=== PATIENT | male | born 1940 | race Caucasian/White ===

== ENCOUNTER 2017-06-01 12:00 | Emergency (ER) | payer MEDICARE ==
[2017-06-01 16:16] VITALS: BP 164/86
--- NOTE | 2017-06-08 12:06 | ED ---
Masood Steve Benjamin, scribed for Reinier Hendricks MD on 06/01/17 at 1554 . HPI Chest Pain - HPI Summary HPI Summary: 76yo male comes from dialysis with chest cramping and low BP. Pt reports feeling lightheaded this morning, and when he was at Dr. Martinez office, he felt chest cramping during dialysis that lasted about an hour. Pt did not experience any CP. Pt is asymptomatic right now. Pt is chronically SOB, but nothing acute. - History of Current Complaint Chief Complaint: EDDizziness Time Seen by Provider: 06/01/17 15:30 Hx Obtained From: Patient Onset/Duration: Started Hours Ago, Resolved Timing: Constant, Lasting Hours - 1 hour Initial Severity: Moderate Current Severity: None Pain Intensity: 0 Pain Scale Used: 0-10 Numeric Chest Pain Location: Mid Sternal Chest Pain Radiates: No Character: Other: - cramping Aggravating Factor(s): Nothing Alleviating Factor(s): Nothing Associated Signs and Symptoms: Positive: Shortness of Breath - chronic, Lightheadedness. Negative: Chest Pain - Additional Pertinent History Primary Care Physician: [id number] - Allergy/Home Medications Allergies/Adverse Reactions: Allergies Allergy/AdvReac Type Severity Reaction Status Date / Time Adhesive Tape Allergy Intermediate Rash And Verified 06/01/17 12:02 Itching PMH/Surg Hx/FS Hx/Imm Hx Endocrine/Hematology History: Reports: Hx Diabetes - TYPE II- ON INSULIN FOR Cardiovascular History: Reports: Hx Angioplasty - R leg angioplasty x2, last , Hx Coronary Artery Disease - 2 STENTS-CMC, Hx Embolism, Hx Hypertension - ON MEDICATION FOR, Hx Peripheral Vascular Disease, Other Cardiovascular Problems/Disorders - HEART CATH Denies: Hx Pacemaker/ICD Respiratory History: Reports: Hx Chronic Obstructive Pulmonary Disease (COPD), 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, Hx Sleep Apnea, Other Respiratory Problems/Disorders - home O2- 3L AT ALL TIMES/PULMONARY FIBROSIS- POST IMFLAMMATORY GI History: Reports: Hx Gastroesophageal Reflux Disease - ON MEDICATION FOR History: Reports: Hx Chronic Renal Failure Musculoskeletal History: Reports: Hx Arthritis, Other Musculoskeletal History - R knee arthroplasty Sensory History: Reports: Hx Cataracts, Hx Contacts or Glasses Denies: Hx Hearing Aid Opthamlomology History: Reports: Hx Cataracts, Hx Contacts or Glasses Neurological History: Reports: Hx Transient Ischemic Attacks (TIA) Psychiatric History: Denies: Hx Panic Disorder - Surgical History Surgery Procedure, Year, and Place: 2008 ARTHROSCOPIC [place] K[place]. [place] [facility] [place] [facility] [place]. [facility] to veins in legs Hx Anesthesia Reactions: No Infectious Disease History: No Infectious Disease History: Denies: Traveled Outside the [place] in Last 30 Days - Family History Known Family History: Positive: Cardiac Disease, Hypertension - Social History Alcohol Use: None Substance Use Type: Reports: None Hx Tobacco Use: Yes Smoking Status (MU): Former Smoker Type: Cigarettes Amount Used/How Often: 2 pks/day X 30 YEARS Have You Smoked in the Last Year: No Review of Systems Constitutional: Negative Eyes: Negative ENT: Negative Positive: Other - chest cramping Positive: Shortness Of Breath - chronic Gastrointestinal: Negative Genitourinary: Negative Musculoskeletal: Negative Skin: Negative Neurological: Other - lightheadedness Psychological: Normal All Other Systems Reviewed And Are Negative: Yes Physical Exam Triage Information Reviewed: Yes Vital Signs On Initial Exam: Initial Vitals Temp Pulse Resp BP Pulse Ox 97.3 F 68 20 136/61 90 06/01/17 12:02 06/01/17 12:02 06/01/17 12:02 06/01/17 12:02 06/01/17 12:02 Vital Signs Reviewed: Yes Appearance: Positive: Well-Appearing, No Pain Distress, Obese Skin: Positive: Warm, Skin Color Reflects Adequate Perfusion, Dry, Other - Preexisting Left anterior antecubital infection with 2x1cm erythema, not tender no drainage and no streaking Head/Face: Positive: Normal Head/Face Inspection Eyes: Positive: EOMI, PACO ENT: Positive: Normal ENT inspection Neck: Positive: Supple, Nontender Respiratory/Lung Sounds: Positive: Clear to Auscultation, Breath Sounds Present Cardiovascular: Positive: RRR, Leg Edema Left - pedal edema, Leg Edema Right - pedal edema Abdomen Description: Positive: Nontender, Soft Bowel Sounds: Positive: Present Musculoskeletal: Positive: Strength/ROM Intact, Edema Left - pedal edema, Edema Right - pedal edema Neurological: Positive: Sensory/Motor Intact, Alert, Oriented to Person Place, Time Psychiatric: Positive: Affect/Mood Appropriate - Tim Coma Scale Coma Scale Total: 15 Diagnostics - Vital Signs Vital Signs Temp Pulse Resp BP Pulse Ox 06/01/17 15:35 75 87 06/01/17 15:33 87/63 06/01/17 14:33 98.0 F 65 16 138/58 95 06/01/17 12:02 97.3 F 68 20 136/61 90 - Laboratory Lab Statement: Any lab studies that have been ordered have been reviewed, and results considered in the medical decision making process. Chest Pain Course/Dx - Course Course Of Treatment: BP noted and advised to follow up with PCP. Allergies noted. Medications reviewed. Consulted Dr. Rodriguez (Sorting Grapple Operator) at 1556 hour. Initial BP taken over the right arm was 87/63 right arm. Repeat BP over the right calf was 164/86. Pt has a pre-existing Left anterior antecubital infection with 2x1cm erythema, not tender no drainage and no streaking. Pt states the infection is much improved than 2 weeks ago. - Diagnoses Provider Diagnoses: Lightheadedness Discharge - Discharge Plan Condition: Stable Disposition: HOME Patient Education Materials: [facility] Referrals: Franky Merino MD [Primary Care Provider] - Feng Rodriguez MD [Medical Doctor] - Additional Instructions: FOLLOW UP WITH YOUR DOCTOR. RETURN TO THE EMERGENCY DEPARTMENT FOR ANY WORSENING OF YOUR CONDITION; FEVER, YOU FEEL ILL, YOU FEEL LIKE PASSING OUT OR QUESTIONS OR CONCERNS. The documentation as recorded by the Masood perez Benjamin accurately reflects the service I personally performed and the decisions made by me, Reinier Hendricks MD.
== END 2017-06-01 16:16 | disposition home or self-care (01) ==
LOC: ED 12:00
DX: R42 Dizziness and giddiness (principal); R06.02 Shortness of breath
CPT/HCPCS: 87040; 99282

== ENCOUNTER 2017-08-23 13:12 | Observation (INO) | payer MEDICARE ==
[2017-08-23] MEDS ORDERED: Albuterol/Ipratropium NEB.SOL* Albuterol 2.5 MG/Ipratropium 0.5 MG 3 ML INH ONE (13:58)
[2017-08-23] MEDS ORDERED: Furosemide IV* 10 MG/ML 10 ML VIAL (100 MG) IV ONE (13:58)
[2017-08-23] MEDS ORDERED: methylPREDNISolone 125 MG* 2 ML VIAL IV ONE (13:58)
--- NOTE | 2017-08-23 14:23 | RAD ---
INDICATION: Short of breath COMPARISON: March 22, 2017 TECHNIQUE: An AP portable view obtained at 1409 hours is submitted. FINDINGS: Bones/Soft Tissues: There are no acute bony findings. There is double lumen right-sided subclavian catheter Cardiomediastinal: The heart is normal in size. Silhouette is difficult to evaluate given the parenchymal disease in right chest. Lungs: Extensive interstitial fibrotic changes in the right hemothorax with mild progression and mild increased volume loss. There is increased alveolar change. There may be a superimposed pneumonitis. The left lung is grossly clear. Pleura: Chronic pleural findings with suspected right-sided effusion with mild worsening. Small left-sided effusion Other: None IMPRESSION: PROGRESSIVE INTERSTITIAL FIBROTIC CHANGES IN THE RIGHT CHEST WITH VOLUME LOSS. POSSIBLE SUPERIMPOSED PNEUMONITIS. BILATERAL PLEURAL EFFUSIONS. SUGGEST FOLLOW-UP
[2017-08-23] MEDS ORDERED: cefTRIAXone(*) 1 GM in NS 0.9% 50 ML* 50 ML IVPB ONE (14:35)
[2017-08-23] MEDS ORDERED: Azithromycin IV(*) 500 MG in NS 0.9% 250 ML* 250 ML IVPB ONE (14:35)
[2017-08-23 14:44] LABS: ABS Basophils 0.1 10^3/ul (0-0.2); ABS Eosinophils 0.3 10^3/ul (0-0.6); ABS Lymphocytes 1.7 10^3/ul (1.0-4.8); ABS Monocytes 0.7 10^3/ul (0-0.8); ABS Neutrophils 6.6 10^3/ul (1.5-7.7); ABS Nucleated RBC 0 10^3/ul; Eosinophil % 3.5 % (0-6); Hematocrit 39 % (42-52); Lymphocyte % 17.8 % (25-47); Mean Corpuscular HGB Conc 33 g/dl (31-36); Mean Corpuscular Hemoglobin 32 pg (27-31); Mean Corpuscular Volume 97 fL (80-94); Mean Platelet Volume 10 um3 (7.4-10.4); Nucleated Red Blood Cells % 0.1; Platelet Count 175 10^3/ul (150-450); Red Blood Count 4.05 10^6/ul (4.0-5.4); Red Cell Distribution Width 15 % (10.5-15); White Blood Count 9.4 10^3/ul (3.5-10.8)
[2017-08-23 15:03] LABS: EGFR Non-African American 20.8 (>60)
[2017-08-23 15:04] LABS: INR 1.19 (0.77-1.02)
[2017-08-23] MEDS ORDERED: Dextrose 50% Syringe 50 ML* 25 GM/50 ML SYRINGE IV PUSH PRN (16:24)
[2017-08-23] MEDS ORDERED: Albuterol 2.5 MG/3 ML NEB.SOL* (0.083%) INH PRN (16:24)
[2017-08-23] MEDS ORDERED: Acetaminophen TAB* 325 MG PO PRN (16:24)
[2017-08-23] MEDS ORDERED: Albuterol/Ipratropium NEB.SOL* Albuterol 2.5 MG/Ipratropium 0.5 MG 3 ML INH SCH (17:00)
--- NOTE | 2017-08-23 18:05 | ED ---
Tiffanie Steve Julia, scribed for Shad Almaraz on 08/23/17 at 1353 . Shortness of Breath - HPI Summary HPI Summary: This patient is a 76 year old M BIBA to [facility] accompanied by his with a chief complaint of worsened SOB since this morning. Patient reports lower extremity edema, and cough at baseline. Patient denies abdominal pain. Patient completed dialysis this morning, and had onset of symptoms at home. Patient is on 6L of at home O2. Patient still urinates. Dr. Rodriguez is his urologist. - History of Current Complaint Chief Complaint: EDShortnessOfBreath Time Seen by Provider: 08/23/17 13:37 Hx Obtained From: Patient Onset/Duration: Lasting Hours Timing: Constant Dyspnea At: Rest Associated Signs & Symptoms: Cough (Nonproductive), Edema - Allergy/Home Medications Allergies/Adverse Reactions: Allergies Allergy/AdvReac Type Severity Reaction Status Date / Time Adhesive Tape Allergy Intermediate Rash And Verified 06/01/17 12:02 Itching Home Medications: Home Medications Aliskiren TAB* [Tekturna TAB*] 300 mg PO DAILY 08/23/17 [History Confirmed 08/23] Fenofibrate(NF) [Tricor(NF)] 145 mg PO DAILY 08/23/17 [History Confirmed ] Gabapentin CAP(*) [Neurontin 100 mg CAP(*)] 100 mg PO BID 08/23/17 [History Confirmed 08/23/17] Insulin GLARGINE(*) [Lantus(*)] 40 units SUBCUT BID 08/23/17 [History Confirmed 08/23/17] Insulin Lispro [Humalog Kwikpen] 5 - 15 unit SUBCUT TID 08/23/17 [History Confirmed 08/23/17] Metoprolol Succinate XL TAB* [Toprol XL TAB*] 100 mg PO BID 08/23/17 [History Confirmed 08/23/17] Torsemide TAB* [Demadex*] 40 mg PO DAILY 08/23/17 [History Confirmed 08/23/17] Vitamin E Mixed [Vitamin E] 1,000 unit PO DAILY 08/23/17 [History Confirmed ] amLODIPine TAB* [Norvasc 5 mg TAB*] 10 mg PO DAILY 08/23/17 [History Confirmed 08/23/17] PMH/Surg Hx/FS Hx/Imm Hx Endocrine/Hematology History: Reports: Hx Diabetes - TYPE II- ON INSULIN FOR Cardiovascular History: Reports: Hx Angioplasty - R leg angioplasty x2, last , Hx Coronary Artery Disease - 2 STENTS-CMC, Hx Embolism, Hx Hypertension - ON MEDICATION FOR, Hx Peripheral Vascular Disease, Other Cardiovascular Problems/Disorders - HEART CATH Denies: Hx Pacemaker/ICD Respiratory History: Reports: Hx Chronic Obstructive Pulmonary Disease (COPD), 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, Hx Sleep Apnea, Other Respiratory Problems/Disorders - home O2- 3L AT ALL TIMES/PULMONARY FIBROSIS- POST IMFLAMMATORY GI History: Reports: Hx Gastroesophageal Reflux Disease - ON MEDICATION FOR History: Reports: Hx Chronic Renal Failure Musculoskeletal History: Reports: Hx Arthritis, Other Musculoskeletal History - R knee arthroplasty Sensory History: Reports: Hx Cataracts, Hx Contacts or Glasses Denies: Hx Hearing Aid Opthamlomology History: Reports: Hx Cataracts, Hx Contacts or Glasses Neurological History: Reports: Hx Transient Ischemic Attacks (TIA) Psychiatric History: Denies: Hx Panic Disorder - Surgical History Surgery Procedure, Year, and Place: 2008 ARTHROSCOPIC RT KNEE VI. 2010 CARDIAC [facility]. [facility]/03[facility]2012 LIVER BIOPSY. [facility] to veins in legs Hx Anesthesia Reactions: No Infectious Disease History: No Infectious Disease History: Denies: Traveled Outside the US in Last 30 Days - Family History Known Family History: Positive: Cardiac Disease, Hypertension - Social History Alcohol Use: None Substance Use Type: Reports: None Hx Tobacco Use: Yes Smoking Status (MU): Former Smoker Type: Cigarettes Amount Used/How Often: 2 pks/day X 30 YEARS Have You Smoked in the Last Year: No Review of Systems Positive: Shortness Of Breath, Cough Positive: Edema All Other Systems Reviewed And Are Negative: Yes Physical Exam - Summary Physical Exam Summary: Appearance: Well appearing, no pain distress, Tessio catheter in R chest Skin: warm, dry, reflects adequate perfusion Head/face: normal Eyes: EOMI, PACO ENT: normal Neck: supple, non-tender Respiratory: rhonchi rt Cardiovascular: RRR, pulses symmetrical Abdomen: non-tender, soft Bowel: present Musculoskeletal: normal, strength/ROM intact Neuro: A&Ox3 Triage Information Reviewed: Yes Vital Signs On Initial Exam: Initial Vitals Temp Pulse Resp BP Pulse Ox 97.5 F 81 23 153/68 92 08/23/17 13:27 08/23/17 13:27 08/23/17 13:27 08/23/17 13:27 08/23/17 13:27 Vital Signs Reviewed: Yes Diagnostics - Vital Signs Vital Signs Temp Pulse Resp BP Pulse Ox 08/23/17 13:27 97.5 F 81 23 153/68 92 - Laboratory Lab Results: Lab Results 08/23/17 08/23/17 08/23/17 Range/Units 14:30 14:30 14:30 WBC 9.4 (3.5-10.8) 10^3/ul RBC 4.05 (4.0-5.4) 10^6/ul Hgb 13.0 L (14.0-18.0) g/dl Hct 39 L (42-52) % MCV 97 H (80-94) fL MCH 32 H (27-31) pg MCHC 33 (31-36) g/dl RDW 15 (10.5-15) % Plt Count 175 (150-450) 10^3/ul MPV 10 (7.4-10.4) um3 Neut % (Auto) 70.0 (38-83) % Lymph % (Auto) 17.8 L (25-47) % Clark % (Auto) 7.8 (1-9) % Eos % (Auto) 3.5 (0-6) % Baso % (Auto) 0.9 (0-2) % Absolute Neuts (auto) 6.6 (1.5-7.7) 10^3/ul Absolute Lymphs (auto) 1.7 (1.0-4.8) 10^3/ul Absolute Monos (auto) 0.7 (0-0.8) 10^3/ul Absolute Eos (auto) 0.3 (0-0.6) 10^3/ul Absolute Basos (auto) 0.1 (0-0.2) 10^3/ul Absolute Nucleated RBC 0 10^3/ul Nucleated RBC % 0.1 INR (Anticoag Therapy) 1.19 H (0.77-1.02) APTT 29.0 (26.0-36.3) seconds Sodium (133-145) mmol/L Potassium (3.5-5.0) mmol/L Chloride (101-111) mmol/L Carbon Dioxide (22-32) mmol/L Anion Gap (2-11) mmol/L BUN (6-24) mg/dL Creatinine (0.67-1.17) mg/dL Est GFR ( Amer) (>60) Est GFR (Non-Af Amer) (>60) BUN/Creatinine Ratio (8-20) Glucose (70-100) mg/dL Lactic Acid (0.5-2.0) mmol/L Calcium (8.6-10.3) mg/dL Total Bilirubin (0.2-1.0) mg/dL AST (13-39) U/L ALT (7-52) U/L Alkaline Phosphatase (34-104) U/L Troponin I (<0.04) ng/mL B-Natriuretic Peptide 609 H ( - 100) pg/mL Total Protein (6.4-8.9) g/dL Albumin (3.2-5.2) g/dL Globulin (2-4) g/dL Albumin/Globulin Ratio (1-3) 08/23/17 08/23/17 Range/Units 14:30 14:30 WBC (3.5-10.8) 10^3/ul RBC (4.0-5.4) 10^6/ul Hgb (14.0-18.0) g/dl Hct (42-52) % MCV (80-94) fL MCH (27-31) pg MCHC (31-36) g/dl RDW (10.5-15) % Plt Count (150-450) 10^3/ul MPV (7.4-10.4) um3 Neut % (Auto) (38-83) % Lymph % (Auto) (25-47) % Clark % (Auto) (1-9) % Eos % (Auto) (0-6) % Baso % (Auto) (0-2) % Absolute Neuts (auto) (1.5-7.7) 10^3/ul Absolute Lymphs (auto) (1.0-4.8) 10^3/ul Absolute Monos (auto) (0-0.8) 10^3/ul Absolute Eos (auto) (0-0.6) 10^3/ul Absolute Basos (auto) (0-0.2) 10^3/ul Absolute Nucleated RBC 10^3/ul Nucleated RBC % INR (Anticoag Therapy) (0.77-1.02) APTT (26.0-36.3) seconds Sodium 134 (133-145) mmol/L Potassium 4.3 (3.5-5.0) mmol/L Chloride 93 L (101-111) mmol/L Carbon Dioxide 35 H (22-32) mmol/L Anion Gap 6 (2-11) mmol/L BUN 23 (6-24) mg/dL Creatinine 2.95 H (0.67-1.17) mg/dL Est GFR ( Amer) 26.8 (>60) Est GFR (Non-Af Amer) 20.8 (>60) BUN/Creatinine Ratio 7.8 L (8-20) Glucose 61 L (70-100) mg/dL Lactic Acid 2.3 H* (0.5-2.0) mmol/L Calcium 9.0 (8.6-10.3) mg/dL Total Bilirubin 0.60 (0.2-1.0) mg/dL AST 57 H (13-39) U/L ALT 18 (7-52) U/L Alkaline Phosphatase 54 (34-104) U/L Troponin I 0.06 H* (<0.04) ng/mL B-Natriuretic Peptide ( - 100) pg/mL Total Protein 7.4 (6.4-8.9) g/dL Albumin 3.8 (3.2-5.2) g/dL Globulin 3.6 (2-4) g/dL Albumin/Globulin Ratio 1.1 (1-3) Result Diagrams: 08/23/17 14:30 08/23/17 14:30 Lab Statement: Any lab studies that have been ordered have been reviewed, and results considered in the medical decision making process. - Radiology CXR Radiology Interpretation Completed By: Radiologist - PROGRESSIVE INTERSTITIAL FIBROTIC CHANGES IN THE RIGHT CHEST WITH VOLUME LOSS. POSSIBLE SUPERIMPOSED PNEUMONITIS. BILATERAL PLEURAL EFFUSIONS. SUGGEST FOLLOW-UP. ED Physician have reviewed this report. - EKG 1420 Cardiac Rate: NL - 77 BPM EKG Rhythm: Sinus Rhythm EKG Interpretation: no actue changes Course/Dx - Course Course Of Treatment: Patient presents with SOB beginning this morning a few hours after completeing dilaysis. Bloodwork is collected revealing a Troponin of 0.06. CXR reveals bilateral pleural effusion. Patient is given Lasix, Solu- Medrol, Prednisone, Imudur, Humalog, Dextrose, Protonix, and [address] Lopez agrees to admit this patient. - Diagnoses Differential Diagnosis/HQI/PQRI: Positive: CHF, COPD Exacerbation, Pneumonia, Pulmonary Edema Provider Diagnoses: PNA (pneumonia), Pulmonary interstitial fibrosis, End stage renal disease - Physician Notifications Discussed Care of Patient With: Eric Lopez Time Discussed With Above Provider: 16:00 Instructed by Provider To: Admit As Inpatient Discharge - Discharge Plan Condition: Good Disposition: ADMITTED TO [facility] The documentation as recorded by the Tiffanie perez Julia accurately reflects the service I personally performed and the decisions made by Sung murray Emmanuel.
[2017-08-23] MEDS ORDERED: Albuterol HFA INHALER* 8 gm MDI INH PRN (18:48)
[2017-08-23] MEDS: Insulin LISPRO* 1 UNITS UNIT SUBCUT SCH (18:58)
[2017-08-23] MEDS ORDERED: NS 0.9% 250 ML* 250 ML IV ONE (19:04)
[2017-08-23] MEDS: Metoprolol Succinate XL TAB* 100 MG PO SCH (20:51)
[2017-08-23] MEDS: Gabapentin CAP(*) 100 MG PO SCH (20:51)
[2017-08-23] MEDS: Insulin GLARGINE(*) 1 UNITS UNIT SUBCUT SCH (20:52)
[2017-08-23] MEDS: Apixaban* 2.5 MG TAB PO SCH (20:55)
[2017-08-23] MEDS ORDERED: Atorvastatin* 80 MG TAB PO SCH (21:00)
[2017-08-23] MEDS ORDERED: Tamsulosin CAP* 0.4 MG PO SCH (21:00)
[2017-08-23] MEDS: Mometasone/Formoter 200/5 MDI INH SCH (21:00)
--- NOTE | 2017-08-23 21:01 | HP ---
CC: Dr. Merino; Dr. Greer; Dr. Rodriguez * HISTORY AND PHYSICAL: DATE OF ADMISSION: 08/23/17 PRIMARY CARE PROVIDER: Dr. Merino. ATTENDING PHYSICIAN WHILE IN THE HOSPITAL: Joseph Lopez MD * (report dictated by Keo Lindsey NP). CONSULTING LEAD NEURODIAGNOSTIC TECHNOLOGIST: Dr. Rodriguez. CONSULTING INSPECTOR RAW QUARTZ: Dr. Greer. CHIEF COMPLAINT: Shortness of breath. HISTORY OF PRESENT ILLNESS: Mr. Manriquez is a 76-year-old male patient. He carries a history of end-stage renal disease, hypertension, diabetes, hyperlipidemia, TIA, COPD, carotid artery occlusion, status post carotid artery endarterectomy, history of CAD, MO, COPD, on chronic 4 L nasal cannula, question of pulmonary fibrosis, and PAULINA. He comes into the ED today stating that today after dialysis, he felt more short of breath from his baseline and he was concerned and came in to the hospital. In interviewing him, he does state that he has been congested. He says he has been congested for the last month to two months, but it has been worse over the last several days. He has also been coughing and I asked him how long he has been coughing for and he says this has been going on for years, but the does state that his cough is worse and more frequent, it has been nonproductive. He has not had any fevers, but he does admit to subjectively having chills, not being able to get warm and just not feeling well. There were episodes of diarrhea yesterday, none today. No abdominal pain. No vomiting. He denied any dysuria. He states it is typical for him. He can walk from his bathroom to his living room and that makes him short of breath and he typically needs to sit down, catch his breath in the toilet and then go back and by the time he gets back to his couch, he is short of breath again. He has limited exercise capacity due to his breathing. He states that that he has not had any chest pain. No fevers are documented. He was concerned because his breathing was worse. He says his weights have not really fluctuated or changed much according to the patient. He says he has not had any worsening swelling. No abdominal pain or chest pain. He came into the ED today. There was concern because when he came in, he was again noted to be short of breath. He is requiring a little bit increase of his oxygen from 4 L to 5 L. His BNP was mildly elevated and his lactic was mildly elevated at 2.3 and also his troponin was elevated as well. Because of these findings, we were asked to evaluate for admission. PAST MEDICAL HISTORY: Significant for: 1. End-stage renal disease, on hemodialysis. 2. Hypertension. 3. Diabetes. 4. Hyperlipidemia. 5. History of TIA. 6. Carotid occlusion, status post carotid endarterectomy. 7. History of CAD. 8. MO. 9. COPD. 10. PAULINA, noncompliant with his CPAP. PAST SURGICAL HISTORY: 1. He has had heart catheterization. 2. Carotid endarterectomy. 3. AV fistula placement. HOME MEDICATIONS: According to the list provided includes: 1. Lispro sliding scale subcu t.i.d. 2. Vitamin E 1000 units p.o. daily. 3. Demadex 40 mg daily. 4. Flomax 0.4 mg at bedtime. 5. Tekturna 300 mg daily. 6. Protonix 40 mg daily. 7. Nitro 0.4 mg sublingual every 5 minutes as needed. 8. Toprol-XL 100 mg p.o. b.i.d. 9. Imdur 60 mg daily. 10. Lantus 40 units subcu b.i.d. 11. Gabapentin 100 mg p.o. b.i.d. 12. TriCor 145 mg daily. 13. Apixaban 2.5 mg p.o. b.i.d. 14. Amlodipine 10 mg daily. 15. Lipitor 80 mg at bedtime. 16. Aspirin 81 mg daily. ALLERGIES TO MEDICATIONS: Include none, but he is allergic to TAPE. FAMILY HISTORY: Mother had a history of cerebellar aneurysm. Father had esophageal cancer. SOCIAL HISTORY: He is a former smoker, quit over 30 years ago. He does not drink alcohol. Surrogate decision maker is his . REVIEW OF SYSTEMS: There is again no documented fever. He really did not admit to any significant weight change. He denied having any double vision. There is no ear discharge. He denies having any rhinorrhea, does admit to congestion, but no sore throat. No thyroid enlargement. Denies having any chest pain. There has been orthopnea, no nocturnal dyspnea. No abdominal pain. No nausea. No vomiting. No dysuria. No frequency. He denied having any seizure. No loss of consciousness. No pruritus and no skin ulcerations. Review of 14 systems completed, all others negative. PHYSICAL EXAMINATION GENERAL: At this time, Mr. Manriquez is a 76-year-old male patient. He is sitting in the ED stretcher. He does not appear to be in any acute distress. He is well nourished, well developed. VITAL SIGNS: Blood pressure 144/64, pulse 75, respirations were 16, his O2 sat is actually 100% on 4 L, temperature is 97.5. HEENT: Head: Atraumatic. Eyes: EOMs intact. Sclerae anicteric and not pale. Throat: Oral mucosa appears to be moist. No oropharyngeal erythema. NECK: Supple. LUNGS: Diminished in the right side. He had crackles on the right lower side. He had equal diaphragmatic expansion. HEART: Sounds S1, S2. Regular rate and rhythm. ABDOMEN: Soft, flat, nontender. Bowel sounds present. EXTREMITIES: Pulses were 2+ throughout. Moving all 4 extremities with 5/5 strength. NEUROLOGIC: The patient is awake, alert and oriented x3. No gross focal deficits. SKIN: Intact. DIAGNOSTIC STUDIES/LAB DATA: WBC 9.4, RBC of 4.05, hemoglobin 13.0, hematocrit 39, platelet count of 175. INR 1.19, PTT of 29. Sodium 134, potassium of 4.3, chloride of 93, bicarb 35, BUN 23, creatinine 2.95, glucose 61 , repeat was 130, lactic 2.3, calcium 9. Total bili 0.6, AST 57, ALT 18, alk phos 54. Troponin was 0.06. In looking back, he runs up 0.03, 0.05 and he has had NSTEMI, in a couple of years ago, and his trops at that point time were as high as 10. BNP of 609. Albumin of 3.8. He had a chest x-ray obtained today, impression: Progressive interstitial fibrotic changes in the right chest with volume loss, possible superimposed pneumonitis, bilateral pleural effusions, suggest followup. EKG shows a normal sinus rhythm, rate of 77. No ST elevations or T-wave inversions were noted. Old medical records were reviewed. ASSESSMENT AND PLAN: Mr. Manriquez is a 76-year-old male patient with complex medical history coming into the ED today with complaints of increasing shortness of breath, cough, not feeling well. We were asked to evaluate for admission. He will be admitted under inpatient status for: 1. Shortness of breath. I am concerned that he may be having chronic obstructive pulmonary disease exacerbation. He did have little bit of again crackles in that right base, diminished on the right side, it looks a little worse. He does not have a fever here and there is no white count, so I am holding on antibiotics. If he gets a fever, I will get him on antibiotics, but we need to get a flu swab, Dulera steroids, DuoNebs in addition to this, albuterol. I do have a call to Dr. Greer to help us and we will continue to follow. 2. End-stage renal disease. Continue dialysis. I touched base with Dr. Rodriguez. 3. Hypertension. Continue meds as prescribed. 4. Diabetes. Continue with lispro sliding scale. 5. Hyperlipidemia. Continue statin therapy. 6. History of transient ischemic attack. Continue with secondary prevention. He is on Eliquis. 7. History of carotid artery occlusion. Continue meds as prescribed and secondary prevention. 8. History of myocardial infarction and coronary artery disease. He is on aspirin, statin, nitrates, beta-darrel continue. 9. Obstructive sleep apnea. He is not compliant with the mask. 10. DVT prophylaxis. Continue Eliquis. 11. Code status. He is a full code. 12. Fluids, electrolytes, and nutrition. He can have a consistent carb diet. TIME SPENT: Time spent on admission 60 minutes, greater than half of the time was spent [id number] with the patient obtaining my history and physical, other half of the time spent going over the plan of care with the patient and implementing plan of care. I did discuss the plan of care with my attending, Dr. Lopez, he is in agreement. KEO LINDSEY, LOPEZ [id number]/[facility] #: [id number] GUILLERMINA
[2017-08-23] MEDS ORDERED: Heparin VIAL(*) 5000 UNITS/ML VIAL (FIVE THOUSAND) SUBCUT SCH (22:00)
[2017-08-23] MEDS ORDERED: guaiFENesin/CODIEN 100MG-10MG* 5 ML UDC PO PRN (22:42)
[2017-08-24] MEDS ORDERED: NS 0.9% 1000 ML* 1,000 ML IV ONE (01:00)
[2017-08-24 04:41] LABS: ABS Basophils 0.1 10^3/ul (0-0.2); ABS Eosinophils 0 10^3/ul (0-0.6); ABS Monocytes 0.4 10^3/ul (0-0.8); ABS Neutrophils 6.2 10^3/ul (1.5-7.7); ABS Nucleated RBC 0 10^3/ul; Eosinophil % 0 % (0-6); Hematocrit 37 % (42-52); Hemoglobin 12.3 g/dl (14.0-18.0); Lymphocyte % 13.6 % (25-47); Mean Corpuscular HGB Conc 33 g/dl (31-36); Mean Corpuscular Hemoglobin 32 pg (27-31); Mean Corpuscular Volume 96 fL (80-94); Mean Platelet Volume 10 um3 (7.4-10.4); Nucleated Red Blood Cells % 0; Platelet Count 159 10^3/ul (150-450); Red Blood Count 3.85 10^6/ul (4.0-5.4); Red Cell Distribution Width 15 % (10.5-15); White Blood Count 7.7 10^3/ul (3.5-10.8)
[2017-08-24 04:55] LABS: EGFR Non-African American 15.3 (>60)
[2017-08-24] MEDS: Mometasone/Formoter 200/5 MDI INH SCH ×2 (08:01→08:04)
[2017-08-24] MEDS: Metoprolol Succinate XL TAB* 100 MG PO SCH (08:29)
[2017-08-24] MEDS: Insulin LISPRO* 1 UNITS UNIT SUBCUT SCH ×2 (08:30→12:44)
[2017-08-24] MEDS: Gabapentin CAP(*) 100 MG PO SCH (08:30)
[2017-08-24] MEDS: Apixaban* 2.5 MG TAB PO SCH (08:30)
[2017-08-24] MEDS: Insulin GLARGINE(*) 1 UNITS UNIT SUBCUT SCH (08:31)
[2017-08-24] MEDS ORDERED: Aliskiren TAB* 300 MG PO SCH (09:00)
[2017-08-24] MEDS ORDERED: predniSONE TAB* 20 MG PO SCH (09:00)
[2017-08-24] MEDS ORDERED: Fenofibrate(NF) 145 MG TAB PO SCH (09:00)
[2017-08-24] MEDS ORDERED: amLODIPine TAB* 5 MG PO SCH (09:00)
[2017-08-24] MEDS ORDERED: Aspirin EC Low Dose* 81 MG TAB.EC PO SCH (09:00)
[2017-08-24] MEDS ORDERED: Isosorbide Mononitrate ER TAB* 60 MG PO SCH (09:00)
[2017-08-24] MEDS ORDERED: Omeprazole CAP* 20 MG PO SCH (09:00)
[2017-08-24 12:08] VITALS: BP 132/60
--- NOTE | 2017-08-25 12:12 | DS ---
CC: Dr. Merino; Dr. Rodriguez DISCHARGE SUMMARY: DATE OF ADMISSION: DATE OF DISCHARGE: 08/24/17 HISTORY OF PRESENT ILLNESS/HOSPITAL COURSE: This 76-year-old man presented with shortness of breath during his dialysis session. He said he had had some kind of congestion for 2 months, but had been w orse over the last few days. He has had a dry cough. He has dyspnea on exertion. He has a long his tory of COPD and is on home oxygen 4 to 5 L at home. As the shortness of breath started while he was in the middle of his dialysis sessions, seems very un likely that this is related to fluid overload. He has had problems for a while. He may have had a v iral infection or simply an exacerbation of his COPD. He was given intravenous and oral steroids during this hospital stay. He did much better overnight, still had some dry cough and is not quite as the baseline, but seems we ll on the road due to recovery. FINAL DIAGNOSES: 1. Chronic obstructive pulmonary disease exacerbation. 2. End-stage renal disease. 3. Obstructive sleep apnea. 4. Diabetes. 5. Hypertension. 6. Coronary artery disease. DISCHARGE MEDICATIONS: 1. Prednisone 10 mg 4 tablets on 10/23 and taper by 1 a day. 2. Atorvastatin 80 mg h.s. 3. Aspirin 81 mg daily. 4. Pantoprazole 40 mg daily. 5. Tamsulosin 0.4 mg h.s. 6. Nitroglycerin tablet 0.4 mg every 5 minutes p.r.n. 7. Apixaban 2.5 mg b.i.d. 8. Isosorbide mononitrate 60 mg daily. 9. Vitamin E 1000 units daily. 10. Torsemide 40 mg daily. 11. Aliskiren 300 mg daily. 12. Metoprolol succinate 100 mg b.i.d. 13. Glargine insulin 40 units twice daily. 14. Gabapentin 100 mg twice daily. 15. Fenofibrate 145 mg daily. 16. Amlodipine 10 mg daily. 17. Lispro by sliding scale. [id number]/[facility] #: [id number]
== END 2017-08-24 16:00 | disposition home or self-care (01) ==
LOC: ED 13:12 → MEDTELE 16:01 → INTOOBSV 16:01 → MEDTELE 17:50
PROVIDERS: ADMIT Internal Medicine; ATTEND Internal Medicine
DX: R06.02 Shortness of breath (principal); I12.0 Hypertensive chronic kidney disease with stage 5 chronic kidney disease or end stage renal disease; E11.22 Type 2 diabetes mellitus with diabetic chronic kidney disease; N18.6 End stage renal disease; Z99.2 Dependence on renal dialysis; E78.5 Hyperlipidemia, unspecified; I65.29 Occlusion and stenosis of unspecified carotid artery; I25.10 Atherosclerotic heart disease of native coronary artery without angina pectoris; I25.2 Old myocardial infarction; G47.33 Obstructive sleep apnea (adult) (pediatric); J44.9 Chronic obstructive pulmonary disease, unspecified; Z79.01 Long term (current) use of anticoagulants; Z79.899 Other long term (current) drug therapy; Z87.891 Personal history of nicotine dependence; Z79.4 Long term (current) use of insulin; R94.31 Abnormal electrocardiogram [ECG] [EKG]
CPT/HCPCS: 36415; 71045; 80048; 80053; 83605; 83880; 84484; 85025; 85610; 85730; 87040; 87205; 87502; 87899; 93005; 94640; 96365; 96367; 96375; 99284; A9270-GY; G0378; J0456; J0696; J1940; J2930; J7512

== ENCOUNTER → 2017-10-11 12:09 | Emergency (ER) | payer MEDICARE ==
[~2017-10-11 12:09] MED LIST: Ciprofloxacin TAB* 250 MG PO ONE
--- OUTSIDE RECORDS SUMMARY | 2017-10-11 13:16 | XMS REPORT ---
:1940 External Reference #:[id number] Author Organization [facility] Address [address] [address] Phone [phone] Care Team Providers Name Role Phone Franky Merino MD Primary Care Physician Unavailable Payers Type Date Identification Numbers Payment Provider Subscriber Medicare Primary Policy Number: [id number] Medicare Hiram Manriquez JR PayID: [id number] [address] [place] [address] [facility] Policy Number: [id number] [facility] Hiram Manriquez JR PayID: [id number] [address] [place] [address] Problems Date Description Provider Status Onset: 04/08/2013 Coronary arteriosclerosis Bimal Garcia M.D., Active CHELY, SAMIA Onset: 05/06/2014 Coronary atherosclerosis Bimal Garcia M.D., Active FACDelia, SAMIA Onset: 06/18/2014 Atrial fibrillation Bimal Garcia M.D., Active CHELY, SAMIA Onset: 07/14/2014 Dyspnea January Greer MD Active Onset: 07/14/2014 Disorder of lung January Greer MD Active Onset: 07/14/2014 Morbid obesity January Greer MD Active Onset: 07/14/2014 Chronic obstructive lung disease January Greer MD Active Onset: 07/14/2014 Dyssomnia January Greer MD Active Onset: 09/17/2014 Obstructive sleep apnea syndrome January Greer MD Active Onset: 09/17/2014 Chronic respiratory failure January Greer MD Active Onset: 05/05/2015 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 Active coronary artery w/o ang pctrs Onset: 09/07/2015 Encounter for planned Raffi Elizabeth M.D., [facility], Active postprocedural wound closure FSCAI Onset: 09/28/2015 Obesity January Greer MD Active Onset: 09/28/2015 Emphysema, unspecified January Greer MD Active Family History Date Family Member(s) Problem(s) Comments Father non contributory Mother non contributory Social History Type Date Description Comments Lives With ETOH Use Denies alcohol use Smoking Patient is a former smoker quit about 25 years ago Recreational Drug Use Never Used Drugs Daily Caffeine decafe coffee 2 a week Daily Caffeine Negative For Does Not Consume Caffeine Exercise Type/Frequency Does not exercise Allergies, Adverse Reactions, Alerts Date Description Reaction Status Severity Comments 04/04/2013 NKDA active 05/20/2015 Bandades itching active adhesive - per patient Medications Medication Date Status Form Strength Qnty SIG Indications Ordering Provider Isosorbide 09/13/ Active Tablets ER 60mg 90tabs 1 by mouth Z48.1 Bimal Mononitrate ER 2015 24HR every day Jameel Garcia M.D., [facility], FASLEAH Torsemide 05/06/ Active Tablets 20mg 2 by mouth Unknown 2014 every day Tamsulosin HCL 05/06/ Active Capsules 0.4mg 1 by mouth Unknown 2014 every day Gabapentin 04/02/ Active Capsules 100mg 1 by mouth Unknown 2014 twice a day Metoprolol / Active Tablets ER 100mg 180tab 1 by mouth Bimal Succinate ER 0000 24HR s twice a day Jameel Garcia M.D., [facility], FASLEAH Tekturna / Active Tablets 300mg 30tabs 1 po qd Unknown 0000 Lantus Insulin / Active Solution 40Units 6units 40-45units Unknown 0000 bid as directed Atorvastatin / Active Tablets 80mg 90tabs 1 po qhs Unknown 0000 Pantoprazole / Active Tablets DR 40mg 30tabs 1 po qd Unknown Sodium 0000 Fenofibrate / Active Tablets 145mg 90tabs 1 po qd Unknown 0000 Amlodipine / Active Tablets 10mg 90tabs 1 po qd PM Unknown Besylate 0000 Humalog / Active Solution 100Unit/ML 6units 5-10-15 Unknown Kwikpen 0000 units each meal t.i.d on sliding scale Nitrostat / Active Tablets 0.4mg 25tabs one sl Unknown 0000 Sub q5min up to 3 doses prn Oxygen / Active Misc 3L 1units 24/7 Unknown 0000 Aspirin 00/ Active Tablets DR 81mg 90tabs 1 tablet Unknown 0000 daily. Eliquis / Active Tablets 2.5mg 1 tablet by Unknown 0000 mouth twice a day. Vitamin E / Active Capsules 1000Units qd Unknown 0000 Clopidogrel / Active 1 tab by Unknown Bisulfate 0000 mouth every day for 30 days after august 31 surgery . Bevespi 09/19/ Hx Aerosol 9-4.8mcg/A 32.1gm 1 puff J43.9 January Aerosphere 2017 - ct twice daily Zoey, 03/21/ (sample) 2016 Brilinta 09/12/ Hx Tablets 60mg 60tabs 1 by mouth Bimal 2016 - twice a day Jameel 03/21/ Jose 2017 Martina, [facility], FASLEAH Gabapentin 04/05/ Hx Capsules 100mg 90caps 1 by mouth Bimal 2015 - once times Jorgensen 04/06/ a day Jose 2016 Martina, [facility], FASLEAH Isosorbide 09/06/ Hx Tablets ER 30mg 30tabs 1 by mouth Z48.1 Raffi Mononitrate ER 2016 - 24HR every day Glenn 09/13/ Martina, 2016 CHELY, [facility] Prednisone 05/07/ Hx Tablets 10mg 42tabs 30mg daily Melida.Rita Sin 2014 - for 1 week, Zoey, 09/12/ 20mg daily 2016 for 1 week, 10 mg daily for 1 week Prednisone 02/04/ Hx Tablets 20mg 7tabs 20mg daily Maxx44.9 January 2015 - Zoey, 05/07/ 2015 Robitussin 02/04/ Hx Liquid 2-15mg/5ML 2units 5 cc by Maxx44.9 January Cough & 2015 - mouth every Zoey, Cold 04/05/ 6 hours as MD Long-Acting 2016 needed Ofev 02/04/ Hx Capsules 100mg 60caps 1 tab by J98.4 January 2015 - mouth twice Zoey, 09/05/ a day 2015 Tudorza 07/14/ Hx Aerosol 400mcg/Act 2units 1 puff puff J44.9 January Lawrence 2014 - twice a day Zoey, 09/05/ 2015 Metoprolol / Hx Tablets ER 25mg 180tab 2 tabs by Bimal Succinate ER 0000 - 24HR s mouth every Jorgensen day PM Alfa Garcia M.D., FACDelia, FASLEAH Clopidogrel / Hx Tablets 75mg 30tabs 1 po qd Unknown 0000 - 2012 Lovaza / Hx Capsules 1gm 360cap 2 po bid Unknown 0000 - s 2013 Warfarin / Hx 4mg 4mg Unknown 0000 - alternated 6 mg 2015 as directed PCP Enoxaparin / Hx Solution 120mg/0.8M 10unit inject Unknown Sodium 0000 - L s under the twice 2014 daily Magnesium / Hx Tablets 400mg 2 tablet po Unknown Oxide 0000 - daily 2015 Brilinta / Hx Tablets 90mg 60tabs 1 tab by Bimal 0000 - mouth twice Jorgensen 09/12/ day Blanca Garcia M.D., CHELY, SAMIA Medications Administered in Office Medication Date Status Form Strength Qnty SIG Indications Ordering Provider Inj, Administered Injection Bea Castillo M.D. 0.1 MG Inj, Administered Injection Mauri Johnson 014 PA 0.1 MG Technetium TC Administered Injection Gamal Zhang 99M 014 Martina Angel Tetrofosmin, Per Unit Dose Up To 40 Millicuries Technetium TC Administered Injection Bea 99M Marium Page M.D. Per Unit Dose Up To 40 Millicuries Immunizations CPT Code Status Date Vaccine Lot # [id number] Given 09/28/2015 Fluvirin Im 3Yrs And Older Vital Signs Date Vital Result Comment 09/20/2017 Height 65 inches 5'5" Weight 261.38 lb Heart Rate 70 /min BP Systolic Sitting 140 mmHg Rght lower arm BP Diastolic Sitting 76 mmHg Rght lower arm Respiratory Rate 20 /min O2 % BldC Oximetry 83 % BMI (Body Mass Index) 43.5 kg/m2 08/28/2017 Heart Rate 70 /min BP Systolic Sitting 110 mmHg R forearm reg cuff BP Diastolic Sitting 60 mmHg R forearm reg cuff Respiratory Rate 17 /min Ejection Fraction 45-50% date 07/31/17 echo 06/21/2017 Height 65 inches 5'5" Weight 257.50 lb no shoes Heart Rate 72 /min BP Systolic Sitting 98 mmHg Rue wrist BP Diastolic Sitting 52 mmHg Rue wrist Respiratory Rate 20 /min BMI (Body Mass Index) 42.8 kg/m2 03/22/2017 Height 65 inches 5'5" Weight 269.00 lb Heart Rate 80 /min BP Systolic Sitting 108 mmHg BP Diastolic Sitting 60 mmHg Respiratory Rate 14 /min O2 % BldC Oximetry 93 % BMI (Body Mass Index) 44.8 kg/m2 10/31/2016 Height 65 inches 5'5" Weight 265.00 lb with shoes Heart Rate 88 /min BP Systolic Sitting 128 mmHg Lue lrg cuff BP Diastolic Sitting 68 mmHg Lue lrg cuff BP Systolic Standing 120 mmHg Lue lrg cuff BP Diastolic Standing 60 mmHg Lue lrg cuff Respiratory Rate 20 /min BMI (Body Mass Index) 44.1 kg/m2 Ejection Fraction 45-50% 08/31/2015-echo 09/19/2016 Height 65 inches 5'5" Weight 267.00 lb per pt Heart Rate 75 /min BP Systolic Sitting 132 mmHg BP Diastolic Sitting 74 mmHg O2 % BldC Oximetry 92 % on 3 lpm via n/c BMI (Body Mass Index) 44.4 kg/m2 04/06/2016 Height 65 inches 5'5" Weight 255.00 lb Heart Rate 68 /min BP Systolic Sitting 126 mmHg Lue large cuff BP Diastolic Sitting 60 mmHg Lue large cuff BP Systolic Standing 126 mmHg " BP Diastolic Standing 56 mmHg " Respiratory Rate 18 /min BMI (Body Mass Index) 42.4 kg/m2 10/21/2015 Height 65 inches 5'5" Weight 263.50 lb with shoes Heart Rate 60 /min BP Systolic Sitting 102 mmHg Ra lrg cuff BP Diastolic Sitting 46 mmHg Ra lrg cuff BP Systolic Standing 92 mmHg Ra lrg cuff BP Diastolic Standing 42 mmHg Ra lrg cuff Respiratory Rate 22 /min BMI (Body Mass Index) 43.8 kg/m2 Ejection Fraction 45-55% 09/28/2015 Height 65 inches 5'5" Weight 263.00 lb Heart Rate 75 /min BP Systolic Sitting 144 mmHg BP Diastolic Sitting 88 mmHg Respiratory Rate 22 /min O2 % BldC Oximetry 94 % on 3lpm oxygen via n/c BMI (Body Mass Index) 43.8 kg/m2 09/14/2015 Height 65 inches 5'5" Weight 263.00 lb with shoes Heart Rate 82 /min BP Systolic Sitting 148 mmHg Ra lrg cuff BP Diastolic Sitting 72 mmHg Ra lrg cuff BP Systolic Standing 138 mmHg BP Diastolic Standing 70 mmHg Respiratory Rate 22 /min BMI (Body Mass Index) 43.8 kg/m2 Ejection Fraction 45-50% 08/31/15 09/07/2015 Height 65 inches 5'5" Weight 257.00 lb Heart Rate 74 /min 80 BP Systolic Sitting 152 mmHg left arm, large cuff BP Diastolic Sitting 74 mmHg left arm, large cuff BP Systolic Standing 140 mmHg left arm, large cuff BP Diastolic Standing 70 mmHg left arm, large cuff Respiratory Rate 20 /min BMI (Body Mass Index) 42.8 kg/m2 Ejection Fraction 45-50% 08/31/15 05/20/2015 Height 65 inches 5'5" Weight 272.00 lb with shoes BP Systolic Sitting 140 mmHg Ra lg cuff BP Diastolic Sitting 76 mmHg Ra lg cuff BP Systolic Standing 134 mmHg Ra lg cuff BP Diastolic Standing 70 mmHg Ra lg cuff BMI (Body Mass Index) 45.3 kg/m2 Ejection Fraction 55-60% date 05/05/15 ECHO 05/07/2015 Heart Rate 72 /min BP Systolic Sitting 144 mmHg BP Diastolic Sitting 86 mmHg Respiratory Rate 20 /min O2 % BldC Oximetry 97 % 3lpm via n/c 02/04/2015 Heart Rate 98 /min BP Systolic 162 mmHg BP Diastolic 70 mmHg Respiratory Rate 24 /min O2 % BldC Oximetry 89 % 2 liters 09/17/2014 Heart Rate 106 /min BP Systolic Sitting 186 mmHg MD aware BP Diastolic Sitting 86 mmHg MD aware Respiratory Rate 24 /min O2 % BldC Oximetry 94 % 07/14/2014 Height 65 inches 5'5" Weight 272.00 lb Heart Rate 118 /min BP Systolic Sitting 176 mmHg BP Diastolic Sitting 102 mmHg Respiratory Rate 24 /min Body Temperature 99.7 F O2 % BldC Oximetry 95 % BMI (Body Mass Index) 45.3 kg/m2 Neck Circumference in inches 19 06/18/2014 Height 65.5 inches 5'5.50" Weight 273.00 lb w/shoes Heart Rate 66 /min BP Systolic Sitting 150 mmHg LA lg cuff BP Diastolic Sitting 72 mmHg LA lg cuff BP Systolic Standing 150 mmHg LA lg cuff BP Diastolic Standing 70 mmHg LA lg cuff Respiratory Rate 20 /min BMI (Body Mass Index) 44.7 kg/m2 05/06/2014 Height 65.5 inches 5'5.50" Weight 265.00 lb with shoes Heart Rate 68 /min BP Systolic Sitting 150 mmHg LA, Lg cuff BP Diastolic Sitting 78 mmHg LA, Lg cuff BP Systolic Standing 146 mmHg LA BP Diastolic Standing 76 mmHg LA Respiratory Rate 18 /min BMI (Body Mass Index) 43.4 kg/m2 04/23/2013 Height 65.5 inches 5'5.50" Weight 257.00 lb down 5 lbs Heart Rate 104 /min BP Systolic Sitting 148 mmHg BP Diastolic Sitting 82 mmHg BP Systolic Standing 150 mmHg BP Diastolic Standing 90 mmHg Respiratory Rate 16 /min BMI (Body Mass Index) 42.1 kg/m2 04/08/2013 Height 65.5 inches 5'5.50" Weight 262.00 lb Heart Rate 80 /min BP Systolic Sitting 158 mmHg Ra large cuff BP Diastolic Sitting 96 mmHg Ra large cuff BP Systolic Standing 156 mmHg Ra BP Diastolic Standing 94 mmHg Ra Respiratory Rate 18 /min BMI (Body Mass Index) 42.9 kg/m2 Results Test Date Test Result H/L Range Note Rapid Influenza A & 08/23/2017 Influenza A Molecular NEGATIVE Negative 1 B Molecular Influenza B Molecular NEGATIVE Negative Laboratory test finding 08/23/2017 Point of Care Glucose 130 mg/dL High 70 -100 2 Laboratory test finding 04/08/2016 Point of Care Glucose 99 mg/dL 74-106 3 Comp Metabolic Panel 09/24/2015 Sodium 139 mmol/L 133-145 Potassium 4.4 mmol/L 3.5-5.0 Chloride 101 mmol/L 101-111 Co2 Carbon Dioxide 29 mmol/L 22-32 Anion Gap 9 mmol/L 2-11 Glucose 139 mg/dL High 70-100 Blood Urea Nitrogen 63 mg/dL High 6-24 Creatinine 4.46 mg/dL High 0.67-1.17 One Over Creatinine 0.20 mg/dL Low 0.67-1.17 BUN/Creatinine Ratio 14.1 8-20 Calcium 9.3 mg/dL 8.6-10.3 Total Protein 7.0 g/dL 6.4-8.9 Albumin 3.8 g/dL 3.2-5.2 Globulin 3.2 g/dL 2-4 Albumin/Globulin Ratio 1.2 1-3 Total Bilirubin 0.40 mg/dL 0.2-1.0 Alkaline Phosphatase 46 U/L 34-104 Alt 11 U/L 7-52 Ast 31 U/L 13-39 Egfr Non- 13.0 >60 Egfr 16.7 >60 4 Laboratory test finding 09/24/2015 Phosphorus 3.6 mg/dL 2.5-5.0 Magnesium 1.7 mg/dL Low 1.9-2.7 CBC No Diff 02/23/2015 White Blood Count 9.2 10^3/uL 4.8-10.8 Red Blood Count 4.02 10^6/uL 4.0-5.4 Hemoglobin 11.8 g/dL Low 14.0-18.0 Hematocrit 37 % Low 42-52 Mean Corpuscular Volume 91 fL 80-94 Mean Corpuscular Hemoglobin 29 pg 27-31 Mean Corpuscular HGB Conc 32 g/dL 31-36 Red Cell Distribution Width 15 % 10.5-15 Platelet Count 202 10^3/uL 150-450 Mean Platelet Volume 10 um3 7.4-10.4 Urine Microalbumin Random 02/23/2015 Urine Creatinine 95.63 mg/dL Ur Microalbumin (mg/L) 2196.0 mg/L Urine Microalbumin/Creatinine 2296.3 ug/mg High <31 Comp Metabolic Panel 02/23/2015 Albumin 3.9 g/dL 3.2-5.2 Sodium 140 mmol/L 133-145 Potassium 5.0 mmol/L 3.5-5.0 Chloride 107 mmol/L 101-111 Co2 Carbon Dioxide 24 mmol/L 22-32 Anion Gap 9 mmol/L 2-11 Glucose 206 mg/dL High 70-100 Creatinine 3.25 mg/dL High 0.67-1.17 Calcium 9.2 mg/dL 8.6-10.3 Total Protein 6.9 g/dL 6.4-8.9 Globulin 3.0 g/dL 2-4 Albumin/Globulin Ratio 1.3 1-3 Alkaline Phosphatase 50 U/L 34-104 Alt 32 U/L 7-52 Ast 54 U/L High 13-39 Egfr Non- 18.7 >60 Egfr 24.1 >60 5 Blood Urea Nitrogen 50 mg/dL High 6-24 BUN/Creatinine Ratio 15.4 8-20 Total Bilirubin 0.30 mg/dL 0.2-1.0 Lipid Profile (Trig/Chol/HDL) 02/23/2015 Cholesterol 177 mg/dL 6 HDL Cholesterol 33.5 mg/dL 7 Triglycerides 296 mg/dL 8 LDL Cholesterol 84 mg/dL 9 Liver Function Panel 02/23/2015 Direct Bilirubin 0.10 mg/dL 0.03-0.18 Indirect Bilirubin 0.2 mg/dL Low 0.3-1.0 Iron & Iron Binding Capacity 02/23/2015 Iron 78 g/dL 50-212 Unsaturated Iron Binding 341 g/dL Total Iron Binding Capacity 419 g/dL 250-450 % Iron Saturation 19 % 15-55 Laboratory test finding 02/23/2015 Ferritin 101.7 ng/mL 24-336 Laboratory test finding 04/04/2014 Inr 1.26 High 0.85-1.06 CBC Auto Diff 12/04/2013 White Blood Count 8.3 10^3/uL 4.8-10.8 10 Red Blood Count 4.31 10^6/uL 4.0-5.4 10 Hemoglobin 13.6 g/dL Low 14.0-18.0 10 Hematocrit 40 % Low 42-52 10 Mean Corpuscular Volume 92 fL 80-94 10 Mean Corpuscular Hemoglobin 32 pg High 27-31 10 Mean Corpuscular HGB Conc 34 g/dL 31-36 10 Red Cell Distribution Width 14 % 10.5-15 10 Platelet Count 145 10^3/uL Low 150-450 10 Mean Platelet Volume 10 um3 7.4-10.4 10 Abs Neutrophils 4.9 10^3/uL 1.5-7.7 10 Abs Lymphocytes 2.5 10^3/uL 1.0-4.8 10 Abs Monocytes 0.5 10^3/uL 0-0.8 10 Abs Eosinophils 0.3 10^3/uL 0-0.6 10 Abs Basophils 0 10^3/uL 0-0.2 10 Abs Nucleated RBC 0.01 10^3/uL 10 Granulocyte % 59.6 % 38-83 10 Lymphocyte % 29.7 % 25-47 10 Monocyte % 6.2 % 1-9 10 Eosinophil % 4.1 % 0-6 10 Basophil % 0.4 % 0-2 10 Nucleated Red Blood Cells % 0.1 10 Comp Metabolic Panel 12/04/2013 Sodium 138 mmol/L 133-145 10 Potassium 4.1 mmol/L 3.7-5.6 10 Chloride 106 mmol/L 101-111 10 Co2 Carbon Dioxide 24 mmol/L 22-32 10 Anion Gap 8 mmol/L 2-11 10 Glucose 150 mg/dL High 70-100 10 Blood Urea Nitrogen 36 mg/dL High 6-24 10 Creatinine 2.10 mg/dL High 0.67-1.17 10 One Over Creatinine 0.40 mg/dL Low 0.67-1.17 10 BUN/Creatinine Ratio 17.1 8-20 10 Calcium 8.9 mg/dL 8.6-10.3 10 Total Protein 7.1 g/dL 6.4-8.9 10 Albumin 3.7 g/dL 3.2-5.2 10 Globulin 3.4 g/dL 2-4 10 Albumin/Globulin Ratio 1.1 1-3 10 Total Bilirubin 0.30 mg/dL 0.2-1.0 10 Alkaline Phosphatase 63 U/L 34-104 10 Alt 46 U/L 7-52 10 Ast 55 U/L High 13-39 10 Egfr Non- 31.1 >60 10 Egfr 40.0 >60 10, 11 Lipid Profile (Trig/Chol/HDL) 12/04/2013 Triglycerides 235 mg/dL 10, 12 Cholesterol 184 mg/dL 10, 13 HDL Cholesterol 32.1 mg/dL 10, 14 LDL Cholesterol 105 mg/dL 10, 15 Liver Function Panel 12/04/2013 Direct Bilirubin 0.10 mg/dL 0.03-0.18 10 Indirect Bilirubin 0.2 mg/dL Low 0.3-1.0 10 Laboratory test finding 12/04/2013 Uric Acid 7.9 mg/dL High 4.4-7.6 10, 16 Hemoglobin A1c 8.4 % High Less than 6.0 10, 17 Total Protein 24HR Urine 12/04/2013 Urine Random Total Protein 389 mg/dL 18 Urine Total Protein/24HR 8363 mg/24Hr High 0-165 18 Urine Collection Time 24 18 Urine Total Volume 2150 mL 18 Creatinine Clearance 12/04/2013 Urine Random Creatinine 105.00 mg/dL 18 Creatinine 2.06 mg/dL High 0.51-0.95 18 Creatinine Clearance 76 mL/min Low 97-137 18 Urine Collection Time 24 18 Urine Total Volume 2150 mL 18 Liver Function Panel 11/12/2010 Bilirubin Direct 0.1 mg/dL 0.1-0.5 Indirect Bilirubin 0.7 mg/dL 0.3-1.0 19 Lipid Profile (Trig/Chol/HDL) 11/12/2010 Triglyceride 170 mg/dL 40-200 Cholesterol 177 mg/dL Less Than 200 20 High Density Lipoprotein 34 mg/dL Low 40-60 21 Cholesterol/HDL Ratio 5.21 AVERAGE High 1-4.97 Low Density Lipoprotein 109 mg/dL High Less Than 100 22 Comp Metabolic Panel 11/12/2010 Sodium 139 mmol/L 135-145 Potassium 4.9 mmol/L 3.5-5.0 Chloride 103 mmol/L 101-111 Co2 (Carbon Dioxide) 27.0 mmol/L 22-32 Anion Gap 9.0 mmol/L 2-11 23 Glucose 121 mg/dL High 70-100 BUN 24 mg/dL 6-24 Creatinine 1.90 mg/dL High 0.50-1.40 One Over Creatinine 0.50 BUN/Creatinine Ratio 12.6 8-20 Calcium 9.2 mg/dL 8.1-9.9 Total Protein 7.1 GM/DL 6.2-8.1 Albumin 3.6 GM/DL 3.2-5.2 Globulin 3.5 GM/DL 2-4 Albumin/Globulin Ratio 1.0 1-3 Bilirubin Total 0.8 mg/dL 0.4-1.5 24 Alkaline Phosphatase 44 U/L 39-117 Alt (SGPT) 47 U/L 17-63 Ast (Sgot) 86 U/L High 12-42 eGFR Non- 35.2 > 60 eGFR 45.3 > 60 25 CBC No Diff 11/12/2010 White Blood Count 7.9 CUMM 4.8-10.8 Red Cell Count 3.21 CUMM Low 4.6-6.2 Hemoglobin 10.0 g/dL Low 14.0-18.0 Hematocrit 30 % Low 42-52 Mean Corpuscular Volume 94 um3 80-94 Mean Corpuscular Hemoglob 31 pg 27-31 Mean Corpuscular HGB Cone 33 g/dL 32-36 Redcell Distribution WDTH 14 % 10.5-15 Platelet Count 184 CUMM 150-450 Mean Platelet Volume 11.7 um3 High 7.4-10.4 1 Automation Qa Analyst: [id number] Automation Qa Analyst: [id number] Automation Qa Analyst: [id number] GRUBERJenise GILLIAMA 4 Because ethnic data is not always readily available, this report includes an eGFR for both -Americans and non- Americans. The National Kidney Disease Education Program (NKDEP) does not endorse the use of the MDRD equation for patients that are not between the ages of 18 and 70, are , have extremes of body size, muscle mass, or nutritional status, or are non- or non-. According to the National Kidney Foundation, irrespective of diagnosis, the stage of the disease is based on the level of kidney function: Stage Description GFR(mL/min/1.73 m(2)) 1 Kidney damage with normal or decreased GFR 90 2 Kidney damage with mild decrease in GFR 60-89 3 Moderate decrease in GFR 30-59 4 Severe decrease in GFR 15-29 5 Kidney failure <15 (or dialysis) 5 Because ethnic data is not always readily available, this report includes an eGFR for both -Americans and non- Americans. The National Kidney Disease Education Program (NKDEP) does not endorse the use of the MDRD equation for patients that are not between the ages of 18 and 70, are , have extremes of body size, muscle mass, or nutritional status, or are non- or non-. According to the National Kidney Foundation, irrespective of diagnosis, the stage of the disease is based on the level of kidney function: Stage Description GFR(mL/min/1.73 m(2)) 1 Kidney damage with normal or decreased GFR 90 2 Kidney damage with mild decrease in GFR 60-89 3 Moderate decrease in GFR 30-59 4 Severe decrease in GFR 15-29 5 Kidney failure <15 (or dialysis) 6 Desirable <200 Borderline high 200-239 High >239 7 Low <40 Desirable: 40-60 High: >60 8 Desirable <150 Borderline high 150-199 High 200-499 Very High >500 9 Desirable: <100 mg/dL Near Optimal: 100-129 mg/dL Borderline High: 130-159 mg/dL High: 160-189 mg/dL Very High: >189 mg/dL 10 FASTING 11 Because ethnic data is not always readily available, this report includes an eGFR for both -Americans and non- Americans. The National Kidney Disease Education Program (NKDEP) does not endorse the use of the MDRD equation for patients that are not between the ages of 18 and 70, are , have extremes of body size, muscle mass, or nutritional status, or are non- or non-. According to the National Kidney Foundation, irrespective of diagnosis, the stage of the disease is based on the level of kidney function: Stage Description GFR(mL/min/1.73 m(2)) 1 Kidney damage with normal or decreased GFR 90 2 Kidney damage with mild decrease in GFR 60-89 3 Moderate decrease in GFR 30-59 4 Severe decrease in GFR 15-29 5 Kidney failure <15 (or dialysis) 12 Desirable <150 Borderline high 150-199 High 200-499 Very High >500 13 Desirable <200 Borderline high 200-239 High >239 14 Low <40 Desirable: 40-60 High: >60 15 Desirable <100 Near Optimal 100-129 Borderline high 130-159 High 160-189 Very High >189 16 FASTING 17 Therapeutic target for the treatment of diabetes Mellitus patients is <7% HBA1C, and in selective patients <6.0%.Please refer to [place] [employer] Diabetic care guidelines for further information. 18 URINE COLLECTED FROM 12/04 635 THROUGH 12/04 649 19 Please note updated reference range, effective 01/21/10 20 CHOLESTEROL INTERPRETATION: Desirable: Less than 200 MG/DL Borderline-High Risk: 200-239 MG/DL High-Risk: 240 MG/DL and over 21 HDL INTERPRETATION: Undesirable: High Risk: Less than 40 MG/DL Desirable: Low Risk: Greater than 60 MG/DL 22 LDL INTERPRETATION: Low Risk Optimal Level: LDL Less than 100 MG/DL Near or Above Optimal: LDL 100-129 MG/DL Borderline High Risk: LDL 130-159 MG/DL High Risk: LDL 160-189 MG/DL Very High Risk: LDL Greater than 189 MG/DL 23 Anion gap measurement may be of limited value in the presence of any alkalosis, especially in a combined acid base disorder. . 24 A metabolite of Naproxen, O-desmethylnaproxen, has been shown to interfere with the [place] method for measuring total bilirubin. Samples from patients who have taken Naproxen have shown spurious elevation in total bilirubin levels. 25 Because ethnic data is not always readily available, this report includes an eGFR for both -Americans and non- Americans. The National Kidney Disease Education Program (NKDEP) does not endorse the use of the MDRD equation for patients that are not between the ages of 18 and 70, are , have extremes of body size, muscle mass, or nutritional status, or are non- or non-. According to the National Kidney Foundation, irrespective of diagnosis, the stage of the disease is based on the level of kidney function: Stage Description GFR(mL/min/1.73 m(2)) 1 Kidney damage with normal or decreased GFR 90 2 Kidney damage with mild decrease in GFR 60-89 3 Moderate decrease in GFR 30-59 4 Severe decrease in GFR 15-29 5 Kidney failure <15 (or dialysis) Procedures Date CPT Code Description Status Comment 07/31/2017 09271 ECHO Transthoracic, Real-Time Completed 2D With Doppler And Color Flow 07/31/2017 80643 ECHO Transthoracic, Real-Time Completed 2D With Doppler And Color Flow 06/21/2017 32613 EKG Tracing & Completed Interpretation 01/27/2017 93774 Moderate Sedation Services; Completed Same Phys Each Additional 15 Mins 01/27/2017 73114 Moderate Sedation Services; Completed Same Phys Intl 15 Mins; PT >=5 Years 01/27/2017 97157 Ultrasound Guidance For Completed Vascular Access 01/27/2017 64353 Dialysis Circuit Perc [facility] W/ Balloon Angio 09/23/2016 61446 Moderate Sedation Services; Completed Same Phys Intl 15 Mins; PT >=5 Years 09/23/2016 40922 Ultrasound Guidance For Completed Vascular Access 09/23/2016 28779 Translum Balloon Angio Central Completed Dial Segment Through Dialys Circui 09/23/2016 14818 Dialysis Circuit W/ Completed Transluminal Balloon Angioplasty, Peripheral 06/09/2016 [id number] Brachiocephalic Trunk/Branches Completed 06/09/2016 04780 Angioplasty Percutaneous Completed Venous 06/09/2016 32245 Introduction Needle For Completed Dialysis Initial Access W/Complete Radiol 06/09/2016 51450 Introduction Needle Dialysis, Completed Additional Access For Therapeutic I 06/09/2016 48485 Thrombectomy, Percutaneous Completed Arteriovenous Fistula Auto/Nonauto GRF 06/09/2016 27056 Ptca Periph. Radiology - S/I Completed 06/09/2016 99994 Angioplasty Transluminal Completed Balloon Venous 06/09/2016 86759 Ultrasound Guidance For Completed Vascular Access 06/09/2016 61169 EKG, Interpretation Only Completed 04/08/2016 74633 Ultrasound Guidance For Completed Vascular Access 04/08/2016 68592 Angioplasty Transluminal Completed Balloon Venous 04/08/2016 94379 Cath Placement-Arterial Completed 04/08/2016 78056 Introduction Needle For Completed Dialysis Initial Access W/Complete Radiol 04/08/2016 36513 Angioplasty Percutaneous Completed Venous 09/14/2015 29909 EKG Tracing & Completed Interpretation 09/02/2015 24716 EKG, Interpretation Only Completed 08/31/2015 05759 Revascularization Acute Completed Total/Subtotal Occlusion 08/31/2015 16569 EKG, Interpretation Only Completed 08/31/2015 36181 Echocardiogram, Limited Study Completed 08/31/2015 53659 Catheter Placement In Coronary Completed Artery 06/04/2015 Diabetic Retinal Eye Exam Completed Document: 06/04/15 - Consult Ophthalmology - Feng 06/01/2015 Diabetic Retinal Eye Exam Completed Document: 06/01/15 - Cons Ophthalmology-Dr. Gleason Document: 06/01/15 - Consult Ophthalmology/Rosibel 05/05/2015 47692 ECHO Transthoracic, Real-Time Completed 2D With Doppler And Color Flow 08/20/2014 95451 Polysomnography Sleep Staging Completed 4+ Parameters 07/24/2014 83545 Diffusing Capacity Completed 07/24/2014 81088 Plethysmography Determination Completed Lung Volumes & Per Airway Resist 07/24/2014 21458 Pulmonary Stress Test Simple Completed 07/24/2014 21304 Pulmonary Completed Function><Bronchodil 06/06/2014 28711 Myocardial Perfusion Imaging Completed Tomographic (Spect) Multiple Studies 06/06/2014 42876 Myocardial Perfusion Imaging Completed Tomographic (Spect) Multiple Studies 06/06/2014 66541 Stress Test Completed 05/06/2014 21372 EKG Tracing & Completed Interpretation 04/01/2014 81905 Color Flow Doppler/Interp Completed & Reprt 04/01/2014 55663 Pulse Completed Wave/Continuous-Interp.RPT 04/01/2014 56856 Echocardiography, Completed Transesophageal, Real Time W/Image 2D W/W/O M-M 03/31/2014 47997 ECHO Transthorasic Realtime 2D Completed W Doppler & Color Flow Hosp 04/12/2013 18219 Artery Study Extremity Mult Completed Levels Bilateral 04/08/2013 75254 EKG Tracing & Completed Interpretation 11/09/2010 17631 EKG, Interpretation Only Completed 11/08/2010 44886 EKG, Interpretation Only Completed 11/07/2010 48661 Left Heart Cath. Incl S/I Completed Coronaries, Angio S/I V Gram If Done 11/07/2010 32684 Ptca W/Intracor Stent Completed 11/07/2010 85817 IV Rx Trancath Completed Therapy(Nitro/Kim) Encounters Type Date Location Provider CPT E/M Dx [facility] 74[address] R06.02 1:15p Lizeth Mack, CHELY, SAMIA I25.10 I48.0 Z79.01 Office Visit 08/24[facility]2017 [facility] Eric Lopez, 86804 B34.9 Hospitalists MKenia N18.6 J44.9 J84.10 Office Visit 08/23/2017 10:18a [facility], Dioni Lindsey, 01507 B34.9 Hospitalists N.P. N18.6 J44.9 J84.10 Office Visit 06/21/2017 8:45a [facility] 21455 R06.02 Lizeth Mack, CHELY, FASLEAH I25.10 I48.0 Office Visit 03/22/2017 9:15a [facility] January Greer MD G9695 J44.9 Services Of Electrical Systems Design Engineer J96.10 J84.10 G47.33 Office Visit 10/31/2016 11:30a [facility] 11810 I25.10 Lizeth Mack, [facility] I48.0 I25.2 N18.9 Office Visit 09/19/2016 9:15a [facility] [place] [address] J43.9 Services Of [facility] J96.10 E66.09 Office Visit 04/06/2016 9:15a [facility] Of Bimal Joregnsen Garcia, 87025 I25.10 Lizeth Mack, [facility] Office Visit 10/21/2015 9:15a [facility] Of Bimal Jorgensen Garcia, 97812 I25.10 Lizeth Mack, [facility] Office Visit 09/28/2015 1:15p [facility] [place] [address] J43.9 Services Of [facility] J96.10 G47.33 E66.09 Office Visit 09/14/2015 9:30a [facility] Of Bimal Jorgensen Garcia, 11086 I25.10 Lizeth Mack, [facility] Office Visit 09/07/2015 1:20p [facility] Of Raffi Elizabeth M.D., 38616 Z48.1 [facility] At [facility] Office Visit 09/04/2015 8:39a [facility] Ida Meyer, 26437 R07.9 Assoc, Hospitalists Martina I25.10 E11.9 N40.0 Office Visit 09/03/2015 3:32p [facility] Garret Christianson 46420 I25.10 Martina Subramanian Office Visit 09/03/2015 8:39a [facility], Sharif Foote, 57616 R07.9 Hospitalists Martina I25.10 E11.9 N40.0 Office Visit 09/02/2015 8:38a [facility], Sharif Foote, 46482 R07.9 Hospitalists Martina I25.10 E11.9 N40.0 Office Visit 09/02/2015 3:07p [facility] Of Bea Holguin M.D. 68376 I25.10 [facility] Office Visit 09/01/2015 8:36a [facility], Sharif Foote, 80967 R07.9 Hospitalists Martina I25.10 E11.9 N40.0 Office Visit 08/31/2015 8:35a [facility], Jaxson Sorenson M.D. 13190 R07.9 Hospitalists I25.10 E11.9 N40.0 Office Visit 08/31/2015 3:11p [facility] Of Gamal Angel, 63735 I21.4 Electrical Systems Design Engineer MKenia Office Visit 05/20/2015 11:45a [facility] Of Bimal Garcia, 61850 I25.10 Lizeth Mack, [facility] Office Visit 05/07/2015 10:45a [facility] [place] [address] J44.9 Services Of Electrical Systems Design Engineer G47.33 J98.4 Office Visit 02/04/2015 10:15a [facility] [place] [address] 496 Services Of Electrical Systems Design Engineer 327.23 518.89 518.83 786.2 Office Visit 09/17/2014 1:00p [facility] [place] [address] 496 Services Of Electrical Systems Design Engineer 327.23 278.01 518.83 518.89 Office Visit 07/14/2014 3:30p [facility] [place] [address] 786.05 Services Of Electrical Systems Design Engineer 518.89 278.01 496 780.59 Office Visit 06/18/2014 11:00a [facility] Bimal Garcia M.D., 78163 414.01 [facility] 427.31 Office Visit 05/06/2014 1:00p [facility] Of [facility] Bimal Garcia, 22018 414.01 Martina, [facility] Office Visit 04/25/2014 3:21p [facility], Raúl Johnson, 73467 434.11 Hospitalists Martina 428.32 250.40 401.9 Office Visit 04/24/2014 11:04a [facility] Raúl Johnson, 68703 434.11 Assoc, Hospitalists Martina 428.32 250.40 401.9 Office Visit 04/24/2014 2:00p [facility] Kendal Garcia, 92280 434.11 Services Of Lizeth Mack 401.9 Office Visit 04/23/2014 3:21p [facility] Raúl Johnson, 80084 434.11 Assoc,pc Hospitalists MKenia 428.32 250.40 401.9 Office Visit 04/22/2014 3:20p [facility] Raúl Johnson, 76530 434.11 Assoc,pc Hospitalists MKenia 428.32 250.40 401.9 Office Visit 04/21/2014 3:20p [facility] [place], [address] 435.9 Assoc,pc Hospitalists MKenia 428.32 250.40 401.9 Office Visit 04/21/2014 3:34p [facility] Jacinto Angelo, 54468 434.11 Services Of Electrical Systems Design Engineer M.Leatha 401.9 Office Visit 04/01/2014 3:04p [facility] Kendal Garcia, 56165 434.91 Services Of Electrical Systems Design Engineer Martina 433.10 401.9 250.00 Office Visit 04/01/2014 10:29a [facility], Jaxson Sorenson M.D. 74242 434.91 Hospitalists 443.9 433.10 585.4 Office Visit 03/31/2014 10:28a [facility] Jaxson Sorenson M.D. 65273 434.91 Hospitalists 443.9 433.10 585.4 Office Visit 03/31/2014 3:01p [facility] Ericka Christian M.D. 70337 434.11 Services Of Electrical Systems Design Engineer 433.10 401.9 250.00 Office Visit 03/30/2014 3:00p [facility] Thiago Cardona, 34291 434.11 Services Of Electrical Systems Design Engineer Martina 401.9 250.00 Office Visit 03/30/2014 10:27a [facility],pc Eric Lopez, 65442 434.91 Hospitalists MKenia 443.9 433.10 585.4 Office Visit 04/23/2013 9:45a [facility] Of Bimal Garcia, 41287 414.01 Lizeth Mack, [facility] Office Visit 04/08/2013 1:00p [facility] Of Bimal Garcia, 70548 414.01 Lizeth Mack, [facility] Office Visit 11/10/2010 12:59p [facility] Renata Mayfield 51944 786.50 D.O. 410.30 414.01 401.1 250.00 Office Visit 11/09/2010 12:59p [facility] Renata Mayfield D.O. 81502 794.31 786.50 410.30 414.01 401.1 250.00 Office Visit 11/08/2010 12:59p [facility] Renata Mayfield D.O. 45306 794.31 786.50 410.30 414.01 401.1 250.00 Office Visit 11/07/2010 12:57p [facility] Renata Mayfield D.O. 63152 786.50 410.30 414.01 401.1 250.00 Plan of Care 09/20/2017 - January Greer, MDR05 CoughNew Xrays:CT Chest W/OJ44.9 Chronic obstructive pulmonary disease, unspecifiedNew Labs:Alpha 1 Antitrypsin A1aJ96.10 Chronic respiratory failure, unsp w hypoxia or bpdlrqiyjqzS46.10 Pulmonary fibrosis, alszidxtbunN85.02 AryszmeyrY65.09 Other obesity due to excess calories
[2017-10-11 13:25] LABS: ABS Basophils 0.1 10^3/ul (0-0.2); ABS Eosinophils 0.2 10^3/ul (0-0.6); ABS Monocytes 0.6 10^3/ul (0-0.8); ABS Nucleated RBC 0 10^3/ul; Eosinophil % 2.4 % (0-6); Hematocrit 36 % (42-52); Hemoglobin 11.9 g/dl (14.0-18.0); INR 1.25 (0.77-1.02); Lymphocyte % 12.4 % (25-47); Mean Corpuscular HGB Conc 33 g/dl (31-36); Mean Corpuscular Hemoglobin 32 pg (27-31); Mean Corpuscular Volume 97 fL (80-94); Mean Platelet Volume 9.4 um3 (7.4-10.4); Nucleated Red Blood Cells % 0.2; Platelet Count 197 10^3/ul (150-450); Red Blood Count 3.76 10^6/ul (4.0-5.4); Red Cell Distribution Width 16 % (10.5-15); White Blood Count 7.8 10^3/ul (3.5-10.8)
[2017-10-11 13:32] LABS: EGFR Non-African American 12.2 (>60)
--- NOTE | 2017-10-11 14:10 | RAD ---
HISTORY: Shortness of breath COMPARISONS: September 07, 2017, CT of the chest dated October 02, 2017 VIEWS: 1: frontal portable view of the chest at 1:30 PM FINDINGS: LINES AND TUBES: A vascular catheter is noted from a right internal jugular vein approach with the tip overlying the right atrium. CARDIOMEDIASTINAL SILHOUETTE: The cardiac silhouette is enlarged. The cardiomediastinal silhouette is otherwise normal for portable technique. PLEURA: The costophrenic angles are sharp. No pleural abnormalities are noted. LUNG PARENCHYMA: The lung volumes are low. There is a coarse pattern of reticular opacification throughout the right lung, stable from previous examinations ABDOMEN: The upper abdomen is clear. There is no subphrenic gas. BONES AND SOFT TISSUES: No bone or soft tissue abnormalities are noted. IMPRESSION: 1. LINES AND TUBES ABOVE. 2. CARDIOMEGALY. 3. STABLE CHRONIC INTERSTITIAL CHANGES OF THE RIGHT LUNG
[2017-10-11 15:15] LABS: Urine Appearance Turbid; Urine Blood 1+ (Negative); Urine Color Amber; Urine Ketones Negative (Negative); Urine Protein 2+(100 mg/dL) (Negative); Urine Specific Gravity 1.011 (1.010-1.030); Urine Urobilinogen Negative (Negative)
[2017-10-11 17:14] VITALS: BP 111/51
--- NOTE | 2017-10-11 21:59 | ED ---
Fam Steve Thomas, scribed for Reinier Hendricks MD on 10/11/17 at 1316 . Complex/Multi-Sys Presentation - HPI Summary HPI Summary: The patient is a 76 year old male complaining of sores to his rectum that have been worsening over the last week. The patient rates this pain 10/10 and touch aggravates the pain. He has been applying Vaseline to the rectum. Past medical history includes COPD and the patients SpO2 was 64% at triage. At baseline, the patient is short of breath and easily fatigued. He denies fever, chills, and chest pain. He has been on dialysis the last two years. - History Of Current Complaint Chief Complaint: EDRashSkinAbscess Time Seen by Provider: 10/11/17 12:28 Hx Obtained From: Patient Onset/Duration: Still Present, Worse Since - the last week Timing: Constant Severity Initially: Moderate Location: Pain At: - rectum Aggravating Factor(s): Touch Alleviating Factor(s): Vaseline Associated Signs And Symptoms: Positive: Other - Rectal pain, SOB, easily fatigued; NEGATIVE: fever, chills, CP - Allergies/Home Medications Allergies/Adverse Reactions: Allergies Allergy/AdvReac Type Severity Reaction Status Date / Time Adhesive Tape Allergy Intermediate Rash And Verified 10/11/17 12:44 Itching PMH/Surg Hx/FS Hx/Imm Hx Endocrine/Hematology History: Reports: Hx Diabetes - TYPE II- ON INSULIN FOR Cardiovascular History: Reports: Hx Angioplasty - R leg angioplasty x2, last , Hx Coronary Artery Disease - 2 STENTS-[facility], Hx Embolism, Hx Hypertension - ON MEDICATION FOR, Hx Peripheral Vascular Disease, Other Cardiovascular Problems/Disorders - HEART CATH Denies: Hx Pacemaker/ICD Respiratory History: Reports: Hx Chronic Obstructive Pulmonary Disease (COPD), 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, Hx Sleep Apnea, Other Respiratory Problems/Disorders - home O2- 3L AT ALL TIMES/PULMONARY FIBROSIS- POST IMFLAMMATORY GI History: Reports: Hx Gastroesophageal Reflux Disease - ON MEDICATION FOR History: Reports: Hx Chronic Renal Failure Musculoskeletal History: Reports: Hx Arthritis, Other Musculoskeletal History - R knee arthroplasty Sensory History: Reports: Hx Cataracts Denies: Hx Contacts or Glasses, Hx Hearing Aid Opthamlomology History: Reports: Hx Cataracts Denies: Hx Contacts or Glasses Neurological History: Reports: Hx Transient Ischemic Attacks (TIA) Psychiatric History: Reports: Other Psychiatric Issues/Disorders - claustrophobic Denies: Hx Panic Disorder - Surgical History Surgery Procedure, Year, and Place: 2008 ARTHROSCOPIC RT [facility]. 2010 CARDIAC STENTS. [facility]09/[facility]/2012 LIVER BIOPSY. [facility] 2013. [facility]. ballooning to veins in legs Hx Anesthesia Reactions: No Infectious Disease History: No Infectious Disease History: Denies: Traveled Outside the [place] in Last 30 Days - Family History Known Family History: Positive: Cardiac Disease, Hypertension - Social History Lives: With Family Alcohol Use: Rare Substance Use Type: Reports: None Hx Tobacco Use: Yes Smoking Status (MU): Former Smoker Type: Cigarettes Amount Used/How Often: 2 pks/day X 30 YEARS Have You Smoked in the Last Year: No Review of Systems Positive: Fatigue - at baseline. Negative: Fever, Chills Negative: Chest Pain Positive: Shortness Of Breath - at baseline Positive: Other - Rectal pain All Other Systems Reviewed And Are Negative: Yes Physical Exam - Summary Physical Exam Summary: General: well-appearing, no pain distress Skin: warm, color reflects adequate perfusion, dry Head: normal Eyes: EOMI, PACO ENT: normal Neck: supple, nontender Respiratory: Breath sounds present. There are crackles at the bases. Cardiovascular: RRR Abdomen: soft, nontender Bowel sounds: present Rectal exam: In the perianal area, there is skin breakdown and some erythema. Musculoskeletal: strength/ROM intact Extremities: There is pedal edema. Neurological: normal, sensory/motor intact, A&O x3 Psychological: affect/mood appropriate Triage Information Reviewed: Yes Vital Signs On Initial Exam: Initial Vitals Temp Pulse Resp BP Pulse Ox 97.6 F 90 18 117/54 70 10/11/17 12:17 10/11/17 12:17 10/11/17 12:17 10/11/17 12:17 10/11/17 12:17 Vital Signs Reviewed: Yes Diagnostics - Vital Signs Vital Signs Temp Pulse Resp BP Pulse Ox 10/11/17 12:17 97.6 F 90 18 117/54 70 - Laboratory Lab Results: Lab Results 10/11/17 10/11/17 10/11/17 Range/Units 13:02 13:02 13:02 WBC (3.5-10.8) 10^3/ul RBC (4.0-5.4) 10^6/ul Hgb (14.0-18.0) g/dl Hct (42-52) % MCV (80-94) fL MCH (27-31) pg MCHC (31-36) g/dl RDW (10.5-15) % Plt Count (150-450) 10^3/ul MPV (7.4-10.4) um3 Neut % (Auto) (38-83) % Lymph % (Auto) (25-47) % Darke % (Auto) (0-7) % Eos % (Auto) (0-6) % Baso % (Auto) (0-2) % Absolute Neuts (auto) (1.5-7.7) 10^3/ul Absolute Lymphs (auto) (1.0-4.8) 10^3/ul Absolute Monos (auto) (0-0.8) 10^3/ul Absolute Eos (auto) (0-0.6) 10^3/ul Absolute Basos (auto) (0-0.2) 10^3/ul Absolute Nucleated RBC 10^3/ul Nucleated RBC % INR (Anticoag Therapy) 1.25 H (0.77-1.02) APTT 30.6 (26.0-36.3) seconds Sodium 141 (139-145) mmol/L Potassium 4.5 (3.5-5.0) mmol/L Chloride 98 L (101-111) mmol/L Carbon Dioxide 36 H (22-32) mmol/L Anion Gap 7 (2-11) mmol/L BUN 44 H (6-24) mg/dL Creatinine 4.70 H (0.67-1.17) mg/dL Est GFR ( Amer) 15.7 (>60) Est GFR (Non-Af Amer) 12.2 (>60) BUN/Creatinine Ratio 9.4 (8-20) Glucose 76 (70-100) mg/dL Lactic Acid (0.5-2.0) mmol/L Calcium 8.8 (8.6-10.3) mg/dL Phosphorus 2.0 L (2.5-5.0) mg/dL Magnesium 1.7 L (1.9-2.7) mg/dL Total Bilirubin 0.50 (0.2-1.0) mg/dL AST 26 (13-39) U/L ALT 11 (7-52) U/L Alkaline Phosphatase 50 (34-104) U/L Troponin I 0.06 H* (<0.04) ng/mL C-Reactive Protein 11.26 H (< 5.00) mg/L B-Natriuretic Peptide 1213 H ( - 100) pg/mL Total Protein 6.9 (6.4-8.9) g/dL Albumin 3.5 (3.2-5.2) g/dL Globulin 3.4 (2-4) g/dL Albumin/Globulin Ratio 1.0 (1-3) Lipase 20 (11.0-82.0) U/L TSH 2.74 (0.34-5.60) mcIU/mL Urine Color Urine Appearance Urine pH (5-9) Ur Specific [place] (1.010-1.030) Urine Protein (Negative) Urine Ketones (Negative) Urine Blood (Negative) Urine Nitrate (Negative) Urine Bilirubin (Negative) Urine Urobilinogen (Negative) Ur Leukocyte Esterase (Negative) Urine WBC (Auto) (Absent) Urine RBC (Auto) (Absent) Urine Bacteria (Absent) Urine Glucose (Negative) 10/11/17 10/11/17 10/11/17 Range/Units 13:02 13:02 15:00 WBC 7.8 (3.5-10.8) 10^3/ul RBC 3.76 L (4.0-5.4) 10^6/ul Hgb 11.9 L (14.0-18.0) g/dl Hct 36 L (42-52) % MCV 97 H (80-94) fL MCH 32 H (27-31) pg MCHC 33 (31-36) g/dl RDW 16 H (10.5-15) % Plt Count 197 (150-450) 10^3/ul MPV 9.4 (7.4-10.4) um3 Neut % (Auto) 76.4 (38-83) % Lymph % (Auto) 12.4 L (25-47) % Darke % (Auto) 8.1 H (0-7) % Eos % (Auto) 2.4 (0-6) % Baso % (Auto) 0.7 (0-2) % Absolute Neuts (auto) 6.0 (1.5-7.7) 10^3/ul Absolute Lymphs (auto) 1.0 (1.0-4.8) 10^3/ul Absolute Monos (auto) 0.6 (0-0.8) 10^3/ul Absolute Eos (auto) 0.2 (0-0.6) 10^3/ul Absolute Basos (auto) 0.1 (0-0.2) 10^3/ul Absolute Nucleated RBC 0 10^3/ul Nucleated RBC % 0.2 INR (Anticoag Therapy) (0.77-1.02) APTT (26.0-36.3) seconds Sodium (139-145) mmol/L Potassium (3.5-5.0) mmol/L Chloride (101-111) mmol/L Carbon Dioxide (22-32) mmol/L Anion Gap (2-11) mmol/L BUN (6-24) mg/dL Creatinine (0.67-1.17) mg/dL Est GFR ( Amer) (>60) Est GFR (Non-Af Amer) (>60) BUN/Creatinine Ratio (8-20) Glucose (70-100) mg/dL Lactic Acid 1.8 (0.5-2.0) mmol/L Calcium (8.6-10.3) mg/dL Phosphorus (2.5-5.0) mg/dL Magnesium (1.9-2.7) mg/dL Total Bilirubin (0.2-1.0) mg/dL AST (13-39) U/L ALT (7-52) U/L Alkaline Phosphatase (34-104) U/L Troponin I (<0.04) ng/mL C-Reactive Protein (< 5.00) mg/L B-Natriuretic Peptide ( - 100) pg/mL Total Protein (6.4-8.9) g/dL Albumin (3.2-5.2) g/dL Globulin (2-4) g/dL Albumin/Globulin Ratio (1-3) Lipase (11.0-82.0) U/L TSH (0.34-5.60) mcIU/mL Urine Color Citlaly Urine Appearance Turbid Urine pH 7.0 (5-9) Ur Specific [place] 1.011 (1.010-1.030) Urine Protein 2+(100 mg/dl) A (Negative) Urine Ketones Negative (Negative) Urine Blood 1+ A (Negative) Urine Nitrate Negative (Negative) Urine Bilirubin Negative (Negative) Urine Urobilinogen Negative (Negative) Ur Leukocyte Esterase 2+ A (Negative) Urine WBC (Auto) 3+(>20/hpf) A (Absent) Urine RBC (Auto) 3+(>10/hpf) A (Absent) Urine Bacteria Absent (Absent) Urine Glucose Negative (Negative) Result Diagrams: 10/11/17 13:02 10/11/17 13:02 Lab Statement: Any lab studies that have been ordered have been reviewed, and results considered in the medical decision making process. - Radiology CXR Xray Interpretation: No Acute Changes - 1. LINES AND TUBES ABOVE. 2. CARDIOMEGALY. 3. STABLE CHRONIC INTERSTITIAL CHANGES OF THE RIGHT LUNG. Dr. Hendricks has reviewed this report. Radiology Interpretation Completed By: Radiologist - EKG 12:55 Cardiac Rate: NL EKG Rhythm: Sinus Rhythm - at [address] Segment: Normal Ectopy: None Complex Multi-Symp Course/Dx Course Of Treatment: Medications reviewed. Allergies noted. SKIN BREAK DOWN AROUND THE ANUS IS MOST PROBABLY FROM THE SKIN NOT DRYING. IT DOES NOT APPEAR CELLULITIC. PT WILL F/U WITH DIAYSIS AND PULMONARY TOMORROW AND PMD NEXT WEEK. DISCUSSED RESULTS WITH THE PATIENT AND HER . THEY WILL TRY KEEPING THE NURSE EMERGENCY AND USING WIPES WITH WITCH MELODY. RETURN TO ED IF WORSE. - Diagnoses Provider Diagnoses: Disorder of perianal skin Discharge - Sign-Out/Discharge Documenting (check all that apply): Discharge - Discharge Plan Condition: Stable Disposition: HOME Prescriptions: Ciprofloxacin TAB* [Cipro 250 MG Tab*] 250 mg PO EVERY OTHER DAY #4 tab Patient Education Materials: Urinary Tract Infection in Men (ED), Acute Rash ( ED) Referrals: Franky Merino MD [Primary Care Provider] - Additional Instructions: FOLLOW UP WITH DIALYSIS AND PULMONOLOGY TOMORROW SCHEDULED. FOLLOW UP WITH DR MERINO NEXT WEEK SCHEDULED. TAKE THE CIPRO 250MG EVERY OTHER DAY. USE THE WITCH MELODY PADS AROUND YOUR ANUS. RETURN TO THE EMERGENCY DEPARTMENT FOR ANY WORSENING OF YOUR CONDITION; PAIN, FEVER, YOU FEEL ILL OR QUESTIONS OR CONCERNS. - Billing Disposition and Condition Condition: STABLE Disposition: HOME The documentation as recorded by the Fam perez Thomas accurately reflects the service I personally performed and the decisions made by me, Reinier Hendricks MD.
--- NOTE | 2017-10-14 11:48 | ED ---
Progress - Progress Note Progress Note: Patient's preliminary urine culture reveals greater than 100,000 gram-positive bacilli. Patient was discharged with ciprofloxacin. Final results pending. Course/Dx - Course Course Of Treatment: Medications reviewed. Allergies noted. SKIN BREAK DOWN AROUND THE ANUS IS MOST PROBABLY FROM THE SKIN NOT DRYING. IT DOES NOT APPEAR CELLULITIC. PT WILL F/U WITH DIAYSIS AND PULMONARY TOMORROW AND PMD NEXT WEEK. DISCUSSED RESULTS WITH THE PATIENT AND HER . THEY WILL TRY KEEPING THE CARD FIXER AND USING WIPES WITH WITCH MELODY. RETURN TO ED IF WORSE. - Diagnoses Provider Diagnoses: Disorder of perianal skin Discharge - Sign-Out/Discharge Documenting (check all that apply): Post-Discharge Follow Up - Discharge Plan Condition: Stable Disposition: HOME Prescriptions: Ciprofloxacin TAB* [Cipro 250 MG Tab*] 250 mg PO EVERY OTHER DAY #4 tab Patient Education Materials: Urinary Tract Infection in Men (ED), Acute Rash ( ED) Referrals: Franky Merino MD [Primary Care Provider] - Additional Instructions: FOLLOW UP WITH DIALYSIS AND PULMONOLOGY TOMORROW SCHEDULED. FOLLOW UP WITH DR MERINO NEXT WEEK SCHEDULED. TAKE THE CIPRO 250MG EVERY OTHER DAY. USE THE WITCH MELODY PADS AROUND YOUR ANUS. RETURN TO THE EMERGENCY DEPARTMENT FOR ANY WORSENING OF YOUR CONDITION; PAIN, FEVER, YOU FEEL ILL OR QUESTIONS OR CONCERNS. - Billing Disposition and Condition Condition: STABLE Disposition: HOME
== END | disposition home or self-care (01) ==
LOC: ED 12:09
DX: K62.89 Other specified diseases of anus and rectum (principal); R06.02 Shortness of breath; R53.83 Other fatigue; E11.8 Type 2 diabetes mellitus with unspecified complications; Z79.4 Long term (current) use of insulin; I25.10 Atherosclerotic heart disease of native coronary artery without angina pectoris; I10 Essential (primary) hypertension; Z95.5 Presence of coronary angioplasty implant and graft; I73.9 Peripheral vascular disease, unspecified; J44.9 Chronic obstructive pulmonary disease, unspecified; Z86.711 Personal history of pulmonary embolism; Z79.01 Long term (current) use of anticoagulants; Z86.73 Personal history of transient ischemic attack (TIA), and cerebral infarction without residual deficits; Z79.82 Long term (current) use of aspirin; Z91.048 Other nonmedicinal substance allergy status; Z87.891 Personal history of nicotine dependence
CPT/HCPCS: 36415; 71045; 80053; 81003; 81015; 83605; 83690; 83735; 83880; 84100; 84443; 84484; 85025; 85610; 85730; 86140; 87077; 87086; 93005; 99283; A9270-GY

== ENCOUNTER 2017-10-17 12:31 | Observation (INO) | payer MEDICARE ==
[2017-10-17 13:07] LABS: ABS Basophils 0.1 10^3/ul (0-0.2); ABS Eosinophils 0.2 10^3/ul (0-0.6); ABS Lymphocytes 1.2 10^3/ul (1.0-4.8); ABS Monocytes 0.5 10^3/ul (0-0.8); ABS Neutrophils 7.2 10^3/ul (1.5-7.7); ABS Nucleated RBC 0 10^3/ul; Eosinophil % 2.3 % (0-6); Hematocrit 35 % (42-52); Hemoglobin 11.3 g/dl (14.0-18.0); Lymphocyte % 12.6 % (25-47); Mean Corpuscular HGB Conc 32 g/dl (31-36); Mean Corpuscular Hemoglobin 31 pg (27-31); Mean Corpuscular Volume 98 fL (80-94); Mean Platelet Volume 9.7 um3 (7.4-10.4); Nucleated Red Blood Cells % 0; Platelet Count 191 10^3/ul (150-450); Red Blood Count 3.62 10^6/ul (4.0-5.4); Red Cell Distribution Width 16 % (10.5-15); White Blood Count 9.2 10^3/ul (3.5-10.8)
[2017-10-17 13:35] LABS: EGFR Non-African American 10.7 (>60)
[2017-10-17] MEDS ORDERED: Nitroglycerin 2% OINT* 1 GM PAK TOPICAL ONE (14:39)
--- NOTE | 2017-10-17 14:54 | RAD ---
INDICATION: Shortness of breath. COMPARISON: Correlation is made with prior studies from March 22, 2017, September 07, 2017 and October 11, 2017. TECHNIQUE: A portable view of the chest was obtained. FINDINGS: There is a central venous catheter entering on the right side. The catheter tips project over the region of the right atrium. The heart is within normal limits in size for this portable exam. There is volume loss in the right lung and a chronic interstitial infiltrate which is unchanged from prior studies. There is also a patchy infiltrate at the left lung base which is unchanged. No pleural effusion is seen. IMPRESSION: 1. CHRONIC RIGHT LUNG INTERSTITIAL INFILTRATE UNCHANGED. 2. PATCHY LEFT LUNG INFILTRATE, UNCHANGED.
[2017-10-17] MEDS ORDERED: Ondansetron INJ* 2 MG/ML VIAL IV PRN (15:33)
[2017-10-17] MEDS ORDERED: Gabapentin CAP(*) 100 MG PO PRN (15:38)
[2017-10-17] MEDS ORDERED: Nitroglycerin TAB 0.4 MG* 0.4 MG TAB SL PRN (15:38)
[2017-10-17] MEDS ORDERED: Dextrose 50% Syringe 50 ML* 25 GM/50 ML SYRINGE IV PUSH PRN (15:41)
[2017-10-17 16:14] LABS: Urine Appearance Clear; Urine Blood 1+ (Negative); Urine Color Yellow; Urine Ketones Negative (Negative); Urine Protein 1+(30 mg/dL) (Negative); Urine Specific Gravity 1.012 (1.010-1.030); Urine Urobilinogen Negative (Negative)
[2017-10-17] MEDS: Insulin LISPRO* 1 UNITS UNIT SUBCUT SCH ×2 (17:37→23:04)
--- NOTE | 2017-10-17 17:47 | HP ---
ATTENDING ADDENDUM INCLUDED ON THIS REPORT CC: Dr. Merino; Dr. Rodriguez * ADMISSION HISTORY AND PHYSICAL: DATE OF ADMISSION: 10/17/17 ATTENDING HOSPITALIST DURING THIS ADMISSION: Dr.Andreia Tavarez* (DICTATED BY LIZET LAGUERRE) PRIMARY CARE PROVIDER: Dr. Merino. CHIEF COMPLAINT: Shortness of breath. HISTORY OF PRESENT ILLNESS: Mr. Manriquez is a pleasant 76-year-old gentleman who has multiple significant past medical history including end-stage renal disease for which he has been on hemodialysis for the past couple of years. He also has history of hypertension, diabetes mellitus who is currently on insulin , hyperlipidemia, TIA, COPD, carotid artery occlusion, who had recently a carotid artery endarterectomy as well as COPD and UT. The patient presented to the emergency room today with complaints of increasing shortness of breath this afternoon. The patient apparently was scheduled for hemodialysis this morning; however, he decided to skip his hemodialysis session to go to his primary care physician, Dr. Merino for some anorectal issues. The patient apparently has been having some increasing difficulty with skin irritation in the perirectal area with some pain as well as occasional bleeding. The patient presented to Dr. Merino's office and he noted that he has increasing shortness of breath for which he was asked to come to the emergency room for evaluation. The patient had laboratory workup and chest x-ray revealed that he was fluid overloaded and we were asked to see the patient for evaluation and to discuss admission for hemodialysis therapy. The patient himself denied any chest pain and his shortness of breath had improved since he got to the emergency room and currently on 2 L of oxygen. It is noted that his troponin was drawn and showed value of 0.23, that seems to be elevated, but likely secondary to his pulmonary edema. An order for a trending troponin was placed during the time of this admission. Given his ongoing symptoms, we discussed with him proceeding with admission for observation and to undergo hemodialysis. PAST MEDICAL HISTORY: Significant for: 1. End-stage renal disease for which he has been on hemodialysis for the past couple of years. 2. Hypertension. 3. Insulin-dependent diabetes mellitus. 4. Hyperlipidemia. 5. History of TIA. 6. A carotid occlusion, status post carotid endarterectomy. 7. History of coronary artery disease. 8. UT. 9. COPD. 10. History of obstructive sleep apnea and the patient has not been compliant using the CPAP at home. PAST SURGICAL HISTORY: Significant for cardiac catheterization as well as carotid endarterectomy. He also had a right-sided AV fistula placement that unfortunately had failed over a period of time and now he just had a left-sided AV fistula placed and waiting for it to mature and he is currently using subclavian external catheter for hemodialysis needs. HOME MEDICATIONS: His medications at home include: 1. Tekturna tablets 300 mg p.o. daily. 2. Norvasc 10 mg p.o. daily. 3. Eliquis 2.5 mg p.o. b.i.d. 4. Aspirin 81 mg p.o. daily. 5. Lipitor 80 mg p.o. daily. 6. Plavix 75 mg p.o. daily. 7. TriCor 145 mg p.o. daily. 8. Neurontin 100 mg p.o. daily. 9. Insulin Lantus 40 units subcu q.p.m. 10. Insulin Humalog per sliding scale q.h.s. and q.a.c. 11. Isosorbide mononitrate 60 mg p.o. q.a.m. 12. Metoprolol XL 100 mg p.o. b.i.d. 13. Nitroglycerin tablets 0.4 mg sublingual q.5 minutes as needed for chest pain. 14. Protonix 40 mg p.o. daily. 15. Zoloft 100 mg p.o. daily. 16. Flomax 0.4 mg p.o. q.h.s. 17. Demadex 40 mg p.o. daily. 18. Multiple vitamin 1 tablet daily. ALLERGIES: He has no known drug allergies; however, reports allergies to ADHESIVE TAPE. FAMILY HISTORY: Mother with history of cerebellar aneurysm. Father had esophageal cancer. SOCIAL HISTORY: The patient is a former smoker who quit 30 years ago. He denies drinking alcohol and his surrogate decision maker is his . REVIEW OF SYSTEMS: The patient denies any headache, dizziness, blurred vision, or double vision. He admits to shortness of breath that has gotten better during his ED visit, but denies any cough, fever, chills, or dyspnea at rest. All other 14 systems were completed and negative with the exception for whatever mentioned in HPI. PHYSICAL EXAMINATION GENERAL: He is a pleasant, morbidly obese elderly gentleman, in no acute distress or discomfort at the time of admission. VITAL SIGNS: Most recent set of vitals was temperature of 99.7, pulse of 67, respirations of 23, O2 sat of 99% with 2 L oxygen, and blood pressure of 126/53. HEENT: Head is normocephalic, atraumatic. Sclerae anicteric. PERRLA. EOMs intact. Oropharynx is pink and moist with no exudate. NECK: Supple. Trachea midline. No cervical adenopathy, thyromegaly, or JVD. LUNGS: Clear to auscultation bilaterally. There is very minimal bibasilar crackles noted, but no audible wheezing or rales. There is no chest retraction or labored breathing noted. HEART: Regular rate and rhythm. Normal S1 and S2 without rubs, murmurs, or gallops. BACK: With normal curvature. No CVA tenderness. ABDOMEN: Soft, round, and obese. There is no tenderness, distention, hernias, masses, or hepatosplenomegaly. RECTAL: Exam deferred at this time. EXTREMITIES: With 1+ lower extremity edema noted. There is deep discoloration on both ventral and medial aspects of tibial plateau consistent with chronic venous stasis ulcers. There is no active redness or cellulitis noted. NEUROLOGIC: Grossly intact. DIAGNOSTIC DATA/LABORATORY DATA: Laboratory workup: The patient had CBC during his ED visit revealing white count of 9000, hemoglobin of 11.3, hematocrit 35, and platelets of 191. His sodium was 144, potassium 4.8, chloride 102, CO2 32, BUN of 50, and creatinine of 5.24. His lactic acid is 2.8. Troponin elevated today with a value of 0.23. Accessory diagnostic data: The patient had a chest x-ray that revealed chronic right lung interstitial infiltrate as well as patchy left lung infiltrate, both unchanged from prior exam. EKG was also reviewed and it seems to be unchanged, no evidence of acute ischemia or ST changes. IMPRESSION: A 76-year-old gentleman with complex past medical history including hypertension, hyperlipidemia, coronary artery disease, and end-stage renal disease for which he has been on hemodialysis, who presented to the emergency room today with complaints of increasing shortness of breath as well as signs and symptoms consistent with pulmonary edema and fluid overload secondary to missing his hemodialysis session earlier today. PLANS AND RECOMMENDATIONS: 1. Shortness of breath. It appears to be from fluid overload. The patient will be admitted for observation and I placed a call to Dr. Rodriguez who reviewed the case and agreed that patient needs dialysis this afternoon. He will be admitted to the 4th floor and likely go for a hemodialysis session this afternoon and I discussed with him staying overnight for observation, likely to be discharged home tomorrow morning. 2. End-stage renal disease. We will continue hemodialysis and again I touched base with Dr. Rodriguez who agreed to plans. 3. Hypertension. We will continue his meds as prescribed. 4. Hyperlipidemia. We will continue his statin therapy and hold TriCor for now since it is nonformulary. 5. Insulin-dependent diabetes mellitus. We will continue his Lantus as well as lispro sliding scale. 6. History of transient ischemic attack. We will continue secondary prevention. He is currently on Eliquis. We will continue also his aspirin and Plavix. 7. History of carotid artery occlusion. Again, we will continue his aspirin and Plavix. 8. History of obstructive sleep apnea. The patient is not compliant with his CPAP. We will revisit that and he may use his own CPAP at night. 9. DVT prophylaxis: We will continue Eliquis. 10. Code status: The patient is a full code. TIME SPENT: Total time spent during this admission is 60 minutes, greater than 50% was spent [id number] doing history and physical exam. LIZET LAGUERRE ADDENDUM: DATE OF ADMISSION: 10/17/17 PRIMARY CARE PROVIDER: Dr. Merino. GROUNDS MAINTENANCE SUPERVISOR: Dr. Rodriguez. This case was reviewed and discussed with LIZET Lagurere. Mr. Manriquez is a 76-year-old male with a past medical history of end-stage renal disease, on hemodialysis; hypertension; insulin-dependent diabetes; hyperlipidemia; TIA; history of carotid stenosis, status post carotid artery endarterectomy; coronary artery disease; COPD; obstructive sleep apnea, who presented to the emergency room with complaints of shortness of breath, found to have acute pulmonary edema. The patient was scheduled to have his dialysis today, but he decided to skip it to go to an appointment with his primary care provider due to some perianal issues. He came to the emergency room with complaints of severe shortness of breath and required 6 L of oxygen up from his usual 4 L of oxygen at baseline. His x-ray was compatible with fluid overload and the plan is to have the patient admitted, so he can be dialyzed and monitored. He had no complaints of chest pain. His EKG showed no new ischemic changes, but he had mild troponin elevation at 0.23 likely secondary to demand ischemia in a patient with end-stage renal disease. We are going to trend it. I am in agreement with current management. ALESSIA Tavarez MD [id number]/CPS #: [id number]/CPS #: [id number] GUILLERMINA
[2017-10-17] MEDS ORDERED: Tamsulosin CAP* 0.4 MG PO SCH (21:00)
[2017-10-17] MEDS ORDERED: Atorvastatin* 80 MG TAB PO SCH (21:00)
--- NOTE | 2017-10-17 21:29 | HP ---
CC: Dr. Merino; Dr. Rodriguez * HISTORY AND PHYSICAL: ADDENDUM: DATE OF ADMISSION: 10/17/17 PRIMARY CARE PROVIDER: Dr. Merino. FAST FOOD SERVER: Dr. Rodriguez. This case was reviewed and discussed with LIZET Brown. Mr. Manriquez is a 76-year-old male with a past medical history of end-stage renal disease, on hemodialysis; hypertension; insulin-dependent diabetes; hyperlipidemia; TIA; history of carotid stenosis, status post carotid artery endarterectomy; coronary artery disease; COPD; obstructive sleep apnea, who presented to the emergency room with complaints of shortness of breath, found to have acute coronary edema. The patient was scheduled to have his dialysis today, but he decided to skip it to go to an appointment with his primary care provider due to some perianal issues. He came to the emergency room with complaints of severe shortness of breath and required 6 L of oxygen up from his usual 4 L of oxygen at baseline. His x-ray was compatible with fluid overload and the plan is to have the patient admitted, so he can be dialyzed and monitored. He had no complaints of chest pain. His EKG showed no new ischemic changes, but he had mild troponin elevation at 0.23 likely secondary to demand ischemia in a patient with end-stage renal disease. We are going to trend it. I am in agreement with current management. [id number]/CPS #: [id number] MTDD
[2017-10-17] MEDS: Metoprolol Succinate XL TAB* 100 MG PO SCH (23:02)
[2017-10-17] MEDS: Apixaban* 2.5 MG TAB PO SCH (23:02)
[2017-10-17] MEDS: Insulin GLARGINE(*) 1 UNITS UNIT SUBCUT SCH (23:04)
[2017-10-18 05:51] LABS: EGFR Non-African American 11.9 (>60)
[2017-10-18] MEDS: Insulin LISPRO* 1 UNITS UNIT SUBCUT SCH ×2 (08:11→16:06)
[2017-10-18] MEDS ORDERED: Acetaminophen TAB* 325 MG PO PRN (08:22)
[2017-10-18] MEDS: Apixaban* 2.5 MG TAB PO SCH (08:30)
[2017-10-18] MEDS: Metoprolol Succinate XL TAB* 100 MG PO SCH (08:32)
[2017-10-18] MEDS ORDERED: Isosorbide Mononitrate ER TAB* 60 MG PO SCH (09:00)
[2017-10-18] MEDS ORDERED: Aliskiren TAB* 300 MG PO SCH (09:00)
[2017-10-18] MEDS ORDERED: Torsemide TAB* 20 MG PO SCH (09:00)
[2017-10-18] MEDS ORDERED: Aspirin EC TAB* 81 MG TAB.EC PO SCH (09:00)
[2017-10-18] MEDS ORDERED: Clopidogrel TAB* 75 MG PO SCH (09:00)
[2017-10-18] MEDS ORDERED: CMCS: Pantoprazole TAB (NF) 40 MG TAB PO SCH (09:00)
[2017-10-18] MEDS ORDERED: amLODIPine TAB* 5 MG PO SCH (09:00)
[2017-10-18] MEDS ORDERED: Sertraline* 100 MG TAB PO SCH (09:00)
[2017-10-18] MEDS ORDERED: Lidocaine 5% OINT TOPICAL PRN (10:38)
[2017-10-18] MEDS: Insulin GLARGINE(*) 1 UNITS UNIT SUBCUT SCH (10:52)
[2017-10-18] MEDS ORDERED: Lactobacillus Acidophilus* 1 TAB PO SCH (11:00)
[2017-10-18] MEDS ORDERED: oxyCODONE TAB* 5 MG TAB PO PRN (12:39)
[2017-10-18] MEDS ORDERED: Heparin DIALYSIS ONLY(*) 1,000 UNITS/ML VIAL DIALYSIS ONE (14:00)
[2017-10-18 15:50] VITALS: BP 135/55
--- NOTE | 2017-10-18 23:16 | DS ---
CC: Dr. Merino; Dr. Greer; Dr. Rodriguez * DISCHARGE SUMMARY: DATE OF ADMISSION: 10/17/17 DATE OF DISCHARGE: 10/18/17 PRIMARY CARE PROVIDER: Dr. Merino. DISCHARGE DIAGNOSIS: Dyspnea due to fluid overload in a patient who missed dialysis. SECONDARY DIAGNOSES: 1. Chronic hypoxemic respiratory failure due to chronic obstructive pulmonary disease, on chronic 4 to 5 L of oxygen. 2. History of end-stage renal disease, on dialysis. 3. Hypertension. 4. Diabetes. 5. Hyperlipidemia. 6. History of transient ischemic attack. 7. History of status post carotid endarterectomy for carotid occlusion. 8. History of carotid disease. 9. Obstructive sleep apnea. MEDICATIONS AT DISCHARGE: Include: 1. Tekturna 300 mg daily. 2. Norvasc 10 mg daily. 3. Eliquis 2.5 mg b.i.d. 4. Aspirin 81 mg daily. 5. Lipitor 80 mg at bedtime. 6. Plavix 75 mg daily. 7. TriCor 145 mg daily. 8. Neurontin 100 mg b.i.d. 9. Insulin Lantus 40 units twice a day. 10. Insulin lispro sliding scale. 11. Imdur ER 60 mg daily. 12. Lidocaine 5% ointment 1 application twice a day to the perirectal area for pain. 13. Metoprolol succinate 100 mg b.i.d. 14. Nitroglycerin tablet 0.4 mg sublingual on a p.r.n. basis. 15. Protonix 40 mg daily. 16. Zoloft 100 mg daily. 17. Flomax 0.4 mg at bedtime. 18. Demadex 40 mg daily. 19. Vitamin E 1000 units daily. FOLLOWUP: 1. At discharge, the patient is recommended to follow up with Dr. Merino in approximately 4 to 7 days. 2. The patient is also scheduled for another dialysis session tomorrow morning. LABORATORY DATA AND STUDIES PERFORMED DURING THE HOSPITAL STAY: Included on , sodium 140, potassium 3.8, chloride 99, carbon dioxide 33, BUN 40, creatinine 4.78. The patient's troponin throughout his hospital stay peaked at 0.32. Portable chest x-ray at admission, impression: "Chronic right lung interstitial infiltrate, unchanged. Patchy left lung infiltrate, unchanged." The patient's EKG showed normal sinus rhythm with a heart rate of 69 beats per minute with no ST changes. HOSPITALIZATION COURSE: Hiram Manriquez is a 76-year-old male who was diagnosed with UTI when he was seen by the emergency department physician on 10/11/17 and placed on Cipro. Since then, he has had several bouts of loose stools at approximately 3 to 4 times a day. He developed perirectal pain and he decided to skip dialysis and go over to his primary care provider to be "checked for it. " When he was at Dr. Merino's office, he was severely dyspneic and was sent directly to the ED for evaluation. Here, he stayed overnight with planned dialysis in the morning, which he received. I asked the wound care nurse to see the patient's perirectal area. It was recommended for the patient to use barrier cream and lidocaine ointment, which was given to the patient at discharge. There were no wounds noted. I spoke with the patient that it is possible that he has an anal fissure that is not well visualized apart from when seen by warehouse production worker. At this point, I recommended for the patient to be started on probiotics since apparently in the past he has had problems with constipation and not loose bowel movements. I advised for the patient to continue to use [id number] stool softeners and probiotics and follow up with Dr. Merino, who probably should refer the patient to a warehouse production worker for further evaluation. At this point, the patient is comfortable with the use of barrier cream and lidocaine ointment. In regards to patient's dyspnea, the patient did not complain of chest pain throughout his hospital stay despite that his troponins were elevated likely due to fluid overload, heart strain and missing dialysis. His EKG was unremarkable. His troponin peaked at 0.3. He was treated at dialysis and some fluid was taken off. He plans to come back tomorrow for another dialysis session. PHYSICAL EXAMINATION AT THE TIME OF DISCHARGE: Blood pressure of 135/55, heart rate of 65 and regular, respiratory rate 18, oxygen saturation 97% on 5 L of oxygen nasal cannula, temperature 98.0. General: The patient is a very pleasant 76-year- old obese male, who is in no acute distress. Alert, awake, and oriented x3. HEENT: Head: Atraumatic, normocephalic. Eyes: Pupils are equal and reactive to light and accommodation. Oropharynx is clear. Mucosa moist. Neck: Supple. No bruits bilaterally. Cardiovascular: Regular rate and rhythm. No murmur. Respiratory: Crackles at bilateral bases and distant breath sounds in the remaining upper mid part of the patient's lungs. Abdomen: Soft, nontender. Bowel sounds are present in all 4 quadrants. On evaluation of the patient's perirectal area, slight erythema noted. There is no evidence of fluctuating masses. No evidence of anal fissure was noted and no hemorrhoids identified on inspection. Extremities: There is +1 pitting pedal edema bilaterally. Pulses poorly palpable due to edema. There is no clubbing or cyanosis. On evaluation of the skin, bilateral lower extremities has hyperpigmentation of the skin below the knees. Neuro Evaluation: Speech clear. Cranial nerves II through XII grossly intact. Motor strength is 5/5 bilaterally. Please note that this is a short summary of the patient's hospitalization. Please refer to further medical records for details. [id number]/CPS #: [id number] MTDD
--- NOTE | 2017-10-26 14:09 | ED ---
Everett Steve Gabriel, scribed for Walter Patrick MD on 10/17/17 at 1301 . Shortness of Breath - HPI Summary HPI Summary: This patient is a 76 year old M BIBA to [facility] with a chief complaint of SOB that began today. The patient rates the pain 6/10 in severity. Patient reports decreased sleep and ulcer on buttocks. Patient denies CP and back pain. Pt was scheduled to have dialysis today but it was pushed back till tomorrow. He is on 5L NC at home. Pt was seen at and sent here for further work up. - History of Current Complaint Chief Complaint: EDShortnessOfBreath Time Seen by Provider: 10/17/17 12:43 Hx Obtained From: Patient Onset/Duration: Lasting Hours, Still Present Timing: Constant Current Severity: Moderate Dyspnea At: Rest Associated Signs & Symptoms: Negative - CP and back pain - Allergy/Home Medications Allergies/Adverse Reactions: Allergies Allergy/AdvReac Type Severity Reaction Status Date / Time Adhesive Tape Allergy Intermediate Rash And Verified 10/11/17 12:44 Itching Home Medications: Home Medications Clopidogrel TAB* [Plavix TAB*] 75 mg PO DAILY 10/17/17 [History Confirmed ] Sertraline* [Zoloft*] 100 mg PO DAILY 10/17/17 [History Confirmed 10/17/17] Vitamin E Mixed [Vitamin E] 1,000 unit PO DAILY 10/17/17 [History Confirmed ] PMH/Surg Hx/FS Hx/Imm Hx Endocrine/Hematology History: Reports: Hx Diabetes - TYPE II- ON INSULIN FOR Cardiovascular History: Reports: Hx Angioplasty - R leg angioplasty x2, last , Hx Coronary Artery Disease - 2 [facility] [place], Hx Embolism, Hx Hypertension - ON MEDICATION FOR, Hx Peripheral Vascular Disease, Other Cardiovascular Problems/Disorders - HEART CATH Denies: Hx Pacemaker/ICD Respiratory History: Reports: Hx Chronic Obstructive Pulmonary Disease (COPD), 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, Hx Sleep Apnea, Other Respiratory Problems/Disorders - home O2- 3L AT ALL TIMES/PULMONARY FIBROSIS- POST IMFLAMMATORY GI History: Reports: Hx Gastroesophageal Reflux Disease - ON MEDICATION FOR History: Reports: Hx Chronic Renal Failure Musculoskeletal History: Reports: Hx Arthritis, Other Musculoskeletal History - R knee arthroplasty Sensory History: Reports: Hx Cataracts Denies: Hx Contacts or Glasses, Hx Hearing Aid Opthamlomology History: Reports: Hx Cataracts Denies: Hx Contacts or Glasses Neurological History: Reports: Hx Transient Ischemic Attacks (TIA) Psychiatric History: Reports: Other Psychiatric Issues/Disorders - claustrophobic Denies: Hx Panic Disorder - Surgical History Surgery Procedure, Year, and Place: 2008 ARTHROSCOPIC RT KNEE-[place]. 2010 CARDIAC [place]. [facility] [place] LIVER BIOPSY. [facility] LEFT EYE 2012. RT [facility]. ballooning to veins in legs Hx Anesthesia Reactions: No Infectious Disease History: No Infectious Disease History: Denies: Traveled Outside the [place] in Last 30 Days - Family History Known Family History: Positive: Cardiac Disease, Hypertension - Social History Alcohol Use: Rare Substance Use Type: Reports: None Hx Tobacco Use: Yes Smoking Status (MU): Former Smoker Type: Cigarettes Amount Used/How Often: 2 pks/day X 30 YEARS Have You Smoked in the Last Year: No Review of Systems Positive: Other - decreased sleep . Negative: Fever, Chills Negative: Chest Pain Positive: Shortness Of Breath. Negative: Cough Negative: Abdominal Pain, Vomiting, Nausea Negative: dysuria, hematuria Negative: Myalgia, Edema Skin: Other - ulcer on buttocks Negative: Rash Neurological: Negative - dizziness All Other Systems Reviewed And Are Negative: Yes Physical Exam - Summary Physical Exam Summary: Constitutional: Well-developed, Well-nourished, Alert. (-) Distressed Skin: Warm, Dry HENT: Normocephalic; Atraumatic Eyes: Conjunctiva normal Neck: Musculoskeletal ROM normal neck. (-) JVD, (-) Stridor, (-) Tracheal deviation Cardio: Rhythm regular, rate normal, Heart sounds normal; Intact distal pulses; The pedal pulses are 2+ and symmetric. Radial pulses are 2+ and symmetric. (-) Murmur Pulmonary/Chest wall:. (-) Respiratory distress, crackles in bilateral bases Abd: Soft, (-) Tenderness, (-) Distension, (-) Guarding, (-) Rebound Musculoskeletal: (-) Edema Lymph: (-) Cervical adenopathy Neuro: Alert, Oriented x3 Psych: Mood and affect Normal Rectal: there is ulcerated skin around the anus which is oozing blood, no induration or fluctuance, no purulence Triage Information Reviewed: Yes Vital Signs On Initial Exam: Initial Vitals Temp Pulse Resp BP Pulse Ox 99.7 F 83 24 95/56 89 10/17/17 12:41 10/17/17 12:41 10/17/17 12:41 10/17/17 12:41 10/17/17 12:41 Vital Signs Reviewed: Yes Diagnostics - Vital Signs Vital Signs Temp Pulse Resp BP Pulse Ox 10/17/17 12:41 99.7 F 83 24 95/56 89 - Laboratory Result Diagrams: 10/17/17 12:52 10/17/17 12:52 Lab Statement: Any lab studies that have been ordered have been reviewed, and results considered in the medical decision making process. - Radiology CXR Radiology Interpretation Completed By: Radiologist - 1. CHRONIC RIGHT LUNG INTERSTITIAL INFILTRATE UNCHANGED. 2. PATCHY LEFT LUNG INFILTRATE, UNCHANGED. ED physician has reviewed this radiology report. - EKG 13:17 Cardiac Rate: NL EKG Rhythm: Sinus Rhythm - sinus or ectopic atrial rhythm at 69 BPM EKG Interpretation: No STEMI Re-Evaluation - Re-Evaluation First Eval Re-Evaluation Time: 14:41 Change: Improved Comment: Pt is comfortable, I turned O2 to 5L which is his baseline. Course/Dx - Course Assessment/Plan: This patient is a 76 year old M BIBA to [facility] with a chief complaint of SOB that began today. The patient rates the pain 6/10 in severity. Patient reports decreased sleep and ulcer on buttocks. Patient denies CP and back pain. Pt was scheduled to have dialysis today but it was pushed back till tomorrow. He is on 5L NC at home. Pt was seen at and sent here for further work up. An EKG reveals sinus or ectopic atrial rhythm at 69 BPM. CXR reveals , per radiologist, 1. CHRONIC RIGHT LUNG INTERSTITIAL INFILTRATE UNCHANGED. 2. PATCHY LEFT LUNG INFILTRATE, UNCHANGED. Test results with no significant abnormalities except for a troponin of 0.26 and a lactic acid of 2.8. In the ED course the patient was given NTG. Dx fluid overload and rectal pain. 1438 We discussed patient care with Dr. Rodriguez and they will dialyze the patient today. 15:05 I discussed the patients case with Dr Cameron and she accepts the patient for admission. Pt required 6l NC and dialysis today which contributed to his fluid overload. Patient will be admitted. The patient is agreeable with this plan. - Diagnoses Provider Diagnoses: Rectal pain, Fluid overload - Physician Notifications Discussed Care of Patient With: Feng Rodriugez Time Discussed With Above Provider: 14:40 Instructed by Provider To: Other - We discussed patient care with Dr. Rodriguez and they will dialyze the patient today. - Critical Care Time Critical Care Time: 30-74 min Discharge - Sign-Out/Discharge Documenting (check all that apply): Discharge - Discharge Plan Condition: Fair Disposition: ADMITTED TO [facility] Referrals: Franky Merino MD [Primary Care Provider] - The documentation as recorded by the Everett perez Gabriel accurately reflects the service I personally performed and the decisions made by , Walter Patrick MD.
== END 2017-10-18 18:20 | disposition home or self-care (01) ==
LOC: ED 12:31 → MEDTELE 15:33 → ED 16:39
PROVIDERS: ADMIT Internal Medicine; ATTEND Internal Medicine
DX: E87.79 Other fluid overload (principal); R06.00 Dyspnea, unspecified; J96.11 Chronic respiratory failure with hypoxia; J44.9 Chronic obstructive pulmonary disease, unspecified; E11.22 Type 2 diabetes mellitus with diabetic chronic kidney disease; N18.6 End stage renal disease; Z99.2 Dependence on renal dialysis; I10 Essential (primary) hypertension; E78.5 Hyperlipidemia, unspecified; Z86.73 Personal history of transient ischemic attack (TIA), and cerebral infarction without residual deficits; Z98.890 Other specified postprocedural states; G47.33 Obstructive sleep apnea (adult) (pediatric); Z79.82 Long term (current) use of aspirin; I25.2 Old myocardial infarction; I25.10 Atherosclerotic heart disease of native coronary artery without angina pectoris; Z87.891 Personal history of nicotine dependence
CPT/HCPCS: 36415; 71045; 80048; 80053; 81003; 81015; 83605; 83735; 84484; 85025; 87040; 87086; 87641; 90935; 93005; 99284; A9270-GY; G0378; J1644

== ENCOUNTER 2017-10-24 06:19 | Inpatient (IN) | payer MEDICARE ==
[2017-10-24 07:04] LABS: ABS Basophils 0 10^3/ul (0-0.2); ABS Eosinophils 0.2 10^3/ul (0-0.6); ABS Lymphocytes 0.7 10^3/ul (1.0-4.8); ABS Monocytes 0.4 10^3/ul (0-0.8); ABS Neutrophils 5.7 10^3/ul (1.5-7.7); ABS Nucleated RBC 0 10^3/ul; Eosinophil % 2.9 % (0-6); Hematocrit 33 % (42-52); Hemoglobin 10.7 g/dl (14.0-18.0); Lymphocyte % 9.4 % (25-47); Mean Corpuscular HGB Conc 33 g/dl (31-36); Mean Corpuscular Hemoglobin 32 pg (27-31); Mean Corpuscular Volume 96 fL (80-94); Mean Platelet Volume 10.7 um3 (7.4-10.4); Nucleated Red Blood Cells % 0; Platelet Count 143 10^3/ul (150-450); Red Blood Count 3.39 10^6/ul (4.0-5.4); Red Cell Distribution Width 16 % (10.5-15)
[2017-10-24 07:17] LABS: EGFR Non-African American 8.6 (>60)
--- NOTE | 2017-10-24 08:13 | RAD ---
Indication: Chest pain. Fall. On hemodialysis. Cardiac disease. Pulmonary fibrosis. Comparison: October 17, 2017 and August 23, 2017 Technique: Upright AP 0650 hours Report: Mild to moderate elevation of the RIGHT hemidiaphragm without significant change. Coarse interstitial markings significantly more prominent at the RIGHT lung without change. Grossly clear pleural spaces. Negative for pneumothorax. RIGHT hemithorax volume loss with rightward mediastinal shift without change. Tips of tunneled central venous catheter are at the level of the RIGHT atrium. Negative for cardiomegaly. Unremarkable central pulmonary vasculature. IMPRESSION: Chronic RIGHT hemithorax volume loss with interstitial fibrosis significant more prominent at the RIGHT and LEFT lung. Small inflammatory infiltrate at the RIGHT lung is not excluded there is no compelling superimposed acute cardiopulmonary process.
--- NOTE | 2017-10-24 08:15 | ED ---
Complex/Multi-Sys Presentation - HPI Summary HPI Summary: Patient is a 77-year-old male with significant PMH including end-stage renal disease, hypertension, and diabetes mellitus, TIA, COPD and DE. He's being hemodialyzed 3 times weekly for the past few years for his stage III renal disease. He also is currently on 4 L oxygen at baseline. He arrives today BIBA on an NRB d/t 75 sat on 4L O2 per ambulance. Endorses feeling weak this morning with his legs buckling underneath him and following near his vehicle as he was trying to make his way to dialysis at the hospital. He states he has been otherwise at his baseline. Denies any muscle aches, worsening cough ( cough at baseline per patient x 4 years), fevers, sweats, chills, worsening shortness of breath or chest pain. He attends dialysis T//S with last dialysis 3 days ago. Was seen most recently in the ED and admitted to observation last week after worsening shortness of breath. He was found on chest x-ray to be in fluid overload with pulmonary edema. He also had an elevated troponin, likely secondary to his pulmonary edema and his troponins have been vastly greater on his previous visits. He is insulin-dependent and is been medication compliant. He states he has been seeing Dr. Merino for perirectal pain, but denies any pain today on arrival. Weight is decreased from last week. Last weigh-in yesterday at 252lbs. - History Of Current Complaint Chief Complaint: EDWeakness Time Seen by Provider: 10/24/17 06:23 Hx Obtained From: Patient Onset/Duration: Sudden Onset Timing: Constant Severity Currently: None Severity Initially: Mild Location: Negative Associated Signs And Symptoms: Positive: Weakness, Cough, Edema - +1, Back Pain. Negative: Confusion, Agitation, Dizziness, Syncope, Headache, SOB, Wheezing, Hemoptysis, Chest Pain, Nausea, Vomiting, Diarrhea, Abdominal Pain, Dysuria, Hematemesis, Melena, Decreased Oral Intake, Immunocompromised, Anticoagulation Therapy, Recent Medication Changes, Indwelling Sap Integration Architect - Allergies/Home Medications Allergies/Adverse Reactions: Allergies Allergy/AdvReac Type Severity Reaction Status Date / Time Adhesive Tape Allergy Intermediate Rash And Verified 10/11/17 12:44 Itching Home Medications: Home Medications Insulin LISPRO* [HumaLOG*] 5 - 15 units SUBCUT TID 10/24/17 [History Confirmed 10/24/17] Vitamin E CAP* 1,000 unit PO DAILY 10/24/17 [History Confirmed 10/24/17] PMH/Surg Hx/FS Hx/Imm Hx Previously Healthy: No - see above Endocrine/Hematology History: Reports: Hx Diabetes - TYPE II- ON INSULIN FOR Cardiovascular History: Reports: Hx Angioplasty - R leg angioplasty x2, last , Hx Coronary Artery Disease - 2 STENTS-[facility], Hx Embolism, Hx Hypertension - ON MEDICATION FOR, Hx Peripheral Vascular Disease, Other Cardiovascular Problems/Disorders - HEART CATH Denies: Hx Pacemaker/ICD Respiratory History: Reports: Hx Chronic Obstructive Pulmonary Disease (COPD), 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, Hx Sleep Apnea, Other Respiratory Problems/Disorders - home O2- 3L AT ALL TIMES/PULMONARY FIBROSIS- POST IMFLAMMATORY GI History: Reports: Hx Gastroesophageal Reflux Disease - ON MEDICATION FOR History: Reports: Hx Chronic Renal Failure Musculoskeletal History: Reports: Hx Arthritis, Other Musculoskeletal History - R knee arthroplasty Sensory History: Reports: Hx Cataracts, Hx Contacts or Glasses - reading only Denies: Hx Hearing Aid Opthamlomology History: Reports: Hx Cataracts, Hx Contacts or Glasses - reading only Neurological History: Reports: Hx Transient Ischemic Attacks (TIA) Psychiatric History: Reports: Other Psychiatric Issues/Disorders - claustrophobic Denies: Hx Panic Disorder - Surgical History Surgery Procedure, Year, and Place: 2008 ARTHROSCOPIC RT [facility]. 2010 CARDIAC [facility]. [facility]09/[facility]/2012 LIVER BIOPSY. [facility] 2012. RT [facility]. ballooning to veins in legs Hx Anesthesia Reactions: No - Immunization History Hx Pertussis Vaccination: No Immunizations Up to Date: Unable to Obtain/Confirm Infectious Disease History: No Infectious Disease History: Denies: Traveled Outside the [place] in Last 30 Days - Family History Known Family History: Positive: Cardiac Disease, Hypertension - Social History Occupation: Unemployed Lives: With Family Alcohol Use: Rare Hx Substance Use: No Substance Use Type: Reports: None Hx Tobacco Use: Yes Smoking Status (MU): Former Smoker Type: Cigarettes Amount Used/How Often: 2 pks/day X 30 YEARS Have You Smoked in the Last Year: No Review of Systems Constitutional: Negative Negative: Fever, Chills, Fatigue, Skin Diaphoresis Negative: Photophobia, Blurred Vision Negative: Sore Throat, Ear Ache Negative: Palpitations, Chest Pain Positive: Shortness Of Breath - baseline. Negative: Cough Genitourinary: Negative Positive: no symptoms reported, see HPI Musculoskeletal: Negative Positive: Weakness All Other Systems Reviewed And Are Negative: Yes Physical Exam Triage Information Reviewed: Yes Vital Signs On Initial Exam: Initial Vitals Temp Pulse Resp BP Pulse Ox 99.6 F 84 18 102/46 90 10/24/17 06:24 10/24/17 06:24 10/24/17 06:24 10/24/17 06:24 10/24/17 06:24 Vital Signs Reviewed: Yes Appearance: Positive: Obese Skin: Positive: Skin Color Reflects Adequate Perfusion, Other - +1 edema bilateral lower extremities Head/Face: Positive: Normal Head/Face Inspection Neck: Positive: Supple, No Lymphadenopathy Respiratory/Lung Sounds: Positive: Clear to Auscultation, Breath Sounds Present Cardiovascular: Positive: RRR Musculoskeletal: Positive: Pain @ - bilateral lower extremities on deep palpation Neurological: Positive: Speech Normal Psychiatric: Positive: Affect/Mood Appropriate AVPU Assessment: Alert Diagnostics - Vital Signs Vital Signs Temp Pulse Resp BP Pulse Ox 10/24/17 06:42 82 89 10/24/17 06:24 99.6 F 84 18 102/46 90 - Laboratory Lab Results: Lab Results 10/24/17 10/24/17 10/24/17 Range/Units 06:43 06:43 06:43 WBC 7.0 (3.5-10.8) 10^3/ul RBC 3.39 L (4.0-5.4) 10^6/ul Hgb 10.7 L (14.0-18.0) g/dl Hct 33 L (42-52) % MCV 96 H (80-94) fL MCH 32 H (27-31) pg MCHC 33 (31-36) g/dl RDW 16 H (10.5-15) % Plt Count 143 L (150-450) 10^3/ul MPV 10.7 H (7.4-10.4) um3 Neut % (Auto) 81.1 (38-83) % Lymph % (Auto) 9.4 L (25-47) % Dillingham % (Auto) 6.1 (0-7) % Eos % (Auto) 2.9 (0-6) % Baso % (Auto) 0.5 (0-2) % Absolute Neuts (auto) 5.7 (1.5-7.7) 10^3/ul Absolute Lymphs (auto) 0.7 L (1.0-4.8) 10^3/ul Absolute Monos (auto) 0.4 (0-0.8) 10^3/ul Absolute Eos (auto) 0.2 (0-0.6) 10^3/ul Absolute Basos (auto) 0 (0-0.2) 10^3/ul Absolute Nucleated RBC 0 10^3/ul Nucleated RBC % 0 Sodium 137 L (139-145) mmol/L Potassium 4.7 (3.5-5.0) mmol/L Chloride 97 L (101-111) mmol/L Carbon Dioxide 27 (22-32) mmol/L Anion Gap 13 H (2-11) mmol/L BUN 68 H (6-24) mg/dL Creatinine 6.32 H (0.67-1.17) mg/dL Est GFR ( Amer) 11.1 (>60) Est GFR (Non-Af Amer) 8.6 (>60) BUN/Creatinine Ratio 10.8 (8-20) Glucose 182 H (70-100) mg/dL Lactic Acid 3.1 H* (0.5-2.0) mmol/L Calcium 8.7 (8.6-10.3) mg/dL Magnesium 1.6 L (1.9-2.7) mg/dL Total Bilirubin 0.50 (0.2-1.0) mg/dL AST 75 H (13-39) U/L ALT 21 (7-52) U/L Alkaline Phosphatase 52 (34-104) U/L Troponin I 0.13 H* (<0.04) ng/mL Total Protein 6.8 (6.4-8.9) g/dL Albumin 3.4 (3.2-5.2) g/dL Globulin 3.4 (2-4) g/dL Albumin/Globulin Ratio 1.0 (1-3) Influenza A (Rapid) (Negative) Influenza B (Rapid) (Negative) 10/24/17 Range/Units 07:30 WBC (3.5-10.8) 10^3/ul RBC (4.0-5.4) 10^6/ul Hgb (14.0-18.0) g/dl Hct (42-52) % MCV (80-94) fL MCH (27-31) pg MCHC (31-36) g/dl RDW (10.5-15) % Plt Count (150-450) 10^3/ul MPV (7.4-10.4) um3 Neut % (Auto) (38-83) % Lymph % (Auto) (25-47) % Dillingham % (Auto) (0-7) % Eos % (Auto) (0-6) % Baso % (Auto) (0-2) % Absolute Neuts (auto) (1.5-7.7) 10^3/ul Absolute Lymphs (auto) (1.0-4.8) 10^3/ul Absolute Monos (auto) (0-0.8) 10^3/ul Absolute Eos (auto) (0-0.6) 10^3/ul Absolute Basos (auto) (0-0.2) 10^3/ul Absolute Nucleated RBC 10^3/ul Nucleated RBC % Sodium (139-145) mmol/L Potassium (3.5-5.0) mmol/L Chloride (101-111) mmol/L Carbon Dioxide (22-32) mmol/L Anion Gap (2-11) mmol/L BUN (6-24) mg/dL Creatinine (0.67-1.17) mg/dL Est GFR ( Amer) (>60) Est GFR (Non-Af Amer) (>60) BUN/Creatinine Ratio (8-20) Glucose (70-100) mg/dL Lactic Acid (0.5-2.0) mmol/L Calcium (8.6-10.3) mg/dL Magnesium (1.9-2.7) mg/dL Total Bilirubin (0.2-1.0) mg/dL AST (13-39) U/L ALT (7-52) U/L Alkaline Phosphatase (34-104) U/L Troponin I (<0.04) ng/mL Total Protein (6.4-8.9) g/dL Albumin (3.2-5.2) g/dL Globulin (2-4) g/dL Albumin/Globulin Ratio (1-3) Influenza A (Rapid) Positive A (Negative) Influenza B (Rapid) Negative (Negative) Result Diagrams: 10/24/17 06:43 10/24/17 06:43 Lab Statement: Any lab studies that have been ordered have been reviewed, and results considered in the medical decision making process. - Radiology No standard instances Xray Interpretation: Positive (See Comments) Radiology Interpretation Completed By: Radiologist - IMPRESSION: Chronic RIGHT hemithorax volume loss with interstitial fibrosis significant more prominent at the RIGHT and LEFT lung. Small inflammatory infiltrate at the RIGHT lung is not excluded there is no compelling superimposed acute cardiopulmonary process. - EKG No standard instances Cardiac Rate: NL EKG Rhythm: Sinus Rhythm ST Segment: Normal Ectopy: None EKG Interpretation: consider left atrial enlargement, inferior infarct, old EKG Comparison: No Significant Change Complex Multi-Symp Course/Dx Course Of Treatment: During the course of treatment, the patient is evaluated for his complex medical history and weakness potentially secondary to pulmonary edema vs. other etiology. He was found to be at 75 satting at 4 L oxygen per EMS. He was placed on a nonrebreather prior to arrival and immediately on arrival taken off the nonrebreather and given his 4 L oxygen which she is satting currently at 90. He denies any muscle aches, worsening shortness of breath, chest pain. He denies any body aches. Chest x-ray obtained and compared to last week which appears to be similar. Influenza obtained and influenza A+. Rales are found in the bilateral lung bases. Potentially and fluid overload, however his weight is down from last week at [address] Rodriguez called for consult who recommends hemodialysis today. EKG shows sinus rhythm with left atrial enlargement, inferior infarct, old. No change from previous EKG with no evidence of ischemia or ST elevations. This was reviewed also by me, LAN Herman in the ED. Troponin is elevated at 0.013, however his baseline tends to be higher. Lactic at 3.1. BUN and creatinine are severely elevated from his baseline at 68 and 6.32 respectively. This may be an exacerbation and worsening of his COPD combined with his recent influenza illness. Currently temp is 99.6. 1+ lower extremity edema without erythema or warmth. Discussed case with hospitalist Dr. Meyer who agrees to see and admit patient. - Diagnoses Differential Diagnoses/HQI/PQRI: Metabolic Abnormality Provider Diagnoses: Weakness, Influenza A Discharge - Sign-Out/Discharge Documenting (check all that apply): Discharge/Admit/Transfer - Discharge Plan Condition: Fair Disposition: ADMITTED TO [facility] - Billing Disposition and Condition Condition: FAIR Disposition: [facility] [place]
[2017-10-24] MEDS ORDERED: Aliskiren TAB* 150 MG PO SCH (09:00)
[2017-10-24] MEDS ORDERED: Isosorbide Mononitrate ER TAB* 60 MG PO SCH (09:00)
[2017-10-24] MEDS ORDERED: Torsemide TAB* 20 MG PO SCH (09:00)
[2017-10-24] MEDS ORDERED: amLODIPine TAB* 5 MG PO SCH (09:00)
[2017-10-24] MEDS ORDERED: Metoprolol Succinate XL TAB* 100 MG PO SCH (09:00)
[2017-10-24] MEDS ORDERED: Dextrose 50% Syringe 50 ML* 25 GM/50 ML SYRINGE IV PUSH PRN (09:01)
[2017-10-24] MEDS ORDERED: oxyCODONE/Acetamin 5/325 MG* TAB PO PRN (09:03)
[2017-10-24] MEDS ORDERED: Magnesium Hydroxide LIQ* 30 ML UDC PO PRN (09:03)
[2017-10-24] MEDS ORDERED: Magnesium Sulfate 2 GM IV* 2 GM/50 ML BAG IVPB ONE (09:05)
--- NOTE | 2017-10-24 11:50 | HP ---
CC: Dr. Merino; Dr. Greer; Dr. Rodriguez* HISTORY AND PHYSICAL: DATE OF ADMISSION: 10/24/17 PRIMARY CARE PROVIDER: Dr. Merino. CHIEF COMPLAINT: "Weak, coughing, low appetite." HISTORY OF PRESENT ILLNESS: Hiram Manriquez is a 77-year-old male with history of end-stage renal disease, on dialysis Tuesdays, , and Saturdays, who has had problems with constipation and was observed overnight last week at our hospital after he missed dialysis when he saw his primary care provider instead for his rectal pain. At that point, the patient was on overnight observation, given dialysis and discharged the next day. Today, the patient presents with complaints of 3 days of feeling very weak, fatigued with low-grade fevers, nonproductive cough, generalized myalgias, and no appetite. His influenza A test is positive. He is going to be placed on observation with the diagnosis of influenza. PAST MEDICAL HISTORY: 1. History of end-stage renal disease, on dialysis Tuesdays, , and Saturdays. 2. Hypertension. 3. Diabetes. 4. Hyperlipidemia. 5. History of TIA. 6. History of carotid occlusion, status post carotid endarterectomy. 7. History of coronary artery disease. 8. History of COPD, on 4 L of oxygen continuously. 9. History of obstructive sleep apnea, noncompliant with CPAP. 10. History of AV fistula placement in the left forearm, currently maturing. 11. The patient has history of paroxysmal atrial fibrillation originally diagnosed in 2013 for which he is on Eliquis. MEDICATIONS AT HOME: Include: 1. Vitamin E 1000 units daily. 2. Insulin lispro sliding scale. 3. Amlodipine 10 mg daily. 4. Torsemide 40 mg daily. 5. Flomax 0.4 mg at bedtime. 6. Pantoprazole 40 mg daily. 7. Nitroglycerin on a p.r.n. basis. 8. Metoprolol succinate 100 mg b.i.d. 9. Imdur 60 mg daily. 10. Insulin Lantus 40 units b.i.d. 11. Neurontin 100 mg b.i.d. 12. TriCor 145 mg daily. 13. Plavix 75 mg daily. 14. Lipitor 80 mg at bedtime. 15. Aspirin 81 mg daily. 16. Eliquis 2.5 mg b.i.d. 17. Tekturna 300 mg daily. ALLERGIES: ADHESIVE TAPE. FAMILY HISTORY: Positive for mother with history of cerebral aneurysm. Father with history of esophageal cancer. SOCIAL HISTORY: The patient quit smoking 30 years ago. He denies any alcohol or drug use. His surrogate decisionmaker is his . He is living independently with his at this point. REVIEW OF SYSTEMS: Today is the patient's dialysis day and he is planning to have dialysis after the admission. The patient is usually at 4 L of oxygen nasal cannula, but occasionally he advances up to 6 L if needed. He had had poor appetite and his weight is slightly lower than his usual. He has history of chronic cough, which has been more pronounced in the past 3 days. He has had low-grade fevers. The patient denies abdominal pain. The patient denies chest pain. Admits to shortness of breath. All the remaining 12 systems were reviewed with the patient and were otherwise negative. The patient has history of recent rectal pain that had been ongoing due to constipation. PHYSICAL EXAMINATION GENERAL: This is a pleasant 77-year-old male who is in no acute distress. Alert, awake, and oriented x3. VITAL SIGNS: Blood pressure of 97/52, heart rate of 67 and regular, respiratory rate 18, oxygen saturation 94% on 4 L of oxygen via nasal cannula, temperature of 99.6. HEENT: Head atraumatic, normocephalic. Eyes: Pupils are equal and reactive to light and accommodation. Oropharynx clear. Mucosa moist. NECK: Supple. No JVD. No bruits bilaterally. RESPIRATORY: Crackles overlying the entire right lung field and crackles at the left lower lung base. CARDIOVASCULAR: Regular rate and rhythm with no murmur. ABDOMEN: Soft, nontender. Bowel sounds present in all 4 quadrants. EXTREMITIES: There is +1 pitting pedal edema. Pulses +2 bilaterally. There is no clubbing, cyanosis. NEUROLOGIC: Speech clear. Cranial nerves II through XII grossly intact. Motor strength is 5/5 bilaterally. SKIN: On evaluation of the skin, the patient has venous stasis changes in bilateral distal lower extremities with hyperpigmentation of anterior shins. PSYCHIATRIC EVALUATION: Oriented x3 with no evidence of anxiety or depression. Please also note the patient has left antecubital fistula in place with positive thrill. DIAGNOSTIC STUDIES/LABORATORY DATA: Included: On 10/24/17, white blood cell count of 10.7, hemoglobin 33, MCV 96, and platelets of 143. Sodium was 137, potassium 4.7, chloride 97, carbon dioxide 13, BUN 68, creatinine of 6.3. Liver function tests are unremarkable apart from slight elevation of AST of 75. Magnesium was 1.6. Lactic acid of 3.1. The patient's portable chest x-ray, impression: "Chronic right hemithorax volume loss with interstitial fibrosis is significantly more prominent at the right and left lungs. Small inflammatory infiltrate at the right lung is not excluded. There is no accompanying superimposed cardiopulmonary process." The patient's EKG showed normal sinus rhythm with a heart rate of 83 beats per minute with no significant ST changes with likely old inferior infarcts. Influenza test was positive for influenza A today. ASSESSMENT AND PLAN: 1. In regards to the patient's influenza, he actually has what appears to be a little bit underweight today and he has soft systolic blood pressures. I will hold the patient's diuretic and place him back on his blood pressure medication with hold parameters. I will also recheck his lactic acid since it was slightly elevated at admission. 2. For history of paroxysmal atrial fibrillation, the patient is going to be continued on his metoprolol as well as Eliquis. 3. For influenza A, the patient is started on Tamiflu at 30 mg after dialysis for a total of 3 doses according to my information in regards to Tamiflu administration in patient with end-stage renal disease. 4. His diabetes type 2 is going to be treated with insulin Lantus at a lower dose of 10 units twice a day and insulin sliding scale. 5. His constipation is going to be treated with Mylanta as well as Senokot and Colace. 6. In regards to the patient's right-sided pulmonary fibrosis, please also note that in the past the patient had a CT of the chest evaluation, which showed questionable right lung pulmonary nodule. At this point, I asked Dr. Greer to see the patient in consultation. The patient had seen Dr. Greer in the past. At this point, his chronic obstructive pulmonary disease does not appear to be in exacerbation. We will continue his oxygen at its baseline at 4 L. 7. The patient's code status is full and his surrogate is his . TIME SPENT: Approximately 70 minutes were spent on admission of this patient. More than half that time was spent [id number] with the patient during the interview and physical exam. [id number]/[facility] #: [id number] GUILLERMINA
[2017-10-24] MEDS ORDERED: Heparin DIALYSIS ONLY(*) 1,000 UNITS/ML VIAL DIALYSIS ONE (13:00)
[2017-10-24] MEDS: GuaiFENesin DM* 5 ML UDC PO PRN ×2 (14:30→20:24)
[2017-10-24] MEDS: Gabapentin CAP(*) 100 MG PO PRN (15:31)
[2017-10-24] MEDS: Aliskiren TAB* 300 MG PO SCH (15:31)
[2017-10-24] MEDS: Vitamin E CAP* 200 UNITS PO SCH (15:31)
[2017-10-24] MEDS: Oseltamivir CAP* 30 MG CAP PO SCH (15:32)
[2017-10-24] MEDS: Clopidogrel TAB* 75 MG PO SCH (15:32)
[2017-10-24] MEDS: Aspirin EC TAB* 81 MG TAB.EC PO SCH (15:32)
[2017-10-24] MEDS: Apixaban* 2.5 MG TAB PO SCH ×2 (15:32→21:40)
[2017-10-24] MEDS: Vitamin E CAP* 400 UNIT PO SCH (15:32)
[2017-10-24] MEDS: Insulin GLARGINE(*) 1 UNITS UNIT SUBCUT SCH ×2 (15:33→21:40)
--- NOTE | 2017-10-24 15:34 | CONS ---
PULMONARY CONSULTATION REPORT: DATE OF CONSULT: 10/24/17 CONSULTATION REQUESTED BY: Dr. Ida Meyer. REASON FOR CONSULT: Evaluation of shortness of breath. HISTORY OF PRESENT ILLNESS: The patient is a 77-year-old male with history of COPD, on home O2; obstructive sleep apnea, on CPAP; end-stage renal disease, on hemodialysis; AFib, known to me from outpatient evaluation. The patient presents for evaluation of cough, generalized malaise. He was recently admitted for overnight observation when he presented with generalized weakness and rectal pain after he missed dialysis. He was given a dialysis treatment next day and discharged home. He presents 3 days later with generalized weakness, fatigue, low- grade fevers, nonproductive cough, myalgias and decreased appetite. Further evaluation included testing for influenza, which was positive for influenza A. The patient reports improvement in shortness of breath. He has been having yellow incontinent stool. He had low-grade fevers. He has been on O2 at 4 L, which is at his baseline. The patient denies significant shortness of breath. I personally reviewed chest x-ray performed on admission. The patient with evidence of volume loss in right hemithorax with evidence of fibrotic changes. The patient has history of COPD, on home O2. He claims to be compliant with O2 at home. He is undergoing hemodialysis as per schedule. He does not appear to be in fluid overload at this time. I have personally reviewed his chest x-ray. He has evidence of volume loss on the right side, which is unchanged from before. He also has interstitial fibrosis more prominent on the right lung. No significant change in the chest x -ray findings in comparison to most recent chest x-ray. I have personally reviewed CT chest from 10/02/17. He has evidence of diffuse fibrosis on the right lung with emphysematous changes bilaterally, also predominantly on the right side with some basal fibrosis with significantly fibrotic right lung, also with evidence of 2.4 cm mass in right lower lobe medially with air bronchograms suggestive of possible pneumonia. He did not have elevated white count or a left shift. His lactic acid was mildly elevated and troponins were also elevated. PAST MEDICAL HISTORY: 1. End-stage renal disease, on dialysis Monday, and Monday. 2. Hypertension. 3. Diabetes. 4. Hyperlipidemia. 5. TIA, carotid occlusion, status post carotid endarterectomy. 6. Coronary artery disease. 7. COPD, on 4 L O2. 8. Obstructive sleep apnea, on CPAP. 9. AV fistula placement, left forearm. 10. Paroxysmal atrial fibrillation, on Eliquis. MEDICATIONS: 1. Vitamin E. 2. Insulin. 3. Amlodipine. 4. Torsemide. 5. Flomax. 6. Pantoprazole. 7. Nitroglycerin. 8. Metoprolol. 9. Imdur. 10. Neurontin. 11. TriCor. 12. Plavix. 13. Lipitor. 14. Aspirin. 15. Eliquis. 16. Tekturna. ALLERGIES: ADHESIVE TAPE. FAMILY HISTORY: Cerebral aneurysm in mother. Esophageal cancer in father. SOCIAL HISTORY: Former smoker, quit 30 years ago. No alcohol or drug abuse. REVIEW OF SYSTEMS: All systems as reviewed above in HPI. PHYSICAL EXAM: The patient is in bed, in no apparent distress. Vital Signs: Temperature 99, pulse 72 beats per minute, respiratory rate 22 per minute, O2 sat 92% on 4 L, blood pressure 109/49. HEENT: Pupils equal, reactive to light. Mucous membranes moist. Neck: Supple. No JVD. Respiratory: Crackles on the right side entire lung field, decreased breath sounds and fine crackles at the left base. Cardiovascular: Regular rate and rhythm. No murmurs. Abdomen: Soft, nontender. Bowel sounds present. Extremities: Normal range of motion. No edema. Neurologic: No focal deficits. Skin: No rash or bruises. DIAGNOSTIC STUDIES/LAB DATA: WBC 7.0, hemoglobin 10.7, hematocrit 33, platelet count 143. Sodium 137, potassium 4.7, chloride 97, bicarb 27, BUN 68, creatinine 6.32, lactic acid 3.1. Troponin 0.13. Influenza A positive. Chest x-ray as described above in HPI. IMPRESSION AND RECOMMENDATIONS: 77-year-old male with a history of pulmonary fibrosis predominantly on the right side, unilateral pulmonary fibrosis; chronic obstructive pulmonary disease, on home O2; emphysema; myocardial infarction, admitted with worsening shortness of breath likely secondary to influenza and pneumonia. He does have airspace opacities in the right lung medially noted on the most recent CT chest. Will need to follow up with repeat CT scan in about 6 to 8 weeks. Continue with current management for influenza and chronic obstructive pulmonary disease exacerbation. Also, suspect some congestive heart failure exacerbation on top of it. Continue with bronchodilators. Continue with hemodialysis as planned. He does not make urine, not going to benefit from diuretic.He has received torsemide in the ED. He does not appear to be having acute chronic obstructive pulmonary disease exacerbation, I do not see need for steroids at this time. Continue with Tamiflu. Continue with O2 supplementation. His main concern at this time is LE pain and weakness. Will benefit from PT/OT Thank you for allowing me to participate in the care of your patient. Will follow up with you. [id number]/[facility] #: [id number] GUILLERMINA
[2017-10-24] MEDS: Insulin LISPRO* 1 UNITS UNIT SUBCUT SCH ×3 (15:36→21:41)
[2017-10-24] MEDS: Metoprolol Succinate XL TAB* 100 MG PO SCH ×2 (15:38→21:40)
[2017-10-24] MEDS: Isosorbide Mononitrate ER TAB* 60 MG PO SCH (15:38)
[2017-10-24] MEDS: Nystatin TOP POWDER* 15 GM BTL TOPICAL SCH ×2 (16:04→21:42)
[2017-10-24] MEDS: Albuterol/Ipratropium NEB.SOL* Albuterol 2.5 MG/Ipratropium 0.5 MG 3 ML INH PRN (20:41)
[2017-10-24] MEDS: Senna TAB PO SCH (21:38)
[2017-10-24] MEDS: Docusate CAP* 100 MG PO SCH (21:40)
[2017-10-24] MEDS: Tamsulosin CAP* 0.4 MG PO SCH (21:40)
[2017-10-24] MEDS: Atorvastatin* 80 MG TAB PO SCH (21:40)
[2017-10-25] MEDS: Acetaminophen TAB* 325 MG PO PRN (00:23)
[2017-10-25 06:53] LABS: Hematocrit 29 % (42-52); Hemoglobin 10.1 g/dl (14.0-18.0); Mean Corpuscular HGB Conc 34 g/dl (31-36); Mean Corpuscular Hemoglobin 33 pg (27-31); Mean Corpuscular Volume 95 fL (80-94); Mean Platelet Volume 10.8 um3 (7.4-10.4); Platelet Count 142 10^3/ul (150-450); Red Blood Count 3.08 10^6/ul (4.0-5.4); Red Cell Distribution Width 15 % (10.5-15); White Blood Count 4.1 10^3/ul (3.5-10.8)
[2017-10-25 07:02] LABS: EGFR Non-African American 13.7 (>60)
[2017-10-25 07:34] LABS: Monocytes % 2 % (0-7)
[2017-10-25] MEDS: Insulin LISPRO* 1 UNITS UNIT SUBCUT SCH ×4 (10:00→21:00)
[2017-10-25] MEDS: Insulin GLARGINE(*) 1 UNITS UNIT SUBCUT SCH ×2 (10:02→21:00)
[2017-10-25] MEDS: Clopidogrel TAB* 75 MG PO SCH (10:05)
[2017-10-25] MEDS: Vitamin E CAP* 400 UNIT PO SCH (10:05)
[2017-10-25] MEDS: Aspirin EC TAB* 81 MG TAB.EC PO SCH (10:06)
[2017-10-25] MEDS: Isosorbide Mononitrate ER TAB* 60 MG PO SCH (10:06)
[2017-10-25] MEDS: Metoprolol Succinate XL TAB* 100 MG PO SCH ×2 (10:06→21:00)
[2017-10-25] MEDS: Apixaban* 2.5 MG TAB PO SCH ×2 (10:14→21:00)
[2017-10-25] MEDS: Vitamin E CAP* 200 UNITS PO SCH (10:16)
[2017-10-25] MEDS: Docusate CAP* 100 MG PO SCH ×2 (10:19→21:00)
[2017-10-25] MEDS: Senna TAB PO SCH ×2 (10:19→20:59)
[2017-10-25] MEDS: Nystatin TOP POWDER* 15 GM BTL TOPICAL SCH ×3 (10:22→21:00)
[2017-10-25] MEDS ORDERED: Heparin DIALYSIS ONLY(*) 1,000 UNITS/ML VIAL DIALYSIS ONE (14:00)
[2017-10-25] MEDS: Oseltamivir CAP* 30 MG CAP PO SCH (15:52)
[2017-10-25] MEDS: Aliskiren TAB* 300 MG PO SCH (15:52)
--- NOTE | 2017-10-25 16:18 | PN ---
Subjective Date of Service: 10/25/17 Interval History: Pt feels very weak. Has been lying in bed for the past week. c/o "sore bottom" his ambulation id very limited at baseline due to SOB and uses a walker an wheelchair at home. His is also ill with flu right now. Objective Active Medications: Acetaminophen (Tylenol Tab*) 650 mg PO Q4H PRN PRN Reason: FEVER/PAIN Last Admin: 10/25/17 00:23 Dose: 650 mg Albuterol/Ipratropium (Duoneb (Albuterol 2.5 Mg/Ipratropium 0.5 Mg)) 1 neb INH [id number] AWAKE PRN PRN Reason: sob/wheexing Last Admin: 10/24/17 20:41 Dose: 1 neb Aliskiren (Tekturna Tab*) 300 mg PO DAILY [facility] Last Admin: 10/25/17 15:52 Dose: 300 mg Apixaban (Eliquis) 2.5 mg PO BID [facility] Last Admin: 10/25/17 10:14 Dose: 2.5 mg Aspirin (Aspirin Ec Tab*) 81 mg PO DAILY [facility] Last Admin: 10/25/17 10:06 Dose: 81 mg Atorvastatin Calcium (Lipitor*) 80 mg PO BEDTIME [facility] Last Admin: 10/24/17 21:40 Dose: 80 mg Clopidogrel Bisulfate (Plavix Tab*) 75 mg PO DAILY [facility] Last Admin: 10/25/17 10:05 Dose: 75 mg Dextrose (D50w Syringe 50 Ml*) 12.5 gm IV PUSH .FOR FS < 60 - SS PRN PRN Reason: FS < 60 Docusate Sodium (Colace Cap*) 100 mg PO BID [facility] Last Admin: 10/25/17 10:19 Dose: Not Given Gabapentin (Neurontin Cap(*)) 100 mg PO BID PRN PRN Reason: PAIN Last Admin: 10/24/17 15:31 Dose: 100 mg Guaifenesin/Dextromethorphan (Robitussin Dm*) 5 ml PO Q6H PRN PRN Reason: COUGH Last Admin: 10/24/17 20:24 Dose: 5 ml Insulin Glargine (Lantus(*)) 10 units SUBCUT Q12H [facility] Last Admin: 10/25/17 10:02 Dose: 10 unit Insulin Human Lispro (Humalog*) 0 units SUBCUT ACHS [facility] PRN Reason: Protocol Last Admin: 10/25/17 11:52 Dose: Not Given Isosorbide Mononitrate (Imdur Er Tab*) 60 mg PO QAM [facility] Last Admin: 10/25/17 10:06 Dose: 60 mg Magnesium Hydroxide (Milk Of Magnmaddi Liq*) 30 ml PO Q4H PRN PRN Reason: CONSTIPATION Metoprolol Succinate (Toprol Xl Tab*) 100 mg PO BID [facility] Last Admin: 10/25/17 10:06 Dose: 100 mg Nystatin (Nystatin Top Powder*) 1 applic TOPICAL TID [facility] Last Admin: 10/25/17 15:53 Dose: 1 applic Oseltamivir Phosphate (Tamiflu Cap*) 30 mg PO DAILY [facility] Last Admin: 10/25/17 15:52 Dose: 30 mg Oxycodone/Acetaminophen (Percocet 5/325 Tab*) 1 tab PO Q4H PRN PRN Reason: Pain Senna (Senokot Tab*) 1 tab PO BID [facility] Last Admin: 10/25/17 10:19 Dose: Not Given Tamsulosin HCl (Flomax Cap*) 0.4 mg PO BEDTIME [facility] Last Admin: 10/24/17 21:40 Dose: 0.4 mg Vitamin E (Vitamin E Cap*) 800 unit PO DAILY [facility] Last Admin: 10/25/17 10:05 Dose: 800 unit Vitamin E (Vitamin E Cap*) 200 units PO DAILY [facility] Last Admin: 10/25/17 10:16 Dose: 200 units Vital Signs - 8 hr 10/25/17 11:09 Temperature 97.6 F Pulse Rate 61 Respiratory 20 Rate Blood Pressure 107/57 (mmHg) O2 Sat by Pulse 95 Oximetry Oxygen Devices in Use Now: Nasal Cannula Appearance: 77 yo M in nAD, AAOx3, very poor historian Eyes: No Scleral Icterus, PERRLA Ears/Nose/Mouth/Throat: NL Teeth, Lips, Gums, Mucous Membranes Moist Neck: NL Appearance and Movements; NL JVP, Trachea Midline Respiratory: Symmetrical Chest Expansion and Respiratory Effort, - - R lung crackles Cardiovascular: NL Sounds; No Murmurs; No JVD Abdominal: NL Sounds; No Tenderness; No Distention, No Hepatosplenomegaly Lymphatic: No Cervical Adenopathy Extremities: No Clubbing, Cyanosis, - - +1 pitting pedal edema b/l Skin: No Nodules or Sclerosis, - - hyperpigmentation b/l distal LE's due to venous stasis skin changes. Inergluteal fold with skin breakdown/fissure like over the length of 10 cm, stage 2-3 Neurological: Alert and Oriented x 3, NL Muscle Strength and Tone, - - generalized weakness, needs help rolling in bed Result Diagrams: 10/25/17 06:32 10/25/17 06:32 Additional Lab and Data: Lab Results 10/24/17 10/24/17 10/24/17 Range/Units 06:43 06:43 06:43 WBC 7.0 (3.5-10.8) 10^3/ul RBC 3.39 L (4.0-5.4) 10^6/ul Hgb 10.7 L (14.0-18.0) g/dl Hct 33 L (42-52) % MCV 96 H (80-94) fL MCH 32 H (27-31) pg MCHC 33 (31-36) g/dl RDW 16 H (10.5-15) % Plt Count 143 L (150-450) 10^3/ul MPV 10.7 H (7.4-10.4) um3 Neut % (Auto) 81.1 (38-83) % Lymph % (Auto) 9.4 L (25-47) % [place] % (Auto) 6.1 (0-7) % Eos % (Auto) 2.9 (0-6) % Baso % (Auto) 0.5 (0-2) % Absolute Neuts (auto) 5.7 (1.5-7.7) 10^3/ul Absolute Lymphs (auto) 0.7 L (1.0-4.8) 10^3/ul Absolute Monos (auto) 0.4 (0-0.8) 10^3/ul Absolute Eos (auto) 0.2 (0-0.6) 10^3/ul Absolute Basos (auto) 0 (0-0.2) 10^3/ul Absolute Nucleated RBC 0 10^3/ul Nucleated RBC % 0 Sodium 137 L (139-145) mmol/L Potassium 4.7 (3.5-5.0) mmol/L Chloride 97 L (101-111) mmol/L Carbon Dioxide 27 (22-32) mmol/L Anion Gap 13 H (2-11) mmol/L BUN 68 H (6-24) mg/dL Creatinine 6.32 H (0.67-1.17) mg/dL Est GFR ( Amer) 11.1 (>60) Est GFR (Non-Af Amer) 8.6 (>60) BUN/Creatinine Ratio 10.8 (8-20) Glucose 182 H (70-100) mg/dL Lactic Acid 3.1 H* (0.5-2.0) mmol/L Calcium 8.7 (8.6-10.3) mg/dL Magnesium 1.6 L (1.9-2.7) mg/dL Total Bilirubin 0.50 (0.2-1.0) mg/dL AST 75 H (13-39) U/L ALT 21 (7-52) U/L Alkaline Phosphatase 52 (34-104) U/L Troponin I 0.13 H* (<0.04) ng/mL Total Protein 6.8 (6.4-8.9) g/dL Albumin 3.4 (3.2-5.2) g/dL Globulin 3.4 (2-4) g/dL Albumin/Globulin Ratio 1.0 (1-3) Influenza A (Rapid) (Negative) Influenza B (Rapid) (Negative) 10/24/17 Range/Units 07:30 WBC (3.5-10.8) 10^3/ul RBC (4.0-5.4) 10^6/ul Hgb (14.0-18.0) g/dl Hct (42-52) % MCV (80-94) fL MCH (27-31) pg MCHC (31-36) g/dl RDW (10.5-15) % Plt Count (150-450) 10^3/ul MPV (7.4-10.4) um3 Neut % (Auto) (38-83) % Lymph % (Auto) (25-47) % [place] % (Auto) (0-7) % Eos % (Auto) (0-6) % Baso % (Auto) (0-2) % Absolute Neuts (auto) (1.5-7.7) 10^3/ul Absolute Lymphs (auto) (1.0-4.8) 10^3/ul Absolute Monos (auto) (0-0.8) 10^3/ul Absolute Eos (auto) (0-0.6) 10^3/ul Absolute Basos (auto) (0-0.2) 10^3/ul Absolute Nucleated RBC 10^3/ul Nucleated RBC % Sodium (139-145) mmol/L Potassium (3.5-5.0) mmol/L Chloride (101-111) mmol/L Carbon Dioxide (22-32) mmol/L Anion Gap (2-11) mmol/L BUN (6-24) mg/dL Creatinine (0.67-1.17) mg/dL Est GFR ( Amer) (>60) Est GFR (Non-Af Amer) (>60) BUN/Creatinine Ratio (8-20) Glucose (70-100) mg/dL Lactic Acid (0.5-2.0) mmol/L Calcium (8.6-10.3) mg/dL Magnesium (1.9-2.7) mg/dL Total Bilirubin (0.2-1.0) mg/dL AST (13-39) U/L ALT (7-52) U/L Alkaline Phosphatase (34-104) U/L Troponin I (<0.04) ng/mL Total Protein (6.4-8.9) g/dL Albumin (3.2-5.2) g/dL Globulin (2-4) g/dL Albumin/Globulin Ratio (1-3) Influenza A (Rapid) Positive A (Negative) Influenza B (Rapid) Negative (Negative) Assess/Plan/Problems-Billing Assessment: 77 yo M with h/o ESRD, HTN, DM2, TIA, carotid endarterectomy, COPD/ pulm fibrosis(on 4 L 02) presents with generalized weakness and Influenza A - Patient Problems (1) Influenza A Comment: cont Tamilfu on HD days administered after dialysis Pt may need STR. PT/OT ordered (2) Interstitial lung disease Comment: h/o both COPD and interstitial lung disease. Appreciate Dr. Greer's consult Will continue supplemental O2. H/o chronic pulm fibrosis worse on R lung (3) Type II diabetes mellitus Comment: Cont Lantus c/w lispro sliding scale. (4) Chronic diastolic heart failure Comment: low SBP's due to low PO intake Torsemide held(pt makes "a little urine" daily (5) ESRD (end stage renal disease) Comment: Had HD on 10/24/ and 10/25 (6) Decubital ulcer Comment: appreciate wound care consult Cont barrier cream, air matress, repositioning (7) HTN (hypertension) Comment: low SBP's since admission, BP meds continued with hold parameters (8) DVT prophylaxis Comment: heparin Status and Disposition: OBV will be changed to inpatient. Pt is very deconditioned and likely will need STR at d/c PT/OT eval pending
[2017-10-25] MEDS: Atorvastatin* 80 MG TAB PO SCH (20:59)
[2017-10-25] MEDS: Tamsulosin CAP* 0.4 MG PO SCH (21:00)
[2017-10-25 23:52] LABS: Urine Appearance Cloudy; Urine Blood 2+ (Negative); Urine Color Yellow; Urine Ketones Negative (Negative); Urine Protein 2+(100 mg/dL) (Negative); Urine Urobilinogen Negative (Negative)
[2017-10-26] MEDS: GuaiFENesin DM* 5 ML UDC PO PRN ×3 (01:27→23:02)
[2017-10-26] MEDS: Insulin LISPRO* 1 UNITS UNIT SUBCUT SCH ×4 (09:05→21:46)
[2017-10-26] MEDS: Vitamin E CAP* 200 UNITS PO SCH (09:12)
[2017-10-26] MEDS: Apixaban* 2.5 MG TAB PO SCH ×2 (09:12→21:49)
[2017-10-26] MEDS: Insulin GLARGINE(*) 1 UNITS UNIT SUBCUT SCH ×2 (09:12→21:47)
[2017-10-26] MEDS: Nystatin TOP POWDER* 15 GM BTL TOPICAL SCH ×3 (09:13→23:03)
[2017-10-26] MEDS: Vitamin E CAP* 400 UNIT PO SCH (09:13)
[2017-10-26] MEDS: Docusate CAP* 100 MG PO SCH ×2 (09:13→21:31)
[2017-10-26] MEDS: Metoprolol Succinate XL TAB* 100 MG PO SCH ×2 (09:13→21:49)
[2017-10-26] MEDS: Clopidogrel TAB* 75 MG PO SCH (09:13)
[2017-10-26] MEDS: Aspirin EC TAB* 81 MG TAB.EC PO SCH (09:13)
[2017-10-26] MEDS: Senna TAB PO SCH ×2 (09:13→22:20)
[2017-10-26] MEDS: Isosorbide Mononitrate ER TAB* 60 MG PO SCH (09:13)
[2017-10-26] MEDS: Oseltamivir CAP* 30 MG CAP PO SCH (09:46)
[2017-10-26] MEDS: Aliskiren TAB* 300 MG PO SCH (09:47)
--- NOTE | 2017-10-26 15:07 | PN ---
Subjective Date of Service: 10/26/17 Interval History: Pt still c/o severe generalized weakness. Objective Active Medications: Acetaminophen (Tylenol Tab*) 650 mg PO Q4H PRN PRN Reason: FEVER/PAIN Last Admin: 10/25/17 00:23 Dose: 650 mg Albuterol/Ipratropium (Duoneb (Albuterol 2.5 Mg/Ipratropium 0.5 Mg)) 1 neb INH [id number] AWAKE PRN PRN Reason: sob/wheexing Last Admin: 10/24/17 20:41 Dose: 1 neb Aliskiren (Tekturna Tab*) 300 mg PO DAILY [facility] Last Admin: 10/26/17 09:47 Dose: 300 mg Apixaban (Eliquis) 2.5 mg PO BID [facility] Last Admin: 10/26/17 09:12 Dose: 2.5 mg Aspirin (Aspirin Ec Tab*) 81 mg PO DAILY [facility] Last Admin: 10/26/17 09:13 Dose: 81 mg Atorvastatin Calcium (Lipitor*) 80 mg PO BEDTIME [facility] Last Admin: 10/25/17 20:59 Dose: 80 mg Clopidogrel Bisulfate (Plavix Tab*) 75 mg PO DAILY [facility] Last Admin: 10/26/17 09:13 Dose: 75 mg Dextrose (D50w Syringe 50 Ml*) 12.5 gm IV PUSH .FOR FS < 60 - SS PRN PRN Reason: FS < 60 Docusate Sodium (Colace Cap*) 100 mg PO BID [facility] Last Admin: 10/26/17 09:13 Dose: 100 mg Gabapentin (Neurontin Cap(*)) 100 mg PO BID PRN PRN Reason: PAIN Last Admin: 10/24/17 15:31 Dose: 100 mg Guaifenesin/Dextromethorphan (Robitussin Dm*) 5 ml PO Q6H PRN PRN Reason: COUGH Last Admin: 10/26/17 09:52 Dose: 5 ml Insulin Glargine (Lantus(*)) 10 units SUBCUT Q12H [facility] Last Admin: 10/26/17 09:12 Dose: 10 unit Insulin Human Lispro (Humalog*) 0 units SUBCUT ACHS [facility] PRN Reason: Protocol Last Admin: 10/26/17 11:23 Dose: Not Given Isosorbide Mononitrate (Imdur Er Tab*) 60 mg PO QAM [facility] Last Admin: 10/26/17 09:13 Dose: 60 mg Magnesium Hydroxide (Milk Of Magnesia Liq*) 30 ml PO Q4H PRN PRN Reason: CONSTIPATION Metoprolol Succinate (Toprol Xl Tab*) 100 mg PO BID [facility] Last Admin: 10/26/17 09:13 Dose: 100 mg Nystatin (Nystatin Top Powder*) 1 applic TOPICAL TID [facility] Last Admin: 10/26/17 13:29 Dose: 1 applic Oseltamivir Phosphate (Tamiflu Cap*) 30 mg PO ONCE ONE Stop: 10/27/17 14:01 Oxycodone/Acetaminophen (Percocet 5/325 Tab*) 1 tab PO Q4H PRN PRN Reason: Pain Senna (Senokot Tab*) 1 tab PO BID [facility] Last Admin: 10/26/17 09:13 Dose: 1 tab Tamsulosin HCl (Flomax Cap*) 0.4 mg PO BEDTIME [facility] Last Admin: 10/25/17 21:00 Dose: 0.4 mg Vitamin E (Vitamin E Cap*) 800 unit PO DAILY [facility] Last Admin: 10/26/17 09:13 Dose: 800 unit Vitamin E (Vitamin E Cap*) 200 units PO DAILY [facility] Last Admin: 10/26/17 09:12 Dose: 200 units Vital Signs - 8 hr 10/26/17 10/26/17 10/26/17 07:54 08:08 09:39 Temperature 98.1 F Pulse Rate 77 74 Respiratory 16 18 Rate Blood Pressure 102/49 120/64 (mmHg) O2 Sat by Pulse 96 Oximetry 10/26/17 12:32 Temperature 98.2 F Pulse Rate 74 Respiratory 18 Rate Blood Pressure 133/50 (mmHg) O2 Sat by Pulse 93 Oximetry Oxygen Devices in Use Now: Nasal Cannula Appearance: 77 yo M in nAD, AAOx3, poor historian Eyes: No Scleral Icterus, PERRLA Ears/Nose/Mouth/Throat: NL Teeth, Lips, Gums, Mucous Membranes Moist Neck: NL Appearance and Movements; NL JVP, Trachea Midline Respiratory: Symmetrical Chest Expansion and Respiratory Effort, - - coarse crackles over the entire R lung Cardiovascular: NL Sounds; No Murmurs; No JVD, RRR Abdominal: NL Sounds; No Tenderness; No Distention, No Hepatosplenomegaly Lymphatic: No Cervical Adenopathy Extremities: No Clubbing, Cyanosis, - - +1 b/l pitting pedal edema Skin: No Nodules or Sclerosis, - - venous stasis discoloration b/l anterior shins, back not examined today Neurological: Alert and Oriented x 3, NL Muscle Strength and Tone, - - no focal weakness, generalized weakness Result Diagrams: 10/25/17 06:32 10/25/17 06:32 Additional Lab and Data: Lab Results 10/24/17 10/24/17 10/24/17 Range/Units 06:43 06:43 06:43 WBC 7.0 (3.5-10.8) 10^3/ul RBC 3.39 L (4.0-5.4) 10^6/ul Hgb 10.7 L (14.0-18.0) g/dl Hct 33 L (42-52) % MCV 96 H (80-94) fL MCH 32 H (27-31) pg MCHC 33 (31-36) g/dl RDW 16 H (10.5-15) % Plt Count 143 L (150-450) 10^3/ul MPV 10.7 H (7.4-10.4) um3 Neut % (Auto) 81.1 (38-83) % Lymph % (Auto) 9.4 L (25-47) % [place] % (Auto) 6.1 (0-7) % Eos % (Auto) 2.9 (0-6) % Baso % (Auto) 0.5 (0-2) % Absolute Neuts (auto) 5.7 (1.5-7.7) 10^3/ul Absolute Lymphs (auto) 0.7 L (1.0-4.8) 10^3/ul Absolute Monos (auto) 0.4 (0-0.8) 10^3/ul Absolute Eos (auto) 0.2 (0-0.6) 10^3/ul Absolute Basos (auto) 0 (0-0.2) 10^3/ul Absolute Nucleated RBC 0 10^3/ul Nucleated RBC % 0 Sodium 137 L (139-145) mmol/L Potassium 4.7 (3.5-5.0) mmol/L Chloride 97 L (101-111) mmol/L Carbon Dioxide 27 (22-32) mmol/L Anion Gap 13 H (2-11) mmol/L BUN 68 H (6-24) mg/dL Creatinine 6.32 H (0.67-1.17) mg/dL Est GFR ( Amer) 11.1 (>60) Est GFR (Non-Af Amer) 8.6 (>60) BUN/Creatinine Ratio 10.8 (8-20) Glucose 182 H (70-100) mg/dL Lactic Acid 3.1 H* (0.5-2.0) mmol/L Calcium 8.7 (8.6-10.3) mg/dL Magnesium 1.6 L (1.9-2.7) mg/dL Total Bilirubin 0.50 (0.2-1.0) mg/dL AST 75 H (13-39) U/L ALT 21 (7-52) U/L Alkaline Phosphatase 52 (34-104) U/L Troponin I 0.13 H* (<0.04) ng/mL Total Protein 6.8 (6.4-8.9) g/dL Albumin 3.4 (3.2-5.2) g/dL Globulin 3.4 (2-4) g/dL Albumin/Globulin Ratio 1.0 (1-3) Influenza A (Rapid) (Negative) Influenza B (Rapid) (Negative) 10/24/17 Range/Units 07:30 WBC (3.5-10.8) 10^3/ul RBC (4.0-5.4) 10^6/ul Hgb (14.0-18.0) g/dl Hct (42-52) % MCV (80-94) fL MCH (27-31) pg MCHC (31-36) g/dl RDW (10.5-15) % Plt Count (150-450) 10^3/ul MPV (7.4-10.4) um3 Neut % (Auto) (38-83) % Lymph % (Auto) (25-47) % [place] % (Auto) (0-7) % Eos % (Auto) (0-6) % Baso % (Auto) (0-2) % Absolute Neuts (auto) (1.5-7.7) 10^3/ul Absolute Lymphs (auto) (1.0-4.8) 10^3/ul Absolute Monos (auto) (0-0.8) 10^3/ul Absolute Eos (auto) (0-0.6) 10^3/ul Absolute Basos (auto) (0-0.2) 10^3/ul Absolute Nucleated RBC 10^3/ul Nucleated RBC % Sodium (139-145) mmol/L Potassium (3.5-5.0) mmol/L Chloride (101-111) mmol/L Carbon Dioxide (22-32) mmol/L Anion Gap (2-11) mmol/L BUN (6-24) mg/dL Creatinine (0.67-1.17) mg/dL Est GFR ( Amer) (>60) Est GFR (Non-Af Amer) (>60) BUN/Creatinine Ratio (8-20) Glucose (70-100) mg/dL Lactic Acid (0.5-2.0) mmol/L Calcium (8.6-10.3) mg/dL Magnesium (1.9-2.7) mg/dL Total Bilirubin (0.2-1.0) mg/dL AST (13-39) U/L ALT (7-52) U/L Alkaline Phosphatase (34-104) U/L Troponin I (<0.04) ng/mL Total Protein (6.4-8.9) g/dL Albumin (3.2-5.2) g/dL Globulin (2-4) g/dL Albumin/Globulin Ratio (1-3) Influenza A (Rapid) Positive A (Negative) Influenza B (Rapid) Negative (Negative) Assess/Plan/Problems-Billing Assessment: 77 yo M with h/o ESRD, HTN, DM2, TIA, carotid endarterectomy, COPD/ pulm fibrosis(on 4 L 02) presents with generalized weakness and Influenza A - Patient Problems (1) Influenza A Comment: cont Tamilfu on HD days administered after dialysis Pt will need STR. PT/OT ordered (2) Interstitial lung disease Comment: h/o both COPD and interstitial lung disease. Appreciate Dr. Greer's consult Will continue supplemental O2. H/o chronic pulm fibrosis worse on R lung (3) Type II diabetes mellitus Comment: Cont Lantus c/w lispro sliding scale. (4) Chronic diastolic heart failure Comment: low SBP's due to low PO intake Torsemide held(pt makes "a little urine" daily) (5) ESRD (end stage renal disease) Comment: Had HD on 10/24/ and 10/25 (6) Decubital ulcer Comment: appreciate wound care consult Cont barrier cream, air matress, repositioning (7) HTN (hypertension) Comment: low SBP's since admission, BP meds continued with hold parameters (8) DVT prophylaxis Comment: heparin Status and Disposition: inpatient. Pt is very deconditioned and likely will need STR at d/c
--- NOTE | 2017-10-26 16:55 | PN ---
Progress Note - Progress Note Date of Service: 10/26/17 - Pulm f/u note Note: Pt seen and examined at bedside. Reports feeling slightly better. Reports fatigue and LE weakness Active Medications Generic Name Dose Route Start Last Admin Trade Name Freq PRN Reason Stop Dose Admin Acetaminophen 650 mg 10/24/17 09:03 10/25/17 00:23 Tylenol Tab* PO 650 mg Q4H PRN Administration FEVER/PAIN Albuterol/Ipratropium 1 neb 10/24/17 09:03 10/24/17 20:41 Duoneb (Albuterol 2.5 Mg/Ipratropium 0.5 Mg) INH 1 neb [id number] AWAKE PRN Administration sob/wheexing Aliskiren 300 mg 10/24/17 10:30 10/26/17 09:47 Tekturna Tab* PO 300 mg DAILY DUANE Administration Apixaban 2.5 mg 10/24/17 09:00 10/26/17 09:12 Eliquis PO 2.5 mg BID DUANE Administration Aspirin 81 mg 10/24/17 09:00 10/26/17 09:13 Aspirin Ec Tab* PO 81 mg DAILY DUANE Administration Atorvastatin Calcium 80 mg 10/24/17 21:00 10/25/17 20:59 Lipitor* PO 80 mg BEDTIME DUANE Administration Clopidogrel Bisulfate 75 mg 10/24/17 09:00 10/26/17 09:13 Plavix Tab* PO 75 mg DAILY DUANE Administration Dextrose 12.5 gm 10/24/17 09:01 D50w Syringe 50 Ml* IV PUSH .FOR FS < 60 - SS PRN FS < 60 Docusate Sodium 100 mg 10/24/17 21:00 10/26/17 09:13 Colace Cap* PO 100 mg BID DUANE Administration Gabapentin 100 mg 10/24/17 08:59 10/24/17 15:31 Neurontin Cap(*) PO 100 mg BID PRN Administration PAIN Guaifenesin/Dextromethorphan 5 ml 10/24/17 12:14 10/26/17 09:52 Robitussin Dm* PO 5 ml Q6H PRN Administration COUGH Insulin Glargine 10 units 10/24/17 10:00 10/26/17 09:12 Lantus(*) SUBCUT 10 unit Q12H DUANE Administration Insulin Human Lispro 0 units 10/24/17 11:30 10/26/17 11:23 Humalog* SUBCUT Not Given ACHS [facility] Protocol Isosorbide Mononitrate 60 mg 10/24/17 09:57 10/26/17 09:13 Imdur Er Tab* PO 60 mg QAM DUANE Administration Magnesium Hydroxide 30 ml 10/24/17 09:03 Milk Of Pablo Liq* PO Q4H PRN CONSTIPATION Metoprolol Succinate 100 mg 10/24/17 09:57 10/26/17 09:13 Toprol Xl Tab* PO 100 mg BID DUANE Administration Nystatin 1 applic 10/24/17 14:00 10/26/17 13:29 Nystatin Top Powder* TOPICAL 1 applic TID DUANE Administration Oseltamivir Phosphate 30 mg 10/27/17 14:00 Tamiflu Cap* PO 10/27/17 14:01 ONCE ONE Oxycodone/Acetaminophen 1 tab 10/24/17 09:03 Percocet 5/325 Tab* PO Q4H PRN Pain Senna 1 tab 10/24/17 21:00 10/26/17 09:13 Senokot Tab* PO 1 tab BID DUANE Administration Tamsulosin HCl 0.4 mg 10/24/17 21:00 10/25/17 21:00 Flomax Cap* PO 0.4 mg BEDTIME DUANE Administration Vitamin E 800 unit 10/24/17 09:00 10/26/17 09:13 Vitamin E Cap* PO 800 unit DAILY [facility]ANE Administration Vitamin E 200 units 10/24/17 10:30 10/26/17 09:12 Vitamin E Cap* PO 200 units DAILY DUANE Administration Vital Signs Temp Pulse Resp BP Pulse Ox 98 F 80 18 130/48 93 10/26/17 15:16 10/26/17 15:16 10/26/17 15:16 10/26/17 15:16 10/26/17 15:16 O/E: Pt in NAD HEENT: PERRLA, no JVD Lungs: Diminished air entry b/l, crackles on right side CVS: S1, S2+ Abd: Obese, BS+ Ext: Tenderness + to touch, chronic skin changes Neuro: Decreased muscle tone in LE Laboratory Results - last 24 hr 10/25/17 10/25/17 10/25/17 16:45 20:11 23:05 POC Glucose (mg/dL) 153 H 109 H Urine Color Yellow Urine Appearance Cloudy Urine pH 6.0 Ur Specific [place] 1.010 Urine Protein 2+(100 mg/dl) A Urine Ketones Negative Urine Blood 2+ A Urine Nitrate Negative Urine Bilirubin Negative Urine Urobilinogen Negative Ur Leukocyte Esterase 3+ A Urine WBC (Auto) 3+(>20/hpf) A Urine RBC (Auto) 1+(3-5/hpf) A Ur Squamous Epith Cells Present A Urine Bacteria Absent Urine Glucose Negative 10/26/17 10/26/17 10/26/17 07:48 11:17 16:30 POC Glucose (mg/dL) 127 H 130 H 138 H Urine Color Urine Appearance Urine pH Ur Specific [place] Urine Protein Urine Ketones Urine Blood Urine Nitrate Urine Bilirubin Urine Urobilinogen Ur Leukocyte Esterase Urine WBC (Auto) Urine RBC (Auto) Ur Squamous Epith Cells Urine Bacteria Urine Glucose I/R: 77 y o morbidly obese male with h/o DM, HTN, unilateral pulm fibrosis being treated for influenza wtih signficant fatigue and LE weakness sec to myositis from Influenza Resp status stable, no signs of PNA or exacerbation of fibrosis c/w Duoneb Pt will benefit from PT/OT Steroids are shown to be helpful in post viral myositis
[2017-10-26] MEDS: Atorvastatin* 80 MG TAB PO SCH (21:49)
[2017-10-26] MEDS: Tamsulosin CAP* 0.4 MG PO SCH (21:49)
[2017-10-27] MEDS: Acetaminophen TAB* 325 MG PO PRN (08:55)
[2017-10-27] MEDS: Nystatin TOP POWDER* 15 GM BTL TOPICAL SCH ×3 (08:59→22:33)
[2017-10-27] MEDS: Senna TAB PO SCH ×2 (08:59→22:32)
[2017-10-27] MEDS: Docusate CAP* 100 MG PO SCH ×2 (08:59→22:33)
[2017-10-27] MEDS: Apixaban* 2.5 MG TAB PO SCH ×2 (09:00→22:33)
[2017-10-27] MEDS: Vitamin E CAP* 400 UNIT PO SCH (09:00)
[2017-10-27] MEDS: Aspirin EC TAB* 81 MG TAB.EC PO SCH (09:00)
[2017-10-27] MEDS: Isosorbide Mononitrate ER TAB* 60 MG PO SCH (09:00)
[2017-10-27] MEDS: Clopidogrel TAB* 75 MG PO SCH (09:00)
[2017-10-27] MEDS: Metoprolol Succinate XL TAB* 100 MG PO SCH ×2 (09:01→22:32)
[2017-10-27] MEDS: Aliskiren TAB* 300 MG PO SCH (09:01)
[2017-10-27] MEDS: Insulin LISPRO* 1 UNITS UNIT SUBCUT SCH ×4 (09:02→22:31)
[2017-10-27] MEDS: Vitamin E CAP* 200 UNITS PO SCH (09:05)
[2017-10-27] MEDS ORDERED: Heparin DIALYSIS ONLY(*) 1,000 UNITS/ML VIAL DIALYSIS ONE (13:00)
[2017-10-27] MEDS ORDERED: Alteplase (CATHFLO)* 2 MG VIAL IV ONE (13:00)
[2017-10-27] MEDS: Insulin GLARGINE(*) 1 UNITS UNIT SUBCUT SCH ×2 (13:07→22:30)
[2017-10-27] MEDS ORDERED: Oseltamivir CAP* 30 MG CAP PO ONE (14:00)
[2017-10-27] MEDS ORDERED: predniSONE TAB* 20 MG PO ONE (14:16)
--- NOTE | 2017-10-27 14:22 | PN ---
Subjective Date of Service: 10/27/17 Interval History: Pt still c/o generalized weakness Objective Active Medications: Acetaminophen (Tylenol Tab*) 650 mg PO Q4H PRN PRN Reason: FEVER/PAIN Last Admin: 10/27/17 08:55 Dose: 650 mg Albuterol/Ipratropium (Duoneb (Albuterol 2.5 Mg/Ipratropium 0.5 Mg)) 1 neb INH [id number] AWAKE PRN PRN Reason: sob/wheexing Last Admin: 10/24/17 20:41 Dose: 1 neb Aliskiren (Tekturna Tab*) 300 mg PO DAILY [facility] Last Admin: 10/27/17 09:01 Dose: 300 mg Apixaban (Eliquis) 2.5 mg PO BID [facility] Last Admin: 10/27/17 09:00 Dose: 2.5 mg Aspirin (Aspirin Ec Tab*) 81 mg PO DAILY [facility] Last Admin: 10/27/17 09:00 Dose: 81 mg Atorvastatin Calcium (Lipitor*) 80 mg PO BEDTIME [facility] Last Admin: 10/26/17 21:49 Dose: 80 mg Clopidogrel Bisulfate (Plavix Tab*) 75 mg PO DAILY [facility] Last Admin: 10/27/17 09:00 Dose: 75 mg Dextrose (D50w Syringe 50 Ml*) 12.5 gm IV PUSH .FOR FS < 60 - SS PRN PRN Reason: FS < 60 Docusate Sodium (Colace Cap*) 100 mg PO BID [facility] Last Admin: 10/27/17 08:59 Dose: Not Given Gabapentin (Neurontin Cap(*)) 100 mg PO BID PRN PRN Reason: PAIN Last Admin: 10/24/17 15:31 Dose: 100 mg Guaifenesin/Dextromethorphan (Robitussin Dm*) 5 ml PO Q6H PRN PRN Reason: COUGH Last Admin: 10/26/17 23:02 Dose: 5 ml Insulin Glargine (Lantus(*)) 10 units SUBCUT Q12H [facility] Last Admin: 10/27/17 13:07 Dose: 10 unit Insulin Human Lispro (Humalog*) 0 units SUBCUT ACHS [facility] PRN Reason: Protocol Last Admin: 10/27/17 13:02 Dose: Not Given Isosorbide Mononitrate (Imdur Er Tab*) 60 mg PO QAM [facility] Last Admin: 10/27/17 09:00 Dose: 60 mg Magnesium Hydroxide (Milk Of Magnmaddi Liq*) 30 ml PO Q4H PRN PRN Reason: CONSTIPATION Metoprolol Succinate (Toprol Xl Tab*) 100 mg PO BID [facility] Last Admin: 10/27/17 09:01 Dose: 100 mg Nystatin (Nystatin Top Powder*) 1 applic TOPICAL TID [facility] Last Admin: 10/27/17 13:11 Dose: Not Given Oxycodone/Acetaminophen (Percocet 5/325 Tab*) 1 tab PO Q4H PRN PRN Reason: Pain Prednisone (Deltasone Tab*) 40 mg PO ONCE ONE Stop: 10/27/17 14:17 Prednisone (Deltasone Tab*) 40 mg PO DAILY [facility] Senna (Senokot Tab*) 1 tab PO BID [facility] Last Admin: 10/27/17 08:59 Dose: Not Given Tamsulosin HCl (Flomax Cap*) 0.4 mg PO BEDTIME [facility] Last Admin: 10/26/17 21:49 Dose: 0.4 mg Vitamin E (Vitamin E Cap*) 800 unit PO DAILY [facility] Last Admin: 10/27/17 09:00 Dose: 800 unit Vitamin E (Vitamin E Cap*) 200 units PO DAILY [facility] Last Admin: 10/27/17 09:05 Dose: 200 units Vital Signs - 8 hr 10/27/17 08:59 Temperature 98.4 F Pulse Rate 63 Respiratory 18 Rate Blood Pressure 125/49 (mmHg) O2 Sat by Pulse 98 Oximetry Oxygen Devices in Use Now: Nasal Cannula Appearance: 77 yo M in nAD, AAOx3, poor historian Eyes: No Scleral Icterus, PERRLA Ears/Nose/Mouth/Throat: NL Teeth, Lips, Gums, Mucous Membranes Moist Neck: NL Appearance and Movements; NL JVP, Trachea Midline Respiratory: Symmetrical Chest Expansion and Respiratory Effort, - - coarse crackles in r lung Cardiovascular: NL Sounds; No Murmurs; No JVD, RRR Abdominal: NL Sounds; No Tenderness; No Distention, No Hepatosplenomegaly Lymphatic: No Cervical Adenopathy Extremities: No Clubbing, Cyanosis, - - b/l LE's +1 pitting edema with venous stasis changes/hyperpigmentation Skin: No Nodules or Sclerosis Neurological: Alert and Oriented x 3, NL Muscle Strength and Tone, - - generalized weakness Result Diagrams: 10/25/17 06:32 10/25/17 06:32 Additional Lab and Data: Lab Results 10/24/17 10/24/17 10/24/17 Range/Units 06:43 06:43 06:43 WBC 7.0 (3.5-10.8) 10^3/ul RBC 3.39 L (4.0-5.4) 10^6/ul Hgb 10.7 L (14.0-18.0) g/dl Hct 33 L (42-52) % MCV 96 H (80-94) fL MCH 32 H (27-31) pg MCHC 33 (31-36) g/dl RDW 16 H (10.5-15) % Plt Count 143 L (150-450) 10^3/ul MPV 10.7 H (7.4-10.4) um3 Neut % (Auto) 81.1 (38-83) % Lymph % (Auto) 9.4 L (25-47) % [place] % (Auto) 6.1 (0-7) % Eos % (Auto) 2.9 (0-6) % Baso % (Auto) 0.5 (0-2) % Absolute Neuts (auto) 5.7 (1.5-7.7) 10^3/ul Absolute Lymphs (auto) 0.7 L (1.0-4.8) 10^3/ul Absolute Monos (auto) 0.4 (0-0.8) 10^3/ul Absolute Eos (auto) 0.2 (0-0.6) 10^3/ul Absolute Basos (auto) 0 (0-0.2) 10^3/ul Absolute Nucleated RBC 0 10^3/ul Nucleated RBC % 0 Sodium 137 L (139-145) mmol/L Potassium 4.7 (3.5-5.0) mmol/L Chloride 97 L (101-111) mmol/L Carbon Dioxide 27 (22-32) mmol/L Anion Gap 13 H (2-11) mmol/L BUN 68 H (6-24) mg/dL Creatinine 6.32 H (0.67-1.17) mg/dL Est GFR ( Amer) 11.1 (>60) Est GFR (Non-Af Amer) 8.6 (>60) BUN/Creatinine Ratio 10.8 (8-20) Glucose 182 H (70-100) mg/dL Lactic Acid 3.1 H* (0.5-2.0) mmol/L Calcium 8.7 (8.6-10.3) mg/dL Magnesium 1.6 L (1.9-2.7) mg/dL Total Bilirubin 0.50 (0.2-1.0) mg/dL AST 75 H (13-39) U/L ALT 21 (7-52) U/L Alkaline Phosphatase 52 (34-104) U/L Troponin I 0.13 H* (<0.04) ng/mL Total Protein 6.8 (6.4-8.9) g/dL Albumin 3.4 (3.2-5.2) g/dL Globulin 3.4 (2-4) g/dL Albumin/Globulin Ratio 1.0 (1-3) Influenza A (Rapid) (Negative) Influenza B (Rapid) (Negative) 10/24/17 Range/Units 07:30 WBC (3.5-10.8) 10^3/ul RBC (4.0-5.4) 10^6/ul Hgb (14.0-18.0) g/dl Hct (42-52) % MCV (80-94) fL MCH (27-31) pg MCHC (31-36) g/dl RDW (10.5-15) % Plt Count (150-450) 10^3/ul MPV (7.4-10.4) um3 Neut % (Auto) (38-83) % Lymph % (Auto) (25-47) % [place] % (Auto) (0-7) % Eos % (Auto) (0-6) % Baso % (Auto) (0-2) % Absolute Neuts (auto) (1.5-7.7) 10^3/ul Absolute Lymphs (auto) (1.0-4.8) 10^3/ul Absolute Monos (auto) (0-0.8) 10^3/ul Absolute Eos (auto) (0-0.6) 10^3/ul Absolute Basos (auto) (0-0.2) 10^3/ul Absolute Nucleated RBC 10^3/ul Nucleated RBC % Sodium (139-145) mmol/L Potassium (3.5-5.0) mmol/L Chloride (101-111) mmol/L Carbon Dioxide (22-32) mmol/L Anion Gap (2-11) mmol/L BUN (6-24) mg/dL Creatinine (0.67-1.17) mg/dL Est GFR ( Amer) (>60) Est GFR (Non-Af Amer) (>60) BUN/Creatinine Ratio (8-20) Glucose (70-100) mg/dL Lactic Acid (0.5-2.0) mmol/L Calcium (8.6-10.3) mg/dL Magnesium (1.9-2.7) mg/dL Total Bilirubin (0.2-1.0) mg/dL AST (13-39) U/L ALT (7-52) U/L Alkaline Phosphatase (34-104) U/L Troponin I (<0.04) ng/mL Total Protein (6.4-8.9) g/dL Albumin (3.2-5.2) g/dL Globulin (2-4) g/dL Albumin/Globulin Ratio (1-3) Influenza A (Rapid) Positive A (Negative) Influenza B (Rapid) Negative (Negative) Assess/Plan/Problems-Billing Assessment: 77 yo M with h/o ESRD, HTN, DM2, TIA, carotid endarterectomy, COPD/ pulm fibrosis(on 4 L 02) presents with generalized weakness and Influenza A - Patient Problems (1) Influenza A Comment: Had a total of 3 doses of Tamiflu after dialysis. should get one more dose post dialysis tomorrow D/c to [facility] tomorrow. (2) Interstitial lung disease Comment: h/o both COPD and interstitial lung disease. Appreciate Dr. Greer's consult Will continue supplemental O2. H/o chronic pulm fibrosis worse on R lung (3) Type II diabetes mellitus Comment: Cont Lantus c/w lispro sliding scale. (4) Chronic diastolic heart failure Comment: low SBP's due to low PO intake Torsemide held(pt makes "a little urine" daily) at admisson, but can be restarted at d/c (5) ESRD (end stage renal disease) Comment: Had HD on 10/24/ and 4/25 (6) Decubital ulcer Comment: appreciate wound care consult Cont barrier cream, air matress, repositioning (7) HTN (hypertension) Comment: BP meds continued with hold parameters (8) Generalized weakness Comment: May be related to viral myositis. will get CPK in AM. Start prednisone as per Dr. Greer's recommendation (9) DVT prophylaxis Comment: heparin Status and Disposition: inpatient. Pt is very deconditioned and will be discharged to [facility] in AM
[2017-10-27] MEDS: GuaiFENesin DM* 5 ML UDC PO PRN (22:28)
[2017-10-27] MEDS: Gabapentin CAP(*) 100 MG PO PRN (22:32)
[2017-10-27] MEDS: Atorvastatin* 80 MG TAB PO SCH (22:33)
[2017-10-27] MEDS: Tamsulosin CAP* 0.4 MG PO SCH (22:33)
[2017-10-27] MEDS: Benzonatate CAP* 100 MG PO PRN (23:45)
--- NOTE | 2017-10-28 00:23 | DS ---
CC: Dr. Greer; Dr. Merino; [facility]. DISCHARGE SUMMARY: DATE OF ADMISSION: 10/24/17 DATE OF ANTICIPATED DISCHARGE: 10/28/17 PRIMARY CARE PROVIDER: Dr. Merino. CLOTH PICKER: Dr. Rodriguez. LICENSED EMBALMER: Dr. Greer. DISCHARGE DIAGNOSIS: Generalized weakness due to influenza A and likely associated viral myositis. SECONDARY DIAGNOSES: 1. History of end-stage renal disease, on dialysis Tuesdays, , and Saturdays. 2. Hypertension. 3. Diabetes type 2. 4. Hyperlipidemia. 5. History of transient ischemic attack. 6. History of carotid occlusion status post carotid endarterectomy. 7. Coronary artery disease. 8. History of chronic obstructive pulmonary disease, on 4 L of oxygen continuously. 9. History of obstructive sleep apnea. 10. History of pulmonary fibrosis localized mostly in the right lung. 11. History of status post AV fistula placement in the left forearm, currently maturing. 12. History of paroxysmal atrial fibrillation, originally diagnosed in 2013 for which he is on Eliquis. MEDICATIONS ON DISCHARGE: Include: 1. Tekturna 300 mg daily. 2. Eliquis 2.5 mg b.i.d. 3. Aspirin 81 mg daily. 4. Atorvastatin 80 mg daily. 5. Plavix 75 mg daily. 6. TriCor 145 mg daily. 7. Neurontin 100 mg b.i.d. 8. Insulin Lantus 10 units daily. 9. Insulin Humalog 5 to 15 units according to sliding scale. 10. Imdur 60 mg daily. 11. Metoprolol succinate 100 mg b.i.d. 12. Nitroglycerin on a p.r.n. basis. 13. Nystatin powder 1 application topically b.i.d. to groin area. 14. Tamiflu, the last dose of 30 mg x1 after dialysis on dialysis day on . 15. Oxycodone/acetaminophen 5/325 mg 1 tablet every 4 hours p.r.n. 16. Protonix 40 mg daily. 17. Prednisone 40 mg daily for 4 days total, then stop. 18. Flomax 0.4 mg at bedtime. 19. Demadex 40 mg daily. 20. Vitamin E 1000 units daily. LABORATORY DATA AND STUDIES PERFORMED DURING THE HOSPITAL STAY: The patient's influenza testing was positive for influenza A. On 10/25/17, white blood cell count 4.1, hemoglobin of 10.1, hematocrit of 29, and platelets of 142. On 10/25/17, sodium of 137, potassium 2.9, chloride 95, carbon dioxide 35, BUN 40, creatinine was 4.24. The patient's portable chest x-ray, impression: "Chronic right hemithorax, volume loss with interstitial fibrosis, significantly more prominent on the right than the left. Small inflammatory infiltrate at the right lung not excluded. There was no compelling superimposed acute cardiopulmonary process." CONSULTATIONS: The patient was seen in consultation by Dr. Greer from Pulmonology. HOSPITALIZATION COURSE: Hiram Manriquez is a 77-year-old male who has history of end- stage renal disease as well as severe COPD and pulmonary fibrosis for which she had seen Dr. Greer in the past. The patient presented to the hospital complaining of generalized weakness and fevers. He was diagnosed with influenza A and admitted. He continues to have profound generalized weakness and needed more care that could be provided for him at home. He was noted to have stage I to II decubitus ulcer in the intergluteal fold for which Wound Care recommended Bio cream on a daily basis. His chest x-ray shows chronic fibrotic changes in the right lung. Dr. Greer saw the patient in consultation and recommended a followup CT scan in 6 to 8 weeks, this will be done outpatient. CT of the chest in the recent past noted that the patient has 2.4 cm mass in the right lower lobe medially suggestive of possible pneumonia. Please note that during the patient's current hospital stay, he was not diagnosed with pneumonia. Due to generalized weakness, a possibility of viral caused myositis was entertained and the patient was placed on prednisone a day prior to discharge. It is recommended for the patient to continue prednisone 40 mg daily for a total of 5 days. The patient was hemodialyzed 2 times during his hospital stay and he plans to undergo dialysis on the day of discharge prior to transportation to [facility] for rehabilitation. Due to end-stage renal disease, the patient's Tamiflu doses are supposed to be a total of 3 doses, each of them after each consecutive dialysis treatment which the patient completed on 10/27/17. Please note that this is a short summary of the patient's hospitalization. Please refer to further medical history for details. For physical examination at discharge, please see the progress note. TIME SPENT: Approximately 50 minutes were spent on the patient's discharge. [id number]/[facility] #: [id number] MTDBen
[2017-10-28] MEDS: GuaiFENesin DM* 5 ML UDC PO PRN (03:35)
[2017-10-28] MEDS: Benzonatate CAP* 100 MG PO PRN (03:35)
[2017-10-28 06:36] LABS: Hematocrit 34 % (42-52); Hemoglobin 11.3 g/dl (14.0-18.0); Mean Corpuscular HGB Conc 33 g/dl (31-36); Mean Corpuscular Hemoglobin 31 pg (27-31); Mean Corpuscular Volume 94 fL (80-94); Mean Platelet Volume 10.6 um3 (7.4-10.4); Platelet Count 143 10^3/ul (150-450); Red Blood Count 3.61 10^6/ul (4.0-5.4); Red Cell Distribution Width 14 % (10.5-15); White Blood Count 3.5 10^3/ul (3.5-10.8)
[2017-10-28 08:53] VITALS: BP 159/56
[2017-10-28] MEDS ORDERED: predniSONE TAB* 20 MG PO SCH (09:00)
[2017-10-28] MEDS: Vitamin E CAP* 200 UNITS PO SCH (09:15)
[2017-10-28] MEDS: Vitamin E CAP* 400 UNIT PO SCH (09:15)
[2017-10-28] MEDS: Metoprolol Succinate XL TAB* 100 MG PO SCH (09:16)
[2017-10-28] MEDS: Apixaban* 2.5 MG TAB PO SCH (09:17)
[2017-10-28] MEDS: Clopidogrel TAB* 75 MG PO SCH (09:18)
[2017-10-28] MEDS: Isosorbide Mononitrate ER TAB* 60 MG PO SCH (09:18)
[2017-10-28] MEDS: Aspirin EC TAB* 81 MG TAB.EC PO SCH (09:18)
[2017-10-28] MEDS: Docusate CAP* 100 MG PO SCH (09:19)
[2017-10-28] MEDS: Senna TAB PO SCH (09:19)
[2017-10-28] MEDS: Aliskiren TAB* 300 MG PO SCH (09:19)
[2017-10-28] MEDS: Insulin LISPRO* 1 UNITS UNIT SUBCUT SCH (09:23)
[2017-10-28] MEDS: Nystatin TOP POWDER* 15 GM BTL TOPICAL SCH (09:24)
[2017-10-28] MEDS: Albuterol/Ipratropium NEB.SOL* Albuterol 2.5 MG/Ipratropium 0.5 MG 3 ML INH PRN (09:25)
--- NOTE | 2017-10-28 12:52 | DS ---
CC: Dr. Rodriguez ADDENDUM: Please note that the patient does not need Tamiflu on the day of his discharge. He received the last dose of Tamiflu on 10/27/17 completing his course of Tamiflu for his influenza A. [id number]/[facility] #: [id number] MTDD
== END 2017-10-28 09:50 | DRG 557 ==
LOC: ED 06:19 → MEDTELE 08:59 → OBSVTOIN 10-25 09:00 → MED 10-25 23:14
PROVIDERS: ADMIT Internal Medicine; ATTEND Internal Medicine
PROC: 5A1D70Z Performance of Urinary Filtration, Intermittent, Less than 6 Hours Per Day (ICD-10-PCS; 2017-10-24)
PROC: 5A1D70Z Performance of Urinary Filtration, Intermittent, Less than 6 Hours Per Day (ICD-10-PCS; principal; 2017-10-25)
PROC: 5A1D70Z Performance of Urinary Filtration, Intermittent, Less than 6 Hours Per Day (ICD-10-PCS; 2017-10-27)
DX: M60.005 Infective myositis, unspecified leg (principal); N18.6 End stage renal disease; J84.9 Interstitial pulmonary disease, unspecified; I13.2 Hypertensive heart and chronic kidney disease with heart failure and with stage 5 chronic kidney disease, or end stage renal disease; I50.32 Chronic diastolic (congestive) heart failure; J10.1 Influenza due to other identified influenza virus with other respiratory manifestations; B97.89 Other viral agents as the cause of diseases classified elsewhere; E11.22 Type 2 diabetes mellitus with diabetic chronic kidney disease; J44.9 Chronic obstructive pulmonary disease, unspecified; I25.10 Atherosclerotic heart disease of native coronary artery without angina pectoris; E11.51 Type 2 diabetes mellitus with diabetic peripheral angiopathy without gangrene; J84.10 Pulmonary fibrosis, unspecified; K21.9 Gastro-esophageal reflux disease without esophagitis; M19.90 Unspecified osteoarthritis, unspecified site; Z96.651 Presence of right artificial knee joint; F40.240 Claustrophobia; E78.5 Hyperlipidemia, unspecified; I48.0 Paroxysmal atrial fibrillation; L89.892 Pressure ulcer of other site, stage 2; K59.00 Constipation, unspecified; G47.33 Obstructive sleep apnea (adult) (pediatric); E66.01 Morbid (severe) obesity due to excess calories; L89.90 Pressure ulcer of unspecified site, unspecified stage; Z98.42 Cataract extraction status, left eye; Z79.02 Long term (current) use of antithrombotics/antiplatelets; Z79.82 Long term (current) use of aspirin; Z99.3 Dependence on wheelchair; Z87.891 Personal history of nicotine dependence; Z86.73 Personal history of transient ischemic attack (TIA), and cerebral infarction without residual deficits; I25.2 Old myocardial infarction; Z99.81 Dependence on supplemental oxygen; Z86.711 Personal history of pulmonary embolism; Z95.5 Presence of coronary angioplasty implant and graft; Z91.048 Other nonmedicinal substance allergy status; Z99.2 Dependence on renal dialysis; Z79.4 Long term (current) use of insulin; Z82.49 Family history of ischemic heart disease and other diseases of the circulatory system; Z80.0 Family history of malignant neoplasm of digestive organs; Z68.39 Body mass index [BMI] 39.0-39.9, adult; Z79.01 Long term (current) use of anticoagulants; Z56.0 Unemployment, unspecified
CPT/HCPCS: 36415; 71045; 80048; 80053; 81003; 81015; 82550; 83605; 83735; 84484; 85025; 85027; 87086; 87502; 90935; 93005; 94640; 99284; A9270-GY; G0257; G0378; G8978-GP-CK; G8978-GP-CL; G8979-GP-CI; G8987-GO-CK; G8988-GO-CJ; G8989-GO-CJ; J1644; J2997; J3475; J7512

== ENCOUNTER 2017-11-03 23:56 | Emergency (ER) | payer MEDICARE ==
[2017-11-04 01:11] LABS: Hematocrit 33 % (42-52); Hemoglobin 10.5 g/dl (14.0-18.0); Mean Corpuscular HGB Conc 32 g/dl (31-36); Mean Corpuscular Hemoglobin 31 pg (27-31); Mean Corpuscular Volume 95 fL (80-94); Mean Platelet Volume 10.5 um3 (7.4-10.4); Platelet Count 197 10^3/ul (150-450); Red Blood Count 3.44 10^6/ul (4.0-5.4); Red Cell Distribution Width 15 % (10.5-15); White Blood Count 12.4 10^3/ul (3.5-10.8)
[2017-11-04 01:22] LABS: ABS Basophils 0.1 10^3/ul (0-0.2); ABS Eosinophils 0.3 10^3/ul (0-0.6); ABS Lymphocytes 1.7 10^3/ul (1.0-4.8); ABS Monocytes 0.8 10^3/ul (0-0.8); ABS Neutrophils 8.6 10^3/ul (1.5-7.7); ABS Nucleated RBC 0 10^3/ul; Eosinophil % 2.9 % (0-6); Lymphocyte % 14.6 % (25-47); Nucleated Red Blood Cells % 0
[2017-11-04 01:28] LABS: EGFR Non-African American 10.9 (>60)
[2017-11-04 02:26] VITALS: BP 102/58
[2017-11-04] MEDS ORDERED: Ciprofloxacin TAB* 250 MG PO ONE (03:01)
[2017-11-04] MEDS ORDERED: metroNIDAZOLE TAB* 250 MG PO ONE (03:02)
--- NOTE | 2017-11-04 04:02 | ED ---
Kg Steve Nikita, scribed for Raymond Saldana MD on 11/04/17 at 0009 . GI/ HPI - HPI Summary HPI Summary: This patient is a 77 year old M BIBA to ED with a chief complaint of diarrhea since 3 days ago. The CC is described as watery. The patient rates the pain 0/ 10 in severity. Symptoms aggravated by nothing. Symptoms alleviated by nothing. Patient denies vomiting, abdominal pain, and fever. The patient is not taking abx anymore for PNA. Patient is on dialysis every Monday, , and Monday. - History of Current Complaint Chief Complaint: EDNauseaVomitDiarrh Time Seen by Provider: 11/04/17 00:05 Stated Complaint: ABD PAIN Hx Obtained From: Patient Onset/Duration: Started Days Ago, Still Present Timing: Constant, Lasting Days Current Severity: None Pain Intensity: 0 Associated Signs and Symptoms: Positive: Diarrhea - Patient denies vomiting, abdominal pain, and fever - Additional Pertinent History Primary Care Physician: THEODORE - Allergy/Home Medications Allergies/Adverse Reactions: Allergies Allergy/AdvReac Type Severity Reaction Status Date / Time Adhesive Tape Allergy Intermediate Rash And Verified 10/11/17 12:44 Itching Home Medications: Home Medications Amlodipine Besylate 10 mg PO 11/04/17 [History] Insulin GLARGINE(*) [Lantus(*)] 40 units SUBCUT Q12H 11/04/17 [History Confirmed 11/04/17] PMH/Surg Hx/FS Hx/Imm Hx Endocrine/Hematology History: Reports: Hx Diabetes - TYPE II- ON INSULIN FOR Cardiovascular History: Reports: Hx Angioplasty - R leg angioplasty x2, last , Hx Coronary Artery Disease - 2 STENTS-[facility], Hx Embolism, Hx Hypertension, Hx Peripheral Vascular Disease, Other Cardiovascular Problems/Disorders - HEART CATH Denies: Hx Pacemaker/ICD Respiratory History: Reports: Hx Chronic Obstructive Pulmonary Disease (COPD) - 4L O2 at baseline, 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 Musculoskeletal History: Reports: Hx Arthritis, Other Musculoskeletal History - R knee arthroplasty Sensory History: Reports: Hx Cataracts, Hx Contacts or Glasses - reading only Denies: Hx Hearing Aid Opthamlomology History: Reports: Hx Cataracts, Hx Contacts or Glasses - reading only Neurological History: Reports: Hx Transient Ischemic Attacks (TIA) Psychiatric History: Reports: Other Psychiatric Issues/Disorders - claustrophobic Denies: Hx Panic Disorder - Surgical History Surgery Procedure, Year, and Place: 2008 ARTHROSCOPIC RT KNEE-[facility]. 2010 CARDIAC STENTS. [facility]2012 LIVER BIOPSY. [facility] 2013. RT [facility]. ballooning to veins in legs Hx Anesthesia Reactions: No Infectious Disease History: No Infectious Disease History: Denies: Traveled Outside the [place] in Last 30 Days - Family History Known Family History: Positive: Cardiac Disease, Hypertension - Social History Alcohol Use: Rare Hx Substance Use: No Substance Use Type: Reports: None Hx Tobacco Use: Yes Smoking Status (MU): Former Smoker Type: Cigarettes Amount Used/How Often: 2 pks/day X 30 YEARS Have You Smoked in the Last Year: No Review of Systems Negative: Fever Positive: Diarrhea. Negative: Abdominal Pain, Vomiting All Other Systems Reviewed And Are Negative: Yes Physical Exam - Summary Physical Exam Summary: VITAL SIGNS: Reviewed. GENERAL: ~Patient is a well-developed and nourished MALE who is lying comfortable in the stretcher. Patient is not in any acute respiratory distress. HEAD AND FACE: No signs of trauma. No ecchymosis, hematomas or skull depressions. No sinus tenderness. EYES: PERRLA, EOMI x 2, No injected conjunctiva, no nystagmus. EARS: Hearing grossly intact. Ear canals and tympanic membranes are within normal limits. MOUTH: Oropharynx within normal limits. NECK: Supple, trachea is midline, no adenopathy, no JVD, no carotid bruit, no c- spine tenderness, neck with full ROM. CHEST: Symmetric, no tenderness at palpation. Dialysis catheter shiley on R upper chest . LUNGS: Clear to auscultation bilaterally. No wheezing or crackles. CVS: Regular rate and rhythm, S1 and S2 present, no murmurs or gallops appreciated. ABDOMEN: Soft, non-tender. Belly is distended. No rebound, no guarding, and no masses palpated. Bowel sounds are normal. EXTREMITIES: FROM in all major joints, chronic skin changes with +1 edema in both legs, no cyanosis or clubbing. NEURO: Alert and oriented x 3. No acute neurological deficits. Speech is normal and follows commands. SKIN: Dry and warm Triage Information Reviewed: Yes Vital Signs On Initial Exam: Initial Vitals Temp Pulse Resp BP Pulse Ox 98.3 F 88 20 130/79 94 11/04/17 00:02 11/04/17 00:02 11/04/17 00:02 11/04/17 00:02 11/04/17 00:02 Vital Signs Reviewed: Yes Diagnostics - Vital Signs Vital Signs Temp Pulse Resp BP Pulse Ox 11/04/17 00:02 98.3 F 88 20 130/79 94 - Laboratory Result Diagrams: 11/04/17 00:54 11/04/17 00:54 Lab Statement: Any lab studies that have been ordered have been reviewed, and results considered in the medical decision making process. Re-Evaluation - Re-Evaluation First Eval Re-Evaluation Time: 03:09 Comment: Discussed results and discharge plan with the patient. GIGU Course/Dx - Course Assessment/Plan: This patient is a 77 year old M BIBA to ED with a chief complaint of diarrhea since 3 days ago. Patients stool analysis is positive for white cells, which means he has infectious diarrhea. Therefore the patient will be treated with cipro and flagyl for 1 week. Dosage is adjusted to his renal function since he is on dialysis. The patient will be discharged with a diagnosis of diarrhea/infectious diarrhea. The patient is agreeable with this plan. - Diagnoses Differential Diagnoses - Male: Other - diarrhea/infectious diarrhea Provider Diagnoses: Infectious diarrhea, Diarrhea Discharge - Sign-Out/Discharge Documenting (check all that apply): Discharge/Admit/Transfer - Discharge Plan Condition: Stable Disposition: HOME Prescriptions: Ciprofloxacin TAB* [Cipro 250 MG Tab*] 250 mg PO DAILY #7 tab metroNIDAZOLE [Flagyl] 500 mg PO BID #14 tablet Patient Education Materials: Acute Diarrhea (ED) Referrals: Franky Merino MD [Primary Care Provider] - 11/06/17 (Follow up with your PCP on Monday.) Additional Instructions: RETURN TO EMERGENCY DEPARTMENT FOR ANY NEW OR WORSENING SYMPTOMS. The documentation as recorded by the Kg perez Nikita accurately reflects the service I personally performed and the decisions made by , Raymond Saldana MD.
--- NOTE | 2017-11-07 17:29 | ED ---
Progress - Progress Note Progress Note: Patient's stool culture reveals negative shiga toxin, negative C. difficile and no enteric pathogens. He does not have any occult blood however he does have a positive immunoassay. Patient was started on Cipro and Flagyl and advised to follow-up with PCP as of yesterday. No change in treatment at this time. Re-Evaluation - Re-Evaluation First Eval Re-Evaluation Time: 03:09 Comment: Discussed results and discharge plan with the patient. Course/Dx - Diagnoses Provider Diagnoses: Infectious diarrhea, Diarrhea Discharge - Sign-Out/Discharge Documenting (check all that apply): Post-Discharge Follow Up - Discharge Plan Condition: Stable Disposition: HOME Prescriptions: Ciprofloxacin TAB* [Cipro 250 MG Tab*] 250 mg PO DAILY #7 tab metroNIDAZOLE [Flagyl] 500 mg PO BID #14 tablet Patient Education Materials: Acute Diarrhea (ED) Referrals: Franky Merino MD [Primary Care Provider] - 11/06/17 (Follow up with your PCP on Monday.) Additional Instructions: RETURN TO EMERGENCY DEPARTMENT FOR ANY NEW OR WORSENING SYMPTOMS. - Billing Disposition and Condition Condition: STABLE Disposition: HOME
== END 2017-11-04 03:47 | disposition home or self-care (01) ==
LOC: ED 23:56
DX: A09 Infectious gastroenteritis and colitis, unspecified (principal); R10.9 Unspecified abdominal pain; Z87.891 Personal history of nicotine dependence
CPT/HCPCS: 36415; 80053; 82272; 83630; 83735; 85025; 86140; 87045; 87046; 87077; 87493; 87899; 99283; A9270-GY

== ENCOUNTER → 2017-11-29 09:45 | Day surgery (SDC) | payer MEDICARE | END | disposition home or self-care (01) | LOC: CHICATH 09:45 | PROVIDERS: ATTEND Radiology Diagnostic Radiology | DX: N18.9 Chronic kidney disease, unspecified (principal); Z53.09 Procedure and treatment not carried out because of other contraindication; R19.7 Diarrhea, unspecified; J44.9 Chronic obstructive pulmonary disease, unspecified; Z99.81 Dependence on supplemental oxygen; I25.10 Atherosclerotic heart disease of native coronary artery without angina pectoris; E78.5 Hyperlipidemia, unspecified; K21.9 Gastro-esophageal reflux disease without esophagitis; I12.9 Hypertensive chronic kidney disease with stage 1 through stage 4 chronic kidney disease, or unspecified chronic kidney disease; E11.9 Type 2 diabetes mellitus without complications; Z79.4 Long term (current) use of insulin ==

== ENCOUNTER 2017-11-29 10:25 | Inpatient (IN) | payer MEDICARE ==
[2017-11-29 12:14] LABS: ABS Basophils 0 10^3/ul (0-0.2); ABS Eosinophils 0.4 10^3/ul (0-0.6); ABS Lymphocytes 1.6 10^3/ul (1.0-4.8); ABS Monocytes 0.6 10^3/ul (0-0.8); ABS Neutrophils 5.6 10^3/ul (1.5-7.7); ABS Nucleated RBC 0 10^3/ul; Eosinophil % 4.6 % (0-6); Hematocrit 34 % (42-52); Hemoglobin 10.9 g/dl (14.0-18.0); Lymphocyte % 19.4 % (25-47); Mean Corpuscular HGB Conc 32 g/dl (31-36); Mean Corpuscular Hemoglobin 31 pg (27-31); Mean Corpuscular Volume 96 fL (80-94); Mean Platelet Volume 9.8 um3 (7.4-10.4); Nucleated Red Blood Cells % 0; Platelet Count 193 10^3/ul (150-450); Red Blood Count 3.52 10^6/ul (4.0-5.4); Red Cell Distribution Width 16 % (10.5-15); White Blood Count 8.3 10^3/ul (3.5-10.8)
[2017-11-29 12:36] LABS: EGFR Non-African American 11.8 (>60)
--- NOTE | 2017-11-29 13:47 | RAD ---
Indication: Shortness of breath. Single frontal view of the chest performed at 1245 hours was reviewed. Comparison is made with previous exam dated October 24, 2017. Chronic interstitial fibrosis of the right lung field is noted. Mild interstitial edema of the left lung is noted. No alveolar consolidation is noted. IMPRESSION: INTERSTITIAL FIBROSIS RIGHT LUNG FIELD WITH VASCULAR CONGESTION OF THE LEFT LUNG.
[2017-11-29] MEDS ORDERED: Vancomycin CAP* 125 MG CAP PO ONE (14:12)
[2017-11-29] MEDS ORDERED: Acetaminophen TAB* 325 MG PO PRN (14:22)
[2017-11-29] MEDS ORDERED: Ondansetron 40 MG VIAL* 2 MG/ML 20 ML VIAL IV PRN (14:22)
[2017-11-29] MEDS ORDERED: Albuterol 2.5 MG/3 ML NEB.SOL* (0.083%) INH PRN (14:22)
[2017-11-29] MEDS ORDERED: Al Hydrox/Mg Hydrox/Simet LIQ* 30 ML UDC PO PRN (14:22)
[2017-11-29] MEDS ORDERED: Gabapentin CAP(*) 100 MG PO PRN (14:28)
[2017-11-29] MEDS ORDERED: NS 0.9% 1000 ML* 1,000 ML IV SCH (14:30)
[2017-11-29] MEDS ORDERED: Dextrose 50% Syringe 50 ML* 25 GM/50 ML SYRINGE IV PUSH PRN (14:36)
[2017-11-29] MEDS ORDERED: Insulin LISPRO* 1 UNITS UNIT SUBCUT SCH (16:30)
[2017-11-29] MEDS: Apixaban* 2.5 MG TAB PO SCH (21:58)
[2017-11-29] MEDS: Atorvastatin* 80 MG TAB PO SCH (21:58)
[2017-11-29] MEDS: Vancomycin CAP* 125 MG CAP PO SCH (21:59)
[2017-11-29] MEDS: Metoprolol Succinate XL TAB* 100 MG PO SCH (21:59)
[2017-11-29] MEDS: Tamsulosin CAP* 0.4 MG PO SCH (21:59)
[2017-11-29] MEDS: Lactobacillus Acidophilus* 1 TAB PO SCH (21:59)
--- NOTE | 2017-11-29 22:00 | HP ---
CC: Dr. Merino; Dr. Rodriguez * HISTORY AND PHYSICAL: DATE OF ADMISSION: 11/29/17 PROVIDER: Chelo Gordon NP PRIMARY CARE PROVIDERS: Dr. Merino and Dr. Rodriguez ATTENDING PHYSICIAN WHILE IN THE HOSPITAL: Ida Meyer MD * (dictated by Chelo Gordon NP) CHIEF COMPLAINT: Diarrhea. HISTORY OF PRESENT ILLNESS: Mr. Declan Mora is a 77-year-old male who presented to the hospital today for AV fistulogram and when he presented to Radiology, he was experiencing diarrhea, so he was sent to the emergency room for further evaluation. The patient carries a history of end-stage renal disease and dialysis, Monday, , Monday; hypertension, diabetes, history of a TIA, carotid occlusion, history of coronary artery disease, COPD, on continuous oxygen at 4 L, obstructive sleep apnea, and paroxysmal AFib, which was diagnosed in 2013. The patient states that yesterday he was feeling in his normal state of health. He chronically has shortness of breath with exertion and coughing. He states that his shortness of breath is at his baseline. He states that this morning, he developed some diarrhea. He reports no recent antibiotic or laxative use. He states that he has had 8 to 10 episodes of diarrhea today that are watery. Denies any black tarry or blood in the stool. While in the emergency room, he was evaluated. He had routine lab work drawn. His BUN and creatinine were elevated, but at baseline at 56 and 4.82. He had several episodes of diarrhea while in the emergency room. He had stool sent for culture and was positive for C. difficile. Given his chronic comorbid health conditions, we were asked to see and evaluate the patient for admission due to his C. diff diarrhea as well as his end-stage renal disease. PAST MEDICAL HISTORY: Significant for: 1. End-stage renal disease with dialysis, Monday, , Monday. 2. Hypertension. 3. Diabetes, insulin dependent. 4. History of TIA. 5. Carotid occlusion. 6. Coronary artery disease. 7. COPD with chronic O2 at 4 L. 8. Obstructive sleep apnea. 9. Paroxysmal AFib, diagnosed in 2013. 10. AV fistula in the left arm. 11. Hyperlipidemia. PAST SURGICAL HISTORY: 1. Cardiac catheterization. 2. Carotid endarterectomy. 3. AV fistula placement. MEDICATIONS: Current home medications: 1. Acetaminophen 650 mg p.o. q.8 hours. 2. Vitamin E capsule 1000 units p.o. daily. 3. Torsemide 40 mg p.o. daily. 4. Tekturna 300 mg p.o. daily. 5. Flomax 0.4 mg at bedtime. 6. Pantoprazole 40 mg p.o. daily. 7. Nitroglycerin 0.4 mg subcu q.5 minutes as needed. 8. Metoprolol succinate XL 100 mg p.o. b.i.d. 9. Isosorbide ER 60 mg p.o. q.a.m. 10. Lantus 40 mg subcu. 11. Lispro sliding scale. 12. Gabapentin 100 mg p.o. b.i.d. 13. TriCor 145 mg p.o. daily. 14. Eliquis 2.5 mg p.o. b.i.d. 15. Lipitor 80 mg p.o. at bedtime. 16. Aspirin 81 mg p.o. daily. 17. Amlodipine 10 mg p.o. daily. ALLERGIES TO MEDICATIONS: He is allergic to ADHESIVE TAPE. FAMILY HISTORY: Mother with a history of cerebral aneurysm. Father with a history of esophageal cancer. SOCIAL HISTORY: The patient quit smoking approximately 30 years ago. He denies any alcohol or drug use. His surrogate decision maker in the event he is unable to make his own decisions is his . He currently lives at home independently with his . REVIEW OF SYSTEMS: There was no documented fever. There has been no significant weight change. Denies any double vision. Denies any ear discharge or any rhinorrhea. Denies sore throat. Denied any chest pain. He does report exertional shortness of breath and chronic cough, which is at his baseline. He denies any abdominal pain. Denies any nausea or vomiting. He does report diarrhea. Denies any dysuria or urinary frequency. No seizures. No loss of consciousness. Denies any pruritus. He does have chronic discoloration to bilateral legs and complains of anal excoriation. A review of 14 systems was completed and all others are negative. PHYSICAL EXAMINATION GENERAL: At this time, Mr. Declan Mora is a 77-year-old male who appears mildly short of breath, sitting in the bed in the emergency room. He does not appear to be in any acute distress. VITAL SIGNS: Are as follows, blood pressure 153/98, heart rate is 78, respirations were 22, O2 saturation was 98% on 5 L of O2, temperature was 97.8. HEENT: Head is atraumatic, normocephalic. Eyes: EOMs are intact. Sclerae anicteric and not pale. Oral mucosa appeared to be mildly dry. NECK: Supple. LUNGS: Clear to auscultation bilaterally. No wheezes, rales, or rhonchi. CARDIAC: S1, S2 with a regular rate and rhythm. There are no murmurs, rubs, or gallops. ABDOMEN: Soft, rounded, nontender. Bowel sounds are hyperactive x4. EXTREMITIES: Pulses are +2 throughout. He is able to move all 4 extremities with 4/5 strength. He does have bilateral lower extremity edema, +1. NEUROLOGIC: He is awake, alert, and oriented x4. His speech is clear. There are no focal deficits. SKIN: He has bilateral brownish discoloration with some scabbing areas noted to bilateral lower legs. He has some excoriation noted to the perianal area. DIAGNOSTIC STUDIES AND LABORATORY DATA: WBCs were 8.3, hemoglobin 10.9, hematocrit was 34, platelet count was 193. Sodium 139, potassium 5.4, chloride was 100, BUN was 56, creatinine 4.82, glucose was 115. Lactic acid was 2. Calcium was 9.2. ASTs were 42, ALTs were 18, alkaline phosphatase was 50. C- reactive protein 6.10. T protein was 7.3. His lipase was 25. Stool culture was positive for C. diff. Stool occult blood was negative. EKG showed sinus rhythm at a rate of 80. Chest x-ray, radiologist's impression : Interstitial fibrosis of right lung field with vascular congestion on the left lung. ASSESSMENT AND PLAN: Mr. Declan Mora is a 77-year-old male patient that presented to the emergency room today for complaints of diarrhea that started this morning. He has had 8 to 10 episodes. He will be admitted under observation for: 1. Clostridium difficile diarrhea. I suspect the diarrhea is related to the Clostridium difficile infection that he has. He will be placed on vancomycin 125 mg p.o. 4 times a day. We will also give him some gentle hydration at normal saline at 50 cc an hour due to his profuse diarrhea. He did have a stool occult in the emergency room, which was negative. He will be monitored overnight and if the patient is feeling well in the a.m., possible discharge home. 2. End-stage renal disease. The patient receives dialysis Monday, , and Monday. Dr. Rodriguez has been contacted and is aware of the patient's admission. If the patient should need dialysis tomorrow, Dr. Rodriguez should be contacted. If the patient is well enough to be discharged, he can be discharged to dialysis tomorrow as dialysis is not available in the hospital on , which is his normal dialysis day. 3. Hyperkalemia. His potassium today was 5.4. Given the amount of diarrhea he is having, we will monitor his potassium level ,I do not feel that lactulose would be necessary at this time. 4. History of paroxysmal atrial fibrillation. The patient will be continued on metoprolol and Eliquis. 5. For his diabetes, type 2, he is going to be treated. He is going to continue his Lantus 40 units and lispro sliding scale with Accu-Cheks a.c. and h.s. 6. Chronic obstructive pulmonary disease. The patient will remain on oxygen throughout his hospitalization. We will continue him at 4 L and monitor his O2 saturation throughout his hospitalization. I did order albuterol nebulizers in the event he has significant shortness of breath. He reports he does not use any nebulizers or inhalers at home currently. He reports that they do not help. 7. History of transient ischemic attack. We will continue him on Plavix and Lipitor 80mg. 8. Hyperlipidemia. We will continue his Lipitor 80 mg. 9. DVT prophylaxis. He will continue on his Eliquis. At this time, I will not place SCDs on as the patient has bilateral lower leg edema. 10. Code status. He is a full code. 11. Fluids, electrolytes, and nutrition. He will be placed on a renal diet. TIME SPENT: Time spent on this admission was approximately 60 minutes, greater than half that time was spent [id number] with the patient obtaining my history and physical, the other half of the time was spent going over the plan of care and implementing my plan of care. I have discussed this with my attending, Dr. Ida Meyer, and she is in agreement with my plan. CHELO GORDON, ESTIMATOR [employer]ING [employer] [id number]/[facility] #: [id number] [facility]Ben
[2017-11-29] MEDS: Insulin GLARGINE(*) 1 UNITS UNIT SUBCUT SCH (22:06)
[2017-11-30 07:50] LABS: ABS Basophils 0.1 10^3/ul (0-0.2); ABS Eosinophils 0.5 10^3/ul (0-0.6); ABS Monocytes 0.6 10^3/ul (0-0.8); ABS Neutrophils 5.1 10^3/ul (1.5-7.7); ABS Nucleated RBC 0 10^3/ul; Eosinophil % 5.7 % (0-6); Hematocrit 33 % (42-52); Hemoglobin 10.7 g/dl (14.0-18.0); Lymphocyte % 23.9 % (25-47); Mean Corpuscular HGB Conc 33 g/dl (31-36); Mean Corpuscular Hemoglobin 32 pg (27-31); Mean Corpuscular Volume 97 fL (80-94); Mean Platelet Volume 9.4 um3 (7.4-10.4); Nucleated Red Blood Cells % 0.1; Platelet Count 186 10^3/ul (150-450); Red Blood Count 3.36 10^6/ul (4.0-5.4); Red Cell Distribution Width 16 % (10.5-15); White Blood Count 8.2 10^3/ul (3.5-10.8)
[2017-11-30 08:05] LABS: EGFR Non-African American 11.1 (>60)
[2017-11-30] MEDS: Insulin LISPRO* 1 UNITS UNIT SUBCUT SCH ×4 (08:15→21:51)
[2017-11-30] MEDS ORDERED: Vitamin E CAP* 200 UNITS PO SCH (09:00)
[2017-11-30] MEDS: Isosorbide Mononitrate ER TAB* 60 MG PO SCH (09:07)
[2017-11-30] MEDS: Omeprazole CAP* 20 MG PO SCH (09:07)
[2017-11-30] MEDS: Lactobacillus Acidophilus* 1 TAB PO SCH ×2 (09:07→22:25)
[2017-11-30] MEDS: Vitamin E CAP* 200 UNITS PO SCH (09:07)
[2017-11-30] MEDS: Metoprolol Succinate XL TAB* 100 MG PO SCH ×2 (09:07→22:28)
[2017-11-30] MEDS: Aspirin EC TAB* 81 MG TAB.EC PO SCH (09:07)
[2017-11-30] MEDS: Vitamin E CAP* 400 UNIT PO SCH (09:07)
[2017-11-30] MEDS: amLODIPine TAB* 5 MG PO SCH (09:07)
[2017-11-30] MEDS: Apixaban* 2.5 MG TAB PO SCH ×2 (09:08→22:25)
[2017-11-30] MEDS: Vancomycin CAP* 125 MG CAP PO SCH ×4 (09:08→22:31)
[2017-11-30] MEDS: Aliskiren TAB* 300 MG PO SCH (09:09)
[2017-11-30] MEDS: Insulin GLARGINE(*) 1 UNITS UNIT SUBCUT SCH ×3 (09:10→22:42)
[2017-11-30] MEDS ORDERED: Heparin DIALYSIS ONLY(*) 1,000 UNITS/ML VIAL DIALYSIS ONE (13:30)
--- NOTE | 2017-11-30 16:13 | PN ---
Subjective Date of Service: 11/30/17 Interval History: HOSPITALIST PROGRESS NOTE Patient seen and examined at bedside. Care reviewed and d/w Jordana De La Paz RN. He states he's still having frequent, explosive, watery diarrhea, 3 episodes following breakfast. C/o buttocks pain from wiping so much. Tolerating diet well , no N/V. Family History: Unchanged from Admission Social History: Unchanged from Admission Past Medical History: Unchanged from Admission Objective Active Medications: Acetaminophen (Tylenol Tab*) 650 mg PO Q4H PRN PRN Reason: FEVER/PAIN Al Hydrox/Mg Hydrox/Simethicone (Maalox Plus*) 30 ml PO Q6H PRN PRN Reason: INDIGESTION Albuterol (Ventolin 2.5 Mg/3 Ml Neb.Rosamaria*) 2.5 mg INH [id number] AWAKE PRN PRN Reason: sob/wheezing Aliskiren (Tekturna Tab*) 300 mg PO DAILY [facility] Last Admin: 11/30/17 09:09 Dose: 300 mg Amlodipine Besylate (Norvasc Tab*) 10 mg PO DAILY [facility] Last Admin: 11/30/17 09:07 Dose: 10 mg Apixaban (Eliquis) 2.5 mg PO BID [facility] Last Admin: 11/30/17 09:08 Dose: 2.5 mg Aspirin (Aspirin Ec Tab*) 81 mg PO DAILY [facility] Last Admin: 11/30/17 09:07 Dose: 81 mg Atorvastatin Calcium (Lipitor*) 80 mg PO BEDTIME [facility] Last Admin: 11/29/17 21:58 Dose: 80 mg Dextrose (D50w Syringe 50 Ml*) 12.5 gm IV PUSH .FOR FS < 60 - SS PRN PRN Reason: FS < 60 Gabapentin (Neurontin Cap(*)) 100 mg PO BID PRN PRN Reason: PAIN Insulin Glargine (Lantus(*)) 40 units SUBCUT BID [facility] Last Admin: 11/30/17 09:10 Dose: 40 units Insulin Human Lispro (Humalog*) 0 units SUBCUT ACHS [facility] PRN Reason: Protocol Last Admin: 11/30/17 13:28 Dose: 2 units Isosorbide Mononitrate (Imdur Er Tab*) 60 mg PO QAM [facility] Last Admin: 11/30/17 09:07 Dose: 60 mg Lactobacillus Rhamnosus (Lactobacillus Acidophilus*) 1 tab PO BID [facility] Last Admin: 11/30/17 09:07 Dose: 1 tab Metoprolol Succinate (Toprol Xl Tab*) 100 mg PO BID [facility] Last Admin: 11/30/17 09:07 Dose: 100 mg Omeprazole (Prilosec Cap*) 20 mg PO DAILY [facility] Last Admin: 11/30/17 09:07 Dose: 20 mg Ondansetron HCl (Zofran 40 Mg Vial*) 4 mg IV Q4H PRN PRN Reason: NAUSEA/VOMITING Tamsulosin HCl (Flomax Cap*) 0.4 mg PO BEDTIME [facility] Last Admin: 11/29/17 21:59 Dose: 0.4 mg Vancomycin HCl (Vancomycin Cap*) 125 mg PO QID [facility] Last Admin: 11/30/17 13:29 Dose: 125 mg Vitamin E (Vitamin E Cap*) 800 unit PO DAILY [facility] Last Admin: 11/30/17 09:07 Dose: 800 unit Vitamin E (Vitamin E Cap*) 200 units PO DAILY [facility] Last Admin: 11/30/17 09:07 Dose: 200 units Vital Signs - 8 hr 11/30/17 11:32 Temperature 97.6 F Pulse Rate 64 Respiratory 18 Rate Blood Pressure 121/50 (mmHg) O2 Sat by Pulse 98 Oximetry Oxygen Devices in Use Now: Nasal Cannula - 4 liters Appearance: Elderly gentleman lying in recliner in NAD. Eyes: No Scleral Icterus Ears/Nose/Mouth/Throat: Mucous Membranes Moist Neck: Trachea Midline Respiratory: Symmetrical Chest Expansion and Respiratory Effort, Clear to Auscultation, - - HD catheter to right ACW Cardiovascular: RRR - Normal S1 and S2 Extremities: - - Left arm AV fistula Neurological: Alert and Oriented x 3, NL Muscle Strength and Tone Result Diagrams: 11/30/17 07:35 11/30/17 07:35 Assess/Plan/Problems-Billing Assessment: Mr. Manriquez is a 77yo M with PMH of ESRD on HD /, HTN, diabetes, CVA, left carotid occlusion, CAD, paroxysmal Afib, COPD on home O2 4 liters, PAULINA, left arm AV fistula, HLD, who presented to ED with diarrhea, found to have C. diff. - Patient Problems (1) C. difficile colitis Comment: - Patient received Cipro in the ED 10/11/17 for presumed UTI and developed diarrhea. He was admitted to [facility] 10/17 to 10/18 and C. diff was negative at that time. - He was admitted again on 10/24 to 10/28 with Flu A. - Returns now with worsening diarrhea, and stool now is positive for C. diff. - Continue PO Vancomycin. - D/c IVF. (2) ESRD (end stage renal disease) Comment: - Continue HD as scheduled. - Unable to have fistulogram for now due to profuse diarrhea. (3) Hyperkalemia Comment: - Mild. - Patient was dyalised today. (4) CVA (cerebral vascular accident) Comment: - With left carotid occlusion. - Continue Aspirin, Apixaban, statin. (5) Afib Comment: - Continue Metoprolol and Apixaban. (6) Diabetes mellitus Comment: - Continue Lantus and Lispro SS. (7) HTN (hypertension) Comment: - Controlled. - Continue Aliskiren, Amlodipine. (8) DVT prophylaxis Comment: - Apixaban. (9) Full code status Status and Disposition: Change to inpatient.
--- NOTE | 2017-11-30 21:10 | ED ---
Adenike Steve Rebecca, scribed for Marques Pardo MD on 11/29/17 at 1049 . Shortness of Breath - HPI Summary HPI Summary: Pt is a 77 y/o M who presents to ED after being referred from [facility] for acute on chronic SOB. Per nurse's triage, his O2 sat on RA was 75% , but the pt's reports this is likely normal for him. Suspects that his symptoms may be slightly worse due to repeatedly getting up to go to the bathroom this morning. Additionally c/o loose stool, then continuous diarrhea since this morning. Denies fever. Is not on Abx, has had no unusual food, and has not recently travelled. Uses 4 L O2 at home. Pt was at [facility] this morning for a fistulagram. - History of Current Complaint Chief Complaint: EDShortnessOfBreath Time Seen by Provider: 11/29/17 10:48 Hx Obtained From: Patient Onset/Duration: Still Present Dyspnea At: Rest Aggrevating Factors: Other - Getting up repeatedly Alleviating Factors: Nothing - Allergy/Home Medications Allergies/Adverse Reactions: Allergies Allergy/AdvReac Type Severity Reaction Status Date / Time Adhesive Tape Allergy Intermediate Rash And Verified 11/29/17 10:31 Itching Home Medications: Home Medications Fenofibrate(NF) [Tricor(NF)] 145 mg PO DAILY 11/29/17 [History Confirmed ] amLODIPine TAB* [Norvasc 5 mg TAB*] 10 mg PO DAILY 11/29/17 [History Confirmed 11/29/17] PMH/Surg Hx/FS Hx/Imm Hx Endocrine/Hematology History: Reports: Hx Diabetes - TYPE II- ON INSULIN FOR Cardiovascular History: Reports: Hx Angioplasty - R leg angioplasty x2, last , Hx Coronary Artery Disease - 2 STENTS-[facility], Hx Embolism, Hx Hypertension, Hx Peripheral Vascular Disease, Other Cardiovascular Problems/Disorders - HEART CATH Denies: Hx Pacemaker/ICD Respiratory History: Reports: Hx Chronic Obstructive Pulmonary Disease (COPD) - 4L O2 at baseline, 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 Musculoskeletal History: Reports: Hx Arthritis, Other Musculoskeletal History - R knee arthroplasty Sensory History: Reports: Hx Cataracts, Hx Contacts or Glasses - reading only Denies: Hx Hearing Aid Opthamlomology History: Reports: Hx Cataracts, Hx Contacts or Glasses - reading only Neurological History: Reports: Hx Transient Ischemic Attacks (TIA) Psychiatric History: Reports: Other Psychiatric Issues/Disorders - claustrophobic Denies: Hx Panic Disorder - Surgical History Surgery Procedure, Year, and Place: 2008 ARTHROSCOPIC RT KN[facility]. 2010 CARDIAC STENTS. [facility] [place] LIVER BIOPSY. [facility] LEFT [facility] 2012. RT [facility]. ballooning to veins in legs Hx Anesthesia Reactions: No Infectious Disease History: No Infectious Disease History: Denies: Traveled Outside the [place] in Last 30 Days - Family History Known Family History: Positive: Cardiac Disease, Hypertension - Social History Alcohol Use: Rare Hx Substance Use: No Substance Use Type: Reports: None Hx Tobacco Use: Yes Smoking Status (MU): Former Smoker Type: Cigarettes Amount Used/How Often: 2 pks/day X 30 YEARS Have You Smoked in the Last Year: No Review of Systems Negative: Fever Positive: Shortness Of Breath Positive: Diarrhea, Other - Loose stool All Other Systems Reviewed And Are Negative: Yes Physical Exam - Summary Physical Exam Summary: VITAL SIGNS: Reviewed. GENERAL: Patient is a well-developed and nourished male who is lying comfortable in the stretcher. Patient is not in any acute respiratory distress. HEAD AND FACE: No signs of trauma. No ecchymosis, hematomas or skull depressions. No sinus tenderness. EYES: PERRLA, EOMI x 2, No injected conjunctiva, no nystagmus. EARS: Hearing grossly intact. Ear canals and tympanic membranes are within normal limits. MOUTH: Oropharynx within normal limits. NECK: Supple, trachea is midline, no adenopathy, no JVD, no carotid bruit, no c- spine tenderness, neck with full ROM. CHEST: Symmetric, no tenderness at palpation LUNGS: Crackles in the bases of both lungs. No wheezing. CVS: Regular rate and rhythm, S1 and S2 present, no murmurs or gallops appreciated. ABDOMEN: Soft, non-tender. No signs of distention. No rebound no guarding, and no masses palpated. Bowel sounds are normal. EXTREMITIES: FROM in all major joints, no edema, no cyanosis or clubbing. NEURO: Alert and oriented x 3. No acute neurological deficits. Speech is normal and follows commands. SKIN: Dry and warm. Chronic, brown-david discoloration in both legs, possible secondary to peripheral vascular disease. Triage Information Reviewed: Yes Vital Signs On Initial Exam: Initial Vitals Temp Pulse Resp BP Pulse Ox 97.8 F 78 22 153/98 77 11/29/17 10:29 11/29/17 10:29 11/29/17 10:29 11/29/17 10:29 11/29/17 10:29 Vital Signs Reviewed: Yes Diagnostics - Vital Signs Vital Signs Temp Pulse Resp BP Pulse Ox 11/29/17 10:29 97.8 F 78 22 153/98 77 - Laboratory Lab Results: Lab Results 11/29/17 11/29/17 11/29/17 Range/Units 12:02 12:02 12:02 WBC 8.3 (3.5-10.8) 10^3/ul RBC 3.52 L (4.0-5.4) 10^6/ul Hgb 10.9 L (14.0-18.0) g/dl Hct 34 L (42-52) % MCV 96 H (80-94) fL MCH 31 (27-31) pg MCHC 32 (31-36) g/dl RDW 16 H (10.5-15) % Plt Count 193 (150-450) 10^3/ul MPV 9.8 (7.4-10.4) um3 Neut % (Auto) 67.7 (38-83) % Lymph % (Auto) 19.4 L (25-47) % Tucker % (Auto) 7.7 H (0-7) % Eos % (Auto) 4.6 (0-6) % Baso % (Auto) 0.6 (0-2) % Absolute Neuts (auto) 5.6 (1.5-7.7) 10^3/ul Absolute Lymphs (auto) 1.6 (1.0-4.8) 10^3/ul Absolute Monos (auto) 0.6 (0-0.8) 10^3/ul Absolute Eos (auto) 0.4 (0-0.6) 10^3/ul Absolute Basos (auto) 0 (0-0.2) 10^3/ul Absolute Nucleated RBC 0 10^3/ul Nucleated RBC % 0 Sodium 139 (139-145) mmol/L Potassium 5.4 H (3.5-5.0) mmol/L Chloride 100 L (101-111) mmol/L Carbon Dioxide 29 (22-32) mmol/L Anion Gap 10 (2-11) mmol/L BUN 56 H (6-24) mg/dL Creatinine 4.82 H (0.67-1.17) mg/dL Est GFR ( Amer) 15.2 (>60) Est GFR (Non-Af Amer) 11.8 (>60) BUN/Creatinine Ratio 11.6 (8-20) Glucose 115 H (70-100) mg/dL Lactic Acid 2.0 (0.5-2.0) mmol/L Calcium 9.2 (8.6-10.3) mg/dL Total Bilirubin 0.40 (0.2-1.0) mg/dL AST 42 H (13-39) U/L ALT 18 (7-52) U/L Alkaline Phosphatase 50 (34-104) U/L C-Reactive Protein 6.10 H (< 5.00) mg/L Total Protein 7.3 (6.4-8.9) g/dL Albumin 3.6 (3.2-5.2) g/dL Globulin 3.7 (2-4) g/dL Albumin/Globulin Ratio 1.0 (1-3) Lipase 25 (11.0-82.0) U/L Result Diagrams: 11/29/17 12:02 11/29/17 12:02 Lab Statement: Any lab studies that have been ordered have been reviewed, and results considered in the medical decision making process. - Radiology CXR Radiology Interpretation Completed By: Radiologist - INTERSTITIAL FIBROSIS RIGHT LUNG FIELD WITH VASCULAR CONGESTION OF THE LEFT LUNG. ED physician reviewed this radiology report. - EKG 1039 Cardiac Rate: NL - 80 bpm EKG Rhythm: Sinus Rhythm EKG Interpretation: No ST elevations Re-Evaluation - Re-Evaluation First Eval Re-Evaluation Time: 14:10 Comment: Discussed results and admission. Accepts admission. Course/Dx - Course Assessment/Plan: This patient is a 77-year-old male who presents to the emergency room with a chief complaint of having shortness of breath and diarrhea. He had an appointment with Dr. Davies for a AV fistula in work but because of the shortness of evidence of diarrhea the patient was sent to the emergency room for further workup and management. He reports that the urea was apparently 3 times this morning. The shortness of breath is chronic for him and he is in oxygen. Blood test result shows a normocytic normochromic anemia, potassium of 5.4, chronic renal failure on end-stage renal disease, CRP of 610. Stool cultures are pending. Chest x-ray impression: Interstitial fibrosis right lung with vascular congestion of the left lung. Dr. Ray and the patients defect cutter called and requested for the patient to be monitored as an inpatient since the patient is having diarrhea and shortness of breath. C. difficile was positive therefore the patient was given vancomycin by mouth. I discuss my physical exam, findings and test results with Dr. Meyer from the hospitalist services and he agrees to admit patient to his services. Patient is hemodynamically stable alert and oriented x 3. - Diagnoses Provider Diagnoses: Shortness of breath, C. difficile diarrhea - Physician Notifications Discussed Care of Patient With: Feng Rodriguez Time Discussed With Above Provider: 12:28 Instructed by Provider To: Other - Wants the pt to be admitted for observation. Discussed care of pt with Dr. Meyer at 1305 who accepts pt for admission. Discharge - Sign-Out/Discharge Documenting (check all that apply): Discharge/Admit/Transfer - Admit - Discharge Plan Condition: Stable Disposition: ADMITTED TO [facility] Referrals: Franky Merino MD [Primary Care Provider] - - Billing Disposition and Condition Condition: STABLE Disposition: HOSP-[facility] [place] The documentation as recorded by the Adenike perez Rebecca accurately reflects the service I personally performed and the decisions made by me, Marques Pardo MD.
--- NOTE | 2017-11-30 21:57 | PN ---
Progress Note - Progress Note Date of Service: 11/30/17 Note: Cross cover: Glargine decreased to 20 units last night with FSG 117 this AM. 40 units given this am and FSG 103 this evening. Order changed to 15units Q12hr with dosing to be adjusted based on AM FSG.
[2017-11-30] MEDS: Tamsulosin CAP* 0.4 MG PO SCH (22:26)
[2017-11-30] MEDS: Atorvastatin* 80 MG TAB PO SCH (22:26)
[2017-11-30 22:58] LABS: Urine Appearance Cloudy; Urine Blood 1+ (Negative); Urine Color Yellow; Urine Ketones Negative (Negative); Urine Protein 2+(100 mg/dL) (Negative); Urine Specific Gravity 1.013 (1.010-1.030); Urine Urobilinogen Negative (Negative)
[2017-12-01] MEDS: Insulin LISPRO* 1 UNITS UNIT SUBCUT SCH ×2 (08:49→12:26)
[2017-12-01] MEDS: Metoprolol Succinate XL TAB* 100 MG PO SCH (09:26)
[2017-12-01] MEDS: Isosorbide Mononitrate ER TAB* 60 MG PO SCH (09:26)
[2017-12-01] MEDS: Vitamin E CAP* 400 UNIT PO SCH (09:26)
[2017-12-01] MEDS: Vancomycin CAP* 125 MG CAP PO SCH ×2 (09:26→12:25)
[2017-12-01] MEDS: Lactobacillus Acidophilus* 1 TAB PO SCH (09:28)
[2017-12-01] MEDS: Omeprazole CAP* 20 MG PO SCH (09:28)
[2017-12-01] MEDS: Apixaban* 2.5 MG TAB PO SCH (09:28)
[2017-12-01] MEDS: Vitamin E CAP* 200 UNITS PO SCH (09:28)
[2017-12-01] MEDS: amLODIPine TAB* 5 MG PO SCH (09:29)
[2017-12-01] MEDS: Aspirin EC TAB* 81 MG TAB.EC PO SCH (09:29)
[2017-12-01] MEDS: Aliskiren TAB* 300 MG PO SCH (09:33)
[2017-12-01] MEDS: Insulin GLARGINE(*) 1 UNITS UNIT SUBCUT SCH (10:16)
[2017-12-01 10:58] VITALS: BP 140/60
--- NOTE | 2017-12-02 14:02 | DS ---
CC: Dr. Merino; Dr. Rodriguez* DISCHARGE SUMMARY: DATE OF ADMISSION: 11/29/17 DATE OF DISCHARGE: 12/01/17 PRIMARY CARE PROVIDER: Dr. Merino. USED CAR SALES SUPERVISOR: Dr. Rodriguez. PRINCIPAL DIAGNOSIS: Clostridium difficile colitis. SECONDARY DIAGNOSES: 1. End-stage renal disease. 2. Hypertension. 3. Type 2 diabetes. 4. History of transient ischemic attack. 5. Coronary artery disease. 6. O2-dependent chronic obstructive pulmonary disease. 7. Obstructive sleep apnea. 8. Paroxysmal atrial fibrillation. 9. Hyperlipidemia. DISCHARGE MEDICATIONS: 1. Tylenol 650 mg p.o. q. 8 hours p.r.n. 2. Vitamin E 1000 units p.o. daily. 3. Torsemide 40 mg p.o. daily. 4. Aliskiren 300 mg p.o. daily. 5. Tamsulosin 0.4 mg p.o. q.h.s. 6. Protonix 40 mg p.o. daily. 7. Nitroglycerin 0.4 mg subcu q. 5 minutes p.r.n. chest pain. 8. Metoprolol XL 100 mg p.o. b.i.d. 9. Imdur 60 mg p.o. daily. 10. Lantus 40 units subcutaneous twice daily. 11. Lispro 5 to 15 units subcutaneous t.i.d. 12. Gabapentin 100 mg p.o. b.i.d. p.r.n. pain. 13. Fenofibrate 145 mg p.o. daily. 14. Eliquis 2.5 mg p.o. b.i.d. 15. Lipitor 80 mg p.o. q.h.s. 16. Aspirin 81 mg p.o. daily. 17. Amlodipine 10 mg p.o. daily. 18. Vancomycin 125 mg p.o. q.i.d. x34 doses. HOSPITAL COURSE: Mr. Manriquez is a 77-year-old male who was presenting to the radiology department to have a fistulogram performed when he began to have a sudden onset of profuse diarrhea. The patient was referred to the emergency room. In the ER, the patient was found to have a normal white blood cell count , normal blood pressure, and heart rate. Stool was sent for culture and C. difficile testing. The C. difficile testing came back positive. The patient was started on vancomycin 125 mg p.o. 4 times daily. The patient states that over the last 2 days his stools have formed up. His last bowel movement was completely solid. At this point, the patient is feeling stable for discharge home. On the day of discharge, the patient is awake, alert, and oriented sitting up in the chair, in no acute distress. His vital signs are stable. He has an O2 sat of 100% on his usual 4 L of oxygen. Cardiac exam reveals a normal S1, S2 with a regular rate and rhythm. There is 1+ bilateral lower extremity edema. Lungs are clear to auscultation bilaterally. Abdomen is soft, nontender, nondistended. The patient is awake, alert, and oriented. FOLLOWUP CONCERNS: The patient is being discharged home today, 12/01/17. ACTIVITY LEVEL: As tolerated. DIET: Heart healthy diabetic. CONDITION ON DISCHARGE: Stable. TIME SPENT: Thirty-five minutes was spent discharging this patient. [id number]/CPS #: [id number] MTDD
== END 2017-12-01 13:05 | disposition home health service (06) | DRG 371 ==
LOC: ED 10:25 → MED 14:19 → OBSVTOIN 11-30 10:59
PROVIDERS: ADMIT Internal Medicine; ATTEND Hospitalist
PROC: 5A1D70Z Performance of Urinary Filtration, Intermittent, Less than 6 Hours Per Day (ICD-10-PCS; principal; 2017-11-30)
DX: A04.72 Enterocolitis due to Clostridium difficile, not specified as recurrent (principal); N18.6 End stage renal disease; I12.0 Hypertensive chronic kidney disease with stage 5 chronic kidney disease or end stage renal disease; J44.9 Chronic obstructive pulmonary disease, unspecified; G47.33 Obstructive sleep apnea (adult) (pediatric); K21.9 Gastro-esophageal reflux disease without esophagitis; J84.10 Pulmonary fibrosis, unspecified; Z96.651 Presence of right artificial knee joint; M19.90 Unspecified osteoarthritis, unspecified site; F40.240 Claustrophobia; E11.22 Type 2 diabetes mellitus with diabetic chronic kidney disease; I25.10 Atherosclerotic heart disease of native coronary artery without angina pectoris; E11.51 Type 2 diabetes mellitus with diabetic peripheral angiopathy without gangrene; I48.0 Paroxysmal atrial fibrillation; E87.5 Hyperkalemia; E78.5 Hyperlipidemia, unspecified; Z79.01 Long term (current) use of anticoagulants; Z99.81 Dependence on supplemental oxygen; Z88.8 Allergy status to other drugs, medicaments and biological substances; Z86.711 Personal history of pulmonary embolism; Z86.73 Personal history of transient ischemic attack (TIA), and cerebral infarction without residual deficits; Z95.5 Presence of coronary angioplasty implant and graft; Z82.49 Family history of ischemic heart disease and other diseases of the circulatory system; Z98.42 Cataract extraction status, left eye; Z87.891 Personal history of nicotine dependence; Z80.0 Family history of malignant neoplasm of digestive organs; Z79.82 Long term (current) use of aspirin; Z79.4 Long term (current) use of insulin; Z99.2 Dependence on renal dialysis
CPT/HCPCS: 36415; 71045; 80048; 80053; 81003; 81015; 82272; 83605; 83630; 83690; 85025; 86140; 87045; 87046; 87077; 87086; 87186; 87493; 87899; 90935; 93005; 99284; A9270-GY; G0257; J1644

== ENCOUNTER 2017-12-13 08:18 | Observation (INO) | payer MEDICARE ==
--- OUTSIDE RECORDS SUMMARY | 2017-12-13 08:58 | XMS REPORT ---
:1940 External Reference #:[id number] Author Organization [facility] Address [address] [address] Phone [phone] Care Team Providers Name Role Phone Franky Merino MD Primary Care Physician Unavailable Payers Type Date Identification Numbers Payment Provider Subscriber Medicare Primary Policy Number: [id number] Medicare Hiram Manriquez JR PayID: [id number] [address] [place] [address] [facility] Part B Policy Number: [id number] [facility] Hiram Manriquez JR PayID: [id number] [address] [place] [address] Problems Date Description Provider Status Onset: 04/08/2013 [...] Active Onset: 05/05/2015 [facility] ECHO Schedule Active coronary artery w/o ang pctrs Onset: 09/07/2015 Encounter for planned Raffi Elizabeth M.D., [facility], Active postprocedural wound closure FSCAI Onset: [...] 2015 24HR every day Jameel Garcia M.D., [facility], [facility] Torsemide 05/06/ Active Tablets 20mg 2 by mouth Unknown 2014 every day Tamsulosin HCL 05/06/ Active Capsules 0.4mg 1 by mouth Unknown 2014 every day Gabapentin 04/02/ Active Capsules 100mg 1 by mouth Unknown 2014 twice a day Metoprolol / Active Tablets ER 100mg 180tab 1 by mouth Bimal Succinate ER 0000 24HR s twice a day Jameel Garcia M.D., [facility], [facility] Tekturna / Active Tablets 300mg [...] Misc 3L 1units 24/7 Unknown 0000 Aspirin / Active Tablets DR 81mg 90tabs 1 tablet Unknown 0000 daily. Eliquis / Active Tablets 2.5mg 1 tablet by Unknown 0000 mouth twice a day. Vitamin E / Active Capsules 1000Units qd Unknown 0000 Bevespi 09/19/ Hx Aerosol 9-4.8mcg/A 32.1gm 1 puff J43.9 January Aerosphere 2017 - ct twice daily Zoey, 03/21/ (sample) 2016 Brilinta 09/12/ Hx Tablets 60mg 60tabs 1 by mouth Bimal 2016 - twice a day Jameel 03/21/ Jose 2017 Martina, [facility] Gabapentin 04/05/ Hx Capsules 100mg 90caps 1 by mouth Bimal 2015 - once times Jameel 04/06/ a day Jose 2016 Martina, [facility] Isosorbide 09/06/ Hx Tablets ER 30mg 30tabs 1 by mouth Z48.1 Raffi Mononitrate ER 2016 - 24HR every day Glenn 09/13/ Martina, 2016 [facility] Prednisone 05/07/ Hx Tablets 10mg 42tabs 30mg daily Maxx44.9 January 2014 - for 1 week, Zoey, 09/12/ [...] - mouth twice Zoey, 09/05/ a day 2016 Tudorza 07/14/ Hx Aerosol 400mcg/Act 2units 1 puff puff J44.9 January Pressair 2015 - twice a day Zoey, 2015 Metoprolol 00/00/ Hx Tablets ER 25mg 180tab 2 tabs by Bimal Succinate ER 0000 - 24HR s mouth every Jorgensen 09/05/ day PM Jose 2015 Martina, CHE[facility], [facility] Clopidogrel 00/00/ Hx Tablets 75mg 30tabs 1 po qd Unknown 0000 - 2012 Lovaza // Hx Capsules 1gm 360cap 2 po bid Unknown 0000 - s 2013 Warfarin 00/00/ Hx 4mg 4mg Unknown 0000 - alternated with 6 mg 2015 as directed PCP Enoxaparin / Hx Solution 120mg/0.8M 10unit inject Unknown Sodium 0000 - L s under the 05/19/ skin twice 2014 daily Magnesium /00/ Hx Tablets 400mg 2 tablet po Unknown Oxide 0000 - daily 2015 Brilinta /00/ Hx Tablets 90mg 60tabs 1 tab by Bimal 0000 - mouth twice Jorgensen 09/12/ a day Jose 2016 Martina, CHELY, [facility] Clopidogrel 00/00/ Hx 1 tab by Unknown Bisulfate 0000 - mouth every 12/03/ day for 30 2017 days after august 31 surgery . Medications Administered in Office Medication Date Status [...] Older Vital Signs Date Vital Result Comment 12/04/2017 Height 65 inches 5'5" Weight 253.00 lb per patient Heart Rate 70 /min BP Systolic Sitting 130 mmHg R forearm regular cuff BP Diastolic Sitting 82 mmHg R forearm regular cuff Respiratory Rate 16 /min O2 % BldC Oximetry 88 % 4LPM BMI (Body Mass Index) 42.1 kg/m2 09/20/2017 Height 65 inches 5'5" Weight 261.38 [...] Test Date Test Result H/L Range Note Laboratory test finding 10/17/2017 Troponin I 0.26 ng/mL High <0.04 1 Rapid Influenza A & 08/23/2017 Influenza A Molecular NEGATIVE Negative 2 B Molecular Influenza B Molecular NEGATIVE Negative Laboratory test finding 08/23/2017 Point of Care Glucose 130 mg/dL High 70 -100 3 Laboratory test finding 04/08/2016 Point of Care Glucose 99 mg/dL 74-106 4 Comp Metabolic Panel 09/24/2015 Sodium 139 mmol/L [...] Egfr Non- 13.0 >60 Egfr 16.7 >60 5 Laboratory test finding 09/24/2015 Phosphorus 3.6 mg/dL [...] Egfr Non- 18.7 >60 Egfr 24.1 >60 6 Blood Urea Nitrogen 50 mg/dL High 6-24 BUN/Creatinine Ratio 15.4 8-20 Total Bilirubin 0.30 mg/dL 0.2-1.0 Lipid Profile (Trig/Chol/HDL) 02/23/2015 Cholesterol 177 mg/dL 7 HDL Cholesterol 33.5 mg/dL 8 Triglycerides 296 mg/dL 9 LDL Cholesterol 84 mg/dL 10 Liver Function Panel 02/23/2015 Direct Bilirubin 0.10 [...] 12/04/2013 White Blood Count 8.3 10^3/uL 4.8-10.8 11 Red Blood Count 4.31 10^6/uL 4.0-5.4 11 Hemoglobin 13.6 g/dL Low 14.0-18.0 11 Hematocrit 40 % Low 42-52 11 Mean Corpuscular Volume 92 fL 80-94 11 Mean Corpuscular Hemoglobin 32 pg High 27-31 11 Mean Corpuscular HGB Conc 34 g/dL 31-36 11 Red Cell Distribution Width 14 % 10.5-15 11 Platelet Count 145 10^3/uL Low 150-450 11 Mean Platelet Volume 10 um3 7.4-10.4 11 Abs Neutrophils 4.9 10^3/uL 1.5-7.7 11 Abs Lymphocytes 2.5 10^3/uL 1.0-4.8 11 Abs Monocytes 0.5 10^3/uL 0-0.8 11 Abs Eosinophils 0.3 10^3/uL 0-0.6 11 Abs Basophils 0 10^3/uL 0-0.2 11 Abs Nucleated RBC 0.01 10^3/uL 11 Granulocyte % 59.6 % 38-83 11 Lymphocyte % 29.7 % 25-47 11 Monocyte % 6.2 % 1-9 11 Eosinophil % 4.1 % 0-6 11 Basophil % 0.4 % 0-2 11 Nucleated Red Blood Cells % 0.1 11 Comp Metabolic Panel 12/04/2013 Sodium 138 mmol/L 133-145 11 Potassium 4.1 mmol/L 3.7-5.6 11 Chloride 106 mmol/L 101-111 11 Co2 Carbon Dioxide 24 mmol/L 22-32 11 Anion Gap 8 mmol/L 2-11 11 Glucose 150 mg/dL High 70-100 11 Blood Urea Nitrogen 36 mg/dL High 6-24 11 Creatinine 2.10 mg/dL High 0.67-1.17 11 One Over Creatinine 0.40 mg/dL Low 0.67-1.17 11 BUN/Creatinine Ratio 17.1 8-20 11 Calcium 8.9 mg/dL 8.6-10.3 11 Total Protein 7.1 g/dL 6.4-8.9 11 Albumin 3.7 g/dL 3.2-5.2 11 Globulin 3.4 g/dL 2-4 11 Albumin/Globulin Ratio 1.1 1-3 11 Total Bilirubin 0.30 mg/dL 0.2-1.0 11 Alkaline Phosphatase 63 U/L 34-104 11 Alt 46 U/L 7-52 11 Ast 55 U/L High 13-39 11 Egfr Non- 31.1 >60 11 Egfr 40.0 >60 11, 12 Lipid Profile (Trig/Chol/HDL) 12/04/2013 Triglycerides 235 mg/dL 11, 13 Cholesterol 184 mg/dL 11, 14 HDL Cholesterol 32.1 mg/dL 11, 15 LDL Cholesterol 105 mg/dL 11, 16 Liver Function Panel 12/04/2013 Direct Bilirubin 0.10 mg/dL 0.03-0.18 11 Indirect Bilirubin 0.2 mg/dL Low 0.3-1.0 11 Laboratory test finding 12/04/2013 Uric Acid 7.9 mg/dL High 4.4-7.6 11, 17 Hemoglobin A1c 8.4 % High Less than 6.0 11, 18 Creatinine Clearance 12/04/2013 Urine Random Creatinine 105.00 mg/dL 19 Creatinine 2.06 mg/dL High 0.51-0.95 19 Creatinine Clearance 76 mL/min Low 97-137 19 Urine Collection Time 24 19 Urine Total Volume 2150 mL 19 Total Protein 24HR Urine 12/04/2013 Urine Random Total Protein 389 mg/dL 19 Urine Total Protein/24HR 8363 mg/24Hr High 0-165 19 Urine Collection Time 24 19 Urine Total Volume 2150 mL 19 CBC No Diff 11/12/2010 White Blood Count [...] Mean Platelet Volume 11.7 um3 High 7.4-10.4 Liver Function Panel 11/12/2010 Bilirubin Direct 0.1 mg/dL 0.1-0.5 Indirect Bilirubin 0.7 mg/dL 0.3-1.0 20 Lipid Profile (Trig/Chol/HDL) 11/12/2010 Triglyceride 170 mg/dL 40-200 Cholesterol 177 mg/dL Less Than 200 21 High Density Lipoprotein 34 mg/dL Low 40-60 22 Cholesterol/HDL Ratio 5.21 AVERAGE High 1-4.97 Low Density Lipoprotein 109 mg/dL High Less Than 100 23 Comp Metabolic Panel 11/12/2010 Sodium 139 mmol/L 135-145 Potassium 4.9 mmol/L 3.5-5.0 Chloride 103 mmol/L 101-111 Co2 (Carbon Dioxide) 27.0 mmol/L 22-32 Anion Gap 9.0 mmol/L 2-11 24 Glucose 121 mg/dL High 70-100 BUN 24 mg/dL 6-24 Creatinine 1.90 mg/dL High 0.50-1.40 One Over Creatinine 0.50 BUN/Creatinine Ratio 12.6 8-20 Calcium 9.2 mg/dL 8.1-9.9 Total Protein 7.1 GM/DL 6.2-8.1 Albumin 3.6 GM/DL 3.2-5.2 Globulin 3.5 GM/DL 2-4 Albumin/Globulin Ratio 1.0 1-3 Bilirubin Total 0.8 mg/dL 0.4-1.5 25 Alkaline Phosphatase 44 U/L 39-117 Alt (SGPT) 47 U/L 17-63 Ast (Sgot) 86 U/L High 12-42 eGFR Non- 35.2 > 60 eGFR 45.3 > 60 26 1 Result TnIDx:0.26 Called to [id number] at: 16:24:32 by:[id number] Read back by: [id number] Flare Man: [id number] Flare Man: [id number] Flare Man: [id number] YASMANI PLASENCIA 5 Because ethnic data is not always [...] 5 Kidney failure <15 (or dialysis) 6 Because ethnic data is not always readily [...] 15-29 5 Kidney failure <15 (or dialysis) 7 Desirable <200 Borderline high 200-239 High >239 8 Low <40 Desirable: 40-60 High: >60 9 Desirable <150 Borderline high 150-199 High 200-499 Very High >500 10 Desirable: <100 mg/dL Near Optimal: 100-129 mg/dL Borderline High: 130-159 mg/dL High: 160-189 mg/dL Very High: >189 mg/dL 11 FASTING 12 Because ethnic data is not always readily [...] 15-29 5 Kidney failure <15 (or dialysis) 13 Desirable <150 Borderline high 150-199 High 200-499 Very High >500 14 Desirable <200 Borderline high 200-239 High >239 15 Low <40 Desirable: 40-60 High: >60 16 Desirable <100 Near Optimal 100-129 Borderline high 130-159 High 160-189 Very High >189 17 FASTING 18 Therapeutic target for the treatment of diabetes Mellitus patients is <7% HBA1C, and in selective patients <6.0%.Please refer to [place] [employer] Diabetic care guidelines for further information. 19 URINE COLLECTED FROM 12/04 635 THROUGH 12/04 649 20 Please note updated reference range, effective 01/21/10 21 CHOLESTEROL INTERPRETATION: Desirable: Less than 200 MG/DL Borderline-High Risk: 200-239 MG/DL High-Risk: 240 MG/DL and over 22 HDL INTERPRETATION: Undesirable: High Risk: Less than 40 MG/DL Desirable: Low Risk: Greater than 60 MG/DL 23 LDL INTERPRETATION: Low Risk Optimal Level: LDL Less than 100 MG/DL Near or Above Optimal: LDL 100-129 MG/DL Borderline High Risk: LDL 130-159 MG/DL High Risk: LDL 160-189 MG/DL Very High Risk: LDL Greater than 189 MG/DL 24 Anion gap measurement may be of limited value in the presence of any alkalosis, especially in a combined acid base disorder. . 25 A metabolite of Naproxen, O-desmethylnaproxen, has been shown to interfere with the Jendrassik-Jose method for measuring total bilirubin. Samples from patients who have taken Naproxen have shown spurious elevation in total bilirubin levels. 26 Because ethnic data is not always readily [...] Procedures Date CPT Code Description Status Comment 08/24/2017 02409 EKG, Interpretation Only Completed 07/31/2017 68992 ECHO Transthoracic, Real-Time Completed 2D With Doppler And Color Flow 07/31/2017 39503 ECHO Transthoracic, Real-Time Completed 2D With Doppler And Color Flow 06/21/2017 27176 EKG Tracing & Completed Interpretation 01/27/2017 56271 Moderate Sedation Services; Completed Same Phys Each Additional 15 Mins 01/27/2017 25142 Moderate Sedation Services; Completed Same Phys Intl 15 Mins; PT >=5 Years 01/27/2017 63451 Ultrasound Guidance For Completed Vascular Access 01/27/2017 56705 Dialysis Circuit Perc Translum Completed Mech Thrombectomy W/ Balloon Angio 09/23/2016 65313 Moderate Sedation Services; Completed Same Phys Intl 15 Mins; PT >=5 Years 09/23/2016 06614 Ultrasound Guidance For Completed Vascular Access 09/23/2016 85649 Translum Balloon Angio Central Completed Dial Segment Through Dialys Circui 09/23/2016 85285 Dialysis Circuit W/ Completed Transluminal Balloon Angioplasty, Peripheral 06/09/2016 28093 Brachiocephalic Trunk/Branches Completed 06/09/2016 19435 Angioplasty Percutaneous Completed Venous 06/09/2016 13731 Introduction Needle For Completed Dialysis Initial Access W/Complete Radiol 06/09/2016 27844 Introduction Needle Dialysis, Completed Additional Access For Therapeutic I 06/09/2016 90380 Thrombectomy, Percutaneous Completed Arteriovenous Fistula Auto/Nonauto GRF 06/09/2016 77951 Ptca Periph. Radiology - S/I Completed 06/09/2016 61255 Angioplasty Transluminal Completed Balloon Venous 06/09/2016 53571 Ultrasound Guidance For Completed Vascular Access 06/09/2016 51235 EKG, Interpretation Only Completed 04/08/2016 20205 Ultrasound Guidance For Completed Vascular Access 04/08/2016 99519 Angioplasty Transluminal Completed Balloon Venous 04/08/2016 79942 Cath Placement-Arterial Completed 04/08/2016 13398 Introduction Needle For Completed Dialysis Initial Access W/Complete Radiol 04/08/2016 25179 Angioplasty Percutaneous Completed Venous 09/14/2015 51230 EKG Tracing & Completed Interpretation 09/02/2015 24499 EKG, Interpretation Only Completed 08/31/2015 54430 Catheter Placement In Coronary Completed Artery 08/31/2015 40944 Echocardiogram, Limited Study Completed 08/31/2015 48652 EKG, Interpretation Only Completed 08/31/2015 24747 Revascularization Acute Completed Total/Subtotal Occlusion 06/04/2015 Diabetic Retinal Eye Exam Completed Document: 06/04/15 - Consult Ophthalmology - Feng 06/01/2015 Diabetic Retinal Eye Exam Completed Document: 06/01/15 - Cons Ophthalmology-Dr. Gleason Document: 06/01/15 - Consult Ophthalmology/Rosibel 05/05/2015 11146 ECHO Transthoracic, Real-Time Completed 2D With Doppler And Color Flow 08/20/2014 45924 Polysomnography Sleep Staging Completed 4+ Parameters 07/24/2014 28868 Diffusing Capacity Completed 07/24/2014 44602 Plethysmography Determination Completed Lung Volumes & Per Airway Resist 07/24/2014 85900 Pulmonary Stress Test Simple Completed 07/24/2014 89187 Pulmonary Completed Function><Bronchodil 06/06/2014 26650 Myocardial Perfusion Imaging Completed Tomographic (Spect) Multiple Studies 06/06/2014 08726 Myocardial Perfusion Imaging Completed Tomographic (Spect) Multiple Studies 06/06/2014 33043 Stress Test Completed 05/06/2014 94116 EKG Tracing & Completed Interpretation 04/01/2014 71151 Color Flow Doppler/Interp Completed & Reprt 04/01/2014 09624 Pulse Completed Wave/Continuous-Interp.RPT 04/01/2014 24833 Echocardiography, Completed Transesophageal, Real Time W/Image 2D W/W/O M-M 03/31/2014 46596 ECHO Transthorasic Realtime 2D Completed W Doppler & Color Flow Hosp 04/12/2013 32456 Artery Study Extremity Mult Completed Levels Bilateral 04/08/2013 66293 EKG Tracing & Completed Interpretation 11/09/2010 07920 EKG, Interpretation Only Completed 11/08/2010 06688 EKG, Interpretation Only Completed 11/07/2010 93719 Left Heart Cath. Incl S/I Completed Coronaries, Angio S/I V Gram If Done 11/07/2010 37646 Ptca W/Intracor Stent Completed 11/07/2010 44196 IV Rx Trancath Completed Therapy(Nitro/Kim) Encounters Type Date Location Provider CPT E/M Dx Office Visit 12/04/2017 [facility]ology [facility] Merlene Connolly, 27826 J84.10 11:00a Services Of Lizeth Neves J44.9 R06.02 J98.4 Office Visit 10/27/2017 1:10p [facility],marilyn Meyer, 67874 J11.1 Hospitalists Martina E86.0 N18.6 J41.0 Office Visit 10/26/2017 [facility] 8[address] J11.1 Hospitalists M.Leatha E86.0 N18.6 J41.0 Office Visit 10/26/2017 11:58a [facility] [place] [address] J11.1 Services Of [facility] J84.10 R53.83 M62.81 Office Visit 10/25/2017 [facility]p [facility] Mitch, 28359 J11.1 Hospitalists MKenia E86.0 N18.6 J41.0 Office Visit 10/24/2017 1:07p [facility] Ida Mitch, 33586 J11.1 Hospitalists M.Leatha E86.0 N18.6 J41.0 Office Visit 10/24/2017 12:17p [facility] [place] [address] J44.9 Services Of [facility] J11.1 R06.02 J84.10 M79.669 Office Visit 10/18/2017 9:19a [facility] Meyer, 35301 J81.0 Hospitalists M.Leatha N18.6 I10 Z99.2 Office Visit 10/17/2017 9:18a [facility] LIZET Brown 31029 J81.0 Ass, Hospitalists N18.6 I10 Z99.2 Office Visit 09/20/2017 9:15a [facility] [place] [address] R05 Services Of [facility] J44.9 J96.10 J84.10 R09.02 E66.09 Office Visit 08/28/2017 1:15p [facility] Bimal Garcia, 32290 R06.02 Lizeth Mack, [facility] I25.10 I48.0 Z79.01 Office Visit 08/24/2017 10:20a [facility] Eric Lopez, 21564 B34.9 Hospitalists M.Leatha N18.6 J44.9 J84.10 Office Visit 08/23/2017 10:18a [facility], Dioni Lindsey, 05661 B34.9 Hospitalists N.P. N18.6 J44.9 J84.10 Office Visit 06/21/2017 8:45a [facility] Of Bimalbetty Garcia, 59437 R06.02 Lizeth Mack, [facility] I25.10 I48.0 Office Visit 03/22/2017 9:15a [facility] January rGeer [place] G9695 J44.9 Services Of [facility] J96.10 J84.10 G47.33 Office Visit 10/31/2016 11:30a [facility] Of Bimalbetty Garcia, 41522 I25.10 Lizeth Mack, [facility] I48.0 I25.2 N18.9 Office Visit 09/19/2016 9:15a [facility] [place] [address] J43.9 Services Of [facility] J96.10 E66.09 Office Visit 04/06/2016 9:15a [facility] Bimal Garcia, 14902 I25.10 Lizeth Mack, [facility] Office Visit 10/21/2015 9:15a [facility] Of Bimalbetty Garcia, 70806 I25.10 Lizteh Mack, [facility] Office Visit 09/28/2015 1:15p [facility] [place] [address] J43.9 Services Of [facility] J96.10 G47.33 E66.09 Office Visit 09/14/2015 9:30a [facility] Of Bimal Garcia, 00214 I25.10 Lizeth Mack, [facility] Office Visit 09/07/2015 1:20p [facility] Of Rfafi Elizabeth M.D., 48432 Z48.1 Mechanical Detailer AT [facility] Office Visit 09/04/2015 8:39a [facility] Ida Meyer, 22035 R07.9 Assoc,pc Hospitalists Martina I25.10 E11.9 N40.0 Office Visit 09/03/2015 8:39a [facility],pc Sharif Foote, 67659 R07.9 Hospitalists MKenia I25.10 E11.9 N40.0 Office Visit 09/03/2015 3:32p [facility] Garret Christianson 63197 I25.10 Martina Subramanian Office Visit 09/02/2015 8:38a [facility], Sharif Foote, 33727 R07.9 Hospitalists MKenia I25.10 E11.9 N40.0 Office Visit 09/02/2015 3:07p [facility] Of Bea Holguin M.D. 20814 I25.10 [facility] Office Visit 09/01/2015 8:36a [facility], Sharif Foote, 26977 R07.9 Hospitalists Martina I25.10 E11.9 N40.0 Office Visit 08/31/2015 8:35a [facility] Jaxson Sorenson M.D. 17297 R07.9 Hospitalists I25.10 E11.9 N40.0 Office Visit 08/31/2015 3:11p [facility] Of Gamal Angel, 47849 I21.4 Lizeth Mack Office Visit 05/20/2015 11:45a [facility] Bimal Garcia, 25466 I25.10 Lizeth Mack, [facility] Office Visit 05/07/2015 10:45a [facility] [place] [address] J44.9 Services Of [facility] G47.33 J98.4 Office Visit 02/04/2015 10:15a [facility] [place] [address] 496 Services Of [facility] 327.23 518.89 518.83 786.2 Office Visit 09/17/2014 1:00p [facility] [place] [address] 496 Services Of [facility] 327.23 278.01 518.83 518.89 Office Visit 07/14/2014 3:30p [facility] [place] [address] 786.05 Services Of [facility] 518.89 278.01 496 780.59 Office Visit 06/18/2014 11:00a [facility] Bimal Garcia M.D., 17358 414.01 [facility] 427.31 Office Visit 05/06/2014 1:00p [facility] Of [facility] Bimal Garcia 46356 414.01 Martina, [facility] Office Visit 04/25/2014 3:21p [facility],pc Raúl Johnson, 07094 434.11 Hospitalists M.Leatha 428.32 250.40 401.9 Office Visit 04/24/2014 2:00p [facility] Kendal Garcia, 84424 434.11 Services Of Mechanical Detailer M.D. 401.9 Office Visit 04/24/2014 11:04a [facility] Raúl Johnson, 63751 434.11 Assoc,pc Hospitalists M.Leatha 428.32 250.40 401.9 Office Visit 04/23/2014 3:21p [facility] Raúl Johnson, 65000 434.11 Assoc,pc Hospitalists M.DNacho 428.32 250.40 401.9 Office Visit 04/22/2014 3:20p [facility] Raúl Johnson, 37039 434.11 Assoc,pc Hospitalists M.Leatha 428.32 250.40 401.9 Office Visit 04/21/2014 3:20p [facility] [place], [address] 435.9 Assoc, Hospitalists M.DNacho 428.32 250.40 401.9 Office Visit 04/21/2014 3:34p [facility] Jacinto Angelo, 61727 434.11 Services Of Mechanical Detailer M.D. 401.9 Office Visit 04/01/2014 3:04p [facility] Kendal Garcia, 97696 434.91 Services Of Mechanical Detailer M.D. 433.10 401.9 250.00 Office Visit 04/01/2014 10:29a [facility],pc Jaxson Sorenson M.D. 45450 434.91 Hospitalists 443.9 433.10 585.4 Office Visit 03/31/2014 10:28a [facility] Jaxson Sorenson M.D. 93778 434.91 Hospitalists 443.9 433.10 585.4 Office Visit 03/31/2014 3:01p [facility] Ericka Christian M.D. 09342 434.11 Services Of Mechanical Detailer 433.10 401.9 250.00 Office Visit 03/30/2014 3:00p [facility] Thiago Cardona, 48837 434.11 Services Of Mechanical Detailer M.D. 401.9 250.00 Office Visit 03/30/2014 10:27a [facility], Eric Lopez, 45919 434.91 Hospitalists Martina 443.9 433.10 585.4 Office Visit 04/23/2013 9:45a [facility] Bimal Garcia, 13438 414.01 Lizeth Mack, [facility] Office Visit 04/08/2013 1:00p [facility] Jorgensen Garcia, 64207 414.01 Lizeth Mack, [facility] Office Visit 11/10/2010 12:59p [facility] Renata Mayfield, 30275 786.50 D.O. 410.30 414.01 401.1 250.00 Office Visit 11/09/2010 12:59p [facility] Renata Mayfield D.O. 74880 794.31 786.50 410.30 414.01 401.1 250.00 Office Visit 11/08/2010 12:59p [facility] Renata Mayfield D.O. 63148 794.31 786.50 410.30 414.01 401.1 250.00 Office Visit 11/07/2010 12:57p [facility] Renata Mayfield D.O. 54470 786.50 410.30 414.01 401.1 250.00 Plan of Care 12/04/2017 - Merlene Connolly N.P.J84.10 Pulmonary fibrosis, unspecifiedRecommendations:OFEV is a capsule which has been shown to reduce progression of pulmonary fibrosis.J44.9 Chronic obstructive pulmonary disease, xbmcbclocsbG67.02 Shortness of cxcxcwC16.4 Other disorders of lungNew Xrays:CT Chest W/OFollow up:2-3 weeks OV Zoey to discuss CT scan results.
[2017-12-13 09:27] LABS: ABS Basophils 0 10^3/ul (0-0.2); ABS Eosinophils 0.3 10^3/ul (0-0.6); ABS Lymphocytes 1.6 10^3/ul (1.0-4.8); ABS Monocytes 0.5 10^3/ul (0-0.8); ABS Neutrophils 4.3 10^3/ul (1.5-7.7); ABS Nucleated RBC 0 10^3/ul; Eosinophil % 3.8 % (0-6); Hematocrit 35 % (42-52); Hemoglobin 11.2 g/dl (14.0-18.0); Lymphocyte % 23.8 % (25-47); Mean Corpuscular HGB Conc 32 g/dl (31-36); Mean Corpuscular Hemoglobin 32 pg (27-31); Mean Corpuscular Volume 97 fL (80-94); Mean Platelet Volume 9.5 um3 (7.4-10.4); Nucleated Red Blood Cells % 0; Platelet Count 201 10^3/ul (150-450); Red Blood Count 3.54 10^6/ul (4.00-5.40); Red Cell Distribution Width 16 % (10.5-15); White Blood Count 6.7 10^3/ul (3.5-10.8)
[2017-12-13 09:32] LABS: EGFR Non-African American 10.9 (>60)
[2017-12-13 09:45] LABS: INR 1.04 (0.77-1.02)
[2017-12-13] MEDS ORDERED: Dextrose 50% Syringe 50 ML* 25 GM/50 ML SYRINGE IV PUSH PRN (10:55)
[2017-12-13 11:27] LABS: Urine Appearance Cloudy; Urine Blood Negative (Negative); Urine Color Yellow; Urine Ketones Negative (Negative); Urine Protein 2+(100 mg/dL) (Negative); Urine Specific Gravity 1.011 (1.010-1.030); Urine Urobilinogen Negative (Negative)
--- NOTE | 2017-12-13 11:46 | ED ---
Daren Steve Tenzin, scribed for Reinier Hendricks MD on 12/13/17 at 0851 . GI/ HPI - HPI Summary HPI Summary: Pt is a 77 years old male presenting to the ED complaining of diarrhea 3 or 4 times today. Pt is also complaining of not getting better and being out of medication. Pt is also complaining of anus pain and describes it is burning from constant diarrhea. Pt is currently being treated for C-diff and reports that he is on Vancomycin. Pt is also complaining of lightheadedness and sore in his legs. Pt denies any fever, chills, chest pain and blood in stools. He didn' t note any alleviating or aggravating factors. Pt is currently on blood thinners for strokes and CT in the past. He is also on dialysis. - History of Current Complaint Chief Complaint: KCDiarrhea Stated Complaint: DIARRHEA Hx Obtained From: Patient Onset/Duration: Still Present Timing: Constant Pain Intensity: 0 - Additional Pertinent History Primary Care Physician: THEODORE - Allergy/Home Medications Allergies/Adverse Reactions: Allergies Allergy/AdvReac Type Severity Reaction Status Date / Time Adhesive Tape Allergy Intermediate Rash And Verified 12/13/17 08:26 Itching PMH/Surg Hx/FS Hx/Imm Hx Endocrine/Hematology History: Reports: Hx Diabetes - TYPE II- ON INSULIN FOR Cardiovascular History: Reports: Hx Angioplasty - R leg angioplasty x2, last , Hx Coronary Artery Disease - 2 STENTS-[facility], Hx Embolism, Hx Hypertension, Hx Peripheral Vascular Disease, Other Cardiovascular Problems/Disorders - HEART CATH Denies: Hx Pacemaker/ICD Respiratory History: Reports: Hx Chronic Obstructive Pulmonary Disease (COPD) - 4L O2 at baseline, 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 Musculoskeletal History: Reports: Hx Arthritis, Other Musculoskeletal History - R knee arthroplasty Sensory History: Reports: Hx Cataracts, Hx Contacts or Glasses - reading only Denies: Hx Hearing Aid Opthamlomology History: Reports: Hx Cataracts, Hx Contacts or Glasses - reading only Neurological History: Reports: Hx Transient Ischemic Attacks (TIA) Psychiatric History: Reports: Other Psychiatric Issues/Disorders - claustrophobic Denies: Hx Panic Disorder - Surgical History Surgery Procedure, Year, and Place: 2008 ARTHROSCOPIC RT [facility]. [address] [facility] [place]/2012 LIVER BIOPSY. [facility] LEFT EYE 2013. RT [facility]. ballooning to veins in legs Hx Anesthesia Reactions: No Infectious Disease History: No Infectious Disease History: Denies: Traveled Outside the [place] in Last 30 Days - Family History Known Family History: Positive: Cardiac Disease, Hypertension - Social History Alcohol Use: Rare Hx Substance Use: No Substance Use Type: Reports: None Hx Tobacco Use: Yes Smoking Status (MU): Former Smoker Type: Cigarettes Amount Used/How Often: 2 pks/day X 30 YEARS Have You Smoked in the Last Year: No Review of Systems Negative: Fever, Chills Negative: Chest Pain Positive: Diarrhea, Other - DENIES: no blood in stools. All Other Systems Reviewed And Are Negative: Yes Physical Exam - Summary Physical Exam Summary: General: well-appearing, no pain distress Skin: warm, color reflects adequate perfusion, dry Head: normal Eyes: EOMI, PACO ENT: normal Neck: supple, nontender Respiratory: CTA, breath sounds present Cardiovascular: RRR Abdomen: soft, nontender Bowel: present Musculoskeletal: normal, strength/ROM intact Neurological: sensory/motor intact, A&O x3 Psychological: affect/mood appropriate Triage Information Reviewed: Yes Vital Signs On Initial Exam: Initial Vitals Temp Pulse Resp BP Pulse Ox 97.9 F 84 20 147/96 96 12/13/17 08:20 12/13/17 08:20 12/13/17 08:20 12/13/17 08:20 12/13/17 08:20 Vital Signs Reviewed: Yes Diagnostics - Vital Signs Vital Signs Temp Pulse Resp BP Pulse Ox 12/13/17 08:20 97.9 F 84 20 147/96 96 - Laboratory Lab Results: Lab Results 12/13/17 12/13/17 12/13/17 Range/Units 09:03 09:03 09:03 WBC 6.7 (3.5-10.8) 10^3/ul RBC 3.54 L (4.00-5.40) 10^6/ul Hgb 11.2 L (14.0-18.0) g/dl Hct 35 L (42-52) % MCV 97 H (80-94) fL MCH 32 H (27-31) pg MCHC 32 (31-36) g/dl RDW 16 H (10.5-15) % Plt Count 201 (150-450) 10^3/ul MPV 9.5 (7.4-10.4) um3 Neut % (Auto) 64.1 (38-83) % Lymph % (Auto) 23.8 L (25-47) % [place] % (Auto) 7.6 H (0-7) % Eos % (Auto) 3.8 (0-6) % Baso % (Auto) 0.7 (0-2) % Absolute Neuts (auto) 4.3 (1.5-7.7) 10^3/ul Absolute Lymphs (auto) 1.6 (1.0-4.8) 10^3/ul Absolute Monos (auto) 0.5 (0-0.8) 10^3/ul Absolute Eos (auto) 0.3 (0-0.6) 10^3/ul Absolute Basos (auto) 0 (0-0.2) 10^3/ul Absolute Nucleated RBC 0 10^3/ul Nucleated RBC % 0 INR (Anticoag Therapy) 1.04 H (0.77-1.02) APTT 27.1 (26.0-36.3) seconds Sodium 137 L (139-145) mmol/L Potassium 5.8 H (3.5-5.0) mmol/L Chloride 97 L (101-111) mmol/L Carbon Dioxide 32 (22-32) mmol/L Anion Gap 8 (2-11) mmol/L BUN 50 H (6-24) mg/dL Creatinine 5.18 H (0.67-1.17) mg/dL Est GFR ( Amer) 14.0 (>60) Est GFR (Non-Af Amer) 10.9 (>60) BUN/Creatinine Ratio 9.7 (8-20) Glucose 188 H (70-100) mg/dL Lactic Acid (0.5-2.0) mmol/L Calcium 8.7 (8.6-10.3) mg/dL Magnesium 1.6 L (1.9-2.7) mg/dL Total Bilirubin 0.40 (0.2-1.0) mg/dL AST 35 (13-39) U/L ALT 15 (7-52) U/L Alkaline Phosphatase 77 (34-104) U/L Total Creatine Kinase 39 (10-223) U/L CK-MB (CK-2) 2.7 (0.6-6.3) ng/mL C-Reactive Protein 4.48 (< 5.00) mg/L B-Natriuretic Peptide ( - 100) pg/mL Total Protein 7.0 (6.4-8.9) g/dL Albumin 3.4 (3.2-5.2) g/dL Globulin 3.6 (2-4) g/dL Albumin/Globulin Ratio 0.9 L (1-3) Lipase 24 (11.0-82.0) U/L TSH Pending 12/13/17 12/13/17 Range/Units 09:03 09:03 WBC (3.5-10.8) 10^3/ul RBC (4.00-5.40) 10^6/ul Hgb (14.0-18.0) g/dl Hct (42-52) % MCV (80-94) fL MCH (27-31) pg MCHC (31-36) g/dl RDW (10.5-15) % Plt Count (150-450) 10^3/ul MPV (7.4-10.4) um3 Neut % (Auto) (38-83) % Lymph % (Auto) (25-47) % [place] % (Auto) (0-7) % Eos % (Auto) (0-6) % Baso % (Auto) (0-2) % Absolute Neuts (auto) (1.5-7.7) 10^3/ul Absolute Lymphs (auto) (1.0-4.8) 10^3/ul Absolute Monos (auto) (0-0.8) 10^3/ul Absolute Eos (auto) (0-0.6) 10^3/ul Absolute Basos (auto) (0-0.2) 10^3/ul Absolute Nucleated RBC 10^3/ul Nucleated RBC % INR (Anticoag Therapy) (0.77-1.02) APTT (26.0-36.3) seconds Sodium (139-145) mmol/L Potassium (3.5-5.0) mmol/L Chloride (101-111) mmol/L Carbon Dioxide (22-32) mmol/L Anion Gap (2-11) mmol/L BUN (6-24) mg/dL Creatinine (0.67-1.17) mg/dL Est GFR ( Amer) (>60) Est GFR (Non-Af Amer) (>60) BUN/Creatinine Ratio (8-20) Glucose (70-100) mg/dL Lactic Acid 3.0 H* (0.5-2.0) mmol/L Calcium (8.6-10.3) mg/dL Magnesium (1.9-2.7) mg/dL Total Bilirubin (0.2-1.0) mg/dL AST (13-39) U/L ALT (7-52) U/L Alkaline Phosphatase (34-104) U/L Total Creatine Kinase (10-223) U/L CK-MB (CK-2) (0.6-6.3) ng/mL C-Reactive Protein (< 5.00) mg/L B-Natriuretic Peptide 688 H ( - 100) pg/mL Total Protein (6.4-8.9) g/dL Albumin (3.2-5.2) g/dL Globulin (2-4) g/dL Albumin/Globulin Ratio (1-3) Lipase (11.0-82.0) U/L TSH Result Diagrams: 12/13/17 09:03 12/13/17 09:03 Lab Statement: Any lab studies that have been ordered have been reviewed, and results considered in the medical decision making process. GIGU Course/Dx - Course Course Of Treatment: ADMIT HOSPITALIST - Diagnoses Provider Diagnoses: Diarrhea, C. difficile diarrhea - Physician Notifications Discussed Care Of Patient With: Ange Cameron Time Discussed With Above Provider: 09:45 - She has agreed to see the pt. Discharge - Sign-Out/Discharge Documenting (check all that apply): Discharge/Admit/Transfer - Admit - Discharge Plan Condition: Stable Disposition: ADMITTED TO [facility] - Billing Disposition and Condition Condition: STABLE Disposition: Admitted to [facility] The documentation as recorded by the Daren perez Tenzin accurately reflects the service I personally performed and the decisions made by , Reinier Hendricks MD.
--- NOTE | 2017-12-13 11:49 | HP ---
HISTORY AND PHYSICAL: DATE OF ADMISSION: ADDENDUM: A note is made of the fact that Mr. Manriquez had an outpatient CT scan showing an enlarged mass to the right lower lobe on chest CT. The patient was aware of this finding and is already scheduled for followup for Dr. Greer. GEORGTETE ANDERSON, CRITICAL CARE PHYSICIAN ASSISTANT [id number]/[facility] #: [id number] GUILLERMINA
[2017-12-13] MEDS: Torsemide TAB* 20 MG PO SCH (12:06)
[2017-12-13] MEDS: Isosorbide Mononitrate ER TAB* 60 MG PO SCH (12:06)
[2017-12-13] MEDS: amLODIPine TAB* 5 MG PO SCH (12:06)
[2017-12-13] MEDS: Vancomycin CAP* 125 MG CAP PO SCH ×3 (12:06→19:56)
[2017-12-13] MEDS: Insulin LISPRO* 1 UNITS UNIT SUBCUT SCH ×2 (12:06→18:20)
--- NOTE | 2017-12-13 13:06 | CONS ---
CONSULTATION REPORT: DATE OF CONSULT: 12/13/17 REQUESTING PROVIDER: Tegan Fletcher NP CONSULTING SERVICE: Infectious Disease. REASON FOR CONSULT: Diarrhea. IMPRESSION: 1. Recent diagnosis of C. difficile diarrhea on 11/29/17 in the setting of multiple stools that did improve with oral vancomycin. He over the last couple of days had return of loose stools, this morning a liquid stool while still taking vancomycin, so I think his symptoms being induced due to C. difficile are less likely. He has had positive fecal leukocytes. He has some rectal and perianal pain with a perianal rash. I do think the differential diagnosis is broader than just infection, but then could include microscopic colitis or inflammatory bowel disease. 2. Lung mass, followed by Dr. Greer. 3. End-stage renal disease, on hemodialysis. RECOMMENDATIONS: 1. We will recheck the C. diff PCR and the fecal leukocytes, as well as culture , Giardia, and Cyclospora. Stop the PPI, continue oral vancomycin. I think it would be appropriate to have GI to see him and consider a flexible sigmoidoscopy. 2. Topical antifungal for the perianal rash, may need a topical corticosteroid as well. I think we will add a TSH and HIV antibody which he has given a verbal consent for. HISTORY OF PRESENT ILLNESS: This is a 77-year-old man with end-stage renal disease admitted with diarrhea. He has had a long history of soft stools and then early October developed some liquid stool, was seen in the emergency room, had a stool culture and C. diff testing done that were negative. He was discharged on Cipro and Flagyl with a little bit of improvement, though off and on still had liquid stools. He returned at the end of October with worsening of liquid stools which were multiple times a day, could be explosive, no abdominal pain. Some anorexia. No fevers, chills, or sweats. At that time his C. diff CPR was positive. He was discharged on oral vancomycin which he has taken for the last 2 weeks and had general improvement in the consistency of the stools, they trended towards soft and were less frequent. Monday he started to have loose stools again without abdominal pain, by Monday that had resolved, and yesterday he had a semi-formed stool. This morning he had a couple of loose and then a liquid stool, so he came back to the emergency room. He has had no abdominal pain, his weight has been stable. He has not tried anything for the diarrhea. In the emergency room his white blood cell count is 6, CRP is 4, ALT 15. He is afebrile. PAST MEDICAL HISTORY: 1. End-stage renal disease, on hemodialysis. 2. Type 2 diabetes. 3. Hypertension. 4. History of TIA. 5. Carotid occlusion. 6. Coronary artery disease. 7. COPD, on supplemental oxygen at home. 8. Obstructive sleep apnea. 9. Atrial fibrillation. 10. AV fistula left arm. 11. Right tunnel catheter for dialysis. 12. Hyperlipidemia. 13. Status post carotid endarterectomy. MEDICATIONS: 1. Tekturna. 2. Amlodipine. 3. Eliquis. 4. Aspirin. 5. Lipitor. 6. Gabapentin. 7. Insulin glargine. 8. Imdur. 9. Metoprolol. 10. Tamsulosin. 11. Torsemide. 12. Vancomycin 125 mg by mouth 4 times a day. 13. Vitamin E. ALLERGIES: ADHESIVE TAPE. FAMILY HISTORY: No recurrent infections or inflammatory bowel disease. SOCIAL HISTORY: Lives in [place] with his . No injection drugs. No travel. They have well water. REVIEW OF SYSTEMS: All negative except as noted above in the history of present illness. PHYSICAL EXAM: Vital Signs: Temperature 36, heart rate is 100, respiratory rate 25, blood pressure 150/88, oxygen saturation 99%. In general he is awake, not in distress. Neurologic: He is oriented x3, follows all commands. Moves all of his extremities. HEENT: There is no conjunctival hemorrhage. Oropharynx without lesions. Neck: Supple without mass. Lymph nodes: There is no inguinal, axillary, or epitrochlear lymphadenopathy. Heart: Regular rate and rhythm without murmurs, rubs, or gallops. Lungs: Clear to auscultation bilaterally. Abdomen: Soft, nontender, nondistended. There are bowel sounds present. He has a perianal diffuse dark erythema without ulceration and exquisite tenderness to palpation of that area. LABORATORY DATA: Potassium 5.8, creatinine 5.1, BNP 700, CRP 4.4. White blood cell count 6, hemoglobin 11, platelets 201,000, MCV 97. Please see impressions and recommendations outlined above which I have discussed with Tegan Fletcher NP. Thanks for asking me to see Mr. Manriquez in consultation. [id number]/[facility] #: [id number] [facility] CENTERBen
[2017-12-13] MEDS: Aliskiren TAB* 300 MG PO SCH (13:56)
[2017-12-13] MEDS ORDERED: Heparin DIALYSIS ONLY(*) 1,000 UNITS/ML VIAL DIALYSIS ONE (15:00)
--- NOTE | 2017-12-13 15:21 | HP ---
ADDENDUM NOW INCLUDED ON THIS REPORT CC: Dr. Merino * HOSPITAL MEDICINE HISTORY AND PHYSICAL: DATE OF ADMISSION: 12/13/17 PRIMARY CARE PHYSICIAN: Dr. Merino. ATTENDING PHYSICIAN: Dr. Ange Guzman * (dictation provided by Tegan Fletcher NP ). CHIEF COMPLAINT: Diarrhea. HISTORY OF PRESENT ILLNESS: Mr. Manriquez is a 77-year-old male with a past medical history of end-stage renal disease, on hemodialysis, diabetes, coronary artery disease, COPD, on 4 L nasal cannula, and AFib, who was just discharged from her hospital on 12/01/17 after being treated for what was suspected to be an episode of C. difficile colitis. Please see the H and P and discharge summary from that hospitalization for complete details. In brief, the patient had improvement in his symptoms of diarrhea after being treated with vancomycin. He did have a positive C. difficile. I will note that the patient had had 2 previous visits to the emergency department for diarrhea, at which time he had negative C. difficile but was treated with Cipro and Flagyl. The patient states that he had generally being doing better in terms of his diarrhea, although he does note having a significant episode of diarrhea 1 day at least where he had to miss an appointment with Dr. Merino due to his symptoms. Yesterday, he did not have significant diarrhea. Today, he took his last dose of vancomycin at 6 a.m.; shortly thereafter, he developed 2 episodes of loose stool and came to the emergency room for evaluation. In the emergency room, since then he has had 2 further loose stools, the most recent one was described as being soft stool surrounded by liquid. He denies abdominal pain. He has had no nausea. He has had no fever. He has been tolerating oral intake well. In the emergency room, Mr. Manriquez again had 2 episodes of diarrhea. His white blood cell count is normal. He does have an elevated potassium of 5.8 with a history of end-stage renal disease. His lactic acid is 3.0, his BNP is 688. His stool was sent to the lab, but the results of the analysis of that are pending. His vitals are stable. PAST MEDICAL HISTORY: 1. End-stage renal disease, on hemodialysis on Monday, , and Monday. 2. Hypertension. 3. Insulin-dependent diabetes. 4. History of transient ischemic attack. 5. Carotid occlusion with carotid endarterectomy. 6. Coronary artery disease. 7. COPD with chronic O2 at 4 L. 8. Obstructive sleep apnea, cannot tolerate CPAP. 9. Paroxysmal atrial fibrillation. 10. AV fistula, left arm. 11. Hyperlipidemia. 12. C. difficile colitis admission with discharge on 12/01/17. MEDICATIONS: 1. Tekturna 300 mg p.o. daily. 2. Amlodipine 10 mg p.o. daily. 3. Apixaban 2.5 mg p.o. b.i.d. 4. Aspirin 81 mg p.o. daily. 5. Atorvastatin 80 mg p.o. at bedtime. 6. Gabapentin 100 mg p.o. b.i.d. 7. Lantus insulin 40 units subcutaneously b.i.d. 8. Lispro insulin with meals as directed. 9. Isosorbide ER 60 mg p.o. q.a.m. 10. Metoprolol succinate 100 mg p.o. b.i.d. 11. Omeprazole 20 mg p.o. daily. 12. Tamsulosin 0.4 mg p.o. at bedtime. 13. Torsemide 40 mg p.o. daily. 14. Vancomycin cap 125 mg p.o. q.i.d., last dose this morning. 15. Vitamin E 1000 units p.o. daily. ALLERGIES: ADHESIVE TAPE. FAMILY HISTORY: The patient reports that his mother had a history of cerebral aneurysm and father had a history of esophageal cancer. SOCIAL HISTORY: The patient is a former smoker, but he quit about 30 years ago. He denies any alcohol or drug use. He lives independently with his and she would be the health care proxy. REVIEW OF SYSTEMS: A 14-point review of systems was completed with Mr. Hiram Manriquez and all others than mentioned above were negative. PHYSICAL EXAMINATION GENERAL: Mr. Manriquez is lying in bed with his at the bedside. He is in no acute distress. VITAL SIGNS: Temperature 97.9, pulse rate 90, respiratory rate 25, O2 saturation 98% on 4 L nasal cannula, blood pressure 165/80. LUNGS: Clear to auscultation bilaterally without accessory muscle use and good aeration. HEART: S1 and S2. No murmur, rub, or gallop and regular. ABDOMEN: Soft, there is no tenderness throughout. Bowel sounds are positive. EXTREMITIES: No cyanosis. Positive for lower extremity edema with chronic venous stasis changes. No open areas noted today. NEUROLOGIC: He is alert. He is oriented x3. He moves all extremities equally. There is no facial asymmetry or focal weakness. Extraocular movements are intact. LABORATORY DATA/DIAGNOSTIC STUDIES: Sodium 137, potassium 5.8, chloride 97, serum bicarbonate 32, BUN 50, creatinine 5.18, glucose 188, lactic acid 3.0. Magnesium 1.6. BNP 688. INR 1.04. WBC 6.7, hemoglobin 11.2, hematocrit 35, platelet count 201. No imaging from today, but I do make note of a chest CT from 12/06/17, which showed the following: "Interstitial lung disease, greater on the right than on the left; 3.3 cm mass at the right lower lobe, increased from 10/02/17." Given the persistence and increase in size, it is concerning for pulmonary parenchymal neoplasm, recommend consideration and correlation with PET/CT and/ or tissue sampling atherosclerosis. IMPRESSION: Mr. Manriquez is a 77-year-old male with recent discharge from our hospital on 12/01/17 after being treated for Clostridium difficile colitis who completed his last dose of vancomycin this morning and then developed loose stool and he presented to the emergency room for evaluation. PLAN/RECOMMENDATIONS: Our recommendations are as follows: 1. Diarrhea: The patient's development of loose stool immediately following the last dose of vancomycin is not consistent with C. difficile infection. Plans will be to continue to work the patient up with repeat C difficile PCR testing now. The patient is going to be seen in consultation by Dr. Arellano, her infectious disease services, to help guide care. For the time being, the patient will continue to have vancomycin q.i.d. pending his recommendations. Patient may also benefit from CT abdomen and pelvis or flexible sigmoidoscopy for further evaluation. 2. Hyperkalemia. The patient's potassium is elevated. Our plan will be to check an EKG now. He will monitored on the telemetry unit. I think that he did not take his torsemide this morning and we can have him have a dose of that now and then we will recheck potassium later this afternoon. If it remains elevated, we can initiate more aggressive emergent treatment for high potassium. 3. End-stage renal disease, on hemodialysis, plan to continue Megan, , and Monday. 4. Hypertension. The patient's blood pressure is slightly elevated here in the emergency room, but he did not take his home medications, we will resume him on his Tekturna, amlodipine, isosorbide, and metoprolol. 5. Type 2 diabetes. The patient will have blood glucoses q.a.c. with lispro sliding scale. We will continue his Lantus insulin at 40 units subcutaneously b.i.d. He will have a consistent carbohydrate, low-salt, low-fat, renal diet. 6. DVT prophylaxis with Eliquis. 7. Atrial fibrillation. Continue Eliquis and metoprolol. the patient's EKG is pending. 8. Code status is full code. This was reviewed with the patient and his at the bedside today. TIME SPENT: Approximately 60 minutes was spent on the admission of this patient , more than half the time spent with the patient at the bedside reviewing the events leading up to this hospitalization, performing the physical examination, and reviewing my plan of care. ADDENDUM: A note is made of the fact that Mr. Manriquez had an outpatient CT scan showing an enlarged mass to the right lower lobe on chest CT. The patient was aware of this finding and is already scheduled for followup for Dr. Greer. TEGAN FLETCHER, LOPEZ [id number]/[facility] #: [id number] [id number]/[facility] #: [id number] GUILLERMINA
[2017-12-13 18:11] LABS: EGFR Non-African American 18.1 (>60)
[2017-12-13] MEDS: Atorvastatin* 80 MG TAB PO SCH (19:56)
[2017-12-13] MEDS: Metoprolol Succinate XL TAB* 100 MG PO SCH (19:56)
[2017-12-13] MEDS: Gabapentin CAP(*) 100 MG PO SCH (19:56)
[2017-12-13] MEDS: Apixaban* 2.5 MG TAB PO SCH (19:56)
[2017-12-13] MEDS: Tamsulosin CAP* 0.4 MG PO SCH (19:57)
[2017-12-13] MEDS: Nystatin OINT* 15 GM TOPICAL SCH (20:20)
[2017-12-13] MEDS: Insulin GLARGINE(*) 1 UNITS UNIT SUBCUT SCH (20:21)
[2017-12-13] MEDS: Melatonin 3 MG TAB PO PRN (23:22)
[2017-12-14] MEDS ORDERED: Saline NASAL SPRAY 0.65%* BTL BOTH NARES PRN (02:09)
[2017-12-14] MEDS: Insulin LISPRO* 1 UNITS UNIT SUBCUT SCH ×3 (08:51→17:29)
[2017-12-14] MEDS ORDERED: Aliskiren TAB* 150 MG PO SCH (09:00)
[2017-12-14] MEDS ORDERED: amLODIPine TAB* 5 MG PO SCH (09:00)
[2017-12-14] MEDS ORDERED: Omeprazole CAP* 20 MG PO SCH (09:00)
[2017-12-14] MEDS ORDERED: Isosorbide Mononitrate ER TAB* 60 MG PO SCH (09:00)
[2017-12-14] MEDS: Torsemide TAB* 20 MG PO SCH (09:02)
[2017-12-14] MEDS: Vitamin E CAP* 200 UNITS PO SCH (09:02)
[2017-12-14] MEDS: Gabapentin CAP(*) 100 MG PO SCH ×2 (09:04→20:14)
[2017-12-14] MEDS: Isosorbide Mononitrate ER TAB* 60 MG PO SCH (09:07)
[2017-12-14] MEDS: Metoprolol Succinate XL TAB* 100 MG PO SCH ×2 (09:07→20:14)
[2017-12-14] MEDS: Apixaban* 2.5 MG TAB PO SCH ×2 (09:07→20:14)
[2017-12-14] MEDS: Vancomycin CAP* 125 MG CAP PO SCH (09:07)
[2017-12-14] MEDS: Aspirin EC TAB* 81 MG TAB.EC PO SCH (09:08)
[2017-12-14] MEDS: Aliskiren TAB* 300 MG PO SCH (09:08)
[2017-12-14] MEDS: amLODIPine TAB* 5 MG PO SCH (09:08)
[2017-12-14] MEDS: Insulin GLARGINE(*) 1 UNITS UNIT SUBCUT SCH ×2 (09:10→20:14)
[2017-12-14] MEDS: Nystatin OINT* 15 GM TOPICAL SCH ×2 (09:11→20:15)
--- NOTE | 2017-12-14 09:37 | PN ---
Subjective Date of Service: 12/14/17 Interval History: Mr. Manriquez reports feeling better today and that he has had a formed stool. He is tolerating oral intake well and has had no nausea. He denies chest pain or SOB. Objective Active Medications: Aliskiren (Tekturna Tab*) 300 mg PO DAILY [facility] Amlodipine Besylate (Norvasc Tab*) 10 mg PO DAILY [facility] Apixaban (Eliquis) 2.5 mg PO BID [facility] Aspirin (Aspirin Ec Tab*) 81 mg PO DAILY [facility] Atorvastatin Calcium (Lipitor*) 80 mg PO BEDTIME [facility] Dextrose (D50w Syringe 50 Ml*) 12.5 gm IV PUSH .FOR FS < 60 - SS PRN Gabapentin (Neurontin Cap(*)) 100 mg PO BID [facility] Insulin Glargine (Lantus(*)) 40 units SUBCUT BID [facility] Insulin Human Lispro (Humalog*) 0 units SUBCUT AC [facility] Isosorbide Mononitrate (Imdur Er Tab*) 60 mg PO QAM [facility] Melatonin (Melatonin) 3 mg PO BEDTIME PRN Metoprolol Succinate (Toprol Xl Tab*) 100 mg PO BID [facility] Nystatin (Nystatin Oint*) 1 applic TOPICAL BID [facility] Sodium Chloride (Sodium Chloride 0.65% Nasal [place]*) 1 spray BOTH NARES Q4H PRN Tamsulosin HCl (Flomax Cap*) 0.4 mg PO BEDTIME [facility] Torsemide (Demadex*) 40 mg PO DAILY [facility] Vancomycin HCl (Vancomycin Cap*) 125 mg PO QID [facility] Vitamin E (Vitamin E Cap*) 1,000 units PO DAILY [facility] Vital Signs: Temp Pulse Resp BP Pulse Ox 97.8 F 64 14 114/57 98 12/14/17 03:38 12/14/17 03:38 12/14/17 09:04 12/14/17 03:38 12/14/17 03:38 Oxygen Devices in Use Now: Nasal Cannula Appearance: Male lying in bed in NAD Eyes: No Scleral Icterus Ears/Nose/Mouth/Throat: Mucous Membranes Moist Neck: NL Appearance and Movements; NL JVP, Trachea Midline Respiratory: Symmetrical Chest Expansion and Respiratory Effort, Clear to Auscultation Cardiovascular: NL Sounds; No Murmurs; No JVD, No Edema Abdominal: NL Sounds; No Tenderness; No Distention Lymphatic: No Cervical Adenopathy Extremities: No Edema Neurological: Alert and Oriented x 3, NL Muscle Strength and Tone Nutrition: Taking PO's Result Diagrams: 12/13/17 09:03 12/13/17 17:43 Additional Lab and Data: . Microbiology and Other Data: Vital Signs: Temp Pulse Resp BP Pulse Ox 97.8 F 64 14 114/57 98 12/14/17 03:38 12/14/17 03:38 12/14/17 09:04 12/14/17 03:38 12/14/17 03:38 Assess/Plan/Problems-Billing Assessment: Mr. Manriquez is a 77 yo male with a PMH of recent diagnosis of cdiff on vanco who was admitted on 12/13/17 with diarrhea. - Patient Problems (1) Diarrhea Comment: Resolved. Cdiff negative. Start lomotil, provide education about usage. If persistent diarrhea would benefit from outpatient follow up with GI for possible flex sig. Plan to monitor overnight given patient's frequent readmissions for same to ensure resolution, appropriate use of lomotil and that he is able to make it to his appointment for a fistulogram in AM. (2) Afib Comment: - Continue Metoprolol and Apixaban. (3) CVA (cerebral vascular accident) Comment: - With left carotid occlusion. - Continue Aspirin, Apixaban, statin. (4) ESRD (end stage renal disease) Comment: - Continue HD as scheduled. - Unable to have fistulogram for now due to profuse diarrhea. (5) HTN (hypertension) Comment: - Controlled. - Continue Aliskiren, Amlodipine. (6) Hyperkalemia Comment: Resolved with dialysis. (7) Interstitial lung disease Comment: h/o both COPD and interstitial lung disease. Now with enlarged lung mass, follows closely with Dr. Greer. (8) Chronic diastolic heart failure Comment: Asymptomatic. Continue torsemide. (9) Diabetes mellitus Comment: - Continue Lantus and Lispro SS. (10) DVT prophylaxis Comment: - Apixaban. (11) Full code status Comment:
[2017-12-14] MEDS ORDERED: Loperamide CAP* 2 MG PO PRN (09:40)
[2017-12-14] MEDS ORDERED: guaiFENesin LIQ* 100 MG/5 ML UDC PO PRN (10:10)
[2017-12-14] MEDS ORDERED: Benzonatate CAP* 100 MG PO PRN (10:10)
--- NOTE | 2017-12-14 10:15 | PN ---
Progress Note - Progress Note Date of Service: 12/14/17 SOAP: Subjective: CC: diarrhea HPI: 77 year old man with recent Cdif diarrhea, had worsening diarrhea while on vancomycin. Resolved today, no abd pain. Formed stool this morning. Objective: Vital Signs Temp 36.6 C 12/14/17 03:38 Pulse 64 12/14/17 03:38 Resp 14 12/14/17 09:04 BP 114/57 12/14/17 03:38 Pulse Ox 98 12/14/17 03:38 Intake & Output 12/13/17 12/14/17 12/14/17 18:59 06:59 18:59 Intake Total 500 50 120 Output Total 100 Balance 500 -50 120 Weight 252 lb Intake: Oral 500 50 120 Output: Urine 100 Other: Estimated Void Small # Bowel Movements 1 3 Estimated Stool Amount Small Large # Voids 3 Gen:awake, no distress HEENT: no thrush or ulcer Heart:Regular, no murmur Abd:+BS NTND soft Skin: no rash Laboratory Results - last 24 hr 12/13/17 12/13/17 12/13/17 09:03 11:02 12:05 Sodium 137 L Potassium 5.8 H Chloride 97 L Carbon Dioxide 32 Anion Gap 8 BUN 50 H Creatinine 5.18 H Est GFR ( Amer) 14.0 Est GFR (Non-Af Amer) 10.9 BUN/Creatinine Ratio 9.7 Glucose 188 H POC Glucose (mg/dL) 90 Calcium 8.7 Magnesium 1.6 L Total Bilirubin 0.40 AST 35 ALT 15 Alkaline Phosphatase 77 Total Creatine Kinase 39 CK-MB (CK-2) 2.7 C-Reactive Protein 4.48 Total Protein 7.0 Albumin 3.4 Globulin 3.6 Albumin/Globulin Ratio 0.9 L Lipase 24 TSH 4.51 Urine Color Yellow Urine Appearance Cloudy Urine pH 8.0 Ur Specific [place] 1.011 Urine Protein 2+(100 mg/dl) A Urine Ketones Negative Urine Blood Negative Urine Nitrate Negative Urine Bilirubin Negative Urine Urobilinogen Negative Ur Leukocyte Esterase 3+ A Urine WBC (Auto) 3+(>20/hpf) A Urine RBC (Auto) 2+(6-10/hpf) A Ur Squamous Epith Cells Present A Urine Bacteria Absent Urine Glucose 1+(50 mg/dl) A 12/13/17 12/13/17 12/14/17 17:17 17:43 07:38 Sodium 134 L Potassium 4.4 Chloride 94 L Carbon Dioxide 32 Anion Gap 8 BUN 28 H Creatinine 3.32 H Est GFR ( Amer) 23.3 Est GFR (Non-Af Amer) 18.1 BUN/Creatinine Ratio 8.4 Glucose 110 H POC Glucose (mg/dL) 111 H 83 Calcium 8.9 Magnesium Total Bilirubin AST ALT Alkaline Phosphatase Total Creatine Kinase CK-MB (CK-2) C-Reactive Protein Total Protein Albumin Globulin Albumin/Globulin Ratio Lipase TSH Urine Color Urine Appearance Urine pH Ur Specific [place] Urine Protein Urine Ketones Urine Blood Urine Nitrate Urine Bilirubin Urine Urobilinogen Ur Leukocyte Esterase Urine WBC (Auto) Urine RBC (Auto) Ur Squamous Epith Cells Urine Bacteria Urine Glucose Microbiology 12/13/17 11:02 Stool Gross Appearance - Final Stool C. difficile DNA Amplification - Final 027 Presumptive NEGATIVE Toxigenic C.diff NEGATIVE Stool Lactoferrin - Final Stool Occult Blood (NII) - Final Cryptosporidium/Giardia - Final Neg Cryptosporidium/Giardia Assessment: 1. diarrhea resolved, Cdif negative 2. lung mass 3. ESRD/HD Plan: 1. continue to hold PPI, avoid sugar free cough drops, bland diet and dairy free for 2 weeks. Discussed with Tegan Fletcher NP
[2017-12-14] MEDS: Atorvastatin* 80 MG TAB PO SCH (20:14)
[2017-12-14] MEDS: Tamsulosin CAP* 0.4 MG PO SCH (20:15)
[2017-12-15] MEDS: Melatonin 3 MG TAB PO PRN (02:14)
--- NOTE | 2017-12-15 08:08 | PN ---
Subjective Date of Service: 12/15/17 Interval History: Mr. Manriquez denies any acute complaint today. He has had no further diarrhea. He is eager for discharge. Objective Active Medications: Aliskiren (Tekturna Tab*) 300 mg PO DAILY [facility] Amlodipine Besylate (Norvasc Tab*) 10 mg PO DAILY [facility] Apixaban (Eliquis) 2.5 mg PO BID [facility] Aspirin (Aspirin Ec Tab*) 81 mg PO DAILY [facility] Atorvastatin Calcium (Lipitor*) 80 mg PO BEDTIME [facility] Benzonatate (Tessalon Cap*) 100 mg PO BID PRN Dextrose (D50w Syringe 50 Ml*) 12.5 gm IV PUSH .FOR FS < 60 - SS PRN Gabapentin (Neurontin Cap(*)) 100 mg PO BID [facility] Guaifenesin (Robitussin*) 5 ml PO Q4H PRN Insulin Glargine (Lantus(*)) 40 units SUBCUT BID [facility] Insulin Human Lispro (Humalog*) 0 units SUBCUT AC [facility] Isosorbide Mononitrate (Imdur Er Tab*) 60 mg PO QAM [facility] Loperamide HCl (Imodium Cap*) 2 mg PO .SEE DIRECTIONS PRN Melatonin (Melatonin) 3 mg PO BEDTIME PRN Metoprolol Succinate (Toprol Xl Tab*) 100 mg PO BID [facility] Nystatin (Nystatin Oint*) 1 applic TOPICAL BID [facility] Sodium Chloride (Sodium Chloride 0.65% Nasal [place]*) 1 spray BOTH NARES Q4H PRN Tamsulosin HCl (Flomax Cap*) 0.4 mg PO BEDTIME [facility] Torsemide (Demadex*) 40 mg PO DAILY [facility] Vitamin E (Vitamin E Cap*) 1,000 units PO DAILY [facility] Vital Signs: Temp Pulse Resp BP Pulse Ox 97.9 F 59 20 110/49 100 12/15/17 03:11 12/15/17 03:11 12/15/17 03:11 12/15/17 03:11 12/15/17 03:11 Oxygen Devices in Use Now: Nasal Cannula Appearance: Male sitting up in chair in NAD Eyes: No Scleral Icterus Ears/Nose/Mouth/Throat: Mucous Membranes Moist Neck: Trachea Midline Respiratory: Symmetrical Chest Expansion and Respiratory Effort, Clear to Auscultation Cardiovascular: NL Sounds; No Murmurs; No JVD Abdominal: NL Sounds; No Tenderness; No Distention Neurological: Alert and Oriented x 3, NL Muscle Strength and Tone Nutrition: Taking PO's Result Diagrams: 12/13/17 09:03 12/13/17 17:43 Additional Lab and Data: . Microbiology and Other Data: Vital Signs: Temp Pulse Resp BP Pulse Ox 97.8 F 64 14 114/57 98 12/14/17 03:38 12/14/17 03:38 12/14/17 09:04 12/14/17 03:38 12/14/17 03:38 Assess/Plan/Problems-Billing Assessment: Mr. Manriquez is a 77 yo male with a PMH of recent diagnosis of cdiff on vanco who was admitted on 12/13/17 with diarrhea. - Patient Problems (1) Diarrhea Comment: - No further diarrhea. Cdiff negative. - Start lomotil, provide education about usage. If persistent diarrhea would benefit from outpatient follow up with GI for possible flex sig. - Patient also counseled to avoid sugar free foods (like the cough drops he uses frequently) as this can contribute to diarrhea. Also plan to stop PPI which can cause diarrhea. (2) Afib Comment: - Continue Metoprolol and Apixaban. (3) CVA (cerebral vascular accident) Comment: - With left carotid occlusion. - Continue Aspirin, Apixaban, statin. (4) ESRD (end stage renal disease) Comment: - Continue HD as scheduled. - Plan for fistulogram today. Will continue to use tunneled dialysis catheter until an adequate fistula is available. (5) HTN (hypertension) Comment: - Controlled. - Continue Aliskiren, Amlodipine. (6) Hyperkalemia Comment: Resolved with dialysis. (7) Interstitial lung disease Comment: h/o both COPD and interstitial lung disease. Now with enlarged lung mass, follows closely with Dr. Greer who will continue workup. Follow up appt Monday. (8) Chronic diastolic heart failure Comment: Asymptomatic. Continue torsemide. (9) Diabetes mellitus Comment: - Continue Lantus and Lispro SS. (10) DVT prophylaxis Comment: - Apixaban. (11) Full code status Comment: Status and Disposition: OBV. Discharge to home
[2017-12-15] MEDS: Torsemide TAB* 20 MG PO SCH (08:58)
[2017-12-15] MEDS: Vitamin E CAP* 200 UNITS PO SCH (08:59)
[2017-12-15] MEDS: Metoprolol Succinate XL TAB* 100 MG PO SCH (08:59)
[2017-12-15] MEDS: Gabapentin CAP(*) 100 MG PO SCH (09:00)
[2017-12-15] MEDS: amLODIPine TAB* 5 MG PO SCH (09:00)
[2017-12-15] MEDS: Apixaban* 2.5 MG TAB PO SCH (09:00)
[2017-12-15] MEDS: Aspirin EC TAB* 81 MG TAB.EC PO SCH (09:00)
[2017-12-15] MEDS: Isosorbide Mononitrate ER TAB* 60 MG PO SCH (09:01)
[2017-12-15] MEDS: Insulin GLARGINE(*) 1 UNITS UNIT SUBCUT SCH (09:02)
[2017-12-15] MEDS: Aliskiren TAB* 300 MG PO SCH (09:29)
[2017-12-15] MEDS: Insulin LISPRO* 1 UNITS UNIT SUBCUT SCH (09:54)
[2017-12-15] MEDS: Nystatin OINT* 15 GM TOPICAL SCH (09:55)
[2017-12-15 10:10] VITALS: BP 103/44
--- NOTE | 2017-12-15 12:06 | DS ---
CC: Dr. Merino * [facility] MEDICINE DISCHARGE SUMMARY: DATE OF ADMISSION: 12/13/17 DATE OF DISCHARGE: 12/15/17 PRIMARY CARE PHYSICIAN: Dr. Merino. ATTENDING PHYSICIAN: Ange Guzman MD * (dictation provided by Tegan Fletcher NP ) PRIMARY DIAGNOSIS: Diarrhea (not C. difficile colitis). SECONDARY DIAGNOSES: 1. End-stage renal disease, on hemodialysis Monday, , Monday. 2. Hypertension. 3. Insulin-dependent diabetes. 4. History of transient ischemic attack. 5. Carotid occlusion with carotid endarterectomy. 6. Coronary artery disease. 7. Chronic obstructive pulmonary disease with chronic O2 at 4 L nasal cannula. 8. Obstructive sleep apnea, cannot tolerate CPAP. 9. Paroxysmal atrial fibrillation. 10. AV fistula left arm, nonfunctioning. 11. Tunneled dialysis catheter. 12. Hyperlipidemia. 13. C. difficile colitis admission with discharge on 12/01/17. DISCHARGE MEDICATIONS: 1. Amlodipine 10 mg p.o. daily. 2. Vitamin E 1000 units p.o. daily. 3. Torsemide 40 mg p.o. daily. 4. Tamsulosin 0.4 mg p.o. at bedtime. 5. Nitroglycerin 0.4 mg sublingually q.5 minutes p.r.n. chest pain. 6. Metoprolol succinate 100 mg p.o. b.i.d. 7. Isosorbide ER 600 mg p.o. q.a.m. 8. Lispro insulin 5 to 15 units subcutaneously t.i.d. with meals. 9. Lantus insulin 40 units subcutaneously b.i.d. 10. Gabapentin 100 mg p.o. b.i.d. 11. Fenofibrate 145 mg p.o. daily. 12. Atorvastatin 80 mg p.o. at bedtime. 13. Aspirin 81 mg p.o. daily. 14. Apixaban 2.5 mg p.o. b.i.d. 15. Aliskiren 300 mg p.o. daily. 16. Guaifenesin 5 mL p.o. q.4 hours. 17. Nystatin ointment 1 application topically b.i.d. to rash around anus. 18. Loperamide 2 mg p.r.n. diarrhea, max dose 8 tabs daily. 19. Benzonatate 100 mg p.o. b.i.d. p.r.n. cough. HOSPITAL COURSE: Mr. Manriquez is a 77-year-old male who presented to the hospital on 12/13/17 with report of persistent diarrhea. The patient had just been discharged from the hospital on 12/01/17 after being treated for C. difficile colitis. The patient reported that he had finished his final dose of vancomycin at 6 a.m. and had 2 episodes of diarrhea in the morning and 1 episode on arrival to the ED. The patient was concerned that his C. diff had returned and therefore, came for evaluation. In the emergency room, his labs were unremarkable given his history, but he did have 2 bouts of diarrhea. Mr. Manriquez was admitted to the hospital. We did send a stool for C. difficile colitis and other culture. The C. difficile was negative. His fecal lactoferrin is positive, he is negative for Cryptosporidium and Giardia, negative for shiga toxin. Because of the patient's unusual course with multiple episodes of diarrhea and both the negative and positive C. difficile testing, we did consult with the infectious disease , I refer you to Dr. Arellano's note for complete details. In brief, he agreed that the patient did not have C. difficile colitis based on the negative testing and felt that his diarrhea was noninfectious in origin. Our recommendations are to look for alternative causes for the diarrhea. The patient does take sugar free cough drops frequently throughout the day due to ongoing cough for which he is following with Dr. Greer. The sugar free additives can cause diarrhea. He also uses a proton pump inhibitor, which can cause diarrhea and that has been discontinued. We are recommending that the patient do a bland diet and be dairy free for 2 weeks in an effort to see if these dietary changes and changes with his medications can decrease his diarrhea. If these changes do not help, we are recommending that the patient follow up with Gastroenterology and the patient has been given the number for [facility] here in town as he may benefit from a flexible sigmoidoscopy. Mr. Manriquez has had ongoing issues with fistula for his dialysis. He does have a tunneled dialysis catheter that he is using. He is being discharged today to Dr. Faulkner's office for fistulogram and then he will be following up with Dr. Rodriguez for routine dialysis tomorrow. Other outstanding issues are the fact that the patient has CT scan recently of the chest, which showed an enlarged right lobe lung mass. Plans are for the patient to have a followup appointment with Dr. Greer for further workup of this on Monday. Mr. Manriquez is medically stable for discharge to home to follow up with his multiple care providers. DISPOSITION: Home. DIET: Renal, low-carb, low-salt, low-fat, bland diet. Avoid dairy x2 weeks. ACTIVITY: As tolerated. FOLLOWUP PLANS: 1. Please follow up with Dr. Faulkner today for fistulogram. 2. Please follow up with Dr. Rodriguez tomorrow for dialysis. 3. Please follow up with Dr. Greer on Monday for followup of lung mass. 4. Please follow up with Dr. Merino per routine within the next 5 to 7 days regarding this acute hospitalization. TIME SPENT: Approximately 60 minutes were spent on the discharge of this patient, more than half the time was spent with the patient at the bedside reviewing the events leading up to and during this hospitalization, performing the physical examination, and reviewing my plan of care. TEGAN FLETCHER NP [id number]/[facility] #: [id number] GUILLERMINA
== END 2017-12-15 09:40 | disposition home or self-care (01) ==
LOC: ED 08:18 → MED 10:30
PROVIDERS: ADMIT Internal Medicine; ATTEND Internal Medicine
DX: R19.7 Diarrhea, unspecified (principal); I13.2 Hypertensive heart and chronic kidney disease with heart failure and with stage 5 chronic kidney disease, or end stage renal disease; I50.32 Chronic diastolic (congestive) heart failure; E11.22 Type 2 diabetes mellitus with diabetic chronic kidney disease; N18.6 End stage renal disease; Z99.2 Dependence on renal dialysis; Z79.4 Long term (current) use of insulin; E87.5 Hyperkalemia; Z86.73 Personal history of transient ischemic attack (TIA), and cerebral infarction without residual deficits; I65.29 Occlusion and stenosis of unspecified carotid artery; I25.10 Atherosclerotic heart disease of native coronary artery without angina pectoris; J44.9 Chronic obstructive pulmonary disease, unspecified; I48.91 Unspecified atrial fibrillation; E78.5 Hyperlipidemia, unspecified; J84.9 Interstitial pulmonary disease, unspecified; Z79.01 Long term (current) use of anticoagulants; Z79.82 Long term (current) use of aspirin; Z79.899 Other long term (current) drug therapy; Z87.891 Personal history of nicotine dependence; R94.31 Abnormal electrocardiogram [ECG] [EKG]
CPT/HCPCS: 36415; 80048; 80053; 81003; 81015; 82270; 82550; 82553; 83605; 83630; 83690; 83735; 83880; 84443; 85025; 85610; 85730; 86140; 86703; 87045; 87046; 87077; 87086; 87328; 87329; 87493; 87899; 90935; 93005; 96372; 99284; A9270-GY; G0378; J1644

== ENCOUNTER 2018-02-19 02:24 | Emergency (ER) | payer MEDICARE ==
--- NOTE | 2018-02-19 02:59 | ED ---
Skin Complaint - HPI Summary HPI Summary: This is Campos perez documenting for attending physician Chris Venegas MD. This patient is a 77 year old M presenting to [facility] with a concern for a possible infection in his L arm. Patient had a fistula graft recently and the stitches were removed a 01-02-18, they are concerned there might be a stitch still present. Pt was told his fistula was not working correctly. The patient rates the pain 8/10 in severity. Patient reports cough. Patient denies SOB and dizziness. Hx of renal failure sees Dr jackson current on dialysis last round was 2 days ago. - History of Current Complaint Chief Complaint: EDExtremityUpper Stated Complaint: LT ARM PAIN/POS INFECTION Hx Obtained From: Patient Onset/Duration: Still Present Timing: Constant Onset Severity: Severe Current Severity: Severe Pain Intensity: 8 Pain Scale Used: 0-10 Numeric Skin Location: Arm - left Character: Pain, Redness, Painful Associated Signs & Symptoms: Negative - SOB and dizziness - Additional Pertinent History Primary Care Physician: THEODORE - Allergy/Home Medications Allergies/Adverse Reactions: Allergies Allergy/AdvReac Type Severity Reaction Status Date / Time Adhesive Tape Allergy Intermediate Rash And Verified 02/19/18 02:30 Itching PMH/Surg Hx/FS Hx/Imm Hx Endocrine/Hematology History: Reports: Hx Diabetes - TYPE II- ON INSULIN FOR Cardiovascular History: Reports: Hx Angioplasty - R leg angioplasty x2, last , Hx Coronary Artery Disease - 2 STENTS-[facility], Hx Embolism, Hx Hypertension, Hx Peripheral Vascular Disease, Other Cardiovascular Problems/Disorders - HEART CATH Denies: Hx Pacemaker/ICD Respiratory History: Reports: Hx Chronic Obstructive Pulmonary Disease (COPD) - 4L O2 at baseline, 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 Musculoskeletal History: Reports: Hx Arthritis, Other Musculoskeletal History - R knee arthroplasty Sensory History: Reports: Hx Cataracts, Hx Contacts or Glasses - reading only Denies: Hx Hearing Aid Opthamlomology History: Reports: Hx Cataracts, Hx Contacts or Glasses - reading only Neurological History: Reports: Hx Transient Ischemic Attacks (TIA) Psychiatric History: Reports: Other Psychiatric Issues/Disorders - claustrophobic Denies: Hx Panic Disorder - Surgical History Surgery Procedure, Year, and Place: 2008 ARTHROSCOPIC RT [facility]. [place] [facility] [place]. [facility] 2013. RT [facility]. ballooning to veins in legs Hx Anesthesia Reactions: No - Immunization History Date of Tetanus Vaccine: unk Date of Influenza Vaccine: fall 2016 Infectious Disease History: No Infectious Disease History: Reports: Hx Clostridium Difficile Denies: Traveled Outside the [place] in Last 30 Days - Family History Known Family History: Positive: Cardiac Disease, Hypertension - Social History Alcohol Use: Rare Hx Substance Use: No Substance Use Type: Reports: None Hx Tobacco Use: Yes Smoking Status (MU): Former Smoker Type: Cigarettes Amount Used/How Often: 2 pks/day X 30 YEARS Have You Smoked in the Last Year: No Review of Systems Positive: Cough. Negative: Shortness Of Breath Positive: Other - redness and possible infection Neurological: Negative - dizziness All Other Systems Reviewed And Are Negative: Yes Physical Exam - Summary Physical Exam Summary: Appearance: Well appearing, no pain distress Skin:graft site in the left upper arm that is TTP with erythema and a small distal wound dehiscence. There is no purulence. erythema is [id number] Head/face: normal Eyes: EOMI, PACO ENT: normal Neck: supple, non-tender Respiratory: crackles in the right base. good radial pulses Cardiovascular: RRR, pulses symmetrical Abdomen: non-tender, soft Bowel Sounds: present Musculoskeletal: There is no thrill over the graft. strength/ROM intact, chronic LE dermatitis Neuro: normal, sensory motor intact, A&Ox3 Triage Information Reviewed: Yes Vital Signs On Initial Exam: Initial Vitals Temp Pulse Resp BP Pulse Ox 98.9 F 88 20 152/68 97 02/19/18 02:27 02/19/18 02:27 02/19/18 02:27 02/19/18 02:27 02/19/18 02:27 Vital Signs Reviewed: Yes Diagnostics - Vital Signs Vital Signs Temp Pulse Resp BP Pulse Ox 02/19/18 02:27 98.9 F 88 20 152/68 97 - Laboratory Result Diagrams: 02/19/18 03:30 02/19/18 03:30 Lab Statement: Any lab studies that have been ordered have been reviewed, and results considered in the medical decision making process. - Radiology CXR Radiology Interpretation Completed By: ED Physician - near white out of the right lung with dialysis cath. Largely unchanged from previous. Pending official report - CT CT Left upper extremity CT Interpretation Completed By: Radiologist - Limited CT exam of the left extremity. There is a structure in the medial aspect of the left midforearm which could represent an abscess. Suggest ultrasound study of this lesion. This lesion measures 4.5 x [address] Venegas has reviewed this report. Course/Dx - Course Course Of Treatment: Patient with end-stage renal disease with recent attempt to place a graft in his left upper extremity. He had a slight dehiscence of the surgical wound following graft failure that was known. This is cause a large cellulitic area in the upper arm. Attempted to obtain a CT scan which is very limited. IV antibiotics given. Discussed the case with his terminologist who wished to have him admitted here. [facility] not accepting patients now which is the location of his vascular surgeon. Discussed the case with the hospitalist who has accepted. - Differential Diagnoses - Skin Complaint Differential Diagnoses: Other - Cellulitis, abscess, known graft failure - Diagnoses Provider Diagnoses: End stage renal failure on dialysis, Cellulitis - Physician Notifications Discussed Care Of Patient With: Deven Toth - discussed case with Dr. Rodriguez from nephrology who wishes to have patient admitted here Time Discussed With Above Provider: 06:00 Instructed by Provider To: Admit As Inpatient Discharge - Sign-Out/Discharge Documenting (check all that apply): Patient Departure - admitted - Discharge Plan Condition: Fair Disposition: ADMITTED TO [facility] Referrals: Franky Merino MD [Primary Care Provider] - - Billing Disposition and Condition Condition: FAIR Disposition: Admitted to [facility] Attestation Statement Scribe Attestation: This is Campos perez documenting for attending physician Chris Venegas MD.
[2018-02-19] MEDS ORDERED: Cefepime(*) 2 GM in NS 0.9% 50 ML* 50 ML IVPB ONE (03:18)
[2018-02-19] MEDS ORDERED: metroNIDAZOLE IV 500 MG/100ML* 500 MG/100 ML BAG IVPB ONE (03:18)
[2018-02-19] MEDS ORDERED: Morphine INJ* 2 MG/ML 1 ML SYRINGE (TWO MG - NEW SYRINGE VERSION) IV ONE (03:55)
[2018-02-19] MEDS ORDERED: Vancomycin(*) 1,000 MG VIAL IVPB SCH (04:00)
[2018-02-19] MEDS ORDERED: Vancomycin(*) 1,750 MG in NS 0.9% 500 ML* 500 ML IVPB ONE (04:00)
[2018-02-19 04:03] LABS: ABS Basophils 0.1 10^3/ul (0-0.2); ABS Eosinophils 0.3 10^3/ul (0-0.6); ABS Lymphocytes 1.4 10^3/ul (1.0-4.8); ABS Monocytes 0.6 10^3/ul (0-0.8); ABS Neutrophils 6.6 10^3/ul (1.5-7.7); ABS Nucleated RBC 0 10^3/ul; Eosinophil % 2.9 % (0-6); Hematocrit 35 % (42-52); Hemoglobin 11.5 g/dl (14.0-18.0); Lymphocyte % 15.7 % (25-47); Mean Corpuscular HGB Conc 33 g/dl (31-36); Mean Corpuscular Hemoglobin 32 pg (27-31); Mean Corpuscular Volume 96 fL (80-94); Mean Platelet Volume 9.8 um3 (7.4-10.4); Nucleated Red Blood Cells % 0; Platelet Count 162 10^3/ul (150-450); Red Blood Count 3.62 10^6/ul (4.00-5.40); Red Cell Distribution Width 15 % (10.5-15); White Blood Count 8.9 10^3/ul (3.5-10.8)
[2018-02-19 04:05] LABS: INR 1.14 (0.77-1.02)
[2018-02-19 04:08] LABS: EGFR Non-African American 11.1 (>60)
[2018-02-19] MEDS ORDERED: Iodixanol* (CONTRAST) 320 MG/ML 100 ML SDV IV ONE (04:23)
[2018-02-19 05:00] LABS: Urine Appearance Cloudy; Urine Blood Negative (Negative); Urine Color Yellow; Urine Ketones Negative (Negative); Urine Protein 1+(30 mg/dL) (Negative); Urine Red Blood Cell Absent (Absent); Urine Specific Gravity 1.013 (1.010-1.030); Urine Urobilinogen Negative (Negative); Urine White Blood Cell 3+(>20/hpf) (Absent)
--- NOTE | 2018-02-19 06:13 | RAD ---
EXAM: CT Left Upper Extremity With Intravenous Contrast, Humerus CLINICAL HISTORY: 77 years old, male; Signs and symptoms; Other: Redness and swelling; Patient HX: Pt unable to lay flat, pt moved during injection unable to re inject due to diabetes and dialysis; Additional info: Cellulitis, eval for abscess TECHNIQUE: Axial computed tomography images of the left humerus with intravenous contrast. Coronal and sagittal reformatted images were created and reviewed. COMPARISON: No relevant prior studies available. FINDINGS: Artifacts: Motion artifact involving the left lung. Bones/joints: Degenerative changes of the left glenoid fossa. The humeral head appears normal. Heart: Cardiac size appears normal. No pericardial thickening or effusion. Severe coronary calcification. No acute fracture. No dislocation. Soft tissues: The patient apparently moved during the injection. The left upper extremity is only partially in the imaging field. There is an abnormal fluid collection with a slightly enhancing rim in the medial aspect of the mid upper arm. This measures 4.5 cm in height, 4 cm in AP length and 2 cm in width. Vasculature: Atheromatous changes involving the thoracic aorta. No aneurysm or dissection. IMPRESSION: Limited CT exam of the left extremity. There is a structure in the medial aspect of the left midforearm which could represent an abscess. Suggest ultrasound study of this lesion. This lesion measures 4.5 x 4 x 2 cm. R0
--- NOTE | 2018-02-19 07:29 | RAD ---
HISTORY: sepsis, ESRD COMPARISONS: November 29, 2017, CT chest dated December 06, 2017 VIEWS: 1: frontal portable view of the chest at 4:18 AM FINDINGS: LINES AND TUBES: A central venous catheter is noted from a right internal jugular vein approach with the tip overlying the cavoatrial junction. CARDIOMEDIASTINAL SILHOUETTE: The cardiomediastinal silhouette is stable. PLEURA: The costophrenic angles are sharp. No pleural abnormalities are noted. LUNG PARENCHYMA: The lung volumes are low. There is a diffuse pattern of reticular opacification within the left lung with indistinct pulmonary vessels. There is a coarse pattern of reticular opacification with diffuse alveolar opacification of the right lung. The appearance is stable from the previous examination. ABDOMEN: The upper abdomen is clear. There is no subphrenic gas. BONES AND SOFT TISSUES: No bone or soft tissue abnormalities are noted. IMPRESSION: 1. LINES AND TUBES ABOVE. 2. 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 THE APPEARANCE IS SIMILAR TO THE PREVIOUS EXAMINATION. R2
--- NOTE | 2018-02-19 10:16 | PN ---
PROGRESS NOTE: DATE OF SERVICE: 02/19/18 - EMERGENCY DEPT HISTORY OF PRESENT ILLNESS: Mr. Manriquez is a 77-year-old gentleman, well- known to me from chronic management of end-stage renal disease secondary to diabetes mellitus type 2. He has had 2 failed fistulas for hemodialysis and recently had an attempt at an AV graft in his left upper extremity. Apparently that graft failed immediately when it was placed in December of this year. He has had a couple days of increasing pain and swelling and redness to his left upper extremity. He denies feverishness and chills. He does have chronic cough secondary to COPD. He was last dialyzed on Monday. The pain became too great last night. He presented to the emergency room. He is afebrile. His blood pressure has been elevated up to 202/97, but has come down since, presently 156/ 71, pulse is 70. Chest reveals some rhonchi. The heart revealed regular rhythm. The left arm is swollen. There is an area of erythema that is irregular, however in the medial aspect of the left upper arm, there is some swelling. There is an area of fluctuance just medial to his graft. There is no bruit, no thrill in the graft. A CT scan has been performed, which suggested there is an abscess, which is 4.5 x 4 x 2 cm. His electrolytes were within normal limits. His white count is 8.9. His hemoglobin is 11.5. Clearly , this is least cellulitis of his arm highly likely this is an abscess and of course, there is the possibility that the graft itself is infected. Obviously, this should be something in the hands of the Vascular Surgery folks, Dr. Hussein in [place] at [facility] placed this graft. Unfortunately, we were unable to have him transferred up to [place] because of in fact they were not accepting transfers as there are no beds in the hospital. We are going to continue to pursue potential transfer. If that cannot be accomplished in an auto damage trainee fashion, then the abscess should be drained and he should be transferred for Vascular Surgery when that becomes available. I will be discussing this case with the hospitalist service. [id number]/[facility] #: [id number] GUILLERMINA
[2018-02-19] MEDS ORDERED: Heparin DIALYSIS ONLY(*) 1,000 UNITS/ML VIAL DIALYSIS ONE (14:00)
--- NOTE | 2018-02-19 14:17 | ED ---
Progress - Progress Note Progress Note: Pt is a 77 y/o male who is a dialysis patient. He has a fistula placed in his LUE, and presents with cellulitis close to this site. A CT showed concerns for an abscess. Dr. Ray authorized dialysis came to bedside, and upon dialysis completion states that pt should be transferred to [facility] given, the fistula was placed there. Dialysis was successful without any complications, and will be accepted to ER physician Dr. Everett at [facility]. Dr. Arevalo is the vascular surgeon who placed the fistula. The pt was not signed out to ri, since the pt was originally admitted by Dr. Venegas. Course/Dx - Diagnoses Provider Diagnoses: End stage renal failure on dialysis, Cellulitis - Provider Notifications Discussed Care Of Patient With: Dr. Everett Time Discussed With Above Provider: 02:00 Instructed by Provider To: Admit As Inpatient - Accepts pt for admission Discharge - Sign-Out/Discharge Documenting (check all that apply): Patient Departure - Transfer - Discharge Plan Condition: Stable Disposition: TRANS HIGHER LVL OF CARE FAC Referrals: Franky Merino MD [Primary Care Provider] - - Attestation Statements Document Initiated by Scribe: Yes Documenting Scribe: Mary Grace Craft Provider For Whom Scribe is Documenting (Include Credential): Melissa Thomson MD Scribe Attestation: Mary Grace Steve, scribed for Melissa Thomson MD on 02/19/18 at 1415.
[2018-02-19 16:56] VITALS: BP 00/00
--- NOTE | 2018-02-21 06:57 | PN ---
Progress Note - Progress Note Date of Service: 02/21/18 Note: patient wound culture grew Staphylococcus aureus. will have final culture sent to [facility] [place] where patient transferred to when final culture is available.
--- NOTE | 2018-02-22 08:16 | PN ---
Progress Note - Progress Note Date of Service: 02/22/18 Note: bal clinton fax final sensitivity to [facility].
== END 2018-02-19 14:33 | disposition short-term general hospital (02) ==
LOC: ED 02:24
DX: N18.6 End stage renal disease (principal); Z99.2 Dependence on renal dialysis; L03.90 Cellulitis, unspecified; Z87.891 Personal history of nicotine dependence; R05 Cough
CPT/HCPCS: 36415; 71045; 80053; 81003; 81015; 83605; 84484; 85025; 85610; 85730; 87040; 87070; 87077; 87086; 87186; 87205; 90935; 93005; 96365; 96366; 99284; G0257; J0692; J1644; J2270; J3370; J3490; Q9967

== ENCOUNTER 2018-05-25 18:14 | Inpatient (IN) | payer MEDICARE ==
--- OUTSIDE RECORDS SUMMARY | 2018-05-25 18:37 | XMS REPORT | Continuity of Care Document ---
:1940 External Reference #:[id number] Author Name Mariah Sargent Care Team Providers Name Role Phone Franky Merino MD Primary Care Physician Unavailable Payers Type Date Identification Numbers Payment Provider Subscriber Policy Number: [id number] Medicare Hiram Manriquez JR PayID: [id number] [address] [place] [address] Policy Number: [id number] [facility] Hiram Manriquez JR PayID: [id number] [address] [place] [address] Advance Directives Description No Information Available Problems Date Description Provider Status Onset: 04/08/2013 Coronary arteriosclerosis Bimal Garcia M.D., Active FACC, SAMIA Onset: 05/06/2014 Coronary atherosclerosis Bimal Garcia M.D., Active FACC, FASNC Onset: 06/18/2014 Atrial fibrillation Bimal Garcia M.D., Active FACDelia, FASLEAH Onset: 07/14/2014 Dyspnea January Greer MD Active Onset: 07/14/2014 Disorder of lung January Greer MD Active Onset: 07/14/2014 Morbid obesity January Greer MD Active Onset: 07/14/2014 Chronic obstructive lung disease January Greer MD Active Onset: 07/14/2014 Dyssomnia January Greer MD Active Onset: 09/17/2014 Obstructive sleep apnea syndrome January Greer MD Active Onset: 09/17/2014 Chronic respiratory failure January Greer MD Active Onset: 05/05/2015 Atherosclerotic heart disease of [place] ECHO Schedule Active [place] coronary artery without angina pectoris Onset: 09/07/2015 Encounter for planned Raffi Elizabeth M.D., [facility], Active postprocedural wound closure FSCAI Onset: 09/28/2015 Obesity January Greer MD Active Onset: 09/28/2015 Emphysema, unspecified January Greer MD Active Onset: 12/13/2017 Type 2 diabetes mellitus Tegan Fletcher N.P. Active Onset: 12/13/2017 Hyperkalemia Tegan Fletcher N.P. Active Onset: 12/13/2017 End-stage renal disease Tegan Fletcher N.P. 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 Active Onset: 12/14/2017 Parietoalveolar pneumopathy Tegan Fletcher N.P. Active Onset: 12/15/2017 Diarrhea Tegan Fletcher N.P. Active Onset: 12/15/2017 End stage renal failure on Tegan Fletcher N.Syeda. Active dialysis Onset: 12/15/2017 Long-term current use of insulin Tegan Fletcher N.P. Active Family History Date Family Member(s) Problem(s) Comments Father non contributory Mother non contributory Social History Type Date Description Comments Sex Unknown Marital Status Lives With Occupation Retired Tobacco Use Start: Unknown End: Former Cigarette Smoker Smoked 2 ppd for 20 Unknown years Smoking Status Reviewed: 04/18/18 Former Cigarette Smoker Smoked 2 ppd for 20 years ETOH Use Denies alcohol use Tobacco Use Start: Unknown End: Patient is a former Unknown smoker Recreational Drug Use Never Used Drugs Exercise Type/Frequency Does not exercise Allergies, Adverse Reactions, Alerts Date Description Reaction Status Severity Comments 04/04/2013 NKDA Active 05/20/2015 Bandades itching Active adhesive - per patient Medications Medication Date Status Form Strength Qnty SIG Indications Ordering Provider Isosorbide 09/13/ Active Tablets ER 60mg 90tab 1 by mouth Z48.1 Bimal Mononitrate ER 2015 24HR s every day Jameel Garcia M.D., [facility], FASNC Torsemide 05/06/ Active Tablets 20mg 2 by mouth Unknown 2014 every day Tamsulosin HCL 05/06/ Active Capsules 0.4mg 1 by mouth Unknown 2014 every day Gabapentin 04/02/ Active Capsules 100mg 1 by mouth Unknown 2014 twice a day Metoprolol / Active Tablets ER 100mg 180ta 1 by mouth Bimal Succinate ER 0000 24HR bs twice a day Jameel Garcia M.D., CHELY, SAMIA Tekturna / Active Tablets 300mg 30tab 1 po qd Unknown 0000 s Lantus Insulin / Active Solution 40Units 6unit 40-45units Unknown 0000 s bid as directed Atorvastatin / Active Tablets 80mg 90tab 1 po qhs Unknown 0000 s Fenofibrate / Active Tablets 145mg 90tab 1 po qd Unknown 0000 s Amlodipine / Active Tablets 10mg 90tab 1 po qd PM Unknown Besylate 0000 s Humalog / Active Solution 100Unit/M 6unit 5-10-15 units Unknown Kwikpen 0000 L s each meal t.i.d on sliding scale Nitrostat / Active Tablets 0.4mg 25tab one sl q5min Unknown 0000 Sub s up to 3 doses prn Oxygen / Active Misc 4L 1unit Use o2 at 4-5 January 0000 s L/min 23/01, Zoey, pls provide pt with portable concentrator that could deliver 5-6L if needed Aspirin / Active Tablets DR 81mg 90tab 1 tablet Unknown 0000 s daily. Eliquis / Active Tablets 2.5mg 1 tablet by Unknown 0000 mouth twice a day. Vitamin E / Active Capsules 1000Units qd Unknown 0000 Bevespi 09/19/ Hx Aerosol 9-4.8mcg/ 32.1g 1 puff twice J43.9 January Aerosphere 2017 - Act m daily Zoey, 03/21/ (sample) MD Rios Brilinta 09/12/ Hx Tablets 60mg 60tab 1 by mouth Bimal 2016 - s twice a day Jameel 03/21/ Jose 2017 Martina, CHELY, SAMIA Gabapentin 04/05/ Hx Capsules 100mg 90cap 1 by mouth Bimal 2015 - s once times a Jameel 04/06/ day Jose 2016 Martina, CHELY, SAMIA Isosorbide 09/06/ Hx Tablets ER 30mg 30tab 1 by mouth Z48.1 Raffi Mononitrate ER 2016 - 24HR s every day Glenn, 09/13/ Martina, 2016 [facility], [facility] Prednisone 05/07/ Hx Tablets 10mg 42tab 30mg daily J44.9 January 2014 - s for 1 week, Zoey, 09/12/ 20mg daily 2016 for 1 week, 10 mg daily for 1 week Prednisone 02/04/ Hx Tablets 20mg 7tabs 20mg daily J44.9 January 2015 - Zoey, 2014 Robitussin 02/04/ Hx Liquid 2-15mg/5M 2unit 5 cc by mouth J44.9 January Cough & Cold 2015 - L s every 6 hours Zoey, Long-Acting 04/05/ as needed 2016 Ofev 02/04/ Hx Capsules 100mg 60cap 1 tab by J98.4 January 2014 - s mouth twice a Zoey, 2016 Tudorza 07/14/ Hx Aerosol 400mcg/Ac 2unit 1 puff puff J44.9 January Pressair 2015 - t s twice a day Zoey, 09/05/ 2016 Metoprolol / Hx Tablets ER 25mg 180ta 2 tabs by Bimal Succinate ER 0000 - 24HR bs mouth every Jorgensen day PM [facility] SAM[facility] Clopidogrel / Hx Tablets 75mg 30tab 1 po qd Unknown 0000 - s 2012 Pantoprazole / Hx Tablets DR 40mg 30tab 1 po qd Unknown Sodium 0000 - s 2017 Lovaza / Hx Capsules 1gm 360ca 2 po bid Unknown 0000 - ps 2013 Warfarin /00/ Hx 4mg 4mg Unknown 0000 - alternated with 6 mg as 2016 directed PCP Enoxaparin / Hx Solution 120mg/0.8 10uni inject under Unknown Sodium 0000 - ML ts the skin 05/19/ twice daily 2014 Magnesium /00/ Hx Tablets 400mg 2 tablet po Unknown Oxide 0000 - daily 2015 Brilinta / Hx Tablets 90mg 60tab 1 tab by Bimal 0000 - s mouth twice a Jorgensen day Blanca Garcia M.D., [facility], SAMIA Clopidogrel / Hx 1 tab by Unknown Bisulfate 0000 - mouth every 12/03/ day for 30 2018 days after august 31 surgery . Medications Administered in Office Medication Date Status Form Strength Qnty SIG Indications Ordering Provider Inj, Administered Injection Gamal Zhang Regadenoson, 014 Martina Angel 0.1 MG Inj, Administered Injection Jessica Scar, Regadenoson, 014 PA 0.1 MG Technetium TC Administered Injection Gamal D. 99M 014 Martina Angel Tetrofosmin, Per Unit Dose Up To 40 Millicuries Technetium TC Administered Injection Bea 99M 014 Marium Holguin M.D. Per Unit Dose Up To 40 Millicuries Immunizations CPT Code Status Date Vaccine Lot # [id number] Given 09/28/2015 Fluvirin Im 3Yrs And Older Vital Signs Date Vital Result Comment 04/18/2018 11:45am Height 65 inches 5'5" Weight 249.00 lb Heart Rate 78 /min reg BP Systolic Sitting 140 mmHg BP Diastolic Sitting 70 mmHg Respiratory Rate 18 /min Pain Level 0 O2 % BldC Oximetry 96 % on5 liters nc BMI (Body Mass Index) 41.4 kg/m2 01/15/2018 2:55pm Height 65 inches 5'5" Weight 257.00 lb Heart Rate 80 /min Respiratory Rate 12 /min O2 % BldC Oximetry 68 % BMI (Body Mass Index) 42.8 kg/m2 12/18/2017 9:11am Height 65 inches 5'5" Weight 257.00 lb Heart Rate 68 /min BP Systolic Sitting 115 mmHg BP Diastolic Sitting 64 mmHg Respiratory Rate 14 /min O2 % BldC Oximetry 93 % on 4 L BMI (Body Mass Index) 42.8 kg/m2 12/04/2017 11:02am Height 65 inches 5'5" Weight 253.00 lb per patient Heart Rate 70 /min BP Systolic Sitting 130 mmHg R forearm regular cuff BP Diastolic Sitting 82 mmHg R forearm regular cuff Respiratory Rate 16 /min O2 % BldC Oximetry 88 % 4LPM BMI (Body Mass Index) 42.1 kg/m2 09/20/2017 9:10am Height 65 inches 5'5" Weight 261.38 lb Heart Rate 70 /min BP Systolic Sitting 140 mmHg Rght lower arm BP Diastolic Sitting 76 mmHg Rght lower arm Respiratory Rate 20 /min O2 % BldC Oximetry 83 % BMI (Body Mass Index) 43.5 kg/m2 08/28/2017 12:48pm Heart Rate 70 /min BP Systolic Sitting 110 mmHg R forearm reg cuff BP Diastolic Sitting 60 mmHg R forearm reg cuff Respiratory Rate 17 /min Ejection Fraction 45-50% date 07/31/17 echo 06/21/2017 7:54am Height 65 inches 5'5" Weight 257.50 lb no shoes Heart Rate 72 /min BP Systolic Sitting 98 mmHg Rue wrist BP Diastolic Sitting 52 mmHg Rue wrist Respiratory Rate 20 /min BMI (Body Mass Index) 42.8 kg/m2 03/22/2017 9:27am Height 65 inches 5'5" Weight 269.00 lb Heart Rate 80 /min BP Systolic Sitting 108 mmHg BP Diastolic Sitting 60 mmHg Respiratory Rate 14 /min O2 % BldC Oximetry 93 % BMI (Body Mass Index) 44.8 kg/m2 10/31/2016 10:46am Height 65 inches 5'5" Weight 265.00 lb with shoes Heart Rate 88 /min BP Systolic Sitting 128 mmHg Lue lrg cuff BP Diastolic Sitting 68 mmHg Lue lrg cuff BP Systolic Standing 120 mmHg Lue lrg cuff BP Diastolic Standing 60 mmHg Lue lrg cuff Respiratory Rate 20 /min BMI (Body Mass Index) 44.1 kg/m2 Ejection Fraction 45-50% 08/31/2015-echo 09/19/2016 9:19am Height 65 inches 5'5" Weight 267.00 lb per pt Heart Rate 75 /min BP Systolic Sitting 132 mmHg BP Diastolic Sitting 74 mmHg O2 % BldC Oximetry 92 % on 3 lpm via n/c BMI (Body Mass Index) 44.4 kg/m2 04/06/2016 9:26am Height 65 inches 5'5" Weight 255.00 lb Heart Rate 68 /min BP Systolic Sitting 126 mmHg Lue large cuff BP Diastolic Sitting 60 mmHg Lue large cuff BP Systolic Standing 126 mmHg " BP Diastolic Standing 56 mmHg " Respiratory Rate 18 /min BMI (Body Mass Index) 42.4 kg/m2 10/21/2015 9:00am Height 65 inches 5'5" Weight 263.50 lb with shoes Heart Rate 60 /min BP Systolic Sitting 102 mmHg Ra lrg cuff BP Diastolic Sitting 46 mmHg Ra lrg cuff BP Systolic Standing 92 mmHg Ra lrg cuff BP Diastolic Standing 42 mmHg Ra lrg cuff Respiratory Rate 22 /min BMI (Body Mass Index) 43.8 kg/m2 Ejection Fraction 45-55% 09/28/2015 12:59pm Height 65 inches 5'5" Weight 263.00 lb Heart Rate 75 /min BP Systolic Sitting 144 mmHg BP Diastolic Sitting 88 mmHg Respiratory Rate 22 /min O2 % BldC Oximetry 94 % on 3lpm oxygen via n/c BMI (Body Mass Index) 43.8 kg/m2 09/14/2015 9:05am Height 65 inches 5'5" Weight 263.00 lb with shoes Heart Rate 82 /min BP Systolic Sitting 148 mmHg Ra lrg cuff BP Diastolic Sitting 72 mmHg Ra lrg cuff BP Systolic Standing 138 mmHg BP Diastolic Standing 70 mmHg Respiratory Rate 22 /min BMI (Body Mass Index) 43.8 kg/m2 Ejection Fraction 45-50% 08/31/15 09/07/2015 1:27pm Height 65 inches 5'5" Weight 257.00 lb Heart Rate 74 /min 80 BP Systolic Sitting 152 mmHg left arm, large cuff BP Diastolic Sitting 74 mmHg left arm, large cuff BP Systolic Standing 140 mmHg left arm, large cuff BP Diastolic Standing 70 mmHg left arm, large cuff Respiratory Rate 20 /min BMI (Body Mass Index) 42.8 kg/m2 Ejection Fraction 45-50% 08/31/15 05/20/2015 11:33am Height 65 inches 5'5" Weight 272.00 lb with shoes BP Systolic Sitting 140 mmHg Ra lg cuff BP Diastolic Sitting 76 mmHg Ra lg cuff BP Systolic Standing 134 mmHg Ra lg cuff BP Diastolic Standing 70 mmHg Ra lg cuff BMI (Body Mass Index) 45.3 kg/m2 Ejection Fraction 55-60% date 05/05/15 ECHO 05/07/2015 10:42am Heart Rate 72 /min BP Systolic Sitting 144 mmHg BP Diastolic Sitting 86 mmHg Respiratory Rate 20 /min O2 % BldC Oximetry 97 % 3lpm via n/c 02/04/2015 10:08am Heart Rate 98 /min BP Systolic 162 mmHg BP Diastolic 70 mmHg Respiratory Rate 24 /min O2 % BldC Oximetry 89 % 2 liters 09/17/2014 12:59pm Heart Rate 106 /min BP Systolic Sitting 186 mmHg MD aware BP Diastolic Sitting 86 mmHg MD aware Respiratory Rate 24 /min O2 % BldC Oximetry 94 % 07/14/2014 3:16pm Height 65 inches 5'5" Weight 272.00 lb Heart Rate 118 /min BP Systolic Sitting 176 mmHg BP Diastolic Sitting 102 mmHg Respiratory Rate 24 /min Body Temperature 99.7 F O2 % BldC Oximetry 95 % BMI (Body Mass Index) 45.3 kg/m2 Neck Circumference in inches 19 06/18/2014 10:58am Height 65.5 inches 5'5.50" Weight 273.00 lb w/shoes Heart Rate 66 /min BP Systolic Sitting 150 mmHg LA lg cuff BP Diastolic Sitting 72 mmHg LA lg cuff BP Systolic Standing 150 mmHg LA lg cuff BP Diastolic Standing 70 mmHg LA lg cuff Respiratory Rate 20 /min BMI (Body Mass Index) 44.7 kg/m2 05/06/2014 1:03pm Height 65.5 inches 5'5.50" Weight 265.00 lb with shoes Heart Rate 68 /min BP Systolic Sitting 150 mmHg LA, Lg cuff BP Diastolic Sitting 78 mmHg LA, Lg cuff BP Systolic Standing 146 mmHg LA BP Diastolic Standing 76 mmHg LA Respiratory Rate 18 /min BMI (Body Mass Index) 43.4 kg/m2 04/23/2013 9:37am Height 65.5 inches 5'5.50" Weight 257.00 lb down 5 lbs Heart Rate 104 /min BP Systolic Sitting 148 mmHg BP Diastolic Sitting 82 mmHg BP Systolic Standing 150 mmHg BP Diastolic Standing 90 mmHg Respiratory Rate 16 /min BMI (Body Mass Index) 42.1 kg/m2 04/08/2013 1:02pm Height 65.5 inches 5'5.50" Weight 262.00 lb Heart Rate 80 /min BP Systolic Sitting 158 mmHg Ra large cuff BP Diastolic Sitting 96 mmHg Ra large cuff BP Systolic Standing 156 mmHg Ra BP Diastolic Standing 94 mmHg Ra Respiratory Rate 18 /min BMI (Body Mass Index) 42.9 kg/m2 Results Test Date Facility Test Result H/L Range Note Laboratory test 10/17/2017 [facility] Troponin I 0.26 ng/mL High <0.04 [address] [place] [address] [phone] Rapid Influenza 08/23/2017 [facility] Influenza A NEGATIVE Negative 2 A & B Molecular [address] [place] [address] [phone] Influenza B Molecular NEGATIVE Negative Laboratory test 08/23/2017 [facility] Point of Care 130 mg/dL High 70-100 [address] [place] [address] [phone] Laboratory test 04/08/2016 [facility] Point of Care 99 mg/dL N 74-106 [address] [place] [address] [phone] Comp Metabolic 09/24/2015 [facility] Sodium 139 mmol/L N 133- [address] [place] [address] [phone] Potassium 4.4 mmol/L N 3.5-5.0 Chloride 101 mmol/L N 101-111 Co2 Carbon Dioxide 29 mmol/L N 22-32 Anion Gap 9 mmol/L N 2-11 Glucose 139 mg/dL High 70-100 Blood Urea Nitrogen 63 mg/dL High 6-24 Creatinine 4.46 mg/dL High 0.67-1.17 One Over Creatinine 0.20 mg/dL Low 0.67-1.17 BUN/Creatinine Ratio 14.1 N 8-20 Calcium 9.3 mg/dL N 8.6-10.3 Total Protein 7.0 g/dL N 6.4-8.9 Albumin 3.8 g/dL N 3.2-5.2 Globulin 3.2 g/dL N 2-4 Albumin/Globulin Ratio 1.2 N 1-3 Total Bilirubin 0.40 mg/dL N 0.2-1.0 Alkaline Phosphatase 46 U/L N 34-104 Alt 11 U/L N 7-52 Ast 31 U/L N 13-39 Egfr Non- 13.0 N >60 Egfr 16.7 N >60 5 Laboratory test 09/24/2015 [facility] Phosphorus 3.6 mg/dL N 2.5-5.[address] [place] [address] [phone] Magnesium 1.7 mg/dL Low 1.9-2.7 CBC No Diff 02/23/2015 [facility] White Blood 9.2 10^3/uL N 4.8-10.[address] [place] [address] [phone] Red Blood Count 4.02 10^6/uL N 4.0-5.4 Hemoglobin 11.8 g/dL Low 14.0-18.0 Hematocrit 37 % Low 42-52 Mean Corpuscular Volume 91 fL N 80-94 Mean Corpuscular Hemoglobin 29 pg N 27-31 Mean Corpuscular HGB Conc 32 g/dL N 31-36 Red Cell Distribution Width 15 % N 10.5-15 Platelet Count 202 10^3/uL N 150-450 Mean Platelet Volume 10 um3 N 7.4-10.4 Urine Microalbumin 02/23/2015 [facility] Urine Creatinine 95.63 mg/dL N Random [address] [place] [address] [phone] Ur Microalbumin (mg/L) 2196.0 mg/L N Urine Microalbumin/Creatinine 2296.3 ug/mg High <31 Comp Metabolic Panel 02/23/2015 [facility] Albumin 3.9 g/dL N 3.2-5.2 [address] [place] [address] [phone] Sodium 140 mmol/L N 133-145 Potassium 5.0 mmol/L N 3.5-5.0 Chloride 107 mmol/L N 101-111 Co2 Carbon Dioxide 24 mmol/L N 22-32 Anion Gap 9 mmol/L N 2-11 Glucose 206 mg/dL High 70-100 Creatinine 3.25 mg/dL High 0.67-1.17 Calcium 9.2 mg/dL N 8.6-10.3 Total Protein 6.9 g/dL N 6.4-8.9 Globulin 3.0 g/dL N 2-4 Albumin/Globulin Ratio 1.3 N 1-3 Alkaline Phosphatase 50 U/L N 34-104 Alt 32 U/L N 7-52 Ast 54 U/L High 13-39 Egfr Non- 18.7 N >60 Egfr 24.1 N >60 6 Blood Urea Nitrogen 50 mg/dL High 6-24 BUN/Creatinine Ratio 15.4 N 8-20 Total Bilirubin 0.30 mg/dL N 0.2-1.0 Lipid Profile 02/23/2015 [facility] Cholesterol 177 mg/dL N 7 (Trig/Chol/HDL) [address] [place] [address] [phone] HDL Cholesterol 33.5 mg/dL N 8 Triglycerides 296 mg/dL N 9 LDL Cholesterol 84 mg/dL N 10 Liver Function 02/23/2015 [facility] Direct 0.10 mg/dL N 0.03- 0.[address] [place] [address] [phone] Indirect Bilirubin 0.2 mg/dL Low 0.3-1.0 Iron & Iron Binding 02/23/2015 [facility] Iron 78 g/dL N 50- [address] [place] [address] [phone] Unsaturated Iron Binding 341 g/dL N Total Iron Binding Capacity 419 g/dL N 250-450 % Iron Saturation 19 % N 15-55 Laboratory 02/23/2015 [facility] Ferritin 101.7 N 24-[address] ng/[place] [address] [phone] Laboratory 04/04/2014 [facility] Inr 1.26 High 0.85-1.[address] [place] [address] [phone] Lipid Profile 12/04/2013 [facility] Triglycerides 235 mg/dL N 11, (Trig/Chol/HDL [address] ) [place] [address] [phone] Cholesterol 184 mg/dL N 13 HDL Cholesterol 32.1 mg/dL N 14 LDL Cholesterol 105 mg/dL N 15 Liver Function 12/04/2013 [facility] Direct 0.10 mg/dL N 0.03- 0.[address] [place] [address] [phone] Indirect Bilirubin 0.2 mg/dL Low 0.3-1.0 Laboratory test 12/04/2013 [facility] Uric Acid 7.9 mg/dL High 4.4-7.6 [address] [place] [address] [phone] Hemoglobin A1c 8.4 % High Less than 6.0 17 Creatinine 12/04/2013 [facility] Urine Random 105.00 mg/dL N [address] [place] [address] [phone] Creatinine 2.06 mg/dL High 0.51-0.95 Creatinine Clearance 76 mL/min Low 97-137 Urine Collection Time 24 N Urine Total Volume 2150 mL N Total Protein 24HR 12/04/2013 [facility] Urine Random Total 389 mg/dL N Urine [address] [place] [address] [phone] Urine Total Protein/24HR 8363 mg/24Hr High 0-165 Urine Collection Time 24 N Urine Total Volume 2150 mL N CBC Auto Diff 12/04/2013 [facility] White Blood 8.3 10^3/uL N 4.8-10.[address] Count [place], [place] [id number] [phone] Red Blood Count 4.31 10^6/uL N 4.0-5.4 Hemoglobin 13.6 g/dL Low 14.0-18.0 Hematocrit 40 % Low 42-52 Mean Corpuscular Volume 92 fL N 80-94 Mean Corpuscular Hemoglobin 32 pg High 27-31 Mean Corpuscular HGB Conc 34 g/dL N 31-36 Red Cell Distribution Width 14 % N 10.5-15 Platelet Count 145 10^3/uL Low 150-450 Mean Platelet Volume 10 um3 N 7.4-10.4 Abs Neutrophils 4.9 10^3/uL N 1.5-7.7 Abs Lymphocytes 2.5 10^3/uL N 1.0-4.8 Abs Monocytes 0.5 10^3/uL N 0-0.8 Abs Eosinophils 0.3 10^3/uL N 0-0.6 Abs Basophils 0 10^3/uL N 0-0.2 Abs Nucleated RBC 0.01 10^3/uL N Granulocyte % 59.6 % N 38-83 Lymphocyte % 29.7 % N 25-47 Monocyte % 6.2 % N 1-9 Eosinophil % 4.1 % N 0-6 Basophil % 0.4 % N 0-2 Nucleated Red Blood Cells % 0.1 N Comp Metabolic Panel 12/04/2013 [facility] Sodium 138 mmol/L N 133-[address] [place], [place] [id number] [phone] Potassium 4.1 mmol/L N 3.7-5.6 Chloride 106 mmol/L N 101-111 Co2 Carbon Dioxide 24 mmol/L N 22-32 Anion Gap 8 mmol/L N 2-11 Glucose 150 mg/dL High 70-100 Blood Urea Nitrogen 36 mg/dL High 6-24 Creatinine 2.10 mg/dL High 0.67-1.17 One Over Creatinine 0.40 mg/dL Low 0.67-1.17 BUN/Creatinine Ratio 17.1 N 8-20 Calcium 8.9 mg/dL N 8.6-10.3 Total Protein 7.1 g/dL N 6.4-8.9 Albumin 3.7 g/dL N 3.2-5.2 Globulin 3.4 g/dL N 2-4 Albumin/Globulin Ratio 1.1 N 1-3 Total Bilirubin 0.30 mg/dL N 0.2-1.0 Alkaline Phosphatase 63 U/L N 34-104 Alt 46 U/L N 7-52 Ast 55 U/L High 13-39 Egfr Non- 31.1 N >60 Egfr 40.0 N >60 20 CBC No Diff 11/12/2010 [facility] White Blood Count 7.9 CUMM 4.8-10.8 [address] [place] [address] [phone] Red Cell Count 3.21 CUMM Low 4.6-6.2 Hemoglobin 10.0 g/dL Low 14.0-18.0 Hematocrit 30 % Low 42-52 Mean Corpuscular Volume 94 um3 80-94 Mean Corpuscular Hemoglob 31 pg 27-31 Mean Corpuscular HGB Cone 33 g/dL 32-36 Redcell Distribution WDTH 14 % 10.5-15 Platelet Count 184 CUMM 150-450 Mean Platelet Volume 11.7 um3 High 7.4-10.4 Comp Metabolic Panel 11/12/2010 [facility] Sodium 139 mmol/L 135-145 [address] [place] [address] [phone] Potassium 4.9 mmol/L 3.5-5.0 Chloride 103 mmol/L 101-111 Co2 (Carbon Dioxide) 27.0 mmol/L 22-32 Anion Gap 9.0 mmol/L 2-11 21 Glucose 121 mg/dL High 70-100 BUN 24 mg/dL 6-24 Creatinine 1.90 mg/dL High 0.50-1.40 One Over Creatinine 0.50 BUN/Creatinine Ratio 12.6 8-20 Calcium 9.2 mg/dL 8.1-9.9 Total Protein 7.1 GM/DL 6.2-8.1 Albumin 3.6 GM/DL 3.2-5.2 Globulin 3.5 GM/DL 2-4 Albumin/Globulin Ratio 1.0 1-3 Bilirubin Total 0.8 mg/dL 0.4-1.5 22 Alkaline Phosphatase 44 U/L 39-117 Alt (SGPT) 47 U/L 17-63 Ast (Sgot) 86 U/L High 12-42 eGFR Non- 35.2 > 60 eGFR 45.3 > 60 23 Lipid Profile 11/12/2010 [facility] Triglyceride 170 mg/dL 40 -200 (Trig/Chol/HDL) [address] [place] [address] [phone] Cholesterol 177 mg/dL Less Than 200 24 High Density Lipoprotein 34 mg/dL Low 40-60 25 Cholesterol/HDL Ratio 5.21 AVERAGE High 1-4.97 Low Density Lipoprotein 109 mg/dL High Less Than 100 26 Liver Function 11/12/2010 [facility] Bilirubin Direct 0.1 mg/dL 0.1-0.5 Panel [address] [place] [address] [phone] Indirect Bilirubin 0.7 mg/dL 0.3-1.0 27 1 Result TnIDx:0.26 Called to [id number] at: 16:24:32 by:[id number] Read back by: [id number] Synthetic Plasterer: [id number] Synthetic Plasterer: [id number] Synthetic Plasterer: [id number] YASMANI PLASENCIA 5 Because ethnic data is [...] Very High: >189 mg/dL 11 FASTING 12 Desirable <150 Borderline high 150-199 High 200-499 Very High >500 13 Desirable <200 Borderline high 200-239 High >239 14 Low <40 Desirable: 40-60 High: >60 15 Desirable <100 Near Optimal 100-129 Borderline high 130-159 High 160-189 Very High >189 16 FASTING 17 Therapeutic target for the treatment of diabetes Mellitus patients is <7% HBA1C, and in selective patients <6.0%.Please refer to [place] [employer] Diabetic care guidelines for further information. 18 URINE COLLECTED FROM 12/04 635 THROUGH 12/04 649 19 FASTING 20 Because ethnic data is not always readily [...] 15-29 5 Kidney failure <15 (or dialysis) 21 Anion gap measurement may be of limited value in the presence of any alkalosis, especially in a combined acid base disorder. . 22 A metabolite of Naproxen, O-desmethylnaproxen, has been shown to interfere with the [place] method for measuring total bilirubin. Samples from patients who have taken Naproxen have shown spurious elevation in total bilirubin levels. 23 Because ethnic data is not always readily [...] 15-29 5 Kidney failure <15 (or dialysis) 24 CHOLESTEROL INTERPRETATION: Desirable: Less than 200 MG/DL Borderline-High Risk: 200-239 MG/DL High-Risk: 240 MG/DL and over 25 HDL INTERPRETATION: Undesirable: High Risk: Less than 40 MG/DL Desirable: Low Risk: Greater than 60 MG/DL 26 LDL INTERPRETATION: Low Risk Optimal Level: LDL Less than 100 MG/DL Near or Above Optimal: LDL 100-129 MG/DL Borderline High Risk: LDL 130-159 MG/DL High Risk: LDL 160-189 MG/DL Very High Risk: LDL Greater than 189 MG/DL 27 Please note updated reference range, effective 01/21/10 Procedures Date Code Description Status 04/18/2018 48194 EKG Tracing & Interpretation Completed 08/24/2017 59931 EKG, Interpretation Only Completed 07/31/2017 19807 ECHO Transthoracic, Real-Time 2D With Doppler And Completed Color Flow 07/31/2017 10270 ECHO Transthoracic, Real-Time 2D With Doppler And Completed Color Flow 06/21/2017 25517 EKG Tracing & Interpretation Completed 01/27/2017 36257 Dialysis Circuit Perc Translum Mech Thrombectomy W/ Completed Balloon Angio 01/27/2017 58710 Ultrasound Guidance For Vascular Access Completed 01/27/2017 15618 Moderate Sedation Services; Same Phys Intl 15 Mins; PT Completed >=5 Years 01/27/2017 78193 Moderate Sedation Services; Same Phys Each Additional Completed 15 Mins 09/23/2016 27037 Moderate Sedation Services; Same Phys Intl 15 Mins; PT Completed >=5 Years 09/23/2016 32938 Ultrasound Guidance For Vascular Access Completed 09/23/2016 26441 Translum Balloon Angio Central Dial Segment Through Completed Dialys Circui 09/23/2016 41622 Dialysis Circuit W/ Transluminal Balloon Angioplasty, Completed Peripheral 06/09/2016 00148 Brachiocephalic Trunk/Branches Completed 06/09/2016 77499 Angioplasty Percutaneous Venous Completed 06/09/2016 69221 Introduction Needle For Dialysis Initial Access Completed W/Complete Radiol 06/09/2016 90555 Introduction Needle Dialysis, Additional Access For Completed Therapeutic I 06/09/2016 93428 Thrombectomy, Percutaneous Arteriovenous Fistula Completed Auto/Nonauto GRF 06/09/2016 05839 Ptca Periph. Radiology - S/I Completed 06/09/2016 90430 Angioplasty Transluminal Balloon Venous Completed 06/09/2016 57302 Ultrasound Guidance For Vascular Access Completed 06/09/2016 60571 EKG, Interpretation Only Completed 04/08/2016 00100 Ultrasound Guidance For Vascular Access Completed 04/08/2016 24481 Angioplasty Transluminal Balloon Venous Completed 04/08/2016 63763 Cath Placement-Arterial Completed 04/08/2016 29719 Introduction Needle For Dialysis Initial Access Completed W/Complete Radiol 04/08/2016 89848 Angioplasty Percutaneous Venous Completed 09/14/2015 92262 EKG Tracing & Interpretation Completed 09/02/2015 90415 EKG, Interpretation Only Completed 08/31/2015 42326 Catheter Placement In Coronary Artery Completed 08/31/2015 34873 Echocardiogram, Limited Study Completed 08/31/2015 83789 EKG, Interpretation Only Completed 08/31/2015 66758 Revascularization Acute Total/Subtotal Occlusion Completed 06/04/2015 211257078 Diabetic Retinal Eye Exam Completed 06/01/2015 156449700 Diabetic Retinal Eye Exam Completed 05/05/2015 40009 ECHO Transthoracic, Real-Time 2D With Doppler And Completed Color Flow 08/20/2014 87973 Polysomnography Sleep Staging 4+ Parameters Completed 07/24/2014 24569 Diffusing Capacity Completed 07/24/2014 15439 Plethysmography Determination Lung Volumes & Per Completed Airway Resist 07/24/2014 31774 Pulmonary Stress Test Simple Completed 07/24/2014 00472 Pulmonary Function><Bronchodil Completed 06/06/2014 77210 Myocardial Perfusion Imaging Tomographic (Spect) Completed Multiple Studies 06/06/2014 43091 Myocardial Perfusion Imaging Tomographic (Spect) Completed Multiple Studies 06/06/2014 06934 Stress Test Completed 05/06/2014 09932 EKG Tracing & Interpretation Completed 04/01/2014 62155 Color Flow Doppler/Interp & Reprt Completed 04/01/2014 61752 Pulse Wave/Continuous-Interp.RPT Completed 04/01/2014 10107 Echocardiography, Transesophageal, Real Time W/Image Completed 2D W/W/O M-M 03/31/2014 76285 ECHO Transthorasic Realtime 2D W Doppler & Color Flow Completed [facility] 04/12/2013 68448 Artery Study Extremity Mult Levels Bilateral Completed 04/08/2013 36964 EKG Tracing & Interpretation Completed 11/09/2010 87261 EKG, Interpretation Only Completed 11/08/2010 93095 EKG, Interpretation Only Completed 11/07/2010 23094 Left Heart Cath. Incl S/I Coronaries, Angio S/I V Gram Completed If Done 11/07/2010 93679 Ptca W/Intracor Stent Completed 11/07/2010 83582 IV Rx Trancath Therapy(Nitro/Kim) Completed Encounters Type Date Location Provider Dx Diagnosis Office Visit 04/18/2018 [facility] Bimal Jameel I25.10 Athscl heart 11:45a Of Lizeth Garcia M.D., disease of [place] FACC, FASNC coronary artery w/o ang pctrs Office Visit 01/15/2018 Pulmonology And January Greer J44.9 Chronic 3:00p Sleep Services Of MD milton Stanley pulmonary disease, unspecified R09.02 Hypoxemia J84.10 Pulmonary fibrosis, unspecified J98.4 Other disorders of lung E66.01 Morbid (severe) obesity due to excess calories Office Visit 12/18/2017 9:00a Pulmonology And January J98.4 Other disorders Sleep Services Of MD Zoey of lung Compression Molding Machine Operator J44.9 Chronic obstructive pulmonary disease, unspecified J84.10 Pulmonary fibrosis, unspecified R09.02 Hypoxemia Office Visit 12/15/2017 1:35p [facility] Tegan Chance, R19.7 Diarrhea, Assoc,pc N.P. 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 Tegansusie Fletcher, E11.22 Type 2 diabetes Assoc,pc N.P. mellitus w Hospitalists diabetic chronic kidney disease E87.5 Hyperkalemia N18.6 End stage renal disease J44.9 Chronic obstructive pulmonary disease, unspecified Office Visit 12/04/2017 11:00a Pulmonology And Merlene Davis J84.10 Pulmonary Sleep Services Of Edinson Connolly fibrosis, Compression Molding Machine Operator unspecified J44.9 Chronic obstructive pulmonary disease, unspecified R06.02 Shortness of breath J98.4 Other disorders of lung Office Visit 12/01/2017 [facility] Analia A04.72 Enterocolitis d/t 1:32p Assoc,marilyn Solis D.O. Clostridium Hospitalists difficile, not spcf as recur E87.5 Hyperkalemia E11.22 Type 2 diabetes mellitus w diabetic chronic kidney disease N18.6 End stage renal disease Office Visit 11/30/2017 [facility] Ange A04.72 Enterocolitis d/t 1:20p Assoc,marilyn Cameron M.D. Clostridium Hospitalists difficile, not spcf as recur E87.5 Hyperkalemia E11.22 Type 2 diabetes mellitus w diabetic chronic kidney disease N18.6 End stage renal disease Office Visit 11/29/2017 [facility] Chelo A04.72 Enterocolitis d/t 1:07p Assocmarilyn NP Clostridium Hospitalists difficile, not spcf as recur E78.5 Hyperlipidemia, unspecified E11.22 Type 2 diabetes mellitus w diabetic chronic kidney disease N18.6 End stage renal disease [facility], J11.1 Flu due to 1:10p marilyn Concepcion M.D. unidentified Hospitalists influenza virus w oth resp manifest E86.0 Dehydration N18.6 End stage renal disease J41.0 Simple chronic bronchitis Office Visit [facility]/26[facility]2017 [facility], J11.1 Flu due to 1:09p marilyn Concepcion M.D. unidentified Hospitalists influenza virus w oth resp manifest E86.0 Dehydration N18.6 End stage renal disease J41.0 Simple chronic bronchitis Office Visit 10/26/2017 11:58a Pulmonology And January J11.1 Flu due to Sleep Services Of MD [place] unidentified [employer] Molding Machine Operator influenza virus w oth resp manifest J84.10 Pulmonary fibrosis, unspecified R53.83 Other fatigue M62.81 Muscle weakness (generalized) Office Visit 10/25/2017 [facility], J11.1 Flu due to 1:08p marilyn Concepcion M.D. unidentified Hospitalists influenza virus w oth resp manifest E86.0 Dehydration N18.6 End stage renal disease J41.0 Simple chronic bronchitis Office Visit 10/24/2017 12:17p Pulmonology And January J44.9 Chronic Sleep Services Of [place] obstructive [employer] Molding Machine Operator pulmonary disease, unspecified J11.1 Flu due to unidentified influenza virus w oth resp manifest R06.02 Shortness of breath J84.10 Pulmonary fibrosis, unspecified M79.669 Pain in unspecified lower leg Office Visit 10/24/2017 [facility], J11.1 Flu due to 1:07p marilyn Concepcion M.D. unidentified Hospitalists influenza virus w oth resp manifest E86.0 Dehydration N18.6 End stage renal disease J41.0 Simple chronic bronchitis Office Visit 10/18/2017 9:19a [facility] Ida Meyer, J81.0 Acute pulmonary Assoc,marilyn Mack edema Hospitalists N18.6 End stage renal disease I10 Essential (primary) hypertension Z99.2 Dependence on renal dialysis Office Visit 10/17/2017 9:18a [facility] J81.0 Acute pulmonary Assoc,LIZET Rae edema Hospitalists N18.6 End stage renal disease I10 Essential (primary) hypertension Z99.2 Dependence on renal dialysis Office Visit 09/20/2017 9:15a Pulmonology And Sleep January Greer MD R05 Cough Services Of [facility] J44.9 Chronic obstructive pulmonary disease, unspecified J96.10 Chronic respiratory failure, unsp w hypoxia or hypercapnia J84.10 Pulmonary fibrosis, unspecified R09.02 Hypoxemia E66.09 Other obesity due to excess calories Office Visit 08/28/2017 1:15p [facility] Bimalbetty Jorgensen R06.02 Shortness of Of Lizeth Garcia M.D., breath FACC, FASNC I25.10 Athscl heart disease of [place] coronary artery w/o ang pctrs I48.0 Paroxysmal atrial fibrillation Z79.01 long term care social worker (current) use of anticoagulants Office Visit 08/24/2017 10:20a [facility] Eric B34.9 Viral infection, Assoc,marilyn Lopez M.D. unspecified Hospitalists N18.6 End stage renal disease J44.9 Chronic obstructive pulmonary disease, unspecified J84.10 Pulmonary fibrosis, unspecified Office Visit 08/23/2017 [facility] Dioni B34.9 Viral infection, 10:18a Assoc,pc César N.PNacho unspecified Hospitalists N18.6 End stage renal disease J44.9 Chronic obstructive pulmonary disease, unspecified J84.10 Pulmonary fibrosis, unspecified Office Visit 06/21/2017 8:45a [facility] Bimal Jorgensen R06.02 Shortness of Of Lizeth Garcia M.D., breath FACC, FASNC I25.10 Athscl heart disease of [place] coronary artery w/o ang pctrs I48.0 Paroxysmal atrial fibrillation Office Visit 03/22/2017 9:15a Pulmonology And January J44.9 Chronic Sleep Services Of [place] obstructive [employer] Molding Machine Operator pulmonary disease, unspecified J96.10 Chronic respiratory failure, unsp w hypoxia or hypercapnia J84.10 Pulmonary fibrosis, unspecified G47.33 Obstructive sleep apnea (adult) (pediatric) Office Visit 10/31/2016 11:30a [facility] Bimal Jorgensen I25.10 Athscl heart Of Lizeth Garcia M.D., disease of FACC, FASNC [place] coronary artery w/o ang pctrs I48.0 Paroxysmal atrial fibrillation I25.2 Old myocardial infarction N18.9 Chronic kidney disease, unspecified Office Visit 09/19/2016 9:15a Pulmonology And January J43.9 Emphysema, Sleep Services Of MD [place] unspecified [facility] J96.10 Chronic respiratory failure, unsp w hypoxia or hypercapnia E66.09 Other obesity due to excess calories Office Visit 04/06/2016 9:15a [facility] Bimal Jorgensen I25.10 Athscl heart Of Lizeth Garcia M.D., disease of [place] FACC, FASNC coronary artery w/o ang pctrs Office Visit 10/21/2015 9:15a [facility] Bimal Jorgensen I25.10 Athscl heart Of Lizeth Garcia M.D., disease of [place] FACC, FASNC coronary artery w/o ang pctrs Office Visit 09/28/2015 1:15p Pulmonology And January J43.9 Emphysema, Sleep Services Of MD [place] unspecified [facility] J96.10 Chronic respiratory failure, unsp w hypoxia or hypercapnia G47.33 Obstructive sleep apnea (adult) (pediatric) E66.09 Other obesity due to excess calories Office Visit 09/14/2015 [facility] Bimal Jorgensen I25.10 Athscl heart 9:30a Of Lizeth Garcia M.D., disease of [place] FACC, FASNC coronary artery w/o ang pctrs Office Visit 09/07/2015 [facility] Raffi Elizabeth, Z48.1 Encounter for 1:20p Of Lizeth AT [facility] [place] Martina, FACC, planned FSCAI postprocedural wound closure Office [facility] R07.9 Chest pain, 8:39a Assoc,marilyn Meyer M.D. unspecified Hospitalists I25.10 Athscl heart disease of [place] coronary artery w/o ang pctrs E11.9 Type 2 diabetes mellitus without complications N40.0 Enlarged prostate without lower urinary tract symptoms Office Visit 09/03/2015 8:39a [facility] R07.9 Chest pain, Assoc,pc Martina Foote unspecified Hospitalists I25.10 Athscl heart disease of [place] coronary artery w/o ang pctrs E11.9 Type 2 diabetes mellitus without complications N40.0 Enlarged prostate without lower urinary tract symptoms Office Visit 09/03/2015 [facility] Garret Christianson I25.10 Athscl heart 3:32p Martina Subramanian disease of [place] coronary artery w/o ang pctrs Office Visit 09/02/2015 [facility] Sharif R07.9 Chest pain, 8:38a Assoc,pc Martina Foote unspecified Hospitalists I25.10 Athscl heart disease of [place] coronary artery w/o ang pctrs E11.9 Type 2 diabetes mellitus without complications N40.0 Enlarged prostate without lower urinary tract symptoms Office Visit 09/02/2015 [facility] Bea Holguin I25.10 Athscl heart 3:07p Of Lizeth Mack disease of [place] coronary artery w/o ang pctrs Office Visit 09/01/2015 [facility] Sharif R07.9 Chest pain, 8:36a Assoc,pc Martina Foote unspecified Hospitalists I25.10 Athscl heart disease of [place] coronary artery w/o ang pctrs E11.9 Type 2 diabetes mellitus without complications N40.0 Enlarged prostate without lower urinary tract symptoms Office Visit 08/31/2015 8:35a [facility] Jaxson Sorenson R07.9 Chest pain, Assoc,marilyn Mack unspecified Hospitalists I25.10 Athscl heart disease of [place] coronary artery w/o ang pctrs E11.9 Type 2 diabetes mellitus without complications N40.0 Enlarged prostate without lower urinary tract symptoms Office Visit 08/31/2015 3:11p [facility] Gamal Zhang I21.4 Non-St elevation Of Lizeth Angel M.D. (Nstemi) myocardial infarction Office Visit 05/20/2015 11:45a [facility] Bimal Jorgensen I25.10 Athscl heart Of Lizeth Garcia M.D., disease of [place] [facility] coronary artery w/o ang pctrs Office Visit 05/07/2015 10:45a Pulmonology And January J44.9 Chronic Sleep Services Of MD [place] obstructive [facility] pulmonary disease, unspecified G47.33 Obstructive sleep apnea (adult) (pediatric) J98.4 Other disorders of lung Office Visit 02/04/2015 10:15a Pulmonology And January 496 COPD Airway Sleep Services Of [place] Obstruction [facility] Chronic Not Class Elsewhere 327.23 Obstructive Sleep Apnea Adult & Pediatric 518.89 Lung Disease Other Not Elsewhere Class 518.83 Respiratory Failure Chronic 786.2 Cough Office Visit 09/17/2014 1:00p Pulmonology And January 496 COPD Airway Sleep Services Of [place] Obstruction [facility] Chronic Not Class Elsewhere 327.23 Obstructive Sleep Apnea Adult & Pediatric 278.01 Obesity Morbid 518.83 Respiratory Failure Chronic 518.89 Lung Disease Other Not Elsewhere Class Office Visit 07/14/2014 3:30p Pulmonology And January 786.05 Shortness Of Sleep Services Of [place] Breath [facility] 518.89 Lung Disease Other Not Elsewhere Class 278.01 Obesity Morbid 496 COPD Airway Obstruction Chronic Not Class Elsewhere 780.59 Sleep Disturbances Other Office Visit 06/18/2014 [place] Bimal Jorgensen 414.01 Coronary 11:00a Cardiology Martina Garcia, Atherosclerosis [facility] [place] 427.31 Atrial Fibrillation Office Visit 05/06/2014 [facility] Bimal Jorgnesen 414.01 Coronary 1:00p Of Lizeth Garcia M.D., Atherosclerosis [facility]AC, [facility] [place] Office Visit 04/25/2014 [facility] Raúl 434.11 Cerebral Embolism W/ 3:21p Assocmarilyn Cerebral Infarc Hospitalists M.D. 428.32 Diastolic Heart Failure Chronic 250.40 Diabetes W/ Renal Manifestations Type II Controlled 401.9 Hypertension Unspec Office Visit 04/24/2014 11:04a [place] Luis Antonio Olsen 434.11 Cerebral Assocmarilyn M.D. Embolism W/ Hospitalists Cerebral Infarc 428.32 Diastolic Heart Failure Chronic 250.40 Diabetes W/ Renal Manifestations Type II Controlled 401.9 Hypertension Unspec Office Visit 04/24/2014 2:00p [facility] Fisher 434.11 Cerebral Services Of Lizeth Garcia M.D. Embolism W/ Cerebral Infarc 401.9 Hypertension Unspec Office Visit 04/23/2014 3:21p [facility] Raúl 434.11 Cerebral Assoc,marilyn Johnson M.D. Embolism W/ Hospitalists Cerebral Infarc 428.32 Diastolic Heart Failure Chronic 250.40 Diabetes W/ Renal Manifestations Type II Controlled 401.9 Hypertension Unspec Office Visit 04/22/2014 3:20p [facility] Raúl 434.11 Cerebral Assoc,marilyn Johnson M.D. Embolism W/ Hospitalists Cerebral Infarc 428.32 Diastolic Heart Failure Chronic 250.40 Diabetes W/ Renal Manifestations Type II Controlled 401.9 Hypertension Unspec Office Visit 04/21/2014 [facility] Deven Toth 435.9 TIA Ischemia 3:20p Assocmarilyn II, M.D. Cerebral Hospitalists Transient Unspec 428.32 Diastolic Heart Failure Chronic 250.40 Diabetes W/ Renal Manifestations Type II Controlled 401.9 Hypertension Unspec Office Visit 04/21/2014 3:34p [facility] Jacinto 434.11 Cerebral Services Of Lizeth Angelo M.D. Embolism W/ Cerebral Infarc 401.9 Hypertension Unspec Office Visit 04/01/2014 3:04p [facility] Kendal Fisher 434.91 Occlusion Services Of Lizeth Garcia M.D. Cerebral Artery Unspec W/ Cerebral Infarc 433.10 Occlusion & Stenosis Carotid Artery W/O Cerebral Infarction 401.9 Hypertension Unspec 250.00 Diabetes Mellitus W/O Compl Type II Or Unspec Controlled Office Visit 04/01/2014 10:29a [facility] Jaxson Sorenson 434.91 Occlusion Assocmarilyn M.D. Cerebral Artery Hospitalists Unspec W/ Cerebral Infarc 443.9 Peripheral Vascular Disease Unspec 433.10 Occlusion & Stenosis Carotid Artery W/O Cerebral Infarction 585.4 Chronic Kidney Disease Stage IV Severe Office Visit 03/31/2014 3:01p [facility] Ericka Christian 434.11 Cerebral Services Of Lizeth Mack Embolism W/ Cerebral Infarc 433.10 Occlusion & Stenosis Carotid Artery W/O Cerebral Infarction 401.9 Hypertension Unspec 250.00 Diabetes Mellitus W/O Compl Type II Or Unspec Controlled Office Visit 03/31/2014 10:28a [facility] Jaxson Sorenson 434.91 Occlusion Assocmarilyn M.D. Cerebral Artery Hospitalists Unspec W/ Cerebral Infarc 443.9 Peripheral Vascular Disease Unspec 433.10 Occlusion & Stenosis Carotid Artery W/O Cerebral Infarction 585.4 Chronic Kidney Disease Stage IV Severe Office Visit 03/30/2014 3:00p [facility] Thiago Dulce, 434.11 Cerebral Services Of Lizeth Mack Embolism W/ Cerebral Infarc 401.9 Hypertension Unspec 250.00 Diabetes Mellitus W/O Compl Type II Or Unspec Controlled Office Visit 03/30/2014 10:27a [facility] Eric 434.91 Occlusion Assoc,marilyn Lopez M.D. Cerebral Artery Hospitalists Unspec W/ Cerebral Infarc 443.9 Peripheral Vascular Disease Unspec 433.10 Occlusion & Stenosis Carotid Artery W/O Cerebral Infarction 585.4 Chronic Kidney Disease Stage IV Severe Office Visit 04/23/2013 [place] Bimal Jorgensen 414.01 Coronary 9:45a Cardiology Of Martina Garcia, Atherosclerosis [facility] [place] Office Visit 04/08/2013 [place] Bimal Jorgensen 414.01 Coronary 1:00p Cardiology Of Martina Garcia, Atherosclerosis [facility], [facility] [place] Office Visit 11/10/2010 [place] Renata 786.50 Pain Chest Unspec 12:59p Cardiology Chaparro, D.O. 410.30 Myocardial Infarc Acute Inferopost Wall Episode Care Unspec 414.01 Coronary Atherosclerosis [place] 401.1 Hypertension Benign 250.00 Diabetes Mellitus W/O Compl Type II Or Unspec Controlled Office Visit 11/09/2010 [place] Renata 794.31 Electrocardiogram 12:59p Cardiology Chaparro D.O. (ECG) (EKG) Abnormal 786.50 Pain Chest Unspec 410.30 Myocardial Infarc Acute Inferopost Wall Episode Care Unspec 414.01 Coronary Atherosclerosis [place] 401.1 Hypertension Benign 250.00 Diabetes Mellitus W/O Compl Type II Or Unspec Controlled Office Visit 11/08/2010 [place] Renata 794.31 Electrocardiogram 12:59p Cardiology Chaparro, D.O. (ECG) (EKG) Abnormal 786.50 Pain Chest Unspec 410.30 Myocardial Infarc Acute Inferopost Wall Episode Care Unspec 414.01 Coronary Atherosclerosis [place] 401.1 Hypertension Benign 250.00 Diabetes Mellitus W/O Compl Type II Or Unspec Controlled Office Visit 11/07/2010 12:57p [facility] Renata 786.50 Pain Chest [place], D.O. Unspec 410.30 Myocardial Infarc Acute Inferopost Wall Episode Care Unspec 414.01 Coronary Atherosclerosis [place] 401.1 Hypertension Benign 250.00 Diabetes Mellitus W/O Compl Type II Or Unspec Controlled Plan of Treatment Future Appointment(s):06/04/2018 10:45 am - January Greer MD at Pulmonology And Sleep Services [facility]04/18/2018 - Bimal Garcia M.D., [facility], [facility]15.10 Atherosclerotic heart disease of [place] coronary artery without angina pectorisComments:As discussed, I feel your heart is doing well.Follow up:6 months
[2018-05-25] MEDS ORDERED: methylPREDNISolone 125 MG* 2 ML VIAL IV ONE (20:08)
[2018-05-25] MEDS ORDERED: Albuterol/Ipratropium NEB.SOL* Albuterol 2.5 MG/Ipratropium 0.5 MG 3 ML INH ONE (20:08)
--- NOTE | 2018-05-25 20:34 | ED ---
GI/ HPI - HPI Summary HPI Summary: Patient is a 77 y/o M w/ c/o dysuria, increased frequency of urination onsetting two days ago. Abdominal pain, back pain is denied. Patient is noted to be at 70s o2 sat on 5 L NC. reports that he is typically low 90s on 5 L o2 at home. He denies acute SOB. Slight BLE edema is reported. Patient states that he is primarily here for urinary Sx. 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 Patient is on dialysis, states he had full dialysis today. He is followed by Dr. Rodriguez. On triage, pain is denied. Nothing is noted to aggravate/ alleviate Sx. Home medications and allergies are reviewed. - History of Current Complaint Chief Complaint: EDUrogenitalProblems Time Seen by Provider: 05/25/18 19:56 Stated Complaint: PAIN WHEN URINATING Hx Obtained From: Patient Onset/Duration: Started Days Ago - urinary Sx onset two days ago, Still Present Timing: Constant, Lasting Days - urinary Sx onset two days ago Current Severity: None - pain denied Pain Intensity: 0 Associated Signs and Symptoms: Positive: Dysuria, Other: - patient reports increased frequency of urination, slight BLE edema; he denies acute SOB. Negative: Back Pain, Abdominal Pain Aggravating Factor(s): Nothing Alleviating Factor(s): Nothing - Additional Pertinent History Primary Care Physician: [id number] - Allergy/Home Medications Allergies/Adverse Reactions: Allergies Allergy/AdvReac Type Severity Reaction Status Date / Time Adhesive Tape Allergy Intermediate Rash And Verified 05/25/18 18:25 Itching Home Medications: Home Medications Pantoprazole Sodium 20 mg PO DAILY 05/25/18 [History Confirmed 05/25/18] PMH/Surg Hx/FS Hx/Imm Hx Endocrine/Hematology History: Reports: Hx Diabetes - TYPE II- ON INSULIN FOR Cardiovascular History: Reports: Hx Angioplasty - R leg angioplasty x2, last , Hx Coronary Artery Disease - 2 STENTS-[facility], Hx Embolism, Hx Hypertension, Hx Peripheral Vascular Disease, Other Cardiovascular Problems/Disorders - HEART CATH Denies: Hx Pacemaker/ICD Respiratory History: Reports: Hx Chronic Obstructive Pulmonary Disease (COPD) - 4L O2 at baseline, 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 Musculoskeletal History: Reports: Hx Arthritis, Other Musculoskeletal History - R knee arthroplasty Sensory History: Reports: Hx Cataracts, Hx Contacts or Glasses - reading only Denies: Hx Hearing Aid Opthamlomology History: Reports: Hx Cataracts, Hx Contacts or Glasses - reading only Neurological History: Reports: Hx Transient Ischemic Attacks (TIA) Psychiatric History: Reports: Other Psychiatric Issues/Disorders - claustrophobic Denies: Hx Panic Disorder - Surgical History Surgery Procedure, Year, and Place: 2008 ARTHROSCOPIC RT [facility]. [place] [facility] [place] [facility] 2013. RT [facility]. ballooning to veins in legs Hx Anesthesia Reactions: No - Immunization History Date of Tetanus Vaccine: unk Date of Influenza Vaccine: fall 2016 Infectious Disease History: No Infectious Disease History: Reports: Hx Clostridium Difficile Denies: Traveled Outside the [place] in Last 30 Days - Family History Known Family History: Positive: Cardiac Disease, Hypertension - Social History Alcohol Use: Rare Hx Substance Use: No Substance Use Type: Reports: None Hx Tobacco Use: Yes Smoking Status (MU): Former Smoker Type: Cigarettes Amount Used/How Often: 2 pks/day X 30 YEARS Have You Smoked in the Last Year: No Review of Systems Negative: Shortness Of Breath - denies acute SOB Negative: Abdominal Pain Positive: dysuria, frequency - increased Positive: Edema - BLE , Other - NEGATIVE - BACK PAIN All Other Systems Reviewed And Are Negative: Yes Physical Exam - Summary Physical Exam Summary: Appearance: Well appearing, tesio catheter is in place Skin: warm, dry, reflects adequate perfusion Head/face: normal Eyes: EOMI, PACO ENT: normal Neck: supple, non-tender Respiratory: bilateral wheezing is present, rhonchi rt side Cardiovascular: irregular Abdomen: non-tender, soft Bowel: present Musculoskeletal: strength/ROM intact Neuro:A&Ox3 Triage Information Reviewed: Yes Vital Signs On Initial Exam: Initial Vitals Temp Pulse Resp BP Pulse Ox 99.1 F 90 20 125/66 91 05/25/18 18:20 05/25/18 18:20 05/25/18 18:20 05/25/18 18:20 05/25/18 18:20 Vital Signs Reviewed: Yes Diagnostics - Vital Signs Vital Signs Temp Pulse Resp BP Pulse Ox 05/25/18 20:24 94 20 94 05/25/18 20:03 100 38 106/52 70 05/25/18 20:00 102 32 69 05/25/18 18:20 99.1 F 90 20 125/66 91 - Laboratory Lab Results: Lab Results 05/25/18 Range/Units 20:15 Patient Temperature Not Reportable ABG pH 7.49 H (7.35-7.45) ABG pH (Temp Correct) Not Reportable ABG pCO2 43 (35-45) mmHg ABG pCO2 (Temp Corrct Not Reportable ABG pO2 78 L (80-100) mmHg ABG pO2 (Temp Correct Not Reportable ABG HCO3 31.5 H (19-31) mmol/L ABG O2 Saturation 96.5 (95-98) % ABG Base Excess 8.5 H (-2.0-2.0) Respiration Rate Not Reportable O2 Delivery Device oxymask Ventilator Type Not Reportable Vent Mode Not Reportable FiO2 100 Inspiratory Time Not Reportable PEEP Not Reportable Pressure Support Not Reportable Pressure Control Not Reportable EPAP Not Reportable IPAP Not Reportable BiPAP Not Reportable Result Diagrams: 05/26/18 08:28 05/26/18 05:16 Lab Statement: Any lab studies that have been ordered have been reviewed, and results considered in the medical decision making process. - Radiology CXR Radiology Interpretation Completed By: Radiologist Summary of Radiographic Findings: CXR showed bilateral CHF, right lower lobe infiltrate - EKG 2014 Cardiac Rate: NL - rate of 93 bpm EKG Rhythm: Sinus Rhythm Summary of EKG Findings: EKG showed sinus rhythm with rate of 93 BPM, no acute changes. Re-Evaluation - Re-Evaluation First Eval Re-Evaluation Time: 21:05 Change: Improved Comment: o2 sat improved to 90s. Need for admission was discussed with patient, he is agreeable. GIGU Course/Dx - Course Course Of Treatment: Patient is a 77 y/o M w/ c/o dysuria, increased frequency of urination onsetting two days ago. Abdominal pain, back pain is denied. Patient is noted to be at 70 o2 sat on 5 L NC. reports that he is typically low 90s on 5 L o2 at home. He denies acute SOB. Slight BLE edema is reported. Patient states that he is primarily here for urinary Sx. 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 Patient is on dialysis, states he had full dialysis today. He is followed by Dr. Rodriguez. On physical exam, bilateral wheezing is noted, tesio catheter in place at chest. CXR showed bilateral CHF, right lower lobe infiltrate. EKG showed sinus rhythm with rate of 93 BPM, no acute changes. Bloodwork, blood gas was obtained. During ED course, patient received Solu-Medrol 125 mg IV ED ONCE ONE, Duoneb x 3, piperacillin sod/ tazobactam sod and Lasix 40 mg IV ONCE ONE. While in ED, patient's o2 sats improved to 90s. Patient's case was discussed with Dr. Saucedo, Dr. Saucedo accepts patient for admission. Patient agreeable for admission. - Diagnoses Differential Diagnoses - Male: Other - resp failure/pneumonia/copd exc/esrd on hd/uti Provider Diagnoses: Pulmonary edema, PNA (pneumonia), End-stage renal disease on hemodialysis, COPD (chronic obstructive pulmonary disease) with acute bronchitis - Physician Notifications Discussed Care Of Patient With: Laura Saucedo Time Discussed With Above Provider: 21:14 Instructed by Provider To: Other - Patient's case was discussed with Dr. Saucedo, Dr. Saucedo accepts patient for admission. - Critical Care Time Critical Care Time: 30-74 min - 30 minutes Discharge - Sign-Out/Discharge Documenting (check all that apply): Patient Departure - admit - Discharge Plan Condition: Good Disposition: ADMITTED TO [facility] - Billing Disposition and Condition Condition: GOOD Disposition: Admitted to [facility] - Attestation Statements Document Initiated by Scribe: Yes Documenting Scribe: LEEROY COSME Provider For Whom Debra is Documenting (Include Credential): BINDU CHOE MD Scribe Attestation: LEEROY Steve , scribed for BINDU CHOE MD on 05/26/18 at 1048. Scribe Documentation Reviewed: Yes Provider Attestation: The documentation as recorded by the emilyibLEEROY perez accurately reflects the service I personally performed and the decisions made by me, BINDU CHOE MD
[2018-05-25] MEDS ORDERED: Piperacillin/Tazobac ADVAN(*) 3.375 GM in NS 0.9% 100 ML* 100 ML IVPB ONE (21:09)
[2018-05-25] MEDS ORDERED: Furosemide IV* 10 MG/ML VIAL (40 MG) IV ONE (21:13)
[2018-05-25 21:27] LABS: ABS Basophils 0.1 10^3/ul (0-0.2); ABS Eosinophils 0.1 10^3/ul (0-0.6); ABS Lymphocytes 1.8 10^3/ul (1.0-4.8); ABS Monocytes 0.4 10^3/ul (0-0.8); ABS Neutrophils 5.6 10^3/ul (1.5-7.7); ABS Nucleated RBC 0 10^3/ul; Eosinophil % 1.6 % (0-6); Hematocrit 37 % (42-52); Hemoglobin 12.1 g/dl (14.0-18.0); Lymphocyte % 22.6 % (25-47); Mean Corpuscular HGB Conc 33 g/dl (31-36); Mean Corpuscular Hemoglobin 31 pg (27-31); Mean Corpuscular Volume 95 fL (80-94); Mean Platelet Volume 10.1 fL (7.4-10.4); Nucleated Red Blood Cells % 0; Platelet Count 139 10^3/ul (150-450); Red Blood Count 3.88 10^6/ul (4.00-5.40); Red Cell Distribution Width 15 % (10.5-15); White Blood Count 7.9 10^3/ul (3.5-10.8)
[2018-05-25 21:44] LABS: EGFR Non-African American 22.3 (>60)
[2018-05-25 21:52] LABS: INR 1.14 (0.77-1.02)
[2018-05-25] MEDS ORDERED: Nitroglycerin TAB 0.4 MG* 0.4 MG TAB SL PRN (22:11)
[2018-05-25 22:14] LABS: Urine Appearance Clear; Urine Blood Negative (Negative); Urine Color Yellow; Urine Ketones Negative (Negative); Urine Protein 3+(>=500 mg/dL) (Negative); Urine Red Blood Cell Absent (Absent); Urine Specific Gravity 1.012 (1.010-1.030); Urine Urobilinogen Negative (Negative); Urine White Blood Cell Absent (Absent)
[2018-05-25] MEDS ORDERED: NS 0.9% 1000 ML* 500 ML IV SCH (22:15)
[2018-05-25] MEDS ORDERED: Levalbuterol 0.63MG/3ML NEB* UNIT OF USE INH PRN (22:16)
[2018-05-25] MEDS ORDERED: Dextrose 50% Syringe 50 ML* 25 GM/50 ML SYRINGE IV PUSH PRN (22:37)
[2018-05-25] MEDS ORDERED: ZOSYN 3.375 GM x ONE DOSE over 30 miuntes IVPB ×2 (23:30)
[2018-05-26] MEDS: GuaiFENesin DM sugar free* 5 ML UDC PO PRN ×2 (05:48→17:13)
[2018-05-26] MEDS ORDERED: methylPREDNISolone SOD 40 MG* 1 ML VIAL IM SCH (06:00)
[2018-05-26] MEDS ORDERED: Heparin VIAL(*) 5000 UNITS/ML VIAL (FIVE THOUSAND) SUBCUT SCH (06:00)
[2018-05-26 07:32] LABS: EGFR Non-African American 16.3 (>60)
--- NOTE | 2018-05-26 07:58 | ADMNOTE ---
Subjective Date of Service: 05/25/18 Interval History: code status full this is admission h/p hpi this is a 77 yr old wm on hd went for hd due to holiday schedule was brought in by after he did not feel well sob with pain upon urination for 2 -3 days. pt was found tachypenic tachycardiac and sig hypoxia with pulse ox in the 70s for 5-10 min. initial wbc is wnl but chest x ray showed rml/rll pna. pt sat later went up to 96 percent on 10 liter. he was given solumderol/lasix 40 mg ivp and zosyn from er. he is due to hd today phx esrd due to dm on for 2.5 yrs s/p fistula on b/l arm both failed due to infection/occlusion type ii dm morbid obesity htn cad s/p mi twice last mi s/p two stents in total ---> 1st time 08/2010 2nd 2015 from the record looks like mid circ was stented jeremy but non compliant with cpap chronic respiratory failure/copd on 23/01 oxygen 4-5 liter/min tia twice last attack was 08/2015 a fib on eliquis pshx s/p b/l cataracts extraction s/p fistula on b/l arm both failed due to infection/occlusion social hx quit cig smoking 27 yrs ago, quit etoh 5 yrs ago no ivda walks indep fhx sister + dm Family History: Unchanged from Admission Review of Systems - Measurements Intake and Output: Intake and Output Last 24 Hours 05/24/18 05/25/18 05/26/18 05/27/18 06:59 06:59 06:59 06:59 Output Total 0 Balance 0 Weight 239 lb 11.2 oz Output: Urine 0 Other: # Bowel Movements 1 Estimated Stool Amount Medium - Review of Systems General Comments: pertinent as per hpi Objective Active Medications: Aliskiren (Tekturna Tab*) 300 mg PO DAILY [facility] Amlodipine Besylate (Norvasc Tab*) 10 mg PO DAILY [facility] Apixaban (Eliquis*) 2.5 mg PO BID [facility] Aspirin (Aspirin Ec Tab*) 81 mg PO DAILY [facility] Atorvastatin Calcium (Lipitor*) 80 mg PO BEDTIME [facility] Dextrose (D50w Syringe 50 Ml*) 12.5 gm IV PUSH .FOR FS < 60 - SS PRN PRN Reason: FS < 60 Fenofibrate (Tricor(Nf)) 145 mg PO DAILY [facility]; Protocol Gabapentin (Neurontin Cap(*)) 100 mg PO BID [facility] Guaifenesin/Dextromethorphan (Robitussin Dm Sugar Free*) 5 ml PO Q6H PRN PRN Reason: COUGH Last Admin: 05/26/18 05:48 Dose: 5 ml Sodium Chloride (Ns 0.9% 1000 Ml*) 500 mls @ 50 mls/hr IV PER RATE [facility] Last Admin: 05/26/18 00:27 Dose: 50 mls/hr Piperacillin Sod/Tazobactam (Sod 3.375 gm/ Sodium Chloride) 100 mls @ 25 mls/ hr IVPB Q12H [facility] Insulin Glargine (Lantus(*)) 25 units SUBCUT BID [facility] Insulin Human Lispro (Humalog*) 0 units SUBCUT ACHS [facility]; Protocol Isosorbide Mononitrate (Imdur Er Tab*) 60 mg PO QAM [facility] Levalbuterol HCl (Xopenex 0.63mg/3ml Neb*) 0.31 mg INH Q2H PRN PRN Reason: DYSPNEA Metoprolol Succinate (Toprol Xl Tab*) 100 mg PO BID [facility] Nitroglycerin (Nitroglycerin Tab 0.4 Mg*) 0.4 mg SL Q5M PRN PRN Reason: PAIN - CHEST Pantoprazole Sodium (Protonix Tab (Nf)) 20 mg PO DAILY [facility] Tamsulosin HCl (Flomax Cap*) 0.4 mg PO BEDTIME [facility] Vital Signs - 8 hr 05/25/18 05/26/18 05/26/18 23:55 00:12 00:51 Temperature 0 F 98.2 F Pulse Rate 110 103 Respiratory 27 24 Rate Blood Pressure 136/83 130/65 (mmHg) O2 Sat by Pulse 95 96 95 Oximetry 05/26/18 04:11 Temperature 97.4 F Pulse Rate 84 Respiratory 20 Rate Blood Pressure 137/63 (mmHg) O2 Sat by Pulse 99 Oximetry Oxygen Devices in Use Now: Nasal Cannula Appearance: nad Eyes: No Scleral Icterus, PERRLA Ears/Nose/Mouth/Throat: NL Teeth, Lips, Gums, Clear Oropharnyx, Mucous Membranes Moist Neck: NL Appearance and Movements; NL JVP, Trachea Midline, No Thyroid Enlargement, Masses Respiratory: Symmetrical Chest Expansion and Respiratory Effort, - - no wheezing with min rales heard Abdominal: NL Sounds; No Tenderness; No Distention Extremities: - - + trace pedal edema with venous stasis scar Skin: No Rash or Ulcers Neurological: Alert and Oriented x 3, NL Muscle Strength and Tone, - - cranial n 2-12 grossly intact sensory upper 2/2 le 1/2 plantar reflex downwards Result Diagrams: 05/25/18 21:14 05/26/18 05:16 Additional Lab and Data: Lab Results 05/25/18 Range/Units 20:15 Patient Temperature Not Reportable ABG pH 7.49 H (7.35-7.45) ABG pH (Temp Correct) Not Reportable ABG pCO2 43 (35-45) mmHg ABG pCO2 (Temp Corrct Not Reportable ABG pO2 78 L (80-100) mmHg ABG pO2 (Temp Correct Not Reportable ABG HCO3 31.5 H (19-31) mmol/L ABG O2 Saturation 96.5 (95-98) % ABG Base Excess 8.5 H (-2.0-2.0) Respiration Rate Not Reportable O2 Delivery Device oxymask Ventilator Type Not Reportable Vent Mode Not Reportable FiO2 100 Inspiratory Time Not Reportable PEEP Not Reportable Pressure Support Not Reportable Pressure Control Not Reportable EPAP Not Reportable IPAP Not Reportable BiPAP Not Reportable EKG Data: as per reading by cardio Assess/Plan/Problems-Billing Assessment: this is a 77 yr old wm with hx of esrd s/p hd yesterday presented to er with c/ o sob/pain while urination for three days prior to admission intial wbc wnl but chest x ray showed rml/rll pna ( portable ) pt has chronic resp failure on home oxygen 23/01 - Patient Problems (1) Acute and chronic respiratory failure Current Visit: Yes Status: Acute Code(s): J96.20 - ACUTE AND CHR RESP FAILURE, UNSP W HYPOXIA OR HYPERCAPNIA SNOMED Code(s): 89740006 Comment: continue oxygen support target pulse ox 88-92 percent resp treatment+ robutussin tele with rebecca due to sig cardiac hx (2) PNA (pneumonia) Current Visit: Yes Status: Acute Code(s): J18.9 - PNEUMONIA, UNSPECIFIED ORGANISM SNOMED Code(s): 962122424 Comment: poor chest x ray since it is portal initial wbc wnl will repeat chest x ray pa and lateral in am continue zosyn at this point (3) ESRD (end stage renal disease) Current Visit: Yes Status: Acute Code(s): N18.6 - END STAGE RENAL DISEASE SNOMED Code(s): 15074365 Comment: needs hd again today will ask day to call (4) Type II diabetes mellitus Current Visit: Yes Status: Acute Comment: ck a1c on lantus 25 bid will continue his home dose along with ss (5) Afib Current Visit: No Status: Acute Code(s): I48.91 - UNSPECIFIED ATRIAL FIBRILLATION SNOMED Code(s): 86488166 Comment: - Continue Metoprolol and Apixaban.
[2018-05-26] MEDS: Insulin LISPRO* 1 UNITS UNIT SUBCUT SCH ×4 (08:14→22:13)
[2018-05-26] MEDS: Gabapentin CAP(*) 100 MG PO SCH ×2 (08:15→22:13)
[2018-05-26] MEDS: Aspirin EC TAB* 81 MG TAB.EC PO SCH (08:15)
[2018-05-26] MEDS: Metoprolol Succinate XL TAB* 100 MG PO SCH ×2 (08:15→22:13)
[2018-05-26] MEDS: Insulin GLARGINE(*) 1 UNITS UNIT SUBCUT SCH ×2 (08:15→22:12)
[2018-05-26] MEDS: Isosorbide Mononitrate ER TAB* 60 MG PO SCH (08:15)
[2018-05-26] MEDS: Apixaban* 2.5 MG TAB PO SCH ×2 (08:15→22:13)
[2018-05-26] MEDS: amLODIPine TAB* 5 MG PO SCH (08:15)
[2018-05-26] MEDS: CMCS: Fenofibrate(NF) 145 MG TAB PO SCH (08:16)
[2018-05-26] MEDS: Aliskiren TAB* 300 MG PO SCH (08:16)
[2018-05-26] MEDS: PTO: Pantoprazole TAB (NF) 20 MG TAB PO SCH (08:17)
[2018-05-26 08:34] LABS: Hematocrit 35 % (42-52); Hemoglobin 11.5 g/dl (14.0-18.0); Mean Corpuscular HGB Conc 33 g/dl (31-36); Mean Corpuscular Hemoglobin 31 pg (27-31); Mean Corpuscular Volume 95 fL (80-94); Mean Platelet Volume 10.3 fL (7.4-10.4); Platelet Count 124 10^3/ul (150-450); Red Blood Count 3.65 10^6/ul (4.00-5.40); Red Cell Distribution Width 15 % (10.5-15)
[2018-05-26 08:57] LABS: ABS Basophils 0.1 10^3/ul (0-0.2); ABS Eosinophils 0 10^3/ul (0-0.6); ABS Lymphocytes 0.8 10^3/ul (1.0-4.8); ABS Monocytes 0.2 10^3/ul (0-0.8); ABS Neutrophils 4.9 10^3/ul (1.5-7.7)
[2018-05-26 08:59] LABS: Monocytes % 2 % (0-7)
[2018-05-26] MEDS ORDERED: Apixaban* 2.5 MG TAB PO SCH (09:00)
[2018-05-26] MEDS ORDERED: Insulin GLARGINE(*) 1 UNITS UNIT SUBCUT SCH (09:00)
[2018-05-26 09:01] LABS: ABS Neutrophils 4.9 10^3/ul (1.5-7.7)
[2018-05-26] MEDS ORDERED: Iodixanol* (CONTRAST) 320 MG/ML 100 ML SDV IV ONE (10:25)
[2018-05-26] MEDS ORDERED: Cefepime 1 GM in Dextrose(*) 1 GM/50 ML BAG IV ONE (11:00)
[2018-05-26] MEDS ORDERED: Piperacillin/Tazobac ADVAN(*) 3.375 GM in NS 0.9% 100 ML* 100 ML IVPB SCH (12:00)
[2018-05-26] MEDS: DOXYcycline IV* 100 MG in NS 0.9% 250 ML* 250 ML IVPB SCH ×2 (12:50→23:26)
--- NOTE | 2018-05-26 12:59 | PN ---
Subjective Date of Service: 05/26/18 Interval History: HOSPITALIST PROGRESS NOTE Patient seen and examined at bedside. Care reviewed and d/w Jay Rollins RN. He feels better this AM, but has frequent dry cough. States he has frequent episodes like this, but eventually "it calms down". Denies chest pain or dyspnea , but desaturated to 70s this AM while having breakfast wearing a nasal canula. Improved when switched to oxymask. Family History: Unchanged from Admission Social History: Unchanged from Admission Past Medical History: Unchanged from Admission Objective Active Medications: Aliskiren (Tekturna Tab*) 300 mg PO DAILY [facility] Last Admin: 05/26/18 08:16 Dose: 300 mg Amlodipine Besylate (Norvasc Tab*) 10 mg PO DAILY [facility] Last Admin: 05/26/18 08:15 Dose: 10 mg Apixaban (Eliquis*) 2.5 mg PO BID [facility] Last Admin: 05/26/18 08:15 Dose: 2.5 mg Aspirin (Aspirin Ec Tab*) 81 mg PO DAILY [facility] Last Admin: 05/26/18 08:15 Dose: 81 mg Atorvastatin Calcium (Lipitor*) 80 mg PO BEDTIME [facility] Dextrose (D50w Syringe 50 Ml*) 12.5 gm IV PUSH .FOR FS < 60 - SS PRN PRN Reason: FS < 60 Fenofibrate (Tricor(Nf)) 145 mg PO DAILY [facility]; Protocol Last Admin: 05/26/18 08:16 Dose: 145 mg Gabapentin (Neurontin Cap(*)) 100 mg PO BID [facility] Last Admin: 05/26/18 08:15 Dose: 100 mg Guaifenesin/Dextromethorphan (Robitussin Dm Sugar Free*) 5 ml PO Q6H PRN PRN Reason: COUGH Last Admin: 05/26/18 05:48 Dose: 5 ml Doxycycline Hyclate 100 mg/ (Sodium Chloride) 250 mls @ 250 mls/hr IVPB Q12H [facility] Last Admin: 05/26/18 12:50 Dose: 250 mls/hr Cefepime HCl 0.5 gm/ Sodium (Chloride) 50 mls @ 100 mls/hr IVPB Q24H [facility] Insulin Glargine (Lantus(*)) 25 units SUBCUT BID [facility] Last Admin: 05/26/18 08:15 Dose: 25 units Insulin Human Lispro (Humalog*) 0 units SUBCUT ACHS [facility]; Protocol Last Admin: 05/26/18 12:50 Dose: 2 units Isosorbide Mononitrate (Imdur Er Tab*) 60 mg PO QAM [facility] Last Admin: 05/26/18 08:15 Dose: 60 mg Levalbuterol HCl (Xopenex 0.63mg/3ml Neb*) 0.31 mg INH Q2H PRN PRN Reason: DYSPNEA Metoprolol Succinate (Toprol Xl Tab*) 100 mg PO BID [facility] Last Admin: 05/26/18 08:15 Dose: 100 mg Nitroglycerin (Nitroglycerin Tab 0.4 Mg*) 0.4 mg SL Q5M PRN PRN Reason: PAIN - CHEST Pantoprazole Sodium (Protonix Tab (Nf)) 20 mg PO DAILY [facility] Last Admin: 05/26/18 08:17 Dose: Not Given Tamsulosin HCl (Flomax Cap*) 0.4 mg PO BEDTIME [facility] Vital Signs - 8 hr 05/26/18 05/26/18 05/26/18 07:37 07:40 08:15 Temperature 98.6 F Pulse Rate 85 Respiratory 18 16 20 Rate Blood Pressure 143/58 (mmHg) O2 Sat by Pulse 98 Oximetry 05/26/18 05/26/18 05/26/18 08:37 10:17 12:06 Temperature 98.2 F Pulse Rate 89 77 Respiratory 20 19 Rate Blood Pressure 140/62 (mmHg) O2 Sat by Pulse 95 99 Oximetry Oxygen Devices in Use Now: OxyMask - 5 liters Appearance: Elderly gentleman sitting up in bed in [facility], but coughing frequently Eyes: No Scleral Icterus Ears/Nose/Mouth/Throat: Mucous Membranes Moist Neck: Trachea Midline Respiratory: Symmetrical Chest Expansion and Respiratory Effort, - - BS+ bilaterally with bilateral fine crackles Cardiovascular: RRR - Normal S1 and S2, - - Tesio catheter to right ACW Abdominal: NL Sounds; No Tenderness; No Distention Neurological: Alert and Oriented x 3, NL Muscle Strength and Tone Result Diagrams: 05/26/18 08:28 05/26/18 05:16 Assess/Plan/Problems-Billing Assessment: Mr Manriquez is a 77yo M with PMH of ESRD on HD, HTN, insulin dependent DM, TIA, PVD s/p CEA, COPD on home O2, CAD, PAULINA not on CPAP, PAF, LUE AV fistula, HLD, prior admission for C diff in 12/18, who presented to ED with c/o dysuria, found to be hypoxic. - Patient Problems (1) Acute on chronic respiratory failure with hypoxemia Comment: - Patient states dyspnea is unchanged, but cough is more frequent. - Will check CTA chest to r/o PE and/or other lung issues (known lung mass being followed by Dr Greer as outpatient). - No signs of fluid overload or COPD exacerbation at this time. - Continue supplemental O2. (2) Interstitial lung disease Comment: - Patient has h/o both COPD and interstitial lung disease. - CxR shows significant interstitial infiltrate, but not different from before. - Continue Cefepime and doxycycline for now. - Continue bronchodilators. - Hold off on systemic steroids for now. (3) Dysuria Comment: - Initial reason for ED visit - resolved. - UA was negative for UTI. (4) Lactic acid increased Comment: - Patient is on the dryer side after HD yesterday, so suspect mild LA elevation can be secondary to dehydration. - He is not septic. (5) Elevated troponin Comment: - Chronic, likely associated with his ESRD. (6) Hypomagnesemia Comment: - Replete. (7) Type II diabetes mellitus Comment: - Check A1c. - Continue Lantus and Lispro SS. (8) PAF (paroxysmal atrial fibrillation) Comment: - In NSR now. - Continue Metoprolol and Apixaban. (9) CAD (coronary artery disease) Comment: - Stable. - Continue Aspirin, Imdur, Metoprolol, statin. (10) HTN (hypertension) Comment: - Controlled. - Continue Aliskiren, Amlodipine, Metoprolol, Imdur. (11) ESRD (end stage renal disease) Comment: - Continue HD as scheduled. (12) DVT prophylaxis Comment: - Apixaban. (13) Full code status Comment: Status and Disposition: Inpatient.
[2018-05-26] MEDS ORDERED: Magnesium Oxide TAB* 400 MG PO ONE (13:11)
[2018-05-26] MEDS: Atorvastatin* 80 MG TAB PO SCH (22:13)
[2018-05-26] MEDS: Tamsulosin CAP* 0.4 MG PO SCH (22:13)
[2018-05-27] MEDS: Insulin LISPRO* 1 UNITS UNIT SUBCUT SCH ×4 (08:30→21:46)
[2018-05-27] MEDS: GuaiFENesin DM sugar free* 5 ML UDC PO PRN (09:04)
[2018-05-27] MEDS: Aliskiren TAB* 300 MG PO SCH (09:04)
[2018-05-27] MEDS: Gabapentin CAP(*) 100 MG PO SCH ×2 (09:05→21:42)
[2018-05-27] MEDS: Aspirin EC TAB* 81 MG TAB.EC PO SCH (09:05)
[2018-05-27] MEDS: Insulin GLARGINE(*) 1 UNITS UNIT SUBCUT SCH ×2 (09:05→21:42)
[2018-05-27] MEDS: Metoprolol Succinate XL TAB* 100 MG PO SCH ×2 (09:05→21:41)
[2018-05-27] MEDS: amLODIPine TAB* 5 MG PO SCH (09:05)
[2018-05-27] MEDS: Apixaban* 2.5 MG TAB PO SCH (09:05)
[2018-05-27] MEDS: CMCS: Fenofibrate(NF) 145 MG TAB PO SCH (09:06)
[2018-05-27] MEDS: Isosorbide Mononitrate ER TAB* 60 MG PO SCH (09:06)
[2018-05-27] MEDS: PTO: Pantoprazole TAB (NF) 20 MG TAB PO SCH (09:06)
[2018-05-27] MEDS: Loperamide CAP* 2 MG PO PRN ×2 (09:13→23:47)
[2018-05-27] MEDS: Cefepime(*) 0.5 GM in NS 0.9% 50 ML* 50 ML IVPB SCH (11:21)
[2018-05-27] MEDS: DOXYcycline IV* 100 MG in NS 0.9% 250 ML* 250 ML IVPB SCH ×2 (11:56→23:24)
--- NOTE | 2018-05-27 15:39 | PN ---
Subjective Date of Service: 05/27/18 Interval History: HOSPITALIST PROGRESS NOTE Patient seen and examined at bedside. Care reviewed and d/w Jay Rollins RN. He feels unchanged today. Still has dyspnea with minimal exertion and bouts of dry cough. Family History: Unchanged from Admission Social History: Unchanged from Admission Past Medical History: Unchanged from Admission Objective Active Medications: Aliskiren (Tekturna Tab*) 300 mg PO DAILY [facility] Last Admin: 05/27/18 09:04 Dose: 300 mg Amlodipine Besylate (Norvasc Tab*) 10 mg PO DAILY [facility] Last Admin: 05/27/18 09:05 Dose: 10 mg Aspirin (Aspirin Ec Tab*) 81 mg PO DAILY [facility] Last Admin: 05/27/18 09:05 Dose: 81 mg Atorvastatin Calcium (Lipitor*) 80 mg PO BEDTIME [facility] Last Admin: 05/26/18 22:13 Dose: 80 mg Dextrose (D50w Syringe 50 Ml*) 12.5 gm IV PUSH .FOR FS < 60 - SS PRN PRN Reason: FS < 60 Fenofibrate (Tricor(Nf)) 145 mg PO DAILY [facility]; Protocol Last Admin: 05/27/18 09:06 Dose: 145 mg Gabapentin (Neurontin Cap(*)) 100 mg PO BID [facility] Last Admin: 05/27/18 09:05 Dose: 100 mg Guaifenesin/Dextromethorphan (Robitussin Dm Sugar Free*) 5 ml PO Q6H PRN PRN Reason: COUGH Last Admin: 05/27/18 09:04 Dose: 5 ml Doxycycline Hyclate 100 mg/ (Sodium Chloride) 250 mls @ 250 mls/hr IVPB Q12H [facility] Last Admin: 05/27/18 11:56 Dose: 250 mls/hr Cefepime HCl 0.5 gm/ Sodium (Chloride) 50 mls @ 100 mls/hr IVPB Q24H [facility] Last Admin: 05/27/18 11:21 Dose: 100 mls/hr Insulin Glargine (Lantus(*)) 25 units SUBCUT BID [facility] Last Admin: 05/27/18 09:05 Dose: 25 units Insulin Human Lispro (Humalog*) 0 units SUBCUT ACHS [facility]; Protocol Last Admin: 05/27/18 11:23 Dose: Not Given Isosorbide Mononitrate (Imdur Er Tab*) 60 mg PO QAM [facility] Last Admin: 05/27/18 09:06 Dose: 60 mg Levalbuterol HCl (Xopenex 0.63mg/3ml Neb*) 0.31 mg INH Q2H PRN PRN Reason: DYSPNEA Loperamide HCl (Imodium Cap*) 2 mg PO .SEE DIRECTIONS PRN PRN Reason: DIARRHEA Last Admin: 05/27/18 09:13 Dose: 2 mg Metoprolol Succinate (Toprol Xl Tab*) 100 mg PO BID [facility] Last Admin: 05/27/18 09:05 Dose: 100 mg Nitroglycerin (Nitroglycerin Tab 0.4 Mg*) 0.4 mg SL Q5M PRN PRN Reason: PAIN - CHEST Pantoprazole Sodium (Protonix Tab (Nf)) 20 mg PO DAILY [facility] Last Admin: 05/27/18 09:06 Dose: Not Given Tamsulosin HCl (Flomax Cap*) 0.4 mg PO BEDTIME [facility] Last Admin: 05/26/18 22:13 Dose: 0.4 mg Vital Signs - 8 hr 05/27/18 05/27/18 05/27/18 07:38 07:41 09:05 Temperature 97.8 F Pulse Rate 62 Respiratory 26 20 20 Rate Blood Pressure 138/70 (mmHg) O2 Sat by Pulse 100 Oximetry 05/27/18 05/27/18 05/27/18 09:13 11:01 11:10 Temperature 97.6 F Pulse Rate 64 Respiratory 20 20 28 Rate Blood Pressure 139/66 (mmHg) O2 Sat by Pulse 98 Oximetry 05/27/18 11:23 Temperature Pulse Rate Respiratory 20 Rate Blood Pressure (mmHg) O2 Sat by Pulse Oximetry Oxygen Devices in Use Now: Nasal Cannula Appearance: Elderly gentleman lying in bed in NAD. Eyes: No Scleral Icterus Ears/Nose/Mouth/Throat: Mucous Membranes Moist Neck: Trachea Midline Respiratory: Symmetrical Chest Expansion and Respiratory Effort, - - BS+ bilaterally coarse, decrease in right base Cardiovascular: RRR - Normal S1 and S2, - - Tesio to R ACW Abdominal: NL Sounds; No Tenderness; No Distention - Obese Neurological: Alert and Oriented x 3, NL Muscle Strength and Tone Result Diagrams: 05/26/18 08:28 05/26/18 05:16 Assess/Plan/Problems-Billing Assessment: Mr Manriquez is a 77yo M with PMH of ESRD on HD, HTN, insulin dependent DM, TIA, PVD s/p CEA, COPD on home O2, CAD, PAULINA not on CPAP, PAF, LUE AV fistula, HLD, prior admission for C diff in 12/18, who presented to ED with c/o dysuria, found to be hypoxic. - Patient Problems (1) Acute on chronic respiratory failure with hypoxemia Comment: - Patient states dyspnea is unchanged, but cough is more frequent. - No signs of fluid overload or COPD exacerbation at this time. - Likely secondary to metastatic lung CA. - Continue supplemental O2. (2) Lung tumor Comment: - Patient has known right lung tumor followed by Dr Greer, aware of possiblity of cancer, but declined biopsy at [facility] in the past. 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 They understand this means advanced disease. - He's agreeable with liver biopsy for diagnosis and staging. Hold Apixaban in preparation for possible biopsy. (3) Interstitial lung disease Comment: - Patient has h/o both COPD and interstitial lung disease. - CxR shows significant interstitial infiltrate, but not different from before. - Continue Cefepime and doxycycline for now. - Continue bronchodilators. - Hold off on systemic steroids for now. (4) Dysuria Comment: - Initial reason for ED visit - resolved. - UA was negative for UTI. (5) Lactic acid increased Comment: - Patient is on the dryer side after HD yesterday, so suspect mild LA elevation can be secondary to dehydration. - He is not septic. (6) Elevated troponin Comment: - Chronic, likely associated with his ESRD. (7) Hypomagnesemia Comment: - Replete. (8) Type II diabetes mellitus Comment: - Hb A1c 6.0. - Continue Lantus and Lispro SS. (9) PAF (paroxysmal atrial fibrillation) Comment: - In NSR now. - Continue Metoprolol and hold Apixaban. (10) CAD (coronary artery disease) Comment: - Stable. - Continue Aspirin, Imdur, Metoprolol, statin. (11) HTN (hypertension) Comment: - Controlled. - Continue Aliskiren, Amlodipine, Metoprolol, Imdur. (12) ESRD (end stage renal disease) Comment: - Continue HD as scheduled. (13) DVT prophylaxis Comment: - Apixaban on hold. - SCDs. (14) Full code status Comment: - D/w patient and at bedside. He's very clear he wishes to be resuscitated at this point. Status and Disposition: Inpatient. updated at bedside.
[2018-05-27] MEDS: Tamsulosin CAP* 0.4 MG PO SCH (21:41)
[2018-05-27] MEDS: Atorvastatin* 80 MG TAB PO SCH (21:41)
[2018-05-27] MEDS ORDERED: Benzonatate CAP* 100 MG PO PRN (23:30)
--- NOTE | 2018-05-27 23:32 | PN ---
Hospitalist Progress Note Date of Service: 05/27/18 Called by RN given pt coughing and disturbs pt's sleep as well as neighbors. Adjusted Robitussin DM dose and made q8H, scheduled x 2days w/PRN Tessalon ordered.
[2018-05-27] MEDS: GuaiFENesin DM sugar free* 5 ML UDC PO SCH (23:48)
[2018-05-28 06:38] LABS: ABS Basophils 0 10^3/ul (0-0.2); ABS Eosinophils 0.3 10^3/ul (0-0.6); ABS Lymphocytes 1.4 10^3/ul (1.0-4.8); ABS Monocytes 0.4 10^3/ul (0-0.8); ABS Neutrophils 4.4 10^3/ul (1.5-7.7); ABS Nucleated RBC 0 10^3/ul; Eosinophil % 5.3 % (0-6); Hematocrit 31 % (42-52); Hemoglobin 10.2 g/dl (14.0-18.0); Lymphocyte % 21.5 % (25-47); Mean Corpuscular HGB Conc 32 g/dl (31-36); Mean Corpuscular Hemoglobin 32 pg (27-31); Mean Corpuscular Volume 97 fL (80-94); Mean Platelet Volume 10.4 fL (7.4-10.4); Nucleated Red Blood Cells % 0; Platelet Count 118 10^3/ul (150-450); Red Blood Count 3.23 10^6/ul (4.00-5.40); Red Cell Distribution Width 15 % (10.5-15); White Blood Count 6.7 10^3/ul (3.5-10.8)
[2018-05-28 06:59] LABS: INR 1.1 (0.77-1.02)
[2018-05-28 07:07] LABS: EGFR Non-African American 10.8 (>60)
[2018-05-28] MEDS: Insulin LISPRO* 1 UNITS UNIT SUBCUT SCH ×3 (07:20→16:46)
[2018-05-28] MEDS: PTO: Pantoprazole TAB (NF) 20 MG TAB PO SCH (08:38)
[2018-05-28] MEDS: GuaiFENesin DM sugar free* 5 ML UDC PO SCH ×2 (08:51→16:43)
[2018-05-28] MEDS: CMCS: Fenofibrate(NF) 145 MG TAB PO SCH (08:55)
[2018-05-28] MEDS: Gabapentin CAP(*) 100 MG PO SCH ×2 (08:55→21:13)
[2018-05-28] MEDS: Metoprolol Succinate XL TAB* 100 MG PO SCH ×2 (08:55→21:14)
[2018-05-28] MEDS: Isosorbide Mononitrate ER TAB* 60 MG PO SCH (08:55)
[2018-05-28] MEDS: amLODIPine TAB* 5 MG PO SCH (08:55)
[2018-05-28] MEDS: Aliskiren TAB* 300 MG PO SCH (08:55)
[2018-05-28] MEDS: Aspirin EC TAB* 81 MG TAB.EC PO SCH (08:56)
[2018-05-28] MEDS: Insulin GLARGINE(*) 1 UNITS UNIT SUBCUT SCH (09:00)
[2018-05-28] MEDS ORDERED: Heparin DIALYSIS ONLY(*) 1,000 UNITS/ML VIAL DIALYSIS ONE (11:00)
[2018-05-28] MEDS ORDERED: Epoetin Alfa* 3,000 UNITS/ML VIAL IV ONE (11:00)
[2018-05-28] MEDS ORDERED: Epoetin Alfa* 2,000 UNITS/ML VIAL SUBCUT ONE ×2 (11:00)
--- NOTE | 2018-05-28 15:18 | PN ---
Subjective Date of Service: 05/28/18 Interval History: HOSPITALIST PROGRESS NOTE Patient seen and examined at bedside. Care reviewed and d/w Emerald Matthews RN. He offers no new complaints. Family History: Unchanged from Admission Social History: Unchanged from Admission Past Medical History: Unchanged from Admission Objective Active Medications: Aliskiren (Tekturna Tab*) 300 mg PO DAILY [facility] Last Admin: 05/28/18 08:55 Dose: 300 mg Amlodipine Besylate (Norvasc Tab*) 10 mg PO DAILY [facility] Last Admin: 05/28/18 08:55 Dose: 10 mg Aspirin (Aspirin Ec Tab*) 81 mg PO DAILY [facility] Last Admin: 05/28/18 08:56 Dose: 81 mg Atorvastatin Calcium (Lipitor*) 80 mg PO BEDTIME [facility] Last Admin: 05/27/18 21:41 Dose: 80 mg Benzonatate (Tessalon Cap*) 200 mg PO Q6H PRN PRN Reason: Breakthrough coughs Last Admin: 05/27/18 23:47 Dose: 200 mg Dextrose (D50w Syringe 50 Ml*) 12.5 gm IV PUSH .FOR FS < 60 - SS PRN PRN Reason: FS < 60 Fenofibrate (Tricor(Nf)) 145 mg PO DAILY [facility]; Protocol Last Admin: 05/28/18 08:55 Dose: 145 mg Gabapentin (Neurontin Cap(*)) 100 mg PO BID [facility] Last Admin: 05/28/18 08:55 Dose: 100 mg Guaifenesin/Dextromethorphan (Robitussin Dm Sugar Free*) 10 ml PO Q8H [facility] Stop: 05/29/18 23:44 Last Admin: 05/28/18 08:51 Dose: 5 ml Doxycycline Hyclate 100 mg/ (Sodium Chloride) 250 mls @ 250 mls/hr IVPB Q12H [facility] Last Admin: 05/27/18 23:24 Dose: 250 mls/hr Cefepime HCl 0.5 gm/ Sodium (Chloride) 50 mls @ 100 mls/hr IVPB Q24H [facility] Last Admin: 05/27/18 11:21 Dose: 100 mls/hr Insulin Glargine (Lantus(*)) 25 units SUBCUT BID [facility] Last Admin: 05/28/18 09:00 Dose: 25 units Insulin Human Lispro (Humalog*) 0 units SUBCUT ACHS [facility]; Protocol Last Admin: 05/28/18 13:53 Dose: Not Given Isosorbide Mononitrate (Imdur Er Tab*) 60 mg PO QAM [facility] Last Admin: 05/28/18 08:55 Dose: 60 mg Levalbuterol HCl (Xopenex 0.63mg/3ml Neb*) 0.31 mg INH Q2H PRN PRN Reason: DYSPNEA Loperamide HCl (Imodium Cap*) 2 mg PO .SEE DIRECTIONS PRN PRN Reason: DIARRHEA Last Admin: 05/27/18 23:47 Dose: 2 mg Metoprolol Succinate (Toprol Xl Tab*) 100 mg PO BID [facility] Last Admin: 05/28/18 08:55 Dose: 100 mg Nitroglycerin (Nitroglycerin Tab 0.4 Mg*) 0.4 mg SL Q5M PRN PRN Reason: PAIN - CHEST Pantoprazole Sodium (Protonix Tab (Nf)) 20 mg PO DAILY [facility] Last Admin: 05/28/18 08:38 Dose: Not Given Tamsulosin HCl (Flomax Cap*) 0.4 mg PO BEDTIME [facility] Last Admin: 05/27/18 21:41 Dose: 0.4 mg Vital Signs - 8 hr 05/28/18 05/28/18 05/28/18 08:00 08:55 08:56 Temperature 97.0 F Pulse Rate 64 Respiratory 18 18 18 Rate Blood Pressure 109/55 (mmHg) O2 Sat by Pulse 96 Oximetry 05/28/18 09:41 Temperature 98.3 F Pulse Rate 65 Respiratory 20 Rate Blood Pressure 117/56 (mmHg) O2 Sat by Pulse 99 Oximetry Oxygen Devices in Use Now: Nasal Cannula - 5 liters Appearance: Elderly gentleman lying in bed in NAD. Eyes: No Scleral Icterus Ears/Nose/Mouth/Throat: Mucous Membranes Moist Neck: Trachea Midline Respiratory: Symmetrical Chest Expansion and Respiratory Effort, - - BS+ bialterally coarse, decreased in right base Cardiovascular: RRR - Normal S1 and S2 Neurological: Alert and Oriented x 3, NL Muscle Strength and Tone Result Diagrams: 05/28/18 06:11 05/28/18 06:11 Assess/Plan/Problems-Billing Assessment: Mr Manriquez is a 77yo M with PMH of ESRD on HD, HTN, insulin dependent DM, TIA, PVD s/p CEA, COPD on home O2, CAD, PAULINA not on CPAP, PAF, LUE AV fistula, HLD, prior admission for C diff in 12/18, who presented to ED with c/o dysuria, found to be hypoxic. - Patient Problems (1) Acute on chronic respiratory failure with hypoxemia Comment: - Patient states dyspnea is unchanged, but cough is more frequent. - No signs of fluid overload or COPD exacerbation at this time. - Likely secondary to metastatic lung CA. - Continue supplemental O2. (2) Lung tumor Comment: - Patient has known right lung tumor followed by Dr Greer, aware of possiblity of cancer, but declined biopsy at [facility] in the past. 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 They understand this means advanced disease. - He's agreeable with liver biopsy for diagnosis and staging. Hold Apixaban in preparation for possible biopsy 05/29/18. (3) Interstitial lung disease Comment: - Patient has h/o both COPD and interstitial lung disease. - CxR shows significant interstitial infiltrate, but not different from before. - D/c Cefepime and doxycycline. - Continue bronchodilators. (4) Dysuria Comment: - Initial reason for ED visit - resolved. - UA was negative for UTI. (5) Elevated troponin Comment: - Chronic, likely associated with his ESRD. (6) Hypomagnesemia Comment: - Replete. (7) Type II diabetes mellitus Comment: - Hb A1c 6.0. - Continue Lantus and Lispro SS. (8) PAF (paroxysmal atrial fibrillation) Comment: - In NSR now. - Continue Metoprolol and hold Apixaban. (9) CAD (coronary artery disease) Comment: - Stable. - Continue Aspirin, Imdur, Metoprolol, statin. (10) HTN (hypertension) Comment: - Controlled. - Continue Aliskiren, Amlodipine, Metoprolol, Imdur. (11) ESRD (end stage renal disease) Comment: - Continue HD as scheduled. (12) DVT prophylaxis Comment: - Apixaban on hold. - SCDs. (13) Full code status Comment: - D/w patient and at bedside. He's very clear he wishes to be resuscitated at this point. Status and Disposition: Inpatient.
[2018-05-28] MEDS: DOXYcycline IV* 100 MG in NS 0.9% 250 ML* 250 ML IVPB SCH (15:28)
[2018-05-28] MEDS: Cefepime(*) 0.5 GM in NS 0.9% 50 ML* 50 ML IVPB SCH (15:29)
[2018-05-28] MEDS ORDERED: Magnesium Oxide TAB* 400 MG PO ONE (15:29)
[2018-05-28] MEDS ORDERED: Levalbuterol 1.25MG/0.5ML NEB INH PRN (18:29)
--- NOTE | 2018-05-28 20:58 | PN ---
Progress Note - Progress Note Date of Service: 05/28/18 Note: Low normal BG, switching lantus to QD from BID. Switching Lispro to AC from ACHS
[2018-05-28] MEDS ORDERED: Insulin GLARGINE(*) 1 UNITS UNIT SUBCUT SCH (21:00)
[2018-05-28] MEDS: Tamsulosin CAP* 0.4 MG PO SCH (21:14)
[2018-05-28] MEDS: Atorvastatin* 80 MG TAB PO SCH (21:14)
[2018-05-29] MEDS: GuaiFENesin DM sugar free* 5 ML UDC PO SCH ×3 (00:13→16:54)
[2018-05-29] MEDS: Albuterol/Ipratropium NEB.SOL* Albuterol 2.5 MG/Ipratropium 0.5 MG 3 ML INH SCH ×2 (01:25→07:48)
[2018-05-29 06:21] LABS: ABS Basophils 0 10^3/ul (0-0.2); ABS Eosinophils 0.3 10^3/ul (0-0.6); ABS Lymphocytes 1.3 10^3/ul (1.0-4.8); ABS Monocytes 0.4 10^3/ul (0-0.8); ABS Neutrophils 3.8 10^3/ul (1.5-7.7); ABS Nucleated RBC 0 10^3/ul; Hematocrit 31 % (42-52); Lymphocyte % 22.7 %; Mean Corpuscular HGB Conc 33 g/dl (31-36); Mean Corpuscular Hemoglobin 31 pg (27-31); Mean Corpuscular Volume 96 fL (80-94); Mean Platelet Volume 10.5 fL (7.4-10.4); Nucleated Red Blood Cells % 0.1; Platelet Count 116 10^3/ul (150-450); Red Blood Count 3.19 10^6/ul (4.00-5.40); Red Cell Distribution Width 15 % (10.5-15); White Blood Count 5.9 10^3/ul (3.5-10.8)
[2018-05-29 06:30] LABS: INR 1.1 (0.77-1.02)
[2018-05-29] MEDS: Insulin LISPRO* 1 UNITS UNIT SUBCUT SCH ×3 (07:35→17:10)
[2018-05-29] MEDS ORDERED: Albuterol/Ipratropium NEB.SOL* Albuterol 2.5 MG/Ipratropium 0.5 MG 3 ML INH PRN (07:51)
[2018-05-29] MEDS ORDERED: Insulin GLARGINE(*) 1 UNITS UNIT SUBCUT SCH (09:00)
[2018-05-29] MEDS ORDERED: fentaNYL* 50 MCG/ML 5 ML VIAL (250 MCG VIAL) ONE (10:17)
[2018-05-29] MEDS: Gabapentin CAP(*) 100 MG PO SCH ×2 (12:41→21:06)
[2018-05-29] MEDS: amLODIPine TAB* 5 MG PO SCH (12:42)
[2018-05-29] MEDS: Aspirin EC TAB* 81 MG TAB.EC PO SCH (12:42)
[2018-05-29] MEDS: Metoprolol Succinate XL TAB* 100 MG PO SCH ×2 (12:42→21:07)
[2018-05-29] MEDS: Isosorbide Mononitrate ER TAB* 60 MG PO SCH (12:42)
[2018-05-29] MEDS: PTO: Pantoprazole TAB (NF) 20 MG TAB PO SCH (12:43)
[2018-05-29] MEDS: CMCS: Fenofibrate(NF) 145 MG TAB PO SCH (12:45)
[2018-05-29] MEDS: Aliskiren TAB* 300 MG PO SCH (12:45)
--- NOTE | 2018-05-29 16:10 | PN ---
Subjective Date of Service: 05/29/18 Interval History: HOSPITALIST PROGRESS NOTE Patient seen and examined at bedside. Care reviewed and d/w Jay Rollins RN. He feels poorly, offers no new complaints. Family History: Unchanged from Admission Social History: Unchanged from Admission Past Medical History: Unchanged from Admission Objective Active Medications: Albuterol/Ipratropium (Duoneb (Albuterol 2.5 Mg/Ipratropium 0.5 Mg)) 1 neb INH Q4H PRN PRN Reason: SOB/WHEEZING Aliskiren (Tekturna Tab*) 300 mg PO DAILY [facility] Last Admin: 05/29/18 12:45 Dose: 300 mg Amlodipine Besylate (Norvasc Tab*) 10 mg PO DAILY [facility] Last Admin: 05/29/18 12:42 Dose: 10 mg Aspirin (Aspirin Ec Tab*) 81 mg PO DAILY [facility] Last Admin: 05/29/18 12:42 Dose: 81 mg Atorvastatin Calcium (Lipitor*) 80 mg PO BEDTIME [facility] Last Admin: 05/28/18 21:14 Dose: 80 mg Benzonatate (Tessalon Cap*) 200 mg PO Q6H PRN PRN Reason: Breakthrough coughs Last Admin: 05/27/18 23:47 Dose: 200 mg Dextrose (D50w Syringe 50 Ml*) 12.5 gm IV PUSH .FOR FS < 60 - SS PRN PRN Reason: FS < 60 Fenofibrate (Tricor(Nf)) 145 mg PO DAILY [facility]; Protocol Last Admin: 05/29/18 12:45 Dose: 145 mg Gabapentin (Neurontin Cap(*)) 100 mg PO BID [facility] Last Admin: 05/29/18 12:41 Dose: 100 mg Guaifenesin/Dextromethorphan (Robitussin Dm Sugar Free*) 10 ml PO Q8H [facility] Stop: 05/29/18 23:44 Last Admin: 05/29/18 12:44 Dose: 10 ml Insulin Human Lispro (Humalog*) 0 units SUBCUT AC [facility]; Protocol Last Admin: 05/29/18 12:16 Dose: Not Given Isosorbide Mononitrate (Imdur Er Tab*) 60 mg PO QAM [facility] Last Admin: 05/29/18 12:42 Dose: 60 mg Levalbuterol HCl (Xopenex 1.25 Mg/0.5 Ml Neb.Rosamaria*) 1.25 mg INH Q6H PRN PRN Reason: SOB/WHEEZING Loperamide HCl (Imodium Cap*) 2 mg PO .SEE DIRECTIONS PRN PRN Reason: DIARRHEA Last Admin: 05/27/18 23:47 Dose: 2 mg Metoprolol Succinate (Toprol Xl Tab*) 100 mg PO BID [facility] Last Admin: 05/29/18 12:42 Dose: 100 mg Nitroglycerin (Nitroglycerin Tab 0.4 Mg*) 0.4 mg SL Q5M PRN PRN Reason: PAIN - CHEST Pantoprazole Sodium (Protonix Tab (Nf)) 20 mg PO DAILY [facility] Last Admin: 05/29/18 12:43 Dose: Not Given Tamsulosin HCl (Flomax Cap*) 0.4 mg PO BEDTIME [facility] Last Admin: 05/28/18 21:14 Dose: 0.4 mg Vital Signs - 8 hr 05/29/18 05/29/18 05/29/18 11:42 11:47 11:52 Temperature 98.5 F 98.6 F 98.4 F Pulse Rate 65 70 64 Respiratory 24 22 18 Rate Blood Pressure 115/57 139/64 113/53 (mmHg) O2 Sat by Pulse 97 100 99 Oximetry 05/29/18 05/29/18 05/29/18 12:41 14:15 14:56 Temperature 98.5 F Pulse Rate 64 Respiratory 20 20 20 Rate Blood Pressure 105/46 (mmHg) O2 Sat by Pulse 98 Oximetry 05/29/18 15:16 Temperature 98.1 F Pulse Rate 69 Respiratory 18 Rate Blood Pressure 123/50 (mmHg) O2 Sat by Pulse 97 Oximetry Oxygen Devices in Use Now: OxyMask - 5 liters Appearance: Elderly gentleman lying in bed in NAD. Eyes: No Scleral Icterus Ears/Nose/Mouth/Throat: Mucous Membranes Moist Neck: Trachea Midline Respiratory: Symmetrical Chest Expansion and Respiratory Effort, - - BS+ bilaterally with fine crackles, diminished right base Cardiovascular: RRR - Normal S1 and S2 Neurological: Alert and Oriented x 3, NL Muscle Strength and Tone Result Diagrams: 05/29/18 06:05 05/28/18 06:11 Assess/Plan/Problems-Billing Assessment: Mr Manriquez is a 77yo M with PMH of ESRD on HD, HTN, insulin dependent DM, TIA, PVD s/p CEA, COPD on home O2, CAD, PAULINA not on CPAP, PAF, LUE AV fistula, HLD, prior admission for C diff in 12/18, who presented to ED with c/o dysuria, found to be hypoxic. - Patient Problems (1) Acute on chronic respiratory failure with hypoxemia Comment: - No signs of fluid overload or COPD exacerbation at this time. - Likely secondary to metastatic lung CA. - Continue supplemental O2. (2) Lung tumor Comment: - Patient has known right lung tumor followed by Dr Greer, aware of possiblity of cancer, but declined biopsy at [facility] in the past. 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 They understand this means advanced disease. - He's agreeable with liver biopsy for diagnosis and staging. Apixaban was held for biopsy performed 05/29/18. - Follow path. (3) Type II diabetes mellitus Comment: - Hb A1c 6.0. - Glucose on the lower side - will d/c Lantus for now and continue Lispro SS. (4) Interstitial lung disease Comment: - Patient has h/o both COPD and interstitial lung disease. - CxR shows significant interstitial infiltrate, but not different from before. - D/c Cefepime and doxycycline. - Continue bronchodilators. (5) Dysuria Comment: - Initial reason for ED visit - resolved. - UA was negative for UTI. (6) Elevated troponin Comment: - Chronic, likely associated with his ESRD. (7) Hypomagnesemia Comment: - Replete. (8) PAF (paroxysmal atrial fibrillation) Comment: - In NSR now. - Continue Metoprolol and hold Apixaban. (9) CAD (coronary artery disease) Comment: - Stable. - Continue Aspirin, Imdur, Metoprolol, statin. (10) HTN (hypertension) Comment: - Controlled. - Continue Aliskiren, Amlodipine, Metoprolol, Imdur. (11) ESRD (end stage renal disease) Comment: - Continue HD as scheduled. (12) DVT prophylaxis Comment: - Apixaban on hold. - SCDs. (13) Full code status Comment: - D/w patient and at bedside. He's very clear he wishes to be resuscitated at this point. Status and Disposition: Inpatient.
[2018-05-29] MEDS: Atorvastatin* 80 MG TAB PO SCH (21:07)
[2018-05-29] MEDS: Tamsulosin CAP* 0.4 MG PO SCH (21:07)
[2018-05-29] MEDS: Loperamide CAP* 2 MG PO PRN (21:17)
[2018-05-30] MEDS: Insulin LISPRO* 1 UNITS UNIT SUBCUT SCH ×3 (07:28→17:29)
[2018-05-30 07:31] LABS: ABS Basophils 0 10^3/ul (0-0.2); ABS Eosinophils 0.3 10^3/ul (0-0.6); ABS Lymphocytes 1.6 10^3/ul (1.0-4.8); ABS Monocytes 0.4 10^3/ul (0-0.8); ABS Neutrophils 3.3 10^3/ul (1.5-7.7); ABS Nucleated RBC 0 10^3/ul; Eosinophil % 5.5 %; Hematocrit 32 % (42-52); Hemoglobin 10.6 g/dl (14.0-18.0); Lymphocyte % 27.8 %; Mean Corpuscular HGB Conc 33 g/dl (31-36); Mean Corpuscular Hemoglobin 32 pg (27-31); Mean Corpuscular Volume 97 fL (80-94); Mean Platelet Volume 10.2 fL (7.4-10.4); Nucleated Red Blood Cells % 0.1; Platelet Count 115 10^3/ul (150-450); Red Blood Count 3.31 10^6/ul (4.00-5.40); Red Cell Distribution Width 15 % (10.5-15); White Blood Count 5.7 10^3/ul (3.5-10.8)
[2018-05-30 08:11] LABS: EGFR Non-African American 11.7 (>60)
[2018-05-30] MEDS: Metoprolol Succinate XL TAB* 100 MG PO SCH ×2 (08:47→21:35)
[2018-05-30] MEDS: PTO: Pantoprazole TAB (NF) 20 MG TAB PO SCH (08:47)
[2018-05-30] MEDS: CMCS: Fenofibrate(NF) 145 MG TAB PO SCH (08:47)
[2018-05-30] MEDS: Aliskiren TAB* 300 MG PO SCH (08:47)
[2018-05-30] MEDS: Isosorbide Mononitrate ER TAB* 60 MG PO SCH (08:48)
[2018-05-30] MEDS: amLODIPine TAB* 5 MG PO SCH (08:48)
[2018-05-30] MEDS: Aspirin EC TAB* 81 MG TAB.EC PO SCH (08:48)
[2018-05-30] MEDS: Gabapentin CAP(*) 100 MG PO SCH ×2 (08:48→21:36)
--- NOTE | 2018-05-30 16:30 | PN ---
Subjective Date of Service: 05/30/18 Interval History: Patient resting on bed with at bedside. Patient had dialysis today. Patient reports mild shortness of breath which he states is not new. Patient wanting discharge soon. 12 point review of symptoms completed and all other negative except above mentioned. Family History: Unchanged from Admission Social History: Unchanged from Admission Past Medical History: Unchanged from Admission Objective Active Medications: Albuterol/Ipratropium (Duoneb (Albuterol 2.5 Mg/Ipratropium 0.5 Mg)) 1 neb INH Q4H PRN PRN Reason: SOB/WHEEZING Aliskiren (Tekturna Tab*) 300 mg PO DAILY [facility] Last Admin: 05/30/18 08:47 Dose: 300 mg Amlodipine Besylate (Norvasc Tab*) 10 mg PO DAILY [facility] Last Admin: 05/30/18 08:48 Dose: 10 mg Apixaban (Eliquis*) 2.5 mg PO BID [facility] Aspirin (Aspirin Ec Tab*) 81 mg PO DAILY [facility] Last Admin: 05/30/18 08:48 Dose: 81 mg Atorvastatin Calcium (Lipitor*) 80 mg PO BEDTIME [facility] Last Admin: 05/29/18 21:07 Dose: 80 mg Benzonatate (Tessalon Cap*) 200 mg PO Q6H PRN PRN Reason: Breakthrough coughs Last Admin: 05/27/18 23:47 Dose: 200 mg Dextrose (D50w Syringe 50 Ml*) 12.5 gm IV PUSH .FOR FS < 60 - SS PRN PRN Reason: FS < 60 Fenofibrate (Tricor(Nf)) 145 mg PO DAILY [facility]; Protocol Last Admin: 05/30/18 08:47 Dose: 145 mg Gabapentin (Neurontin Cap(*)) 100 mg PO BID [facility] Last Admin: 05/30/18 08:48 Dose: 100 mg Insulin Human Lispro (Humalog*) 0 units SUBCUT AC [facility]; Protocol Last Admin: 05/30/18 13:50 Dose: Not Given Isosorbide Mononitrate (Imdur Er Tab*) 60 mg PO QAM [facility] Last Admin: 05/30/18 08:48 Dose: 60 mg Levalbuterol HCl (Xopenex 1.25 Mg/0.5 Ml Neb.Rosamaria*) 1.25 mg INH Q6H PRN PRN Reason: SOB/WHEEZING Loperamide HCl (Imodium Cap*) 2 mg PO .SEE DIRECTIONS PRN PRN Reason: DIARRHEA Last Admin: 05/29/18 21:17 Dose: 2 mg Metoprolol Succinate (Toprol Xl Tab*) 100 mg PO BID [facility] Last Admin: 05/30/18 08:47 Dose: 100 mg Nitroglycerin (Nitroglycerin Tab 0.4 Mg*) 0.4 mg SL Q5M PRN PRN Reason: PAIN - CHEST Pantoprazole Sodium (Protonix Tab (Nf)) 20 mg PO DAILY [facility] Last Admin: 05/30/18 08:47 Dose: 20 mg Tamsulosin HCl (Flomax Cap*) 0.4 mg PO BEDTIME [facility] Last Admin: 05/29/18 21:07 Dose: 0.4 mg Vital Signs - 8 hr 05/30/18 05/30/18 05/30/18 08:48 14:36 15:50 Temperature 97.6 F 98.1 F Pulse Rate 66 63 Respiratory 20 16 Rate Blood Pressure 104/47 110/56 (mmHg) O2 Sat by Pulse 100 98 Oximetry Oxygen Devices in Use Now: OxyMask Appearance: Appears chronicall ill, NAD Eyes: No Scleral Icterus Ears/Nose/Mouth/Throat: Mucous Membranes Moist Neck: NL Appearance and Movements; NL JVP Respiratory: Symmetrical Chest Expansion and Respiratory Effort, - - Scant crackles in right lower lobe. Remainder clear Cardiovascular: NL Sounds; No Murmurs; No JVD, RRR, No Edema Abdominal: NL Sounds; No Tenderness; No Distention Extremities: No Edema Skin: No Rash or Ulcers Neurological: Alert and Oriented x 3 Nutrition: Taking PO's Result Diagrams: 05/30/18 07:22 05/30/18 07:22 Additional Lab and Data: Laboratory Results - last 24 hr 05/29/18 05/29/18 05/30/18 16:23 20:50 07:22 WBC 5.7 RBC 3.31 L Hgb 10.6 L Hct 32 L MCV 97 H MCH 32 H MCHC 33 RDW 15 Plt Count 115 L MPV 10.2 Neut % (Auto) 58.4 Lymph % (Auto) 27.8 Nobles % (Auto) 7.6 Eos % (Auto) 5.5 Baso % (Auto) 0.7 Absolute Neuts (auto) 3.3 Absolute Lymphs (auto) 1.6 Absolute Monos (auto) 0.4 Absolute Eos (auto) 0.3 Absolute Basos (auto) 0 Absolute Nucleated RBC 0 Nucleated RBC % 0.1 Sodium Potassium Chloride Carbon Dioxide Anion Gap BUN Creatinine Est GFR ( Amer) Est GFR (Non-Af Amer) BUN/Creatinine Ratio Glucose POC Glucose (mg/dL) 115 H 113 H Calcium Magnesium 05/30/18 05/30/18 05/30/18 07:22 07:25 16:12 WBC RBC Hgb Hct MCV MCH MCHC RDW Plt Count MPV Neut % (Auto) Lymph % (Auto) Nobles % (Auto) Eos % (Auto) Baso % (Auto) Absolute Neuts (auto) Absolute Lymphs (auto) Absolute Monos (auto) Absolute Eos (auto) Absolute Basos (auto) Absolute Nucleated RBC Nucleated RBC % Sodium 136 Potassium 4.7 Chloride 101 Carbon Dioxide 27 Anion Gap 8 BUN 55 H Creatinine 4.84 H Est GFR ( Amer) 14.2 Est GFR (Non-Af Amer) 11.7 BUN/Creatinine Ratio 11.4 Glucose 78 POC Glucose (mg/dL) 85 151 H Calcium 8.2 L Magnesium 1.9 Microbiology and Other Data: Microbiology 05/26/18 10:15 Gram Stain - Final Sputum 05/25/18 21:55 Legionella Urinary Antigen - Final Urine Negative Legionella Antigen EKG Data: as per reading by cardio Assess/Plan/Problems-Billing Assessment: Mr Manriquez is a 77yo M with PMH of ESRD on HD, HTN, insulin dependent DM, TIA, PVD s/p CEA, COPD on home O2, CAD, PAULINA not on CPAP, PAF, LUE AV fistula, HLD, prior admission for C diff in 12/18, who presented to ED with c/o dysuria, found to be hypoxic. - Patient Problems (1) Acute on chronic respiratory failure with hypoxemia Comment: - No signs of fluid overload or COPD exacerbation at this time. - Likely secondary to metastatic lung CA. - Continue supplemental O2. (2) Lung tumor Comment: - Patient has known right lung tumor followed by Dr Greer, aware of possiblity of cancer, but declined biopsy at [facility] in the past. 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 They understand this means advanced disease. - Apixaban was held for biopsy performed 05/29/18. Discussed with radiology and Apixaban restarted today as it has been 24 hr since biopsy and it is a low risk for bleeding procedure. - Dressing from biopsy CDI - Follow path. (3) Dysuria Comment: - Initial reason for ED visit - resolved. - UA was negative for UTI. (4) ESRD (end stage renal disease) Comment: - Continue HD as scheduled. - Had HD today 05/30 (5) PAF (paroxysmal atrial fibrillation) Comment: - In NSR now. - Continue Metoprolol and restart Apixaban. (6) Elevated troponin Comment: - Chronic, likely associated with his ESRD. (7) Full code status Comment: - Full Code (8) HTN (hypertension) Comment: - Controlled. - Continue Aliskiren, Amlodipine, Metoprolol, Imdur. (9) Hypomagnesemia Comment: - Replete. - 1.9 today. - Will reassess tomorrow. (10) Interstitial lung disease Comment: - Patient has h/o both COPD and interstitial lung disease. - CxR shows significant interstitial infiltrate, but not different from before. - D/c Cefepime and doxycycline. - Continue bronchodilators. (11) Type II diabetes mellitus Comment: - Hb A1c 6.0. - Glucose on the lower side - will d/c Lantus for now and continue Lispro SS. - Patient has not qualified for insulin AC often. - It should be noted he also has refused FS and insulin x1. (12) CAD (coronary artery disease) Comment: - Stable. - Continue Aspirin, Imdur, Metoprolol, statin. (13) DVT prophylaxis Comment: - Apixaban restarted today. - SCDs. Status and Disposition: Inpatient. Attending: Laurence Jin
[2018-05-30] MEDS: Atorvastatin* 80 MG TAB PO SCH (21:35)
[2018-05-30] MEDS: Apixaban* 2.5 MG TAB PO SCH (21:36)
[2018-05-30] MEDS: Tamsulosin CAP* 0.4 MG PO SCH (21:36)
[2018-05-31 07:13] LABS: ABS Basophils 0 10^3/ul (0-0.2); ABS Eosinophils 0.3 10^3/ul (0-0.6); ABS Lymphocytes 1.5 10^3/ul (1.0-4.8); ABS Monocytes 0.5 10^3/ul (0-0.8); ABS Neutrophils 3.3 10^3/ul (1.5-7.7); ABS Nucleated RBC 0 10^3/ul; Eosinophil % 4.8 %; Hematocrit 33 % (42-52); Hemoglobin 10.6 g/dl (14.0-18.0); Lymphocyte % 27.4 %; Mean Corpuscular HGB Conc 33 g/dl (31-36); Mean Corpuscular Hemoglobin 31 pg (27-31); Mean Corpuscular Volume 96 fL (80-94); Mean Platelet Volume 10.6 fL (7.4-10.4); Nucleated Red Blood Cells % 0.1; Platelet Count 116 10^3/ul (150-450); Red Cell Distribution Width 15 % (10.5-15); White Blood Count 5.6 10^3/ul (3.5-10.8)
[2018-05-31 07:29] LABS: EGFR Non-African American 11.4 (>60)
[2018-05-31] MEDS: Insulin LISPRO* 1 UNITS UNIT SUBCUT SCH ×2 (08:31→12:06)
[2018-05-31] MEDS: amLODIPine TAB* 5 MG PO SCH (10:01)
[2018-05-31] MEDS: Aliskiren TAB* 300 MG PO SCH (10:01)
[2018-05-31] MEDS: Aspirin EC TAB* 81 MG TAB.EC PO SCH (10:01)
[2018-05-31] MEDS: Isosorbide Mononitrate ER TAB* 60 MG PO SCH (10:01)
[2018-05-31] MEDS: Metoprolol Succinate XL TAB* 100 MG PO SCH (10:01)
[2018-05-31] MEDS: Gabapentin CAP(*) 100 MG PO SCH (10:01)
[2018-05-31] MEDS: PTO: Pantoprazole TAB (NF) 20 MG TAB PO SCH (10:02)
[2018-05-31] MEDS: CMCS: Fenofibrate(NF) 145 MG TAB PO SCH (10:02)
[2018-05-31] MEDS: Apixaban* 2.5 MG TAB PO SCH (10:02)
[2018-05-31 16:23] VITALS: BP 119/48
--- NOTE | 2018-06-01 05:50 | DS ---
CC: Dr. Franky Merino; Dr. Worrell; Dr. Rodriguez * DISCHARGE SUMMARY: DATE OF ADMISSION: 05/26/18 DATE OF DISCHARGE: 05/31/18 PRIMARY CARE PROVIDER: Dr. Franky Merino. ATTENDING PHYSICIAN: Dr. Laurence Jin * (dictated by Dana Rushing NP) PRIMARY DIAGNOSES: 1. 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 2. Acute on chronic respiratory failure with hypoxemia. SECONDARY DIAGNOSES: 1. Type 2 diabetes. 2. Interstitial lung disease. 3. Dysuria. 4. Elevated troponin. 5. Hypomagnesemia. 6. Paroxysmal atrial fibrillation. 7. Coronary artery disease. 8. Hypertension. 9. End-stage renal disease. CONSULTATIONS WHILE IN THE HOSPITAL: Dr. Worrell. PROCEDURES WHILE IN THE HOSPITAL: Lives biopsy. STUDIES WHILE IN THE HOSPITAL: CTA chest. Impression: No pulmonary embolus is noted. Aorta demonstrates no aortic dissection. Cardiomegaly is noted. Cavitary lesion in the right lower lobe appears to be increasing in size, now measuring 4.0 cm, suspicious for neoplastic process. Multiple low-density lesions in the liver and spleen suspicious for metastatic disease. DISCHARGE MEDICATIONS: New home medications: No new home medications. Continued home medications: 1. Eliquis 2.5 mg p.o. b.i.d. 2. Norvasc 10 mg p.o. daily. 3. Vitamin E 1000 units p.o. daily. 4. Torsemide 40 mg p.o. daily. 5. Flomax 0.4 mg p.o. at bedtime. 6. Pantoprazole 20 mg p.o. daily. 7. Nitroglycerin tab 0.4 mg sublingual q.5 minutes p.r.n. 8. Toprol-XL 100 mg p.o. b.i.d. 9. Imdur ER tab 60 mg p.o. q.a.m. 10. Gabapentin 100 mg p.o. b.i.d. 11. Fenofibrate 145 mg p.o. daily. 12. Lipitor 80 mg p.o. at bedtime. 13. Aspirin 81 mg p.o. daily. 14. Tekturna 300 mg p.o. daily. Changed home medications: Insulin Lantus has been changed from 25 units subcu b.i.d. to 10 units subcu at bedtime due to occasional hypoglycemia while hospitalized. Discontinued home medications: Insulin lispro with meals. Insulin with meals has been discontinued until further reevaluation with primary care provider due to recurrent hypoglycemia while hospitalized. HISTORY OF PRESENT ILLNESS/HOSPITAL COURSE: Mr. Manriquez is a 77-year-old male with a past medical history of ESRD, on hemodialysis; hypertension; insulin- dependent diabetes; TIA; PVD, status post CEA; COPD, on home O2; CAD; PAULINA, not on CPAP; hyperlipidemia, who presents to the ED with complaints of dysuria and was found to be hypoxic. While in the hospital, the patient had a CTA of the chest as mentioned above with findings of lung mass, liver masses. The patient underwent a biopsy of the liver which resulted in metastatic squamous cell carcinoma of pulmonary origin. Dr. Worrell was notified and will see the patient outpatient on 06/04/18, at 4 p.m. The patient and were updated of pathology results and stated understanding. It should be noted that the patient had no signs of fluid overload or COPD exacerbation at this time. He was temporarily placed on cefepime and doxy, which were discontinued as this was not an infectious process and his acute on chronic respiratory failure was likely secondary to metastatic lung disease. It should be noted that even though the patient presented with dysuria as his initial reason for ER visit, this has resolved. In addition, his UA was negative for UTI. Also, the patient's apixaban was on hold for 24 hours due to planned liver biopsy and was restarted after procedure. Mr. Manriquez is stable for discharge to home. Vital Signs: As follows, temp 99.2, heart rate 62, respirations 16, O2 saturation 98% on 5 L, and BP 119/48. LABORATORY DATA: WBC 5.6, hemoglobin 10.6, hematocrit 33, platelets 116. Sodium 137, potassium 4.9, chloride 99, carbon dioxide 30, BUN 50, creatinine 4.96, and glucose 121. REVIEW OF SYSTEMS: A 12-point review of systems was completed, all were negative. PHYSICAL EXAMINATION: General: The patient appears chronically ill, in no acute distress. Eyes: No scleral icterus. Ears/Nose/Mouth/Throat: Mucous membranes are moist. Neck: Supple. Respiratory: Symmetrical chest expansion and respiratory effort. Scant crackles in right base. Remainder of the lung exam is clear with good aeration. Cardiovascular: Regular rate and rhythm. Normal S1 and S2. Neurological: The patient is alert and oriented x3. Normal muscle tone. Abdomen: Abdomen is soft, large, nontender. Bowel sounds x4. There is a dressing on the right side from liver biopsy that is clean, dry, and intact. Skin: The patient has peripheral vascular disease in bilateral lower extremities which are discolored. No change from baseline. DISCHARGE PLAN/FOLLOWUP: 1. Metastatic lung disease: Assessment: The patient is breathing with ease. O2 sat is within normal limits on 5 L OxyMask. The patient wears 4 to 5 L at home at baseline due to lung disease. I believe the patient is a mouth breather and therefore is benefiting from OxyMask, which he will be sent home with. His , who is a nurse, monitors his O2 and can resume nasal cannula if the patient tolerates. Plan: The patient has followup with Dr. Worrell on 06/04/18, at 4 p.m. 2. Acute on chronic respiratory failure: Assessment: As mentioned above. Plan: Continue supplemental oxygen. 3. Type 2 diabetes: Assessment: Hemoglobin A1c is 6.1. The patient had occasional hypoglycemia while hospitalized with the lowest being 80. The patient's insulin was scaled back while in the hospital and he will be discharged on a reduced dose of Lantus 10 units at bedtime. No lispro ordered at discharge. He can follow up with his primary care regarding adjustments as needed. I have encouraged the patient to take fingersticks while at home and bring them to his primary care provider. 4. Interstitial lung disease: The patient has both chronic obstructive pulmonary disease and interstitial lung disease and now lung CA. The patient should continue following with Dr. Greer, Pulmonology, and followup with Dr. Worrell. 5. Dysuria: This has resolved. 6. Paroxysmal atrial fibrillation: In normal sinus rhythm now. Continue metoprolol and apixaban. 7. Coronary artery disease: Stable. Continue aspirin, Imdur, metoprolol, statin. 8. Hypertension: The patient is currently normotensive. Continue Aliskiren, amlodipine, metoprolol, Imdur. 9. End-stage renal disease: Continue hemodialysis as scheduled. This is a summarized report of a complex medical history and hospital stay. For further details, please the entire medical record. I reviewed this discharge plan with my attending, Dr. Laurence Jin, and she agrees with my plan. TIME SPENT: Approximately 45 minutes was spent on this discharge, greater than half that time was spent [id number] with the patient discussing discharge plans and instructions. DANA RUSHING, LOPEZ [id number]/CPS #: [id number] GUILLERMINA
== END 2018-05-31 17:29 | disposition home or self-care (01) | DRG 180 ==
LOC: ED 18:14 → MEDTELE 22:07
PROVIDERS: ADMIT Internal Medicine; ATTEND Internal Medicine
PROC: 5A1D70Z Performance of Urinary Filtration, Intermittent, Less than 6 Hours Per Day (ICD-10-PCS; principal; 2018-05-28)
PROC: 0FB13ZX Excision of Right Lobe Liver, Percutaneous Approach, Diagnostic (ICD-10-PCS; 2018-05-29)
PROC: 5A1D70Z Performance of Urinary Filtration, Intermittent, Less than 6 Hours Per Day (ICD-10-PCS; 2018-05-30)
DX: C34.90 Malignant neoplasm of unspecified part of unspecified bronchus or lung (principal); J96.21 Acute and chronic respiratory failure with hypoxia; N18.6 End stage renal disease; I12.0 Hypertensive chronic kidney disease with stage 5 chronic kidney disease or end stage renal disease; J84.9 Interstitial pulmonary disease, unspecified; C78.7 Secondary malignant neoplasm of liver and intrahepatic bile duct; C78.89 Secondary malignant neoplasm of other digestive organs; E11.22 Type 2 diabetes mellitus with diabetic chronic kidney disease; Z99.2 Dependence on renal dialysis; E66.01 Morbid (severe) obesity due to excess calories; Z68.39 Body mass index [BMI] 39.0-39.9, adult; I25.10 Atherosclerotic heart disease of native coronary artery without angina pectoris; I25.2 Old myocardial infarction; Z95.5 Presence of coronary angioplasty implant and graft; G47.33 Obstructive sleep apnea (adult) (pediatric); Z91.19 Patient's noncompliance with other medical treatment and regimen; J44.9 Chronic obstructive pulmonary disease, unspecified; Z86.73 Personal history of transient ischemic attack (TIA), and cerebral infarction without residual deficits; Z87.891 Personal history of nicotine dependence; Z83.3 Family history of diabetes mellitus; Z99.81 Dependence on supplemental oxygen; Z91.048 Other nonmedicinal substance allergy status; E11.51 Type 2 diabetes mellitus with diabetic peripheral angiopathy without gangrene; K21.9 Gastro-esophageal reflux disease without esophagitis; Z86.711 Personal history of pulmonary embolism; Z98.42 Cataract extraction status, left eye; Z98.41 Cataract extraction status, right eye; M19.90 Unspecified osteoarthritis, unspecified site; Z96.651 Presence of right artificial knee joint; Z82.49 Family history of ischemic heart disease and other diseases of the circulatory system; I48.0 Paroxysmal atrial fibrillation; R30.0 Dysuria; E83.42 Hypomagnesemia; R74.8 Abnormal levels of other serum enzymes; Z79.01 Long term (current) use of anticoagulants; Z79.82 Long term (current) use of aspirin; Z79.4 Long term (current) use of insulin; E11.649 Type 2 diabetes mellitus with hypoglycemia without coma
CPT/HCPCS: 36415; 47000; 71045; 71046; 71275; 76705; 77012; 80048; 80053; 80061; 81003; 81015; 81445; 82803; 83036; 83605; 83735; 83880; 84100; 84484; 85025; 85060; 85610; 85730; 87040; 87205; 87899; 88172; 88173; 88305; 88341; 88342; 88360; 93005; 94640; 99285; A9270-GY; J0692; J0885; J1644; J1940; J2543; J2930; J3010; Q9967